=== PATIENT | female | born 1955 | race Caucasian/White ===

== ENCOUNTER → 2017-12-08 11:26 | Outpatient (CLI) | payer OTHER, SELFPAY ==
--- NOTE | 2017-12-08 11:32 | RAD_ITS ---
STUDY: X-RAY - PELVIS AND BILATERAL HIPS REASON FOR EXAM: Female, 62 years old. Bilateral hip pain. TECHNIQUE: Radiological exam, hip, bilateral, with pelvis when performed; minimum of 5 views COMPARISON: None. FINDINGS: There is a non-specific bowel gas pattern. There are multiple calcified phleboliths. Normal bilateral iliac wings, sacroiliac joints and visualized sacrum. Normal bilateral superior and inferior pubic rami. Normal pubic symphysis. Normal bilateral ischial tuberosities. Normal visualized right femoral head. Normal right acetabulum. Normal right hip joint. Normal visualized left femoral head. Normal left acetabulum. Normal left hip joint. RAD/Hips B/L min 2 views w/ Pelvis IMPRESSION: Normal x-ray examination of the pelvis and bilateral hips. Electronically Signed: Luke Hernandez MD at 13:35 EST Tel [phone], Service support ,
--- NOTE | 2017-12-08 11:32 | RAD_ITS ---
STUDY: X-RAY - LUMBAR SPINE REASON FOR EXAM: Female, 62 years old. Bilateral hip pain. TECHNIQUE: view(s) of the lumbar spine were obtained. COMPARISON: None FINDINGS: Normal lumbar lordosis. There is no substantial scoliosis. Minimal anterior listhesis of L4 on L5. No evidence of spondylolysis. Normal vertebral bodies and endplates. Moderate degree of disc space narrowing at the L4-L5 level. Facet joint osteoarthritis. The soft tissue structures are unremarkable. RAD/L/S Spine Min 4 Views IMPRESSION: Minimal anterior listhesis of L4 on L5 without spondylolysis most likely secondary to facet joint osteoarthritis. Electronically Signed: Luke Hernandez MD at 13:37 EST Tel [phone], Service support ,
[2017-12-08 14:18] LABS: Anion Gap 8 (5-15); BUN 10 mg/dL (7-18); BUN/Creat Ratio 16.8 RATIO (10-20); Calcium,Total 9.1 mg/dL (8.5-10.1); Chloride 102 mmol/L (98-107); EST Glomerular Filtration Rate 108 mL/min (>60); Est Glom Filt Rate - Afr Amer 130 mL/min (>60); Glucose 80 mg/dL (74-106); Potassium 3.2 mmol/L (3.5-5.1); Sodium Level 139 mmol/L (136-145)
== END ==
PROVIDERS: Family Provider Family Medicine; PCP Family Medicine; Visit Provider Family Medicine
DX: M25.551 Pain in right hip (principal); M25.552 Pain in left hip; E11.9 Type 2 diabetes mellitus without complications
CPT/HCPCS: 36415; 72110; 73521; 80048

== ENCOUNTER → 2017-12-16 09:43 | Outpatient (CLI) | payer OTHER, SELFPAY ==
[2017-12-16 12:39] LABS: BUN 13 mg/dL (7-18); Creatinine, Serum 0.59 mg/dL (0.55-1.02); Glucose 86 mg/dL (74-106)
[2017-12-16 12:40] LABS: Anion Gap 6 (5-15); Calcium,Total 8.9 mg/dL (8.5-10.1); Chloride 102 mmol/L (98-107); EST Glomerular Filtration Rate 109 mL/min (>60); Est Glom Filt Rate - Afr Amer 132 mL/min (>60); Potassium 3.5 mmol/L (3.5-5.1); Sodium Level 138 mmol/L (136-145)
== END ==
PROVIDERS: Family Provider Family Medicine; PCP Family Medicine; Visit Provider Family Medicine
DX: E87.6 Hypokalemia (principal)
CPT/HCPCS: 36415; 80048

== ENCOUNTER → 2019-03-01 | Outpatient (CLI) | payer MEDICARE, SELFPAY ==
[2019-03-01 18:09] LABS: Hematocrit 44.1 % (37-47); Hemoglobin 14.5 g/dl (12.0-15.0); Mean Corp Hgb Conc 32.9 g/gl (32-36); Mean Corpuscular Hgb 28.9 pg (27.0-32.0); Mean Platelet Vol. 9.6 fl (6.2-12.0); Platelet Count 330 K/mm3 (150-450); RBC Distribution Width CV 15.3 % (11.6-14.6); RBC Distribution Width SD 49.6 fl (35.1-43.9); Red Blood Count 5.01 M/mm3 (4.2-5.4); White Blood Count 9.9 K/mm3 (4.4-11.0)
[2019-03-01 18:11] LABS: Scan Indicated on CBC? Y/N NO
[2019-03-01 18:23] LABS: Erythrocyte Sedimentation Rate 18 mm/hr (0-30)
[2019-03-01 18:37] LABS: ALB/GLOB Ratio 1.2 RATIO (0.9-2.4); AST(SGOT) 17 U/L (15-37); Alanine Aminotransfer ALT/SGPT 34 U/L (13-56); Albumin, Serum 3.8 g/dL (3.2-5.0); Alkaline Phosphatase 129 U/L (45-117); Anion Gap 6 (5-15); BUN 13 mg/dL (7-18); BUN/Creat Ratio 20.2 RATIO (10-20); Calcium,Total 8.9 mg/dL (8.5-10.1); Chloride 104 mmol/L (98-107); Creatinine, Serum 0.64 mg/dL (0.55-1.02); EST Glomerular Filtration Rate 98 mL/min (>60); Est Glom Filt Rate - Afr Amer 119 mL/min (>60); Globulin 3.2 g/dL (2.2-4.2); Glucose 65 mg/dL (74-106); Iron 66 ug/dL (50-170); Potassium 3.5 mmol/L (3.5-5.1); Sodium Level 140 mmol/L (136-145); Thyroid Stim Hormone (TSH) 2.65 uIU/mL (0.358-3.74)
[2019-03-01 18:55] LABS: Vitamin B12 756 pg/mL (211-911); Vitamin D,25 Hydroxy 18.4 ng/mL (29.95-100.01)
== END | disposition home or self-care (01) ==
PROVIDERS: Family Provider Family Medicine; PCP Family Medicine; Referring Provider Family Medicine; Visit Provider Family Medicine
DX: R53.83 Other fatigue (principal)
CPT/HCPCS: 36415; 80053; 82306; 82607; 83540; 84443; 85027; 85652

== ENCOUNTER → 2019-03-13 | Outpatient (CLI) | payer MEDICARE, OTHER, SELFPAY ==
--- NOTE | 2019-03-13 08:40 | US_ITS ---
PROCEDURES: ULTRASOUND AORTA REASON FOR EXAM: Female, 63 years old. AAA SCREENING CURRENT SMOKER TECHNIQUE: Ultrasound evaluation of the aorta was performed with real-time and static merino-scale imaging. COMPARISON: None. FINDINGS: There is no elongation or tortuosity of the abdominal aorta. Aorta measures: Proximal 2.3 cm. Middle 1.7 cm. Distal 1.5 cm. Aorta measure transversely: Proximal 2.3 cm. Middle 2.0 cm. Distal 1.8 cm. Right iliac artery measures: 0.8 cm. Right iliac artery measure transversely: 1.1 cm. Left iliac artery measures: 1.0 cm. Left iliac artery measure transversely: 1.0 cm. There is no demonstrated aneurysm.. US/Aorta IMPRESSION: Normal abdominal aorta. Electronically Signed: Nelson Matias MD at 17:17 EDT , Service support ,
== END | disposition home or self-care (01) ==
LOC: US 08:38
PROVIDERS: Family Provider Family Medicine; PCP Family Medicine; Referring Provider Family Medicine; Visit Provider Family Medicine
DX: I10 Essential (primary) hypertension (principal); Z13.6 Encounter for screening for cardiovascular disorders
CPT/HCPCS: 76775

== ENCOUNTER → 2019-03-16 | Outpatient (CLI) | payer MEDICARE, OTHER, SELFPAY ==
--- NOTE | 2019-03-16 06:40 | CT_ITS ---
STUDY: LOW DOSE CT LUNG CANCER SCREENING REASON FOR EXAM: Female, 63 years old. Low dose lung screening. Tobacco abuse. 44 years, 1.5 pack per day RADIATION DOSAGE (If Supplied By Facility): CTDIvol = ( 4.02 ) mGy, DLP = ( 130.39 ) mGycm Individualized dose optimization techniques were used for this CT. TECHNIQUE: No contrast was administered. Low dose technique was utilized (average mAS-38 and kVp 120). Thin slice transaxial CT imaging of the chest. Coronal and sagittal 2-D MPR Nodule measured using lung windows on PACS and/or independent workstation with automated measurement of minimum and maximum diameter. Nodule measurement reported as average diameter rounded to the nearest whole number. Growth is defined as an increase ins size of greater than 1.5 mm. COMPARISON: X-ray chest 04/08/2014. FINDINGS: Total lung nodules (excluding granulomas): There are multiple small scattered pulmonary nodules. The largest pulmonary nodule lies within the right lung, axial series 2 image 73, 5 mm. More prominent in the apical lungs, there are several scattered foci of tiny minimally spiculated nodule suggesting sequela prior infectious process. Emphysema: Generalized hyperlucency, mild features of centrilobular emphysema at the apices. Endobronchial lesion: None. Aorta: Nondilated. Coronary arteries: There are no visible coronary calcifications. Heart: No cardiomegaly. Slender pericardial fluid is likely physiologic. Pulmonary artery: Nondilated. Mediastinal nodes: Normal esophagus. No apparent lymphadenopathy. A few small metastatic lymph nodes are present. Not pathologically enlarged. Other chest and abdominal findings: There is evidence of hepatic steatosis with hepatomegaly. Body wall soft tissues and osseous structures exhibit no acute process. CT/Low Dose CT Lung Screening IMPRESSION: There are scattered small solid pulmonary nodules the largest measuring 5 mm. There are multiple tiny spiculated nodular foci predominantly in the apical lungs suggesting sequela/scarring from prior infection. The largest of these also measures about 5 mm. Features of COPD with mild features of centrilobular emphysema the apices. There is evidence of hepatic steatosis with hepatomegaly. ACR lung RADS category 2, benign features. Recommendation, continue annual low-dose CT chest screening in 1 year. IMPORTANT NOTES FOR USE: ACR Lung-RADS Version 1.0 Assessment Categories Release Date: February 18, 2014 Category: Coded 0-4 bases on nodule(s) with highest degree of suspicion. Negative screen is defined as categories 1 and 2; a positive screen is defined as categories 3 and 4. Category 3 and 4A nodules that are unchanged on interval CT should be coded as category 2, and individuals returned to screening in 12 months. Category 4X: Category 3 or 4 nodules with additional imaging findings that increase the suspicion of lung cancer, such as spiculation, GGN that doubles in size in 1 year, enlarged lymph notes, etc. Category Modifiers: S (significant finding unrelated to lung cancer) and C (prior history of treated lung cancer) may be added to the 0-4 Lung-RADS Electronically Signed: Jigar Villalta MD at 17:01 EDT Tel , Service support ,
== END | disposition home or self-care (01) ==
LOC: CT 06:36
PROVIDERS: Family Provider Family Medicine; PCP Family Medicine; Referring Provider Family Medicine; Visit Provider Family Medicine
DX: Z87.891 Personal history of nicotine dependence (principal)
CPT/HCPCS: G0297

== ENCOUNTER → 2019-04-03 | Outpatient (CLI) | payer MEDICARE, OTHER, SELFPAY | END | disposition home or self-care (01) | LOC: LABSPEC 14:00 | PROVIDERS: Family Provider Family Medicine; PCP Family Medicine; Referring Provider Family Medicine; Visit Provider Family Medicine | DX: R19.7 Diarrhea, unspecified (principal) | CPT/HCPCS: 82274; 83630; 87177; 87209; 87493 ==

== ENCOUNTER → 2019-08-17 11:51 | Outpatient (CLI) | payer MEDICARE, OTHER, SELFPAY ==
--- NOTE | 2019-08-17 11:56 | RAD_ITS ---
STUDY: X-RAY - UNILATERAL RIBS ( LEFT ) WITH CHEST REASON FOR EXAM: Female, 63 years old. Left-sided rib pain after carrying groceries. TECHNIQUE - RIBS: 4 view(s) of the ribs. TECHNIQUE - CHEST: Single AP portable view of the chest. COMPARISON: None. FINDINGS - RIBS: Normal visualized ribs without a demonstrated fracture. FINDINGS - CHEST: The lungs are clear and slightly underexpanded. There is no demonstrated pleural abnormality. Normal size heart. Normal mediastinum and janes. Normal visualized pulmonary arteries. There is atherosclerotic calcification of the aortic arch with tortuosity. There are diffuse degenerative changes of the visualized thoracic spine. There is degenerative osteoarthritis of the bilateral shoulders. There is no demonstrated abnormality of the visualized soft tissue structures of the upper abdomen. RAD/Ribs Uni Min 3V w/PA Chest IMPRESSION: RIBS: Unremarkable x-ray examination of the ribs with no distinct fracture. CHEST: No acute cardiopulmonary disease. Electronically Signed: Samira Fletcher MD at 0:44 EDT , Service support ,
== END ==
PROVIDERS: Family Provider Family Medicine; PCP Family Medicine; Referring Provider Family Medicine; Visit Provider Family Medicine
DX: R07.81 Pleurodynia (principal)
CPT/HCPCS: 71101

== ENCOUNTER → 2019-09-04 09:34 | Outpatient (CLI) | payer MEDICARE, OTHER, SELFPAY ==
[2019-09-04 13:20] LABS: AST(SGOT) 17 U/L (15-37); Alanine Aminotransfer ALT/SGPT 35 U/L (13-56); Albumin, Serum 3.7 g/dL (3.2-5.0); Alkaline Phosphatase 116 U/L (45-117); Anion Gap 8 (5-15); BUN 18 mg/dL (7-18); BUN/Creat Ratio 20.9 RATIO (10-20); Calcium,Total 9.1 mg/dL (8.5-10.1); Chloride 104 mmol/L (98-107); Cholesterol 153 mg/dL (200); Creatinine, Serum 0.86 mg/dL (0.55-1.02); EST Glomerular Filtration Rate 70 mL/min (>60); Est Glom Filt Rate - Afr Amer 85 mL/min (>60); Globulin 3.7 g/dL (2.2-4.2); Glucose 113 mg/dL (74-106); High Density Lipoprotein 73 mg/dL; Potassium 4.4 mmol/L (3.5-5.1); Protein, Total 7.4 g/dL (6.4-8.2); Sodium Level 136 mmol/L (136-145); Thyroid Stim Hormone (TSH) 3.49 uIU/mL (0.358-3.74); Triglycerides 123 mg/dL; Very Low Density Lipoprotein 25 mg/dL (5-40)
== END ==
PROVIDERS: Family Provider Family Medicine; PCP Family Medicine; Referring Provider Family Medicine; Visit Provider Family Medicine
DX: E11.9 Type 2 diabetes mellitus without complications (principal)
CPT/HCPCS: 36415; 80053; 80061; 84443

== ENCOUNTER → 2020-03-20 10:21 | Outpatient (CLI) | payer MEDICARE, OTHER, SELFPAY ==
--- NOTE | 2020-03-20 10:24 | BI_ITS ---
MAMMOGRAPHY - BILATERAL SCREENING REASON FOR EXAM: Female, 64 years old. Routine annual screening examination. PERTINENT HISTORY: Non-contributory. TECHNIQUE: Digital bilateral breast kady (3D mammographic acquisition) in the CC and MLO projections. 2-D mediolateral oblique (MLO) and craniocaudad (CC) views of both breasts were obtained. CAD: Full Field Digital Mammography with Computer Added Detection was performed. COMPARISON: Comparison is made with prior examination dated December 01, 2016 and September 26, 2014. FINDINGS: Breast Composition: There are scattered areas of fibroglandular density. There are no dominant masses or suspicious calcifications. Stable benign-appearing bilateral axillary lymph nodes. No other significant abnormalities are identified. There has been no significant change since the prior study. BI/SCREEN MAMM (CAD) W/KADY BILAT IMPRESSION: Stable bilateral screening mammogram. Yearly follow-up mammogram recommended. (A) ASSESSMENT CATEGORY: BIRADS Category 2: Benign. A letter regarding these results will be sent to the patient by the facility within 30 days. Approximately 10% of breast cancers are not detected by mammography. A normal mammogram should not delay biopsy of a clinically suspicious abnormality. [id number] Electronically Signed: Luke Hernandez, at 12:50 EDT , Service support ,
== END ==
PROVIDERS: PCP Family Medicine; Referring Provider Family Medicine; Visit Provider Family Medicine
DX: Z00.00 Encounter for general adult medical examination without abnormal findings (principal); Z12.31 Encounter for screening mammogram for malignant neoplasm of breast
CPT/HCPCS: 77063; 77067

== ENCOUNTER → 2020-07-25 13:33 | Outpatient (CLI) | payer MEDICARE, OTHER, SELFPAY ==
--- NOTE | 2020-07-25 13:37 | CT_ITS ---
STUDY: LOW DOSE CT LUNG CANCER SCREENING REASON FOR EXAM: Female, 64 years old. LUNG SCREENING, SMOKER X 47 YRS-2 PPD, ASTHMA RADIATION DOSAGE (If Supplied By Facility): CTDIvol = ( 4.02 ) mGy, DLP = ( 119.33 ) mGycm TECHNIQUE: No contrast was administered. Low dose technique was utilized (average mAS-38 and kVp 120). 1.25 mm axial source images with a slice interval of 1.25-mm were reconstructed in lung windows. 2.5 mm axial source images with a slice interval of 2.5-mm were reconstructed in lung windows. 5.0 mm axial source images with a slice interval of 5.0-mm were reconstructed in soft tissue windows. Nodule measured using lung windows on PACS and/or independent workstation with automated measurement of minimum and maximum diameter. Nodule measurement reported as average diameter rounded to the nearest whole number. Growth is defined as an increase ins size of greater than 1.5 mm. COMPARISON: Comparison is made with prior examination dated 03/16/2019. NODULES: There are stable small multiple pulmonary nodules. The largest measures 5 mm. Emphysema: Diffuse emphysematous changes more prominent in the upper lobes. Endobronchial lesion: None Aorta: Unremarkable Coronary arteries: Coronary artery calcification. Heart: Unremarkable. Pulmonary artery: Nondilated Mediastinal nodes: Small mediastinal lymph nodes. Other chest and abdominal findings: CT/Low Dose CT Lung Screening IMPRESSION: Lung-RADS category 2 - Continue annual screening with LDCT in 12 months. IMPORTANT NOTES FOR USE: ACR Lung-RADS Version 1.0 Assessment Categories Release Date: February 18, 2014 Category: Coded 0-4 bases on nodule(s) with highest degree of suspicion. Negative screen is defined as categories 1 and 2; a positive screen is defined as categories 3 and 4. Category 3 and 4A nodules that are unchanged on interval CT should be coded as category 2, and individuals returned to screening in 12 months. Category 4X: Category 3 or 4 nodules with additional imaging findings that increase the suspicion of lung cancer, such as spiculation, GGN that doubles in size in 1 year, enlarged lymph notes, etc. Category Modifiers: S (significant finding unrelated to lung cancer) and C (prior history of treated lung cancer) may be added to the 0-4 Lung-RADS Electronically Signed: Luke Hernandez, at 14:13 EDT , Service support ,
== END ==
PROVIDERS: PCP Family Medicine; Referring Provider Internal Medicine Pulmonary Disease; Visit Provider Internal Medicine Pulmonary Disease
DX: Z87.891 Personal history of nicotine dependence (principal)
CPT/HCPCS: G0297

== ENCOUNTER → 2020-09-02 10:23 | Outpatient (CLI) | payer MEDICARE, OTHER, SELFPAY ==
[2020-09-02 12:46] LABS: Vitamin B12 1887 pg/mL (211-911); Vitamin D,25 Hydroxy 33.1 ng/mL
[2020-09-02 12:47] LABS: ALB/GLOB Ratio 0.9 RATIO (0.9-2.4); AST(SGOT) 18 U/L (15-37); Alanine Aminotransfer ALT/SGPT 36 U/L (13-56); Albumin, Serum 3.6 g/dL (3.2-5.0); Alkaline Phosphatase 135 U/L (45-117); Anion Gap 6 (5-15); BUN 9 mg/dL (7-18); BUN/Creat Ratio 13.8 RATIO (10-20); Calcium,Total 8.8 mg/dL (8.5-10.1); Chloride 104 mmol/L (98-107); Creatinine, Serum 0.65 mg/dL (0.55-1.02); EST Glomerular Filtration Rate 96 mL/min (>60); Est Glom Filt Rate - Afr Amer 117 mL/min (>60); Globulin 3.9 g/dL (2.2-4.2); Glucose 145 mg/dL (74-106); Potassium 3.6 mmol/L (3.5-5.1); Protein, Total 7.5 g/dL (6.4-8.2); Sodium Level 137 mmol/L (136-145); Thyroid Stim Hormone (TSH) 2.98 uIU/mL (0.358-3.74)
== END ==
PROVIDERS: PCP Family Medicine; Referring Provider Family Medicine; Visit Provider Family Medicine
DX: E11.9 Type 2 diabetes mellitus without complications (principal); E53.8 Deficiency of other specified B group vitamins; E55.9 Vitamin D deficiency, unspecified
CPT/HCPCS: 36415; 80053; 82306; 82607; 84443

== ENCOUNTER → 2021-03-31 14:37 | Outpatient (CLI) | payer MEDICARE, SELFPAY ==
--- NOTE | 2021-03-31 14:41 | RAD_ITS ---
STUDY: X-RAY - RIGHT FOOT CLINICAL: Female, 65 years old. PAIN TECHNIQUE: 3 view(s) of the foot. COMPARISON: None. FINDINGS: Normal talus, calcaneus, and tarsal bones. Normal visualized subtalar, talonavicular, calcaneocuboid, tarsal and tarsometatarsal articulations. Normal metatarsi. Normal metatarsophalangeal joint of the great toe. Normal tibial and fibular sesamoid bones. Normal interphalangeal joint of the great toe. Normal phalanges of the great toe. Normal second through fifth metatarsophalangeal joints. Normal interphalangeal joints and phalanges of the lesser toes. The soft tissue structures are unremarkable. RAD/Foot min 3 Views IMPRESSION: Normal x-ray examination of the foot. Electronically Signed: Zaid Kenyon MD at 15:03 EDT , Service support ,
== END ==
LOC: MTLAB 14:39 → MTRAD 14:43
PROVIDERS: PCP Family Medicine; Referring Provider Family Medicine; Visit Provider Family Medicine
DX: M79.671 Pain in right foot (principal)
CPT/HCPCS: 73630

== ENCOUNTER → 2021-04-01 09:20 | Outpatient (CLI) | payer MEDICARE, SELFPAY ==
[2021-04-01 12:41] LABS: Anion Gap 6 (5-15); BUN 9 mg/dL (7-18); BUN/Creat Ratio 14.1 RATIO (10-20); Calcium,Total 9.1 mg/dL (8.5-10.1); Chloride 107 mmol/L (98-107); Cholesterol 133 mg/dL (200); Creatinine, Serum 0.64 mg/dL (0.55-1.02); EST Glomerular Filtration Rate 98 mL/min (>60); Est Glom Filt Rate - Afr Amer 119 mL/min (>60); Glucose 101 mg/dL (74-106); High Density Lipoprotein 65 mg/dL; Potassium 3.8 mmol/L (3.5-5.1); Sodium Level 142 mmol/L (136-145); Triglycerides 83 mg/dL; Very Low Density Lipoprotein 17 mg/dL (5-40)
== END ==
PROVIDERS: PCP Family Medicine; Referring Provider Family Medicine; Visit Provider Family Medicine
DX: E11.9 Type 2 diabetes mellitus without complications (principal)
CPT/HCPCS: 36415; 80048; 80061

== ENCOUNTER → 2021-04-14 10:57 | Outpatient (CLI) | payer MEDICARE, SELFPAY ==
--- NOTE | 2021-04-14 11:00 | BI_ITS ---
MAMMOGRAPHY - BILATERAL SCREENING 3-D TOMOSYNTHESIS REASON FOR EXAM: Female, 65 years old. SCREENING PERTINENT HISTORY: No significant family history. TECHNIQUE: 2-D mammograms and 3-D Tomosynthesis of the breast (s) were performed. CAD was performed. COMPARISON: 03/20/2020 FINDINGS: The breast composition is of scattered fibroglandular tissue Scattered benign calcifications are seen. No dense spiculated masses or suspicious microcalcifications are identified. No architectural distortion is identified. There is no skin thickening or retraction. There has been no significant change since the prior study of 03/20/2020. BI/SCREENING MAMM (CAD), BILAT IMPRESSION: No mammographic signs of malignancy. Routine yearly mammograms recommended. ASSESSMENT CATEGORY: BIRADS Category 1: Negative. A letter regarding these results will be sent to the patient by the facility within 30 days. FOLLOW UP RECOMMENDATION: Yearly follow up mammogram recommended. (A) Approximately 10% of breast cancers are not detected by mammography. A normal mammogram should not delay biopsy of a clinically suspicious abnormality. Electronically Signed: Marylou Villeda, at 13:51 EDT Tel , Service support ,
== END ==
PROVIDERS: PCP Family Medicine; Referring Provider Nurse Practitioner Family; Visit Provider Nurse Practitioner Family
DX: Z12.31 Encounter for screening mammogram for malignant neoplasm of breast (principal)
CPT/HCPCS: 77067

== ENCOUNTER → 2022-03-30 | Outpatient (CLI) | payer MEDICARE, SELFPAY ==
--- NOTE | 2022-03-30 07:20 | CT_ITS ---
STUDY: LOW DOSE CT LUNG CANCER SCREENING REASON FOR EXAM: Female, 66 years old. TOBACCO USE. Patient smoked 3 packs per day for 49 years. RADIATION DOSAGE (If Supplied By Facility): CTDIvol = ( 4.02 ) mGy, DLP = ( 121.34 ) mGycm TECHNIQUE: No contrast was administered. Low dose technique was utilized (average mAS-38 and kVp 120). 1.25 mm axial source images with a slice interval of 1.25-mm were reconstructed in lung windows. 2.5 mm axial source images with a slice interval of 2.5-mm were reconstructed in lung windows. 5.0 mm axial source images with a slice interval of 5.0-mm were reconstructed in soft tissue windows. COMPARISON: Comparison is made with prior study dated 07/25/2020. NODULES: Stable small scattered bilateral pulmonary nodules. Emphysema: Hyperinflation. Emphysematous changes. Stable linear scarring at the lung bases. Endobronchial lesion: None Aorta: Unremarkable CORONARY ARTERIES: Coronary artery calcification is seen. Heart: Unremarkable. Pulmonary artery: Unremarkable Mediastinal nodes: Small mediastinal lymph nodes. Other chest and abdominal findings: CT/Low Dose CT Lung Screening IMPRESSION: Lung-RADS category 2 - Continue annual screening with LDCT in 12 months. IMPORTANT NOTES FOR USE: ACR Lung-RADS Version 1.1 Assessment Categories Release Date: 2018 Category: Coded 0-4 bases on nodule(s) with highest degree of suspicion. Negative screen is defined as categories 1 and 2; a positive screen is defined as categories 3 and 4. Category 3 and 4A nodules that are unchanged on interval CT should be coded as category 2, and individuals returned to screening in 12 months. Category 4X: Category 3 or 4 nodules with additional imaging findings that increase the suspicion of lung cancer, such as spiculation, GGN that doubles in size in 1 year, enlarged lymph notes, etc. Category Modifiers: S (significant finding unrelated to lung cancer) Electronically Signed: Luke Hernandez MD at 9:43 EDT ,
== END | disposition home or self-care (01) ==
PROVIDERS: PCP Family Medicine; Referring Provider Family Medicine; Visit Provider Family Medicine
DX: F17.210 Nicotine dependence, cigarettes, uncomplicated (principal)
CPT/HCPCS: 71271

== ENCOUNTER → 2022-04-20 | Outpatient (CLI) | payer MEDICARE, SELFPAY ==
--- NOTE | 2022-04-20 10:28 | BI_ITS ---
MAMMOGRAPHY - BILATERAL SCREENING REASON FOR EXAM: Female, 66 years old. Routine annual screening examination. PERTINENT HISTORY: Non-contributory. TECHNIQUE: Digital bilateral breast kady (3D mammographic acquisition) in the CC and MLO projections. 2-D mediolateral oblique (MLO) and craniocaudad (CC) views of both breasts were obtained. CAD: Full Field Digital Mammography with Computer Added Detection was performed. COMPARISON: Comparison is made with prior study dated 04/14/2021 and 03/20/2020. FINDINGS: Breast Composition: There are scattered areas of fibroglandular density. There are no dominant masses or suspicious calcifications. Stable benign-appearing bilateral axillary. No other significant abnormalities are identified. There has been no significant change since the prior study. BI/SCRN MAMM (CAD)W/KADY BILAT IMPRESSION: Stable bilateral screening mammogram. Yearly follow-up mammogram recommended. (A) ASSESSMENT CATEGORY: BIRADS Category 2: Benign. A letter regarding these results will be sent to the patient by the facility within 30 days. Approximately 10% of breast cancers are not detected by mammography. A normal mammogram should not delay biopsy of a clinically suspicious abnormality. [id number] Electronically Signed: Luke Hernandez MD at 11:51 EDT ,
--- NOTE | 2022-04-20 10:31 | BD_ITS ---
STUDY: DUAL ENERGY X-RAY ABSORPTIOMETRY / DXA REASON FOR EXAM: Female, 66 years old. [id number]. The patient is postmenopausal. TECHNIQUE: Bone Mineral Density (BMD) measurements of lumbar spine and bilateral hips were obtained. COMPARISON: Comparison is made with prior study dated 09/06/2013. FINDINGS: Lumbar Spine (L1-L4): g/cm2 (0.863) / T-score (-2.2) / Z-score (0.0) Findings are suggestive of osteopenia with a high fracture risk. Left Femur Total: g/cm2 (0.872) / T-score (-0.6) / Z-score (0.8) Left Femoral Neck: g/cm2 (0.595) / T-score (-2.3) / Z-score (-0.6) Right Femur Total: g/cm2 (0.841) / T-score (-0.8) / Z-score (0.6) Right Femoral Neck: g/cm2 (0.646) / T-score (-1.8) / Z-score (-0.1) The T-Scores on the most recent prior examination were: Lumbar Spine (L1-L4): There has been worsening of bone density since the previous examination. Left Femur Total: which represents an improvement of 0.4%. Right Femur Total: which represents a worsening of 6.7%. BD/Dexa Bone Density Study IMPRESSION: The patient is considered osteopenic as outlined below according to World [employer] Organization (WHO) criteria with a high fracture risk. There has been worsening of bone density since the previous examination. Reference Information: The T-score is the number of standard deviations above or below the standard which is normal for young adults at their peak bone mineral density. The World Health Organization (WHO) interprets the T-scores as follows: Above -1 Normal bone density Between -1 and -2.5 Osteopenia Equal to / or below -2.5 Osteoporosis As a practical clinical guideline, osteopenia may be graded as follows: Mild -1 through -1.5 Moderate -1.6 through -2.0 Severe -2.1 through -2.4 The Z-score is the number of standard deviations above or below age-matched controls. A Z-score of less than -1.5 would be considered abnormal. References: 1. NIH Osteoporosis and Related Bone Diseases www osteo.org 2. International Society for Clinical Densitometry www iscd.org 3. National Osteoporosis Foundation www nof.org Electronically Signed: Luke Hernandez MD at 10:03 EDT ,
== END | disposition home or self-care (01) ==
LOC: OPBD 10:26
PROVIDERS: PCP Family Medicine; Visit Provider Family Medicine
DX: Z00.00 Encounter for general adult medical examination without abnormal findings (principal); Z12.31 Encounter for screening mammogram for malignant neoplasm of breast; Z78.0 Asymptomatic menopausal state
CPT/HCPCS: 77063; 77067; 77080

== ENCOUNTER → 2022-05-14 | Outpatient (CLI) | payer MEDICARE, SELFPAY ==
[2022-05-14 10:14] LABS: Absolute Lymphocyte Count 2.58 X10^3/uL (0.83-4.51); Absolute Neutrophil Count 9.3 X10^3/uL (2.0-7.7); Basophil# 0.05 X10^3/uL; Basophil% 0.4 % (0-1); Eosinophil# 0.09 X10^3/uL; Eosinophils% 0.7 % (0-5); Hematocrit 44.9 % (37-47); Hemoglobin 14.7 g/dL (12.0-15.0); Lymphocyte # 2.58 X10^3/ul (0.83-4.51); Lymphocyte % 20.1 % (19-41); Mean Corp Hgb Conc 32.7 g/dL (32-36); Mean Corpuscular Hgb 29.9 pg (27.0-32.0); Mean Corpuscular Volume 91.4 fL (81-99); Mean Platelet Vol. 9.3 fl (6.2-12.0); Monocyte% 5.5 % (0-10); NRBC Flagged by Analyzer 0 % (0-5); Neutrophil # 9.32 X10^3/uL (2.7-7.7); Neutrophil % 72.8 % (47-70); Platelet Count 310 K/mm3 (150-450); RBC Distribution Width CV 13.8 % (11.6-14.6); RBC Distribution Width SD 46.4 fl (35.1-43.9); Red Blood Count 4.91 M/mm3 (4.2-5.4); White Blood Count 12.8 K/mm3 (4.4-11.0)
[2022-05-14 10:43] LABS: Erythrocyte Sedimentation Rate 12 mm/hr (0-30)
[2022-05-14 10:51] LABS: AST(SGOT) 16 U/L (15-37); Alanine Aminotransfer ALT/SGPT 35 U/L (13-56); Albumin, Serum 3.7 g/dL (3.2-5.0); Alkaline Phosphatase 108 U/L (45-117); Anion Gap 6 (5-15); BUN 14 mg/dL (7-18); BUN/Creat Ratio 18.4 RATIO (10-20); CRP 5.64 mg/L (0.0-3.0); Calcium,Total 9.5 mg/dL (8.5-10.1); Chloride 106 mmol/L (98-107); Creatinine, Serum 0.76 mg/dL (0.55-1.02); EST Glomerular Filtration Rate 80 mL/min (>60); Est Glom Filt Rate - Afr Amer 97 mL/min (>60); Globulin 3.7 g/dL (2.2-4.2); Glucose 153 mg/dL (74-106); LDH 149 U/L (84-246); Potassium 3.3 mmol/L (3.5-5.1); Protein, Total 7.4 g/dL (6.4-8.2); Sodium Level 137 mmol/L (136-145)
[2022-05-15 17:07] LABS: Anti-Centromere B Ab <0.2 AI (0.0-0.9); Anti-Chromatin <0.2 AI (0.0-0.9); Anti-Jo <0.2 AI (0.0-0.9); Anti-Scleroderma-70 AB <0.2 AI (0.0-0.9); RNP Ab <0.2 AI (0.0-0.9); SJOGREN'S Anti-SS-A test < 0.2 AI (0.0-0.9); SJOGREN'S Anti-SS-B test < 0.2 AI (0.0-0.9); Smith Ab <0.2 AI (0.0-0.9)
[2022-05-16 08:27] LABS: Anti-dsDNA Ab <1 IU/mL (0-9)
[2022-05-17 13:07] LABS: Endomysial Antibody IgA Negative (Negative)
[2022-05-17 16:08] LABS: Immunoglobulin A 177 mg/dL (87-352); t-Transglutaminase IgA <2 U/mL (0-3)
[2022-05-19 19:06] LABS: Albumin 3.6 g/dL (2.9-4.4); Alpha-1-Globulins 0.3 g/dL (0.0-0.4); Alpha-2-Globulins 0.8 g/dL (0.4-1.0); Cytoplasmic Ab (C-ANCA) <1:20 titer (Neg:<1:20); Immunoglobulin A 179 mg/dL (87-352); Immunoglobulin E 338 IU/mL (6-495); Immunoglobulin G 895 mg/dL (586-1602); Immunoglobulin M 50 mg/dL (26-217); PROEL- TOTAL PROTEIN 6.9 g/dL (6.0-8.5)
[2022-05-19 20:02] LABS: IMMUNOFIXATION RESULT,S Comment: (.); Perinuclear Ab (P-ANCA) <1:20 titer (Neg:<1:20)
== END | disposition home or self-care (01) ==
LOC: LAB 09:17
PROVIDERS: PCP Family Medicine; Referring Provider Nurse Practitioner Adult Health; Visit Provider Nurse Practitioner Adult Health
DX: K52.9 Noninfective gastroenteritis and colitis, unspecified (principal)
CPT/HCPCS: 36415; 80053; 82784; 82785; 83516; 83615; 84165; 85025; 85652; 86140; 86225; 86235; 86255; 86256; 86334

== ENCOUNTER → 2022-06-02 | Outpatient (CLI) | payer MEDICARE, SELFPAY ==
[2022-06-06 20:17] LABS: Calprotectin, Stool <16 ug/g (0-120)
== END | disposition home or self-care (01) ==
PROVIDERS: PCP Family Medicine; Visit Provider Nurse Practitioner Adult Health
DX: K58.9 Irritable bowel syndrome, unspecified (principal); R19.7 Diarrhea, unspecified
CPT/HCPCS: 82653; 83630; 83993; 87177; 87209; 87493; 87506

== ENCOUNTER → 2022-06-11 | Outpatient (CLI) | payer MEDICARE, SELFPAY ==
--- NOTE | 2022-06-11 06:06 | CT_ITS ---
STUDY: CT ABDOMEN AND PELVIS WITH CONTRAST REASON FOR EXAM: Female, 66 years old. Lower abd pain, chronic diarrhea -- oral and iv RADIATION DOSAGE (If Supplied By Facility): CTDIvol = ( 18.70 ) mGy, DLP = ( 1159.48 ) mGycm TECHNIQUE: Transaxial images were obtained from the dome of the diaphragm to the symphysis pubis with oral contrast. Oral and amp; IV Gastrografin and amp; 100mL Isovue-300 was administered. Sagittal and coronal images were reconstructed. Individualized dose optimization techniques were used for this CT. COMPARISON: None. FINDINGS: Mild degree of linear scarring at the lung bases. Coronary artery calcification. Minimal degree of anterior pericardial thickening. There is decreased attenuation of the liver consistent with steatosis. Mild hepatomegaly. The patient is status post cholecystectomy. Normal spleen. Normal pancreas. Normal bilateral adrenal glands. Normal right kidney. There is a 1.2 cm cyst in the upper pole of the left kidney. There is a small hiatal hernia. Normal small intestine. There are multiple colonic diverticula consistent with diverticulosis. The appendix is visualized and appears normal. There is scattered atherosclerotic calcification of the abdominal aorta, without a demonstrated aneurysm. Normal inferior vena cava. There is borderline retroperitoneal lymphadenopathy with enlarged nodes no greater than 10mm in the short axis diameter. Normal urinary bladder. There is a small umbilical hernia containing fat. The patient is status post anterior ventral hernia repair with a mesh. The inferior aspect of the mesh is folded upon itself. Within the mesh there is a 4.2 cm x 1.4 cm fluid collection. There are degenerative changes of the visualized lumbar spine. CT/Abdomen/Pelvis WITH Contrast IMPRESSION: Mild hepatomegaly and fatty infiltration of the liver. Small left renal cyst. Status post anterior ventral hernia repair with residual small umbilical hernia. The inferior aspect of the mesh is folded upon itself with fluid collection within. Sigmoid diverticulosis. Electronically Signed: Luke Hernandez MD at 9:45 EDT ,
== END | disposition home or self-care (01) ==
PROVIDERS: PCP Family Medicine; Referring Provider Nurse Practitioner Adult Health; Visit Provider Nurse Practitioner Adult Health
DX: R10.30 Lower abdominal pain, unspecified (principal)
CPT/HCPCS: 74177; Q9967

== ENCOUNTER → 2022-06-21 | Outpatient (CLI) | payer MEDICARE, SELFPAY ==
--- NOTE | 2022-06-21 09:13 | RAD_ITS ---
STUDY: X-RAY - ABDOMEN/PELVIS REASON FOR EXAM: Female, 66 years old. Bright red blood per rectum. TECHNIQUE: AP supine and upright views of the abdomen and pelvis on 6 images. COMPARISON: None. FINDINGS: Normal visualized lung bases. There is an unremarkable bowel gas pattern with air seen to the rectum. There is no demonstrated free abdominal air. The visualized liver, spleen and kidneys are grossly normal in size and morphology. Normal soft tissue structures. Normal visualized osseous structures. RAD/Abd Inc Decub and/or Erect IMPRESSION: No acute abnormality of the lower chest, abdomen or pelvis. Electronically Signed: Rene Burr, at 9:53 EDT ,
[2022-06-21 12:07] LABS: Absolute Neutrophil Count 6.8 X10^3/uL (2.0-7.7); Basophil# 0.03 X10^3/uL; Basophil% 0.3 % (0-1); Eosinophil# 0.16 X10^3/uL; Eosinophils% 1.5 % (0-5); Hematocrit 41.8 % (37-47); Hemoglobin 13.3 g/dL (12.0-15.0); Lymphocyte % 27.5 % (19-41); Mean Corp Hgb Conc 31.8 g/dL (32-36); Mean Corpuscular Hgb 30.1 pg (27.0-32.0); Mean Corpuscular Volume 94.6 fL (81-99); Mean Platelet Vol. 9.5 fl (6.2-12.0); Monocyte# 0.62 X10^3/uL; Monocyte% 5.9 % (0-10); NRBC Flagged by Analyzer 0 % (0-5); Neutrophil # 6.76 X10^3/uL (2.7-7.7); Neutrophil % 64.2 % (47-70); Platelet Count 270 K/mm3 (150-450); RBC Distribution Width CV 14.4 % (11.6-14.6); RBC Distribution Width SD 50.1 fl (35.1-43.9); Red Blood Count 4.42 M/mm3 (4.2-5.4); White Blood Count 10.5 K/mm3 (4.4-11.0)
[2022-06-21 12:22] LABS: ALB/GLOB Ratio 0.9 RATIO (0.9-2.4); AST(SGOT) 13 U/L (15-37); Alanine Aminotransfer ALT/SGPT 31 U/L (13-56); Albumin, Serum 3.3 g/dL (3.2-5.0); Alkaline Phosphatase 93 U/L (45-117); Anion Gap 7 (5-15); BUN 7 mg/dL (7-18); BUN/Creat Ratio 10.1 RATIO (10-20); Calcium,Total 8.6 mg/dL (8.5-10.1); Chloride 110 mmol/L (98-107); Creatinine, Serum 0.69 mg/dL (0.55-1.02); EST Glomerular Filtration Rate 89 mL/min (>60); Est Glom Filt Rate - Afr Amer 108 mL/min (>60); Globulin 3.5 g/dL (2.2-4.2); Glucose 123 mg/dL (74-106); Potassium 3.6 mmol/L (3.5-5.1); Protein, Total 6.8 g/dL (6.4-8.2); Sodium Level 143 mmol/L (136-145)
== END | disposition home or self-care (01) ==
PROVIDERS: PCP Family Medicine; Referring Provider Family Medicine; Visit Provider Family Medicine
DX: K62.5 Hemorrhage of anus and rectum (principal)
CPT/HCPCS: 36415; 74019; 80053; 85025

== ENCOUNTER → 2022-07-08 | Outpatient (CLI) | payer MEDICARE, SELFPAY ==
--- NOTE | 2022-07-08 08:25 | RAD_ITS ---
STUDY: X-RAY - ESOPHAGUS (BARIUM SWALLOW) WITH FLUOROSCOPY REASON FOR EXAM: Female, 66 years old. DYSPNEA TECHNIQUE: 16 view(s) of the esophagus were obtained following swallowing of barium. FLUOROSCOPY TIME (if supplied): (36 seconds) minutes/seconds COMPARISON: None. FINDINGS: There is no demonstrated esophageal foreign body. There is no demonstrated stricture or mucosal abnormality. Normal gastroesophageal junction, without a demonstrated hiatal hernia. Mild narrowing at the gastroesophageal junction. The ingested 12 mm tablet that barium is trapped at the gastroesophageal junction. There is atherosclerotic tortuosity of the aortic arch and descending thoracic aorta. Normal visualized pulmonary parenchyma. Normal visualized osseous structures of the thorax. RAD/Esophagus Single Contrast IMPRESSION: Mild narrowing at the gastroesophageal junction with trapping of the 12 mm tablet of barium. Correlation with endoscopy is recommended. Electronically Signed: Luke Hernandez MD at 13:14 EDT ,
== END | disposition home or self-care (01) ==
LOC: RAD 08:24
PROVIDERS: PCP Family Medicine; Referring Provider Family Medicine; Visit Provider Family Medicine
DX: R10.13 Epigastric pain (principal)
CPT/HCPCS: 74220

== ENCOUNTER 2022-07-29 09:57 | Day surgery (SDC) | payer MEDICARE, SELFPAY ==
--- NOTE | 2022-07-29 | GASB_PTH ---
PATIENT: WONG PERRY LOC: EN U#:[id number] AGE/SX: 66/F ROOM: RE07/29/[address]: Dr. Doug Alvarez DO : 1955 BED: DIS: 07/29/2022 SPEC #: [id number] RECD: 07/29/22 15:04 STATUS: VANDANA CARIN #: [id number] RAFA: 07/29/22 00:[address]: Doug Alvarez DEPT: SURGICAL PATHOLOGY RECD BY: Dominick Mccrary ENTERED: 07/30/22 10:39 SP TYPE: Gastric Bx JORDAN DR: Dr. David Carroll MD Tissues: A - Gastric mucous membrane B - Esophageal mucous membrane C - Ileum, NOS Procedures: Surgery Specimen Level IV HEADER OPERATION: Colonoscopy, EGD, biopsies, gold probe cautery (MAC) PRE-OP DIAGNOSIS: Chronic diarrhea TISSUE SUBMITTED: A ? Gastric body biopsy, B ? Esophagus biopsy, C ? Terminal ileum biopsy MICROSCOPIC DIAGNOSIS A. Gastric body, biopsy: Chronic gastritis. See comment. B. Esophagus, biopsy: No pathologic change. C. Terminal ileum, biopsy: No pathologic change. AM:yash 08/02/2022 COMMENT A. The results of immunohistochemistry for Helicobacter pylori will be reported separately ([id number]). MICROSCOPIC DESCRIPTION Slides are reviewed. GROSS DESCRIPTION A - Received in fixative is one container labeled with the patient's name and designated gastric body biopsy. The specimen consists of one irregular fragment of light glass soft tissue that measures 0.5 x 0.3 x 0.1 cm. The specimen is totally submitted in one cassette. B - Received in fixative is one container labeled with the patient's name and designated esophagus biopsy. The specimen consists of two irregular fragments of light glass soft tissue that in aggregate measure 0.6 x 0.3 x 0.1 cm. The specimen is totally submitted in one cassette. C - Received in fixative is one container labeled with the patient's name and designated terminal ileum. The specimen consists of multiple irregular fragments of light glass soft tissue that in aggregate measure 1 x 0.4 x 0.1 cm. The specimen is totally submitted in one cassette. / CARYL:yash 07/30/2022 TC:3 CPT: 72654 x3
[2022-07-29 10:27] VITALS: BP 113/71; PULSE 91; RESP 18; TEMP 36.5; O2SAT 96; BMI 43.0
[2022-07-29] MEDS: Lactated Ringers 1,000 ML 15 ML IV (10:32)
--- NOTE | 2022-07-29 10:42 | HP.PCM_ITS ---
History and Physical Date of Admission: 07/29/22 WONG PERRY, is a 66 F who presents to the office today for diarrhea x 23 yrs In 1998, she had abdominal hernia repair, mesh was apparently sewn to her intestines, she became septic and one month later she needed surgery which included removing 2 feet of small bowel and 6 inches of colon. Ever since then she has had diarrhea. Diarrhea has worsened over the years but significantly worse in past 6 months. She has been treated at another GI practice but that physician will be retiring so she needs to transfer care. She has been unable to leave the house for the past 3 years due to fecal incontinence. Stool can gush out as soon as she stands. She has to stay near the toilet all day. Up to 60 BMs per day. Has multiple accidents per day. Has to wear adult diapers, gets diaper rash. Lots of gas, taking Gas-X which makes it less explosive. Diarrhea is nocturnal also, she gets very little sleep. Diarrhea is all the time, doesn't matter if eating or not. Stool is liquid with some chunks of food. Sometimes there is mucus, can be long and stringy. She denies blood per rectum. The stool is very acidic, makes my skin raw. Can have lower abdominal pain, feels like sharp labor pains, occurred as recently as yesterday, prior to having BM, pain occurs maybe once a week, the pain has gotten more frequent in past few months. Cholestyramine BID only helped for a few weeks so she stopped it; she tried that this year. She took 4 Imodium TID but w/o relief; also tried that this year along with the cholestyramine. Xifaxan x 14 days, she got a sample, but not effective (too expensive to fill Rx). Lomotil wasn't effective. She has heartburn. Takes Prevacid which usually controls it, sometimes needs 2 per day. Some food eg tuna gets stuck in her esophagus, for several years. She frequently has nausea, not sure what causes it, doesn't usually wake up, treats it with peppermint tea or arabella tea. No vomiting or hematemesis. She has a tender spot on the epigastrium, first noted it when she was a teenager, she had ulcers then, it causes her to burp when it's poked. Last colonoscopy about 3 yrs ago, one large polyp per her recollection Last EGD about 8 yrs ago, no remarkable findings per her recollection Father had colon cancer 2019 was the last time she had stool tests She is a smoker Comorbidities depression, hyperlipidemia, diabetes, hypothyroidism, hypertension, COPD, obesity Past surgical history bilateral cataract extraction, hernia repair, bowel resection, cholecystectomy ROS Const Constitutional: Positive for fatigue and weakness ENT ENT: Positive for difficulty swallowing Gastro GI: Positive for abdominal pain, bloating, change in bowel habits, diarrhea, difficulty swallowing and excessive flatus; No belching, change in stool character, coffee ground emesis, constipation, cramping, heartburn, feeling full early, incontinent of stools, Vomiting blood/hematemesis, Blood in stool, loose stools, Black,tarry stools, nausea/dyspepsia, pain with swallowing, vomiting or other Musc Musculoskeletal: Positive for joint pain, back pain, joint swelling, muscle weakness, stiffness and Arthritis Skin Skin: Positive for dry skin; No yellowing of the eye or itchy eyes Neuro Neurology: Positive for weakness Psych Psychiatric: Positive for anxiety and No depression Endo Endocrine: Positive for fatigue Aller/Imm Allergy/Immunologic: No itchy eyes Joao/Lymp Hematologic/Lymphatic: No easy bleeding or easy bruising Exam Const General: cooperative Nutritional Appearance: obese GI Inspection: obesity Palpation: soft, no masses and tender in the epigastrum, in the RLQ, in the LUQ and in the RUQ Quality Reporting Tobacco Screening ([facility] 138) Smoking Status: Current every day smoker Assessment and Plan Assessment and Plan (1) Chronic diarrhea: ?Status:?Chronic ?Plan: 66-year-old female with long-term chronic diarrhea which has worsened significantly in recent months to the point where she is captive in her home.? No relief with Imodium, Lomotil, cholestyramine, Xifaxan.? Differential diag nosis includes but not limited to infection, IBD, short gut syndrome CT abdomen and pelvis with IV and oral contrast to evaluate her chronic diarrhea, abdominal pain, abdominal tenderness, history small bowel and colon resection Capsule endoscopy with patency capsule first if we are unable to schedule EGD and colonoscopy soon Stool tests to evaluate for infection and inflammation Blood tests to include blood count, metabolic panel, inflammatory markers, celiac, KARLY comprehensive EGD and colonoscopy Follow-up will be scheduled first available (2) Lower abdominal pain: ?Status:?Acute (3) GERD (gastroesophageal reflux disease): ?Status:?Acute ? ? ? Orders: Orders Giardia Lamblia EIA 05/14/22 K52.9 - Noninfective gastroente ritis and colitis, unspecified ? Comprehensive Metabolic Profil 05/14/22 K52.9 - Noninfective gastroente ritis and colitis, unspecified ? CRP 05/14/22 K52.9 - Noninfective gastroente ritis and colitis, unspecified ? LDH 05/14/22 K52.9 - Noninfective gastroente ritis and colitis, unspecified ? CBC W/Diff, Automated 05/14/22 K52.9 - Noninfective gastroente ritis and colitis, unspecified, R19.7 - Diarrhea, unspecified ? Erythrocyte Sed Rate 05/14/22 K52.9 - Noninfective gastroente ritis and colitis, unspecified ? KARLY Comprehensive Panel 05/14/22 K52.9 - Noninfective gastroente ritis and colitis, unspecified ? Calprotectin, Stool 05/14/22 K52.9 - Noninfective gastroente ritis and colitis, unspecified ? Ova and Parasites 8623 05/14/22 K52.9 - Noninfective gastroente ritis and colitis, unspecified, K58.9 - Irritable bowel syndrome without diarrhea ? CDIFF (PCR) 05/14/22 K52.9 - Noninfective gastroente ritis and colitis, unspecified ? ENTERIC PATHOGEN PANEL STOOL 05/14/22 K52.9 - Noninfective gastroente ritis and colitis, unspecified, K58.9 - Irritable bowel syndrome without diarrhea, R19.7 - Diarrhea, unspecified ? Stool Lactoferrin/WBC 05/14/22 K52.9 - Noninfective gastroente ritis and colitis, unspecified ? ANCA 05/14/22 K52.9 - Noninfective gastroente ritis and colitis, unspecified ? Celiac Disease Profile 05/14/22 K52.9 - Noninfective gastroente ritis and col itis, unspecified ? Immunoglobulins G/A/M/E 05/14/22 K52.9 - Noninfective gastroente ritis and colitis, unspecified ? YUVAL + Protein Elect, Serum 05/14/22 K52.9 - Noninfective gastroente ritis and colitis, unspecified ? Pancreatic Elastase, Fecal 05/14/22 K52.9 - Noninfective gastroente ritis and colitis, unspecified ? Abdomen/Pelvis WITH Contrast 05/14/22 R10.30 - Lower abdominal pain, unspecified ? Medications: Discontinued meclizine ?? Discontinued Reason:? Pt no longer taking 25 mg? PO TID PRN PRN 15 tabs Dizziness ? ? I have re-examined the patient. There are no clinical changes since date of exam.
--- NOTE | 2022-07-29 11:00 | IMM_PTH ---
PATIENT: WONG PERRY LOC: EN U#:[id number] AGE/SX: 66/F ROOM: RE07/29/[address]: Dr. Doug Alvarez DO : 1955 BED: DIS: 07/29/2022 SPEC #: [id number] RECD: 07/30/22 09:37 STATUS: VANDANA REQ #: [id number] RAFA: 07/29/22 11:[address]: Doug Alvarez DEPT: IMMUNOHISTOCHEMISTRY RECD BY: Tonya Gan ENTERED: 07/30/22 09:37 SP TYPE: IMMUNO OTHR DR: Dr. David Carroll MD Tissues: A - Stomach, NOS Procedures: H Pylori (initial) PHYSICIAN & INSTITUTION [place] [address] SPECIMEN INFORMATION: Tissue Source: A ? Gastric body biopsy Clinical Info: Chronic diarrhea Specimen Number: [id number] CPT code: 73975 METHODOLOGY: Deparaffinized sections of prefer/formalin-fixed tissue or PAP/DQ stained slides are incubated with monoclonal/polyclonal antibodies/oligonucleotide probes. Localization is made via biotin free immunoperoxidase method. Appropriate controls are performed and reacted as expected. Results on target cell population are indicated in the following table: RESULTS: ANTIBODY / CLONE RESULT Block A H Pylori (polyclonal) negative These tests were developed and their performance characteristics determined by [facility]. They may not have been cleared or approved by the U.S. Food and Drug Administration. The FDA has determined that such clearance or approval is not necessary. The above immunohistochemical/dualISH markers are ordered and reviewed by the Pathologist. INTERPRETATION: A. Gastric body, biopsy: Negative for Helicobacter pylori organisms. AM:yash 08/02/2022
[2022-07-29 11:25] LABS: Bedside Glucose 156 mg/dL (74-106)
[2022-07-29 11:55] VITALS: BP 100/70; BP 113/71; PULSE 80; RESP 16; TEMP 36.7; O2SAT 93
--- NOTE | 2022-07-29 11:58 | OP.EGD_ITS ---
Patient Name: Joana Duong Procedure Date: 07/29/2022 11:14 AM Date of : 1955 Age: 66 Procedure: Upper GI endoscopy Indications: Iron deficiency anemia, Functional Dyspepsia, Odynophagia Providers: Doug Alvarez DO Medicines: Monitored Anesthesia Care Patient Profile: This is a 66 year old female. Refer to note in patient chart for documentation of history and physical. Patient has symptoms of dysphagia with both liquids and solids and chronic dyspepsia. Complications: No immediate complications. Procedure: Pre-Anesthesia Assessment: - Prior to the procedure, a History and Physical was performed, and patient medications and allergies were reviewed. The risks and benefits of the procedure and the sedation options and risks were discussed with the patient. All questions were answered and informed consent was obtained. Patient identification and proposed procedure were verified by the physician in the pre-procedure area. Mental Status Examination: alert and oriented. Airway Examination: normal oropharyngeal airway and neck mobility. Respiratory Examination: clear to auscultation. CV Examination: normal. Prophylactic Antibiotics: The patient does not require prophylactic antibiotics. Prior Anticoagulants: The patient has taken no previous anticoagulant or antiplatelet agents. ASA Grade Assessment: II - A patient with mild systemic disease. After reviewing the risks and benefits, the patient was deemed in satisfactory condition to undergo the procedure. The anesthesia plan was to use monitored anesthesia care (MAC). Immediately prior to administration of medications, the patient was re-assessed for adequacy to receive sedatives. The heart rate, respiratory rate, oxygen saturations, blood pressure, adequacy of pulmonary ventilation, and response to care were monitored throughout the procedure. The physical status of the patient was re-assessed after the procedure. After obtaining informed consent, the endoscope was passed under direct vision. Throughout the procedure, the patient's blood pressure, pulse, and oxygen saturations were monitored continuously. The gastroscope was introduced through the mouth, and advanced to the second part of duodenum. The upper GI endoscopy was accomplished without difficulty. The patient tolerated the procedure well. Scope In: 11:18:04 AM Scope Out: 11:25:04 AM Total Procedure Duration Time 0 hours 7 minutes 0 seconds Findings: Diffuse, yellow plaques were found in the entire esophagus. Biopsies were taken with a cold forceps for histology. Verification of patient identification for the specimen was done. Estimated blood loss was minimal. Localized mild inflammation characterized by congestion (edema), erosions and erythema was found in the gastric body. Biopsies were taken with a cold forceps for histology. Verification of patient identification for the specimen was done. Estimated blood loss was minimal. Four 5 mm angiodysplastic lesions with bleeding were found in the duodenal bulb. Coagulation for hemostasis using heater probe was successful. Estimated blood loss was minimal. Impression: - Esophageal plaques were found, secondary to candidiasis. Biopsied. - Gastritis. Biopsied. 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 Treated with a heater probe. Recommendation: - Discharge patient to home. - Resume previous diet. - Diflucan (fluconazole) 100 mg PO daily for 2 weeks. - Continue present medications. Procedure Code(s): --- Professional --- 13097, 59, Esophagogastroduodenoscopy, flexible, transoral; with control of bleeding, any method 32576, 51, Esophagogastroduodenoscopy, flexible, transoral; with biopsy, single or multiple CPT copyright 2017 [employer]. All rights reserved. The codes documented in this report are preliminary and upon learning and development administrator review may be revised to meet current compliance requirements. Doug Alvarez DO 07/29/2022 11:57:55 AM This report has been signed electronically. Number of Addenda: 0 Note Initiated On: 07/29/2022 11:14 AM
--- NOTE | 2022-07-29 11:59 | OP.CCLET_ITS ---
07/29/2022 To Carroll [address] [place] [address] Re : Upper GI endoscopy procedure for Joana Duong Dear Dr. Carroll This procedure was performed on July. My impressions and recommendations are as follows: Impressions : - Esophageal plaques were found, secondary to candidiasis. Biopsied. - Gastritis. Biopsied. 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 Treated with a heater probe. Recommendations : - Discharge patient to home. - Resume previous diet. - Diflucan (fluconazole) 100 mg PO daily for 2 weeks. - Continue present medications. My findings are described in the full procedure note, which is enclosed. If I can be of further assistance, please feel free to contact me at . Sincerely, Doug Alvarez, 07/29/2022 11:57:55 AM This report has been signed electronically.
[2022-07-29 12:00] VITALS: BP 105/66; BP 113/71; PULSE 76; RESP 16; O2SAT 97
--- NOTE | 2022-07-29 12:04 | OP.COLON_ITS ---
Patient Name: Joana Duong Procedure Date: 07/29/2022 11:25 AM Date of : 1955 Age: 66 Procedure: Colonoscopy Indications: Chronic diarrhea Providers: Doug Alvarez DO Medicines: Monitored Anesthesia Care Patient Profile: This is a 66 year old female. Refer to note in patient chart for documentation of history and physical. Patient has symptoms of dysphagia with both liquids and solids and chronic dyspepsia. Last Colonoscopy: several years ago. Complications: No immediate complications. Procedure: Pre-Anesthesia Assessment: - Prior to the procedure, a History and Physical was performed, and patient medications and allergies were reviewed. The risks and benefits of the procedure and the sedation options and risks were discussed with the patient. All questions were answered and informed consent was obtained. Patient identification and proposed procedure were verified by the physician in the pre-procedure area. Mental Status Examination: alert and oriented. Airway Examination: normal oropharyngeal airway and neck mobility. Respiratory Examination: clear to auscultation. CV Examination: normal. Prophylactic Antibiotics: The patient does not require prophylactic antibiotics. Prior Anticoagulants: The patient has taken no previous anticoagulant or antiplatelet agents. ASA Grade Assessment: II - A patient with mild systemic disease. After reviewing the risks and benefits, the patient was deemed in satisfactory condition to undergo the procedure. The anesthesia plan was to use monitored anesthesia care (MAC). Immediately prior to administration of medications, the patient was re-assessed for adequacy to receive sedatives. The heart rate, respiratory rate, oxygen saturations, blood pressure, adequacy of pulmonary ventilation, and response to care were monitored throughout the procedure. The physical status of the patient was re-assessed after the procedure. After I obtained informed consent, the scope was passed under direct vision. Throughout the procedure, the patient's blood pressure, pulse, and oxygen saturations were monitored continuously. The adult colonoscope was introduced through the anus and advanced to the ileocolonic anastomosis. The colonoscopy was performed without difficulty. The patient tolerated the procedure well. The quality of the bowel preparation was good. Scope In: 11:28:50 AM Scope Withdrawal Time 0 hours 8 minutes 49 seconds Scope Out: 11:48:30 AM Total Procedure Duration Time 0 hours 19 minutes 40 seconds Findings: Multiple small and large-mouthed diverticula were found in the recto-sigmoid colon, sigmoid colon and descending colon. There was evidence of a prior end-to-side ileo-colonic anastomosis in the ascending colon. This was patent and was characterized by congestion. The anastomosis was traversed. Biopsies were taken with a cold forceps for histology. Verification of patient identification for the specimen was done. Estimated blood loss was minimal. Impression: - Diverticulosis in the recto-sigmoid colon, in the sigmoid colon and in the descending colon. - Patent end-to-side ileo-colonic anastomosis, characterized by congestion. Biopsied. Recommendation: - Discharge patient to home. - Resume previous diet. - Continue present medications. - Await pathology results. - Repeat colonoscopy is recommended for surveillance. The colonoscopy date will be determined after pathology results from today's exam become available for review. Procedure Code(s): --- Professional --- 26560, Colonoscopy, flexible; with biopsy, single or multiple CPT copyright 2017 [employer]. All rights reserved. The codes documented in this report are preliminary and upon certified procedural coder review may be revised to meet current compliance requirements. Doug Alvarez DO 07/29/2022 12:03:42 PM This report has been signed electronically. Number of Addenda: 0 Note Initiated On: 07/29/2022 11:25 AM
[2022-07-29 12:05] VITALS: BP 103/75; BP 113/71; PULSE 77; RESP 16; O2SAT 98
--- NOTE | 2022-07-29 12:06 | OP.CCLET_ITS ---
07/29/2022 To Carroll [address] [place] [address] Re : Colonoscopy procedure for Joana Duong Dear Dr. Carroll This procedure was performed on July. My impressions and recommendations are as follows: Impressions : - Diverticulosis in the recto-sigmoid colon, in the sigmoid colon and in the descending colon. - Patent end-to-side ileo-colonic anastomosis, characterized by congestion. Biopsied. Recommendations : - Discharge patient to home. - Resume previous diet. - Continue present medications. - Await pathology results. - Repeat colonoscopy is recommended for surveillance. The colonoscopy date will be determined after pathology results from today's exam become available for review. My findings are described in the full procedure note, which is enclosed. If I can be of further assistance, please feel free to contact me at . Sincerely, Doug Alvarez, 07/29/2022 12:03:42 PM This report has been signed electronically.
[2022-07-29 12:10] VITALS: BP 113/71; BP 114/66; PULSE 76; RESP 16; TEMP 36.9; O2SAT 95
[2022-07-29 12:27] VITALS: BP 113/71
== END 2022-07-29 12:39 | disposition home or self-care (01) ==
LOC: EN 10:00 → AC 10:00
PROVIDERS: PCP Family Medicine; Referring Provider Family Medicine; Visit Provider Internal Medicine Gastroenterology
PROC: 0DJD8ZZ Inspection of Lower Intestinal Tract, Via Natural or Artificial Opening Endoscopic (ICD-10-PCS; CPT 45378; principal; 2022-07-29 10:55)
DX: K52.9 Noninfective gastroenteritis and colitis, unspecified (principal); B37.81 Candidal esophagitis; E11.9 Type 2 diabetes mellitus without complications; D50.9 Iron deficiency anemia, unspecified; K57.30 Diverticulosis of large intestine without perforation or abscess without bleeding; K30 Functional dyspepsia; F17.200 Nicotine dependence, unspecified, uncomplicated; K29.70 Gastritis, unspecified, without bleeding; R13.10 Dysphagia, unspecified; K21.9 Gastro-esophageal reflux disease without esophagitis; R10.30 Lower abdominal pain, unspecified; K31.811 Angiodysplasia of stomach and duodenum with bleeding; K76.0 Fatty (change of) liver, not elsewhere classified; Z79.899 Other long term (current) drug therapy; Z79.84 Long term (current) use of oral hypoglycemic drugs; F32.A Depression, unspecified; F41.9 Anxiety disorder, unspecified; J45.909 Unspecified asthma, uncomplicated; E78.5 Hyperlipidemia, unspecified; I10 Essential (primary) hypertension; R06.02 Shortness of breath
CPT/HCPCS: 43255; 45380; 43239; 82962; 88305; 88342; J7120; J2405

== ENCOUNTER → 2022-11-23 | Outpatient (CLI) | payer MEDICARE, SELFPAY ==
--- NOTE | 2022-11-23 09:53 | RAD_ITS ---
EXAM: XR LUMBOSACRAL SPINE, 4 OR 5 VIEWS CLINICAL INDICATION: DDD TECHNIQUE: Frontal, lateral and bilateral oblique views of the lumbar spine. This report was created using [employer] report [employer] technology. COMPARISON: None. FINDINGS: VERTEBRAE: There is bony neural foraminal narrowing at L3. Preserved vertebral body height. No fracture. No spondylolisthesis. Preservation of the normal lumbar lordosis. No significant facet arthropathy. DISC SPACES: There is disc space narrowing at L3-4 and L4-5. GASTROINTESTINAL TRACT: Unremarkable as visualized. Included bowel gas pattern is non-obstructive. RAD/L/S Spine Min 4 Views IMPRESSION: 1. No acute osseous abnormalities. 2. Degenerative changes with disc space narrowing and bony neural foraminal narrowing greatest at L3-4. Electronically Signed: Jc Howard MD at 16:53 EST ,
[2022-11-23 12:36] LABS: Vitamin B12 527 pg/mL (211-911)
[2022-11-23 12:43] LABS: AST(SGOT) 15 U/L (15-37); Alanine Aminotransfer ALT/SGPT 38 U/L (13-56); Albumin, Serum 3.6 g/dL (3.2-5.0); Alkaline Phosphatase 104 U/L (45-117); Anion Gap 8 (5-15); BUN 8 mg/dL (7-18); BUN/Creat Ratio 10.7 RATIO (10-20); Calcium,Total 9.2 mg/dL (8.5-10.1); Chloride 103 mmol/L (98-107); Cholesterol 109 mg/dL (200); Creatinine, Serum 0.75 mg/dL (0.55-1.02); EST Glomerular Filtration Rate 82 mL/min (>60); Est Glom Filt Rate - Afr Amer 99 mL/min (>60); Globulin 3.5 g/dL (2.2-4.2); Glucose 188 mg/dL (74-106); High Density Lipoprotein 69 mg/dL; Potassium 3.4 mmol/L (3.5-5.1); Protein, Total 7.1 g/dL (6.4-8.2); Sodium Level 138 mmol/L (136-145); Thyroid Stim Hormone (TSH) 3.98 uIU/mL (0.358-3.74); Triglycerides 96 mg/dL; Very Low Density Lipoprotein 19 mg/dL (5-40)
[2022-11-24 09:16] LABS: T4 Free Direct 1.24 ng/dL (0.76-1.46)
== END | disposition home or self-care (01) ==
PROVIDERS: PCP Family Medicine; Referring Provider Family Medicine; Visit Provider Family Medicine
DX: M48.061 Spinal stenosis, lumbar region without neurogenic claudication (principal); E11.9 Type 2 diabetes mellitus without complications; M47.816 Spondylosis without myelopathy or radiculopathy, lumbar region; M51.36 Other intervertebral disc degeneration, lumbar region
CPT/HCPCS: 36415; 72110; 80053; 80061; 82607; 84439; 84443

== ENCOUNTER → 2023-04-06 | Outpatient (CLI) | payer MEDICARE, SELFPAY ==
[2023-04-06 12:27] LABS: Absolute Lymphocyte Count 3.43 X10^3/uL (0.83-4.51); Absolute Neutrophil Count 5.6 X10^3/uL (2.0-7.7); Basophil# 0.01 X10^3/uL; Basophil% 0.1 % (0-1); Hematocrit 44.7 % (37-47); Hemoglobin 14.3 g/dL (12.0-15.0); Lymphocyte # 3.43 X10^3/ul (0.83-4.51); Lymphocyte % 34.7 % (19-41); Mean Corpuscular Hgb 29.6 pg (27.0-32.0); Mean Corpuscular Volume 92.5 fL (81-99); Mean Platelet Vol. 9.6 fl (6.2-12.0); Monocyte# 0.64 X10^3/uL; Monocyte% 6.5 % (0-10); NRBC Flagged by Analyzer 0 % (0-5); Neutrophil # 5.55 X10^3/uL (2.7-7.7); Neutrophil % 56.2 % (47-70); Platelet Count 266 K/mm3 (150-450); RBC Distribution Width CV 13.8 % (11.6-14.6); RBC Distribution Width SD 46.5 fl (35.1-43.9); Red Blood Count 4.83 M/mm3 (4.2-5.4); White Blood Count 9.9 K/mm3 (4.4-11.0)
[2023-04-06 13:09] LABS: ALB/GLOB Ratio 1.1 RATIO (0.9-2.4); AST(SGOT) 25 U/L (15-37); Alanine Aminotransfer ALT/SGPT 61 U/L (13-56); Albumin, Serum 3.8 g/dL (3.2-5.0); Alkaline Phosphatase 106 U/L (45-117); Anion Gap 6 (5-15); BUN 7 mg/dL (7-18); BUN/Creat Ratio 9.9 RATIO (10-20); Chloride 106 mmol/L (98-107); Creatinine, Serum 0.71 mg/dL (0.55-1.02); EST Glomerular Filtration Rate 87 mL/min (>60); Est Glom Filt Rate - Afr Amer 105 mL/min (>60); Free T3 2.9 pg/mL (2.18-3.98); Globulin 3.5 g/dL (2.2-4.2); Glucose 108 mg/dL (74-106); Potassium 3.8 mmol/L (3.5-5.1); Protein, Total 7.3 g/dL (6.4-8.2); Sodium Level 140 mmol/L (136-145); T4 Free Direct 1.18 ng/dL (0.76-1.46); Thyroid Stim Hormone (TSH) 3.69 uIU/mL (0.358-3.74)
== END | disposition home or self-care (01) ==
LOC: MFPLAB 10:04
PROVIDERS: PCP Family Medicine; Visit Provider Family Medicine
DX: R19.7 Diarrhea, unspecified (principal); E11.65 Type 2 diabetes mellitus with hyperglycemia; E03.9 Hypothyroidism, unspecified
CPT/HCPCS: 36415; 80053; 84439; 84443; 84481; 85025

== ENCOUNTER → 2023-04-16 | Outpatient (CLI) | payer MEDICARE, SELFPAY ==
--- NOTE | 2023-04-16 08:43 | CT_ITS ---
EXAM: CT CHEST, LUNG CANCER SCREENING WITHOUT INTRAVENOUS CONTRAST CLINICAL INDICATION: screening for lung cancer TECHNIQUE: Helically acquired images were obtained of the chest without intravenous contrast using low dose (LDCT) lung cancer screening protocol. This CT exam was performed using one or more of the following dose reduction techniques: automated exposure control, adjustment of the mA and/or kV according to patient size, and/or use of iterative reconstruction technique. COMPARISON: 03/30/2022 FINDINGS: LUNGS AND PLEURAL SPACES: There are mild emphysematous changes in the lung apices. Pleural-based nodule in the left upper lobe and measures 4 mm and is stable from the reference exam. There is a noncalcified nodule left lower lobe that measures 7 mm seen on series 2 image 140. No pneumothorax. HEART: Unremarkable. Heart size is normal. No pericardial effusion. No significant coronary artery calcifications. MEDIASTINUM: Unremarkable. No mediastinal or hilar adenopathy. Esophagus is unremarkable. No hiatal hernia. THYROID: Unremarkable. No thyroid lesions. BONES/JOINTS: Unremarkable. No suspicious lytic or blastic abnormality. VASCULATURE: Unremarkable. Thoracic aorta is non-dilated. LYMPH NODES: Unremarkable. No enlarged lymph nodes. CT/Low Dose CT Lung Screening IMPRESSION: New noncalcified nodule in the left lower lobe. Lung-RADS score: 4A - Suspicious. Recommend low-dose CT (LDCT) in 3 months or PET/CT for solid components 8 mm or larger in size. Electronically Signed: Jc Howard MD at 23:55 EDT ,
== END | disposition home or self-care (01) ==
LOC: CT 08:42
PROVIDERS: PCP Family Medicine; Referring Provider Family Medicine; Visit Provider Family Medicine
DX: F17.210 Nicotine dependence, cigarettes, uncomplicated (principal)
CPT/HCPCS: 71271

== ENCOUNTER → 2024-01-03 | Outpatient (CLI) | payer MEDICARE, SELFPAY ==
--- NOTE | 2024-01-03 10:20 | RAD_ITS ---
STUDY: X-RAY CHEST REASON FOR EXAM: Female, 68 years old. Dyspnea. TECHNIQUE: Frontal and lateral views of the chest. COMPARISON: 04/08/2014 FINDINGS: Mild diffuse interstitial prominence slightly increased since the prior study. There is no demonstrated pleural abnormality. Stable borderline cardiomegaly. Normal mediastinum and janes. Normal visualized pulmonary arteries. Aortic tortuosity unchanged. Normal visualized thoracic spine. Normal visualized ribs, clavicles, and shoulders. No abnormality of the visualized soft tissue structures of the upper abdomen. RAD/Chest PA and Lateral IMPRESSION: Borderline cardiomegaly with slight increase in diffuse interstitial prominence. No acute or active cardiopulmonary disease. Electronically Signed: Rene Burr MD at 13:22 EDT ,
[2024-01-03 15:35] LABS: Hematocrit 44.4 % (37-47); Hemoglobin 14.6 g/dL (12.0-15.0); Mean Corp Hgb Conc 32.9 g/dL (32-36); Mean Corpuscular Hgb 29.4 pg (27.0-32.0); Mean Corpuscular Volume 89.5 fL (81-99); Mean Platelet Vol. 9.7 fl (6.2-12.0); Platelet Count 310 K/mm3 (150-450); RBC Distribution Width CV 15.1 % (11.6-14.6); RBC Distribution Width SD 49.6 fl (35.1-43.9); Red Blood Count 4.96 M/mm3 (4.2-5.4); White Blood Count 11.9 K/mm3 (4.4-11.0)
[2024-01-03 16:05] LABS: ALB/GLOB Ratio 1.1 RATIO (0.9-2.4); AST(SGOT) 19 U/L (15-37); Alanine Aminotransfer ALT/SGPT 27 U/L (13-56); Albumin, Serum 3.8 g/dL (3.2-5.0); Alkaline Phosphatase 108 U/L (45-117); Anion Gap 5 (5-15); BUN 13 mg/dL (7-18); BUN/Creat Ratio 18.1 RATIO (10-20); Calcium,Total 9.4 mg/dL (8.5-10.1); Chloride 99 mmol/L (98-107); Cholesterol 113 mg/dL (200); Creatinine, Serum 0.72 mg/dL (0.55-1.02); EST Glomerular Filtration Rate 86 mL/min (>60); Est Glom Filt Rate - Afr Amer 103 mL/min (>60); Globulin 3.6 g/dL (2.2-4.2); Glucose 153 mg/dL (74-106); High Density Lipoprotein 69 mg/dL; Potassium 3.9 mmol/L (3.5-5.1); Protein, Total 7.4 g/dL (6.4-8.2); Sodium Level 134 mmol/L (136-145); Thyroid Stim Hormone (TSH) 2.26 uIU/mL (0.358-3.74); Triglycerides 78 mg/dL; Troponin-I HS 6 pg/mL (3.0-54.0); Very Low Density Lipoprotein 16 mg/dL (5-40)
[2024-01-03 18:16] LABS: BNP,B-Type NATRIURETIC PEPTIDE 22.1 pg/mL (0-100)
[2024-01-03 18:33] LABS: Vitamin D,25 Hydroxy 47.1 ng/mL
== END | disposition home or self-care (01) ==
PROVIDERS: PCP Family Medicine; Referring Provider Family Medicine; Visit Provider Family Medicine
DX: R06.00 Dyspnea, unspecified (principal); E11.65 Type 2 diabetes mellitus with hyperglycemia; E55.9 Vitamin D deficiency, unspecified; R55 Syncope and collapse; E03.9 Hypothyroidism, unspecified; R19.7 Diarrhea, unspecified
CPT/HCPCS: 36415; 71046; 80053; 80061; 82306; 83735; 83880; 84443; 84484; 85027

== ENCOUNTER → 2024-08-28 | Outpatient (CLI) | payer MEDICARE, SELFPAY ==
--- NOTE | 2024-08-28 14:49 | BI_ITS ---
MAMMOGRAPHY - BILATERAL SCREENING REASON FOR EXAM: Female, 68 years old. Routine annual screening examination. PERTINENT HISTORY: Non-contributory. TECHNIQUE: Digital bilateral breast kady (3D mammographic acquisition) in the CC and MLO projections. 2-D mediolateral oblique (MLO) and craniocaudad (CC) views of both breasts were obtained. CAD: Full Field Digital Mammography with Computer Added Detection was performed. COMPARISON: Comparison is made with prior study dated April 20, 2022 and April 14, 2021. FINDINGS: Breast Composition: There are scattered areas of fibroglandular density. There are no dominant masses or suspicious calcifications. No other significant abnormalities are identified. There has been no significant change since the prior study. BI/SCRN MAMM (CAD)W/KADY BILAT IMPRESSION: Stable bilateral screening mammogram. Yearly follow-up mammogram recommended. (A) ASSESSMENT CATEGORY: BIRADS Category 1: Negative. A letter regarding these results will be sent to the patient by the facility within 30 days. Approximately 10% of breast cancers are not detected by mammography. A normal mammogram should not delay biopsy of a clinically suspicious abnormality. [id number] Electronically Signed: Luke Hernandez MD at 9:56 EST ,
--- NOTE | 2024-08-28 14:56 | BD_ITS ---
STUDY: DUAL ENERGY X-RAY ABSORPTIOMETRY / DXA REASON FOR EXAM: Female, 68 years old. Z780 TECHNIQUE: Bone Mineral Density (BMD) measurements of lumbar spine and bilateral hips were obtained. COMPARISON: Comparison is made with prior study of April 20, 2022. FINDINGS: Lumbar Spine (L1-L4): g/cm2 (0.855) / T-score (-2.0) / Z-score (0.2) Findings are suggestive of osteopenia with a moderate fracture risk. Left Femur Total: g/cm2 (0.848) / T-score (-0.8) / Z-score (0.8) Left Femoral Neck: g/cm2 (0.611) / T-score (-2.1) / Z-score (-0.3) Right Femur Total: g/cm2 (0.826) / T-score (-1.0) / Z-score (0.6) Right Femoral Neck: g/cm2 (0.631) / T-score (-2.0) / Z-score (-0.1) The T-Scores on the most recent prior examination were: Lumbar Spine (L1-L4): There has been worsening of bone density since the previous examination. Left Femur Total: which represents a worsening of 2.8%. Right Femur Total: which represents a worsening of 1.8%. BD/Dexa Bone Density Study IMPRESSION: The patient is considered osteopenic as outlined below according to World [employer] Organization (WHO) criteria with a moderate fracture risk. There has been worsening of bone density since the previous examination. Reference Information: The T-score is the number of standard deviations above or below the standard which is normal for young adults at their peak bone mineral density. The World Health Organization (WHO) interprets the T-scores as follows: Above -1 Normal bone density Between -1 and -2.5 Osteopenia Equal to / or below -2.5 Osteoporosis As a practical clinical guideline, osteopenia may be graded as follows: Mild -1 through -1.5 Moderate -1.6 through -2.0 Severe -2.1 through -2.4 The Z-score is the number of standard deviations above or below age-matched controls. A Z-score of less than -1.5 would be considered abnormal. References: 1. NIH Osteoporosis and Related Bone Diseases www osteo.org 2. International Society for Clinical Densitometry www iscd.org 3. National Osteoporosis Foundation www nof.org Electronically Signed: Luke Hernandez MD at 15:11 EST ,
== END | disposition home or self-care (01) ==
LOC: OPBD 14:48
PROVIDERS: PCP Family Medicine; Referring Provider Family Medicine; Visit Provider Family Medicine
DX: Z00.00 Encounter for general adult medical examination without abnormal findings (principal); Z12.31 Encounter for screening mammogram for malignant neoplasm of breast; Z78.0 Asymptomatic menopausal state
CPT/HCPCS: 77063; 77067; 77080

== ENCOUNTER → 2024-09-06 | Outpatient (CLI) | payer MEDICARE, SELFPAY ==
--- NOTE | 2024-09-06 16:50 | CT_ITS ---
STUDY: CT ABDOMEN AND PELVIS WITH CONTRAST REASON FOR EXAM: Female, 68 years old. Chronic diarrhea. Status post cholecystectomy. RADIATION DOSAGE (If Supplied By Facility): CTDIvol = ( 19.98 ) mGy, DLP = ( 1124.91 ) mGycm TECHNIQUE: Transaxial images were obtained from the dome of the diaphragm to the symphysis pubis with oral contrast. Oral and amp; IV Gastrografin and amp; 100mL Isovue-370 was administered. Sagittal and coronal images were reconstructed. Individualized dose optimization techniques were used for this CT. COMPARISON: Comparison is made with prior study dated June 11, 2022. FINDINGS: The visualized lung bases are unremarkable. Coronary calcification. There is decreased attenuation of the liver consistent with steatosis. Mild degree of hepatomegaly. The patient is status post cholecystectomy. Normal spleen. Normal pancreas. Normal bilateral adrenal glands. Normal right kidney. 1 cm cyst in the upper pole of the left kidney. There is a small hiatal hernia. Normal small intestine. There are multiple colonic diverticula consistent with diverticulosis. The appendix is visualized and appears normal. There is scattered atherosclerotic calcification of the abdominal aorta, without a demonstrated aneurysm. Normal inferior vena cava. Normal retroperitoneum. Normal urinary bladder. There is a 2.5 cm cyst in the left ovary. There is evidence of prior anterior ventral wall hernia repair. Postoperative scarring is seen. Persistent small umbilical hernia. There are degenerative changes of the visualized lumbar spine. CT/Abdomen/Pelvis WITH Contrast IMPRESSION: Mild hepatomegaly and fatty infiltration of liver. Stable small left renal cyst. Status post anterior ventral hernia repair with mesh. Persistent small umbilical hernia. Sigmoid diverticulosis. Electronically Signed: Luke Hernandez MD at 11:33 EST ,
[2024-09-06 17:17] LABS: CREATININE FINGERSTICK < 1.0 mg/dL (0.55-1.02); EGFR FINGERSTICK > 60.0000 mL/min (>60)
== END | disposition home or self-care (01) ==
LOC: CT 16:45
PROVIDERS: PCP Family Medicine; Referring Provider Internal Medicine Gastroenterology; Visit Provider Internal Medicine Gastroenterology
DX: K52.9 Noninfective gastroenteritis and colitis, unspecified (principal)
CPT/HCPCS: 74177; Q9967

== ENCOUNTER 2024-09-19 05:14 | Day surgery (SDC) | payer MEDICARE, SELFPAY ==
[2024-09-19] VITALS (8 sets, daily range): BP systolic 110–174; BP diastolic 63–81; PULSE 84–104; RESP 16–18; TEMP 36.2–36.8; O2SAT 90–97; BMI 43.5
--- NOTE | 2024-09-19 | ESO_PTH ---
PATIENT: WONG PERRY LOC: EN U#:[id number] AGE/SX: 68/F ROOM: RE09/19/[address]: Dr. Doug Alvarez DO : 1955 BED: DIS: 09/19/2024 SPEC #: [id number] RECD: 09/19/24 13:39 STATUS: VANDANA [place] #: [id number] RAFA: 09/19/24 00:[address]: Doug Alvarez DEPT: SURGICAL PATHOLOGY RECD BY: Dominick Mccrary ENTERED: 09/19/24 13:39 SP TYPE: LOLA ORTEGA DR: Dr. David Carroll MD Tissues: Esophagus, NOS Procedures: Special Stain Group I Surgery Specimen Level IV Alcian Blue/PAS (control) HEADER OPERATION: EGD and biopsy and dilation with bougie PRE-OP DIAGNOSIS: Difficulty swallowing TISSUE SUBMITTED: Distal esophagus biopsy MICROSCOPIC DIAGNOSIS Distal esophagus, biopsy: Gastroesophageal junctional mucosa with mild chronic inflammation. No evidence of goblet cell metaplasia. See comment. AM. 09/21/2024 COMMENT Alcian blue/PAS stain with matched control supports the above diagnosis. MICROSCOPIC DESCRIPTION Slides are reviewed. GROSS DESCRIPTION Received in fixative is one container labeled with the patient's name and designated Distal esophagus biopsy. The specimen consists of multiple irregular fragments of light glass soft tissue that in aggregate measure 2.0 x 0.7 x 0.1 cm. The specimen is totally submitted in one cassette. AM. 09/19/2024 TC:3 CPT:25337,09275
[2024-09-19 06:14] LABS: Bedside Glucose 166 mg/dL (74-106)
--- NOTE | 2024-09-19 06:30 | PRE.ANES_ITS ---
ASA Classification* ASA Classification ASA Classification: 3 Assessment & Plan Anesthesia* Anesthesia Assessment Anesthesia Assessment: Discussed sedation and/or anesthesia options, risks, benefits, and alternatives with patient/parents/legal guardian/POA. Questions invited. The patient/parents/legal guardian/POA seems to understand and agrees to proceed with anesthesia plan. Reviewed the physical assessment, medical history, allergy history and patient home medications list prior to surgery/procedure/anesthetic and documented any changes. Performed airway and anesthesia risk assessments. Anesthesia Type Anesthesia Type: MAC History Source History Obtained from:: Patient and Chart Anesthesia Focused Assessment* Temperature: 97.1 F Pulse Rate: 84 Blood Pressure: 174/81 Respiratory Rate: 16 Pulse Ox: 97 Airway Assessment Mouth opens: >3 cm Mallampati Score: II Focused Labs Anesthesia Preop lab: CBC WBC 11.9 K/mm3 (4.4-11.0) H 01/03/24 10:17 RBC 4.96 M/mm3 (4.2-5.4) 01/03/24 10:17 Hgb 14.6 g/dL (12.0-15.0) 01/03/24 10:17 Hct 44.4 % (37-47) 01/03/24 10:17 Plt Count 310 K/mm3 (150-450) 01/03/24 10:17 CHEMISTRY Potassium 3.9 mmol/L (3.5-5.1) 01/03/24 10:17 Sodium 134 mmol/L (136-145) L 01/03/24 10:17 Magnesium 2.0 mg/dL (1.6-2.6) 01/03/24 10:17 BUN 13 mg/dL (7-18) 01/03/24 10:17 Creatinine 0.72 mg/dL (0.55-1.02) 01/03/24 10:17 Glucose 153 mg/dL (74-106) H 01/03/24 10:17 POC Glucose 166 mg/dL (74-106) H 09/19/24 05:47 TSH 2.26 uIU/mL (0.358-3.74) 01/03/24 10:17 COAG Pre-Assessment Diagnosis/Proposed Procedure Planned Operative Procedure(s): EGD Anesthesia History Anesthesia History - community liaison officer: Anesthesia History - community liaison officer Hx Hospitalization No 09/18/24 08:42 Any Problems With Anesthesia No 09/18/24 08:42 Cholinesterase deficiency No 09/18/24 08:42 You/Your Family Experience No 09/18/24 08:42 fever (hyperthermia) with Relationship Recent Exposure to Contagious No 09/19/24 05:45 Disease Does patient have nerve No 09/18/24 08:42 stimulator Patient instructed to have device shut off --Does patient have Pacemaker No 09/19/24 05:45 or ICD? When Was Last Pacemaker Check QUESTION #4 FULL TEXT: You/Your Family Experience fever (hyperthermia) with Anesthesia Last Oral Intake Last Oral intake: Last Oral Intake NPO since 00:00 09/19/24 05:45 Meds taken in AM with sips of water? Meds patient instructed to take am of surgery PONV PONV - community liaison officer: PONV - community liaison officer Female Yes 09/18/24 08:42 HX of Motion Sickness No 09/18/24 08:42 HX of N/V After Surgery No 09/18/24 08:42 Non-Smoker Yes 09/18/24 08:42 Duration of Surgery greater No 09/18/24 08:42 than 60 minutes Number of Risk Factors 2 09/18/24 08:42 PONV Score Moderate Risk 09/18/24 08:42 Height & Weight Height & Weight: Anesthesia: Height & Weight Height 5 ft 09/19/24 05:45 Weight: 101.151 kg 09/19/24 05:45 Body Mass Index (BMI) 43.5 09/19/24 05:45 Respiratory Assessment Respiratory Assessment - community liaison officer: Respiratory Tract Infection Hx - community liaison officer Hx Respiratory Tract Infection No 09/18/24 08:42 STOP Sleep Apnea STOP Sleep Apnea - community liaison officer: STOP Sleep Apnea - community liaison officer Hx Hypertension Yes: CONTROLLED WITH MEDS 09/18/24 08:42 Hx Sleep Apnea Yes 09/18/24 08:42 CPAP Yes 09/18/24 08:42 BIPAP No 09/18/24 08:42 Do you snore loudly (louder than talking or can be heard Do you often feel tired/ fatigued/ sleepy during daytime? Has anyone observed you stop breathing during sleep? STOP Results Positive 09/18/24 08:42 QUESTION #5 FULL TEXT : Do you snore loudly (louder than talking or can be heard through closed doors)? 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 Specify any problems Hx of Preganancy in last 3 No 09/18/24 08:42 Months Nurse Filling Out Transfusion [id number] 09/18/24 08:42 & Questions: Date: 09/18/24 09/18/24 08:42 Time: 08:47 09/18/24 08:42 Patient unable to answer at this time (ie. confused, unrespo /Reproduction History /Reproductive History - community liaison officer: /Reproductive Hx- community liaison officer Hx Now Gestational Age (in weeks): EDC: Hx Hx Para Hx Section SAB No 07/28/22 08:30 PFSH Medical History Diarrhea High cholesterol Loss of hearing Wears glasses Wears dentures Anxiety Redness of skin Thyroid disease Diabetes Arthritis Anemia Fatty liver Restless legs Back pain Migraine headache Hx of vertigo Dietary restriction Difficulty swallowing History of ulceration Gastric reflux Smoker CPAP (continuous positive airway pressure) dependence Asthma Shortness of breath on exertion History of edema History of stress test Cardiology follow-up encounter Hypertension Hx of lipoma Depression Hyperlipidemia Type 2 diabetes mellitus Chronic diarrhea Home Medications ?Medication ?Instructions ?Recorded ?Last Taken ?Type albuterol sulfate 90 mcg/actuation 2 puff inhalation Q6H PRN SOB 03/29/22 Unknown History aerosol inhaler (ProAir HFA) atorvastatin 10 mg tablet 10 mg PO DAILY 03/29/22 Unknown History cholecalciferol (vitamin D3) 50 50 mcg PO BID 03/29/22 Unknown History mcg (2,000 unit) capsule diltiazem HCl 120 mg tablet 120 mg PO DAILY 03/29/22 09/18/24 History fluticasone propionate 50 1 spray intranasal DAILY 03/29/22 Unknown History mcg/actuation nasal spray,suspension furosemide 40 mg tablet 40 mg PO BID 03/29/22 Unknown History lisinopril 20 mg tablet 20 mg PO DAILY 03/29/22 09/17/24 History mecobalamin (vitamin B12) 1,000 1,000 mcg PO DAILY 03/29/22 Unknown History mcg chewable tablet potassium chloride 20 mEq 20 meq PO BID 03/29/22 Unknown History tablet,extended release sertraline 50 mg tablet 50 mg PO DAILY 03/29/22 Unknown History cetirizine 10 mg capsule (Zyrtec) 10 mg PO DAILY 07/28/22 Unknown History lansoprazole 30 mg capsule,delayed 30 mg PO DAILY #90 caps 12/29/22 Unknown Rx release Allergy/AdvReac Type Severity Reaction Status Date / Time levofloxacin (From Levaquin) Allergy Other Verified 09/19/24 05:42 oxycodone HCl (From Percocet) Allergy Other Verified 09/19/24 05:42 Penicillins (PCN) Allergy Hives Verified 09/19/24 05:42 ciprofloxacin AdvReac Shortness Verified 09/19/24 05:42 of breath Family History Father Colon cancer Asthma Heart disease Hypertension Mother Cancer Surgical History History of esophagogastroduodenoscopy (EGD) Hx of colonoscopy Hx of vaginal hysterectomy History of bladder suspension procedure Hx of tonsillectomy Hx of tubal ligation H/O bilateral cataract extraction H/O hernia repair Hx of cholecystectomy H/O resection of small bowel Social History Smoking Status: Former smoker Review of Systems (Anesthesia) ROS Narrative System reviewed and no additional complaints, except as documented.
--- NOTE | 2024-09-19 06:37 | HP.PCM_ITS ---
History and Physical Date of Admission: 09/19/24 WONG PERRY, is a 68 F who presents to the office today for follow up. OV 10.22.24 pt reports continued diarrhea, usually around 20x a day. Pt reports nocturnal diarrhea and fecal incontinence. Pt states she would like to discuss the possibility of a colostomy. Pt also reports continued difficulty swallowing foods such as tuna and rice. ROS Const Constitutional: Positive for fatigue, headache(s), weakness and weight change (weight gain); No fever(s) ENT ENT: Positive for headache(s) and difficulty swallowing Cardio Cardiology: Positive for leg pain with exertion Gastro GI: Positive for bloating, diarrhea, heartburn, difficulty swallowing, excessive flatus and nausea/dyspepsia; No abdominal pain, belching, change in bowel habits, change in stool character, coffee ground emesis, constipation, cramping, feeling full early, incontinent of stools, Vomiting blood/hematemesis, Blood in stool, loose stools, Black,tarry stools, pain with swallowing, vomiting or other Musc Musculoskeletal: Positive for joint pain, back pain, joint swelling, muscle cramps, muscle weakness, Arthritis, sciatica, restless legs, leg pain at night and leg pain with exertion Skin Skin: Positive for dry skin; No yellowing of the eye or itchy eyes Neuro Neurology: Positive for weakness, headache(s) and restless legs Psych Psychiatric: Positive for anxiety and Positive for depression Endo Endocrine: Positive for fatigue and weight change (weight gain) Aller/Imm Allergy/Immunologic: No itchy eyes Joao/Lymp Hematologic/Lymphatic: No easy bleeding or easy bruising Exam Const General: cooperative, comfortable and no acute distress Nutritional Appearance: obese Orientation: alert, awake and oriented x3 Assessment and Plan Assessment and Plan (1) Chronic diarrhea: Status: Chronic Plan: She status post ileocecectomy approximately 20-25 years ago with chronic bile ac id diarrhea who has become refractory to multiple agents. She would like a colostomy or end ileostomy. I will do biochemical workup along with stool studies to make sure that there is no infection at this time there is a reason why she for, refractory to medical therapy. We will also give her Lomotil and iron therapy. Will get a CT scan abdomen pelvis with IV and oral contrast. (2) Difficulty swallowing: Status: Acute Comment: NARROW ESPHOGUS/CHOKES AT TIMES Plan: She is also having esophageal dysphagia with solids. Her diagnosis does include eosinophilic esophagitis. However she has a very dry mouth so also the possibility of Sjogren's syndrome and less likely scleroderma. She will undergo an upper endoscopy to evaluate upper GI tract and possible esophageal dilation. She was explained alternatives, risk and benefits include not withstanding bleeding, infection, sepsis, perforation, need for urgent . She will have an ASA of 3. Orders: Orders Calprotectin, Stool Today K52.9 - Noninfective gastroenteritis and colitis, unspecified CRP Today K52.9 - Noninfective gastroenteritis and colitis, unspecified Erythrocyte Sed Rate Today K52.9 - Noninfective gastroenteritis and colitis, unspecified LDH Today K52.9 - Noninfective gastroenteritis and colitis, unspecified Stool Lactoferrin/WBC Today K52.9 - Noninfective gastroenteritis and colitis, unspecified, K58.9 - Irritable bowel syndrome, unspecified CBC W/Diff, Automated Today D64.9 - Anemia, unspecified, K52.9 - Noninfective gastroenteritis and colitis, unspecified YUVAL + Protein Elect, Serum Today K52.9 - Noninfective gastroenteritis and colitis, unspecified Ferritin Today D64.9 - Anemia, unspecified, K52.9 - Noninfective gastroenteritis and colitis, unspecified Iron Today D64.9 - Anemia, unspecified, K52.9 - Noninfective gastroenteritis and colitis, unspecified ANCA Today K52.9 - Noninfective gastroenteritis and colitis, unspecified Immunoglobulins G/A/M/E Today K52.9 - Noninfective gastroenteritis and colitis, unspecified Gastrin, Serum Today K52.9 - Noninfective gastroenteritis and colitis, unspecified Catecholamines, Plasma Today K52.9 - Noninfective gastroenteritis and colitis, unspecified Allergen, Food Profile 14 Today K52.9 - Noninfective gastroenteritis and colitis, unspecified KARLY Comprehensive Panel Today K52.9 - Noninfective gastroenteritis and colitis, unspecified Pancreatic Elastase, Fecal Today K52.9 - Noninfective gastroenteritis and colitis, unspecified OVA+PARA w/Giardia EIA [id number] Today K52.9 - Noninfective gastroenteritis and colitis, unspecified Fecal Fat, Qualitative Today K52.9 - Noninfective gastroenteritis and colitis, unspecified Stool Occult Blood iFOB Today K52.9 - Noninfective gastroenteritis and colitis, unspecified CDIFF (PCR) Today K52.9 - Noninfective gastroenteritis and colitis, unspecified ENTERIC PATHOGEN PANEL STOOL Today K52.9 - Noninfective gastroenteritis and colitis, unspecified, K58.9 - Irritable bowel syndrome, unspecified, R19.7 - Diarrhea, unspecified Thyroid Stim Hormone (TSH) Today E03.9 - Hypothyroidism, unspecified, K52.9 - Noninfective gastroenteritis and colitis, unspecified CORTISOL SERUM Today K52.9 - Noninfective gastroenteritis and colitis, unspecified Magnesium Today K52.9 - Noninfective gastroenteritis and colitis, unspecified Phosphorus I have examined the patient and the H&P has been reviewed. There are no clinical changes since date of exam.
--- NOTE | 2024-09-19 07:04 | OP.CCLET_ITS ---
09/19/2024 To [facility] [address] [place] [address] Re : Upper GI endoscopy procedure for Joana Duong Dear Dr. Carroll This procedure was performed on Thursday, September 19, 2024. My impressions and recommendations are as follows: Impressions : - Moderate Schatzki ring. Dilated. Treated with argon plasma coagulation (APC). - Mildly severe erosive esophagitis with no bleeding. Biopsied. - Medium-sized hiatal hernia. - No gross lesions in the entire stomach. - No gross lesions in the first portion of the duodenum. Recommendations : - Discharge patient to home. - Full liquid diet today. - Continue present medications. - Await pathology results. - Repeat upper endoscopy in 3 months to evaluate the response to therapy. My findings are described in the full procedure note, which is enclosed. If I can be of further assistance, please feel free to contact me at . Sincerely, Doug Alvarez, 09/19/2024 7:03:40 AM This report has been signed electronically.
--- NOTE | 2024-09-19 07:04 | OP.EGD_ITS ---
Patient Name: Joana Duong Procedure Date: 09/19/2024 6:15 AM Date of : 1955 Age: 68 Procedure: Upper GI endoscopy Indications: Dysphagia Providers: Doug Alvarez DO Referring MD: To Carroll Medicines: Monitored Anesthesia Care Patient Profile: This is a 68 year old female. Refer to note in patient chart for documentation of history and physical. Patient has symptoms of chronic dysphagia and dysphagia with solids. Complications: No immediate complications. Procedure: Pre-Anesthesia Assessment: - Prior to the procedure, a History and Physical was performed, and patient medications and allergies were reviewed. The patient is competent. The risks and benefits of the procedure and the sedation options and risks were discussed with the patient. All questions were answered and informed consent was obtained. Patient identification and proposed procedure were verified by the physician in the pre-procedure area. Mental Status Examination: alert and oriented. Airway Examination: normal oropharyngeal airway and neck mobility. Respiratory Examination: clear to auscultation. CV Examination: normal. Prophylactic Antibiotics: The patient does not require prophylactic antibiotics. Prior Anticoagulants: The patient has taken no anticoagulant or antiplatelet agents except for NSAID medication. ASA Grade Assessment: II - A patient with mild systemic disease. After reviewing the risks and benefits, the patient was deemed in satisfactory condition to undergo the procedure. The anesthesia plan was to use monitored anesthesia care (MAC). Immediately prior to administration of medications, the patient was re-assessed for adequacy to receive sedatives. The heart rate, respiratory rate, oxygen saturations, blood pressure, adequacy of pulmonary ventilation, and response to care were monitored throughout the procedure. The physical status of the patient was re-assessed after the procedure. After obtaining informed consent, the endoscope was passed under direct vision. Throughout the procedure, the patient's blood pressure, pulse, and oxygen saturations were monitored continuously. The Endoscope was introduced through the mouth, and advanced to the second part of duodenum. The upper GI endoscopy was accomplished without difficulty. The patient tolerated the procedure well. Scope In: 6:46:51 AM Scope Out: 6:57:14 AM Total Procedure Duration Time 0 hours 10 minutes 23 seconds Findings: A moderate Schatzki ring was found at the gastroesophageal junction. A guidewire was placed and the scope was withdrawn. Dilation was performed with a Savary dilator with no resistance at 60 Fr. The dilation site was examined following endoscope reinsertion and showed moderate improvement in luminal narrowing. Estimated blood loss was minimal. Coagulation for tissue destruction using argon plasma at 0.3 liters/minute and 20 leavitt was successful. Estimated blood loss was minimal. Mildly severe esophagitis with no bleeding was found 38 to 40 cm from the incisors. Biopsies were taken with a cold forceps for histology. Verification of patient identification for the specimen was done. Estimated blood loss was minimal. A medium-sized hiatal hernia was present. No gross lesions were noted in the entire examined stomach. No gross lesions were noted in the first portion of the duodenum. Impression: - Moderate Schatzki ring. Dilated. Treated with argon plasma coagulation (APC). - Mildly severe erosive esophagitis with no bleeding. Biopsied. - Medium-sized hiatal hernia. - No gross lesions in the entire stomach. - No gross lesions in the first portion of the duodenum. Recommendation: - Discharge patient to home. - Full liquid diet today. - Continue present medications. - Await pathology results. - Repeat upper endoscopy in 3 months to evaluate the response to therapy. Procedure Code(s): --- Professional --- 61296, Esophagogastroduodenoscopy, flexible, transoral; with ablation of tumor(s), polyp(s), or other lesion(s) (includes pre- and post-dilation and guide wire passage, when performed) 36307, 59,51, Esophagogastroduodenoscopy, flexible, transoral; with biopsy, single or multiple CPT copyright 2021 [employer]. All rights reserved. The codes documented in this report are preliminary and upon residential door installer review may be revised to meet current compliance requirements. Doug Alvarez DO 09/19/2024 7:03:40 AM This report has been signed electronically. Number of Addenda: 0 Note Initiated On: 09/19/2024 6:15 AM
--- NOTE | 2024-09-19 07:06 | PCM.POST.ANE ---
Anesthesia: Postop Eval I Current Vital Signs Temperature: 97.8 F Pulse Rate: 104 Blood Pressure: 129/63 Respiratory Rate: 18 Pulse Ox: 94 Oxygen Delivery Method: Room Air Assessment Airway patent: Yes Spontaneous unlabored respirations: Yes Mental status: Awake and Calm nausea: No Vomiting: No Anesthesia Complication: Yes Anesthesia Complication Comment:: O2 desat d/t profuse coughing Fluid Hydration Crystalloid volume administer (ml): 30 Total IV fluid infused: 30 Progress Note Anesthesia document: Postop Eval 1 completed: Yes
--- NOTE | 2024-09-19 09:54 | PCM.POSTANE2 ---
Anesthesia Postop Eval I Sum Postop Eval Completion status Anesthesia document: Postop Eval 1 completed: Yes Anesthesia Postop Eval I Summary Anesthesia Postop Eval I Summary: Anesthesia Postop Eval I: Assessment Summary Airway patent Yes 09/19/24 07:07 [email or web address] Spontaneous unlabored Yes 09/19/24 07:07 [email or web address] respirations Mental status Awake,Calm 09/19/24 07:07 [email or web address] nausea No 09/19/24 07:07 [email or web address] Vomiting No 09/19/24 07:07 [email or web address] Anesthesia Postop Eval I: Fluid Summary Crystalloid volume administer 30 09/19/24 07:07 [email or web address] (ml) Colloids volume administered ( ml) Blood Product volume administered (ml) Total IV fluid infused 30 09/19/24 07:07 [email or web address] Anesthesia Postop Eval I: Summary Notes Anesthesia Complication Yes 09/19/24 07:07 [email or web address] Anesthesia Complication O2 desat d/t 09/19/24 07:07 [email or web address] Comment: profuse coughing Post-operative progress note Anesthesia: Postop Eval II Evaluation Mental status: Awake Pain Level: 0 nausea: No Vomiting: No
== END 2024-09-19 07:51 | disposition home or self-care (01) ==
LOC: EN 05:15 → AC 05:16
PROVIDERS: PCP Family Medicine; Referring Provider Family Medicine; Visit Provider Internal Medicine Gastroenterology
PROC: 0DJ08ZZ Inspection of Upper Intestinal Tract, Via Natural or Artificial Opening Endoscopic (ICD-10-PCS; CPT 43235; principal; 2024-09-19 06:25)
DX: K22.2 Esophageal obstruction (principal); E11.9 Type 2 diabetes mellitus without complications; K52.9 Noninfective gastroenteritis and colitis, unspecified; K44.9 Diaphragmatic hernia without obstruction or gangrene; K21.00 Gastro-esophageal reflux disease with esophagitis, without bleeding; I10 Essential (primary) hypertension; D64.9 Anemia, unspecified; F32.A Depression, unspecified; F41.9 Anxiety disorder, unspecified; K76.0 Fatty (change of) liver, not elsewhere classified; E03.9 Hypothyroidism, unspecified; E78.00 Pure hypercholesterolemia, unspecified; M19.90 Unspecified osteoarthritis, unspecified site; G47.30 Sleep apnea, unspecified; J45.909 Unspecified asthma, uncomplicated; Z88.1 Allergy status to other antibiotic agents; Z88.0 Allergy status to penicillin; Z90.49 Acquired absence of other specified parts of digestive tract; Z79.899 Other long term (current) drug therapy; Z87.891 Personal history of nicotine dependence
CPT/HCPCS: 43270; 43239; 82962; 88305; 88312; A4216; C1769; J2405

== ENCOUNTER → 2024-10-25 | Outpatient (CLI) | payer MEDICARE, SELFPAY ==
--- NOTE | 2024-10-25 07:25 | US_ITS ---
STUDY: ABDOMINAL ULTRASOUND - RIGHT UPPER QUADRANT; ELASTOGRAPHY REASON FOR VISIT: Female, 69 years old. Fatty infiltration of the liver. TECHNIQUE: Ultrasound evaluation of the right upper quadrant was performed with real-time and static merino-scale imaging. Point quantification shear wave elastography was performed ([employer]). TECHNICAL QUALITY: Adequate. COMPARISON: Comparison is made with prior CT scan done on pelvis dated September 06, 2024. FINDINGS: Liver: The liver measures 16.5 cm. There is increased echogenicity consistent with fatty infiltration. The bile ducts are within normal limits. There is hepatic color flow. The direction of portal flow is hepatopetal. There is no demonstrated mass lesion. Median liver stiffness measured 9.1 kPa. Gallbladder: The patient is status post cholecystectomy. Common Bile Duct (C.B.D.): The common bile duct measures 6.2 mm. Pancreas: There is normal echogenicity of the visualized pancreas. There is no demonstrated pancreatic mass or cyst. Right Kidney: Normal size of the right kidney. The right kidney measures 12.3 cm x 4.5 cm x 4.1 cm. Normal renal cortex. The right cortex measures 1.2 cm. There is no demonstrated renal mass or cyst. There is no right hydronephrosis. US/ABD Limited w/ Elastography IMPRESSION: 1. Liver stiffness measures 9.1 kPa compatible with F2-F3 (Mild to moderate liver fibrosis) Metavir score. 2. Fatty infiltration of the liver. Electronically Signed: Luke Hernandez MD at 9:14 EST ,
== END | disposition home or self-care (01) ==
PROVIDERS: PCP Family Medicine; Referring Provider Internal Medicine Gastroenterology; Visit Provider Internal Medicine Gastroenterology
DX: K76.0 Fatty (change of) liver, not elsewhere classified (principal)
CPT/HCPCS: 76705; 76981

== ENCOUNTER 2024-11-27 10:30 | Outpatient (CLI) | payer MEDICARE, SELFPAY ==
[2024-11-27 12:23] LABS: Absolute Lymphocyte Count 3.17 X10^3/uL (0.83-4.51); Absolute Neutrophil Count 6.9 X10^3/uL (2.0-7.7); Basophil# 0.02 X10^3/uL; Basophil% 0.2 % (0-1); Eosinophil# 0.14 X10^3/uL; Eosinophils% 1.3 % (0-5); Hematocrit 41.9 % (37-47); Hemoglobin 12.8 g/dL (12.0-15.0); Lymphocyte # 3.17 X10^3/ul (0.83-4.51); Mean Corp Hgb Conc 30.5 g/dL (32-36); Mean Corpuscular Hgb 27.2 pg (27.0-32.0); Mean Corpuscular Volume 89.1 fL (81-99); Mean Platelet Vol. 9.7 fl (6.2-12.0); Monocyte# 0.64 X10^3/uL; Monocyte% 5.9 % (0-10); NRBC Flagged by Analyzer 0 % (0-5); Neutrophil # 6.93 X10^3/uL (2.7-7.7); Neutrophil % 63.2 % (47-70); Platelet Count 303 K/mm3 (150-450); White Blood Count 10.9 K/mm3 (4.4-11.0)
[2024-11-27 12:32] LABS: Erythrocyte Sedimentation Rate 11 mm/hr (0-30)
[2024-11-27 13:16] LABS: Vitamin B12 352 pg/mL (211-911)
[2024-11-27 13:43] LABS: AST(SGOT) 12 U/L (15-37); Alanine Aminotransfer ALT/SGPT 27 U/L (13-56); Albumin, Serum 3.6 g/dL (3.2-5.0); Alkaline Phosphatase 110 U/L (45-117); Anion Gap 6 (5-15); BUN 8 mg/dL (7-18); BUN/Creat Ratio 14.8 RATIO (10-20); CRP < 2.90 mg/L (0.0-3.0); Chloride 109 mmol/L (98-107); Creatinine, Serum 0.54 mg/dL (0.55-1.02); EST Glomerular Filtration Rate 118 mL/min (>60); Est Glom Filt Rate - Afr Amer 143 mL/min (>60); Ferritin 12 ng/mL (8-252); Globulin 3.6 g/dL (2.2-4.2); Glucose 133 mg/dL (74-106); Iron 42 ug/dL (50-170); LDH 154 U/L (84-246); Magnesium 1.7 mg/dL (1.6-2.6); Phosphorus 3.2 mg/dL (2.5-4.9); Potassium 3.2 mmol/L (3.5-5.1); Protein, Total 7.2 g/dL (6.4-8.2); Sodium Level 140 mmol/L (136-145)
[2024-12-02 12:06] LABS: Anti-Centromere B Ab <0.2 AI (0.0-0.9); Anti-Chromatin <0.2 AI (0.0-0.9); Anti-Jo <0.2 AI (0.0-0.9); Anti-Scleroderma-70 AB <0.2 AI (0.0-0.9); Anti-dsDNA Ab <1 IU/mL (0-9); Beef <0.10 kU/L (Class 0); Chocolate <0.10 kU/L (Class 0); Codfish <0.10 kU/L (Class 0); Corn 0.11 kU/L (Class 0/I); Egg, Whole 1.11 kU/L (Class II); Milk (Cow) 1.13 kU/L (Class II); Mussels <0.10 kU/L (Class 0); Peanut <0.10 kU/L (Class 0); Pork <0.10 kU/L (Class 0); RNP Ab <0.2 AI (0.0-0.9); SJOGREN'S Anti-SS-A test < 0.2 AI (0.0-0.9); SJOGREN'S Anti-SS-B test < 0.2 AI (0.0-0.9); Salmon <0.10 kU/L (Class 0); Shrimp <0.10 kU/L (Class 0); Smith Ab <0.2 AI (0.0-0.9); Soybean <0.10 kU/L (Class 0); Tuna <0.10 kU/L (Class 0); Wheat <0.10 kU/L (Class 0)
[2024-12-05 08:09] LABS: ACCA 7 units (0-90); ALCA 1 units (0-60); AMCA 15 units (0-100); Albumin 3.4 g/dL (2.9-4.4); Alpha-1-Globulins 0.2 g/dL (0.0-0.4); Alpha-2-Globulins 0.7 g/dL (0.4-1.0); Cytoplasmic Ab (C-ANCA) <1:20 titer (Neg:<1:20); Dopamine, Pl <30 pg/mL (0-48); Epinephrine, Pl <15 pg/mL (0-62); Gamma Globulin 1.1 g/dL (0.4-1.8); Gastrin, Serum 20 pg/mL (0-115); IMMUNOFIXATION RESULT,S Comment: (.); Immunoglobulin A 187 mg/dL (64-422); Immunoglobulin E 427 IU/mL (6-495); Immunoglobulin G 914 mg/dL (586-1602); Immunoglobulin M 67 mg/dL (26-217); Norepinephrine, Pl 611 pg/mL (0-874); PROEL- TOTAL PROTEIN 6.5 g/dL (6.0-8.5); Perinuclear Ab (P-ANCA) <1:20 titer (Neg:<1:20); gASCA 8 units (0-50)
== END 2024-11-27 23:59 | disposition home or self-care (01) ==
LOC: MTLAB 10:32
PROVIDERS: Internal Medicine Gastroenterology; PCP Family Medicine; Referring Provider Family Medicine; Visit Provider Family Medicine
DX: K52.9 Noninfective gastroenteritis and colitis, unspecified (principal); D64.9 Anemia, unspecified; E03.9 Hypothyroidism, unspecified
CPT/HCPCS: 36415; 80053; 82043; 82384; 82533; 82607; 82728; 82784; 82785; 82941; 83516; 83540; 83615; 83735; 84100; 84165; 84443; 85025; 85652; 86003; 86005; 86036; 86037; 86140; 86225; 86235; 86334; 86671

== ENCOUNTER → 2024-11-30 | Outpatient (CLI) | payer MEDICARE, SELFPAY ==
[2024-12-03 14:07] LABS: Pancreatic Elastase, Fecal > 800 (>200)
[2024-12-05 07:07] LABS: Calprotectin, Stool 54 ug/g (0-120); Fats, Neutral Normal (.); Fats, Total Increased (.)
== END | disposition home or self-care (01) ==
PROVIDERS: PCP Family Medicine; Visit Provider Internal Medicine Gastroenterology
DX: K52.9 Noninfective gastroenteritis and colitis, unspecified (principal)
CPT/HCPCS: 82274; 82653; 82705; 83630; 83993; 87177; 87209; 87329; 87493

== ENCOUNTER → 2025-08-01 | Outpatient (CLI) | payer MEDICARE, SELFPAY ==
[2025-08-01 19:50] LABS: Creatinine, Urine (random) 58.70 mg/dL (28.00-217.00); Microalbumin,Random Urine < 12.0 mg/L (<20 mg/L)
== END | disposition home or self-care (01) ==
LOC: MFPLAB 14:42 → LABSPEC 14:43
PROVIDERS: PCP Family Medicine; Visit Provider Family Medicine
DX: Z00.00 Encounter for general adult medical examination without abnormal findings (principal)
CPT/HCPCS: 82043; 82570

== ENCOUNTER → 2025-08-19 | Outpatient (CLI) | payer MEDICARE, SELFPAY ==
--- NOTE | 2025-08-19 18:14 | CT_ITS ---
PROCEDURE: LOW DOSE CT LUNG SCREENING 08/19/2025 REASON FOR EXAM: TOBACCO USE Current smoker. Patient has smoked for packs per day for 52+ years. TECHNIQUE: Procedure Code: [id number] Modality: CT Procedure: LOW DOSE CT LUNG SCREENING Coronal and Sagittal reconstruction series were provided. One or more dose reduction techniques were used (e.g., Automated exposure control, adjustment of the mA and/or kV according to patient size, use of iterative reconstruction technique). REFERENCE LINK: [facility] Lung-RADS RADIATION DOSE SUMMARY: CTDlvol: 4.02 mGy DLP: 121.34 mGycm COMPARISON: None FINDINGS: PULMONARY NODULES: (Only nodules >3mm are reported) Nodules described below are on series 1 unless otherwise specified. Pulmonary Nodules: No pulmonary nodule seen. Hardware:None Lymph Nodes:No suspicious lymph nodes are present. Heart and Vasculature:The heart is nonenlarged. Coronary Artery Calcifications: Present Lungs and Airways: Mild emphysematous changes are present. Mild scarring at the lung bases. Pleura:No pleural effusion Upper Abdomen:Unremarkable Bones:Degenerative changes of the thoracic spine. CT/Low Dose CT Lung Screening IMPRESSION: No suspicious pulmonary nodule seen. Coronary artery calcification (CAC) is is present Lung-RADS Category: 2 BENIGN (BASED ON IMAGING FEATURES OR INDOLENT BEHAVIOR). RECOMMEND 12-MONTH SCREENING LDCT. Other Significant Findings: Reading Location: [id number]
--- OUTSIDE RECORDS SUMMARY | 2025-08-19 18:16 | XMS RPT_ITS | CCD ---
Author Organization [facility] Care Team Providers Care Vibrator Operator Name Role Phone Dr. To Carroll Primary Care Provider [phone] Dr. To Carroll Referring Provider Lalita BIOLOGICAL SCIENCE TECHNICIAN, BIOLOGICAL SCIENCE TECHNICIAN-C Alesha Horta Attending Provider Dr. Janneth Díaz Attending Provider [phone] Dr. Doug Alvarez Attending Provider Dr. Doug Alvarez Other Provider Dr. To Carroll Primary Care Provider [phone] Dr. To Carroll Referring Provider Lalita BIOLOGICAL SCIENCE TECHNICIAN, BIOLOGICAL SCIENCE TECHNICIAN-C Alesha Horta Attending Provider [phone] Cristy Carroll MD Primary Care Provider Doug Alvarez DO Unavailable [phone] Carly Christkalina Primary Care Unavailable Friend, Doug Referring Unavailable Friend, Doug Attending Unavailable Ranney, Christopher Primary Care Unavailable Friend, Doug Attending Unavailable Ranney, Christopher Referring Unavailable Friend, Doug Referring Unavailable Ranney, Christopher Primary Care Unavailable Friend, Doug Attending Unavailable Ranney, Christopher Primary Care Unavailable Friend, Doug Consulting Unavailable Carly Christkalina Attending Unavailable Ranney, Christopher Referring Unavailable Ranney, Christopher Primary Care Unavailable Friend, Doug Attending Unavailable Ranney, Christopher Referring Unavailable Ranney, Christopher Primary Care Unavailable Friend, Doug Attending Unavailable Carly Christophjazmine Attending Unavailable Ranney, Christopher Referring Unavailable Ranney, Christopher Primary Care Unavailable Ranney, Cristy Attending Unavailable Ranney, Christopher Referring Unavailable Carly, Cristy Primary Care Unavailable Rankayla, Christopher Primary Care Unavailable Friend, Doug Consulting Unavailable Friend, Doug Attending Unavailable Carly, Cristy Referring Unavailable Carly, Cristy Attending Unavailable Ranney, Christopher Primary Care Unavailable Ranney, Christopher Primary Care Unavailable Rankayla, Cristy Attending Unavailable Carly, Kiter Referring Unavailable CARLY, KITER B Primary Care UnavailYAYO Levine Attending Unavailable GISELLE FONSECA Referring Unavailable RANKAYLA, KITER B Primary Care Unavailabl e NORA GARDNER Referring Unavailable NORA GARDNER Attending Unavailable CARLY, KITER B Primary Care Unavailabl e NORA GARDNER Attending Unavailable AMPARO FONSECABERLEY Referring Unavailable CARLY, KITER B Referring Unavailabl e CARLY, KITER B Primary Care Unavailabl e GISELLE FONSECA Attending Unavailable Allergies Allergy Classification Reported Allergen(s) Allergy Type Date of Onset Reaction(s) Facility (11 sources) Acetaminophen Drug Allergy 2 [facility] (16 sources) levoFLOXacin; Translations: [LEVOFLOXACIN] Drug Allergy 8 [facility] (12 sources) oxyCODONE; Translations: [oxycodone HCl] Drug Allergy 2 [facility] (17 sources) Penicillins; Translations: [Penicillins] Allergy to substance 8 [facility] (5 sources) Acetaminophen / oxyCODONE; Translations: [OXYCODONE-ACETAM INOPHEN] Drug Allergy 8 [facility] (5 sources) Azithromycin; Translations: [AZITHROMYCIN] Drug Allergy 5 Rash, Shortness of Breath [facility] (5 sources) Benzocaine-Pyrila mine-Zinc Ox; Translations: [BENZOCAINE-PYRIL AMINE-ZINC OX] Propensity to adverse reactions 8 [facility] Work Phone: (1 source) Acetaminophen Drug Allergy 2 [facility] (1 source) Ciprofloxacin Drug Allergy 4 [facility] (1 source) levoFLOXacin Drug Allergy 4 [facility] Medications Current Medications Medication Drug Class(es) Dates Sig (Normalized) Sig (Original) Albuterol Sulfate (11 sources) beta2-Adrenergic Agonist Start: 03-29-2022 take 1 puff(s) by inhalation every six hours Albuterol Sulfate (Proair Hfa) 90 mcg/actuation HFA aerosol inhaler Active 2 PUFF INHALATION EVERY 6 HOURS March 29, 2022 10:21am Start: 03-29-2022 take 1 puff(s) by in halation every six hours Albuterol Sulfate (Proair Hfa) 90 mcg/actuation HFA aerosol inhaler Active 2 PUFF INHALATION EVERY 6 HOURS March 29, 2022 12:00am atorvastatin 10 mg oral tablet (11 sources) HMG-CoA Reductase Inhibitor Start: 03-29-2022 take 10 mg by mouth once daily Atorvastatin Active 10 MG PO DAILY March 29, 2022 12:00am azelastine hydrochloride 0.137 mg/actuat metered dose nasal spray (3 sources) Histamine-1 Receptor Antagonist Start: 09-30-2008 take 2 spray(s) nasal route every twelve hours azelastine hcl(ASTELIN 137 MCG NASAL SPRAY AEROSOL) 2 sprays eacdh nostril every 12 hours 0 09/30/2008 Active celecoxib 200 mg oral capsule (11 sources) Nonsteroidal Anti-inflammatory Drug Start: 03-29-2022 take 200 mg by mouth once daily Celecoxib Active 200 MG PO DAILY March 29, 2022 12:00am cetirizine hydrochloride 10 mg oral capsule (8 sources) Histamine-1 Receptor Antagonist Start: 07-28-2022 take 1 capsule by mouth once daily Cetirizine (Zyrtec) 10 mg Capsule Active 10 MG PO DAILY July 28, 2022 12:00am Start: 09-30-2008 cetirizine hcl (ZYRTEC 10 MG TAB) Take one(1) tablet daily. 0 09/30/2008 Active cholecalciferol 0.05 mg oral capsule (11 sources) Vitamin D Start: 03-29-2022 take 50 ug by mouth twice daily Cholecalciferol (Vitamin D3) Active 50 MCG PO TWICE A DAY March 29, 2022 12:00am Cholestyramine-Aspartam e (Prevalite) 4 gram powder in packet (6 sources) Start: 09-02-2022 take 1 dose by mouth twice daily Cholestyramine-Asparta me (Prevalite) 4 gram powder in packet Active 4 GM PO TWICE A DAY June 24, 2022 11:00pm administer w/meal; avoid other meds within 1hr before or 4-6hr after dose Start: 06-25-2022 take 1 dose by mouth twice daily Cholestyramine-Aspartame (Prevalite) 4 g jacob powder in packet Active 4 GM PO TWICE A DAY June 25, 2022 12:00am administer w/meal; avoid other meds within 1hr before or 4-6hr after dose 24 hr dilTIAZem hydrochloride 120 mg extended release oral capsule (14 sources) Calcium Channel Annette Start: 04-21-2025 take 1 capsule by mouth once daily DILT-XR 120 mg 24 hr capsule Take 1 capsule by mouth once daily. 04/21/2025 Active Start: 03-29-2022 take 120 mg by mouth once jason y Diltiazem Hcl Active 120 MG PO DAILY March 29, 2022 12:00am fluconazole 200 mg oral tablet (5 sources) Azole Antifungal Start: 07-29-2022 take 200 mg by mouth once daily Fluconazole Active 200 MG PO DAILY July 29, 2022 12:00am fluticasone propionate 0.05 mg/actuat metered dose nasal spray (11 sources) Corticosteroid Start: 03-29-2022 take 1 spray(s) nasal route once daily Fluticasone Propionate Active 1 SPRAY INTRANASAL DAILY March 29, 2022 12:00am administer into each nostril furosemide 40 mg oral tablet (14 sources) Loop Diuretic Start: 03-29-2022 take 40 mg by mouth twice daily Furosemide Active 40 MG PO TWICE A DAY March 29, 2022 12:00am Start: 09-30-2008 furosemide(LAS IX 40 MG TAB) 2 tablets every other day 0 09/30/2008 Active glimepiride 2 mg oral tablet (14 sources) Sulfonylurea Start: 02-24-2025 take 1 tablet by mouth once daily glimepiride (AMARYL) 2 mg tablet Take 1 tablet by mouth once daily. 02/24/2025 Active Start: 03-29-2022 take 4 mg by mouth once daily Glimepiride Active 4 MG PO DAILY March 29, 2022 12:00am lansoprazole 30 mg delayed release oral capsule (15 sources) Proton Pump Inhibitor Start: 04-02-2025 take 1 capsule by mouth every twelve hours lansoprazole (PREVACID) 30 mg capsule Take 1 capsule by mouth every 12 hours. 04/02/2025 Active Start: 08-17-2022 End: 12-29-2022 take 30 mg by mouth once daily Lansoprazole Active 30 MG PO DAILY December 29, 2022 11:39am Start: 07-28-2022 End: 08-17-2022 take 1 capsule by mouth twice daily Lansoprazole (Prevacid) 15 mg Capsule,Delayed Release(Dr/Ec) Discontinued 15 MG PO TWICE A DAY July 28, 2022 12:00am August 17, 2022 1:28pm lisinopril 20 mg oral tablet (11 sources) Angiotensin Converting Enzyme Inhibitor Start: 03-29-2022 take 20 mg by mouth once daily Lisinopril Active 20 MG PO DAILY March 29, 2022 12:00am loperamide hydrochloride 2 mg oral capsule (6 sources) Opioid Agonist Start: 03-29-2022 take 1 capsule by mouth every six hours Loperamide (Imodium A-D) 2 mg capsule Active 2 MG PO EVERY 6 HOURS March 29, 2022 12:00am mecobalamin 1 mg chewable tablet (11 sources) Start: 03-29-2022 take 1000 ug by mouth once daily Mecobalamin (Vitamin B12) Active 1000 MCG PO DAILY March 29, 2022 12:00am naproxen sodium 220 mg oral tablet (3 sources) Nonsteroidal Anti-inflammatory Drug Start: 09-30-2008 naproxen sodium(ALEVE 220 MG TAB) 2 tablets at bedtime 0 09/30/2008 Active 400 actuat pirbuterol acetate 0.2 mg/actuat metered dose inhaler (3 sources) Start: 09-30-2008 take 2 puff(s) by inhalation every twelve hours as needed pirbuterol acetate(MAXAIR AUTOHALER 200 MCG/INHALATION BREATH ACTIVATED) 2 puffs every 12 hours as needed 0 09/30/2008 Active potassium chloride 20 meq extended release oral tablet (12 sources) Start: 03-29-2022 take 20 mEq by mouth twice daily Potassium Chloride Active 20 MEQ PO TWICE A DAY March 29, 2022 12:00am Start: 09-30-2008 End: 08-11-2025 potassium chloride(K-DUR 10 MEQ TAB) 2 caps four times daily 0 09/30/2008 06/03/2025 Discontinued Psyllium (Metamucil) Packet (5 sources) Start: 07-28-2022 take 8 [oz_av] by mouth twice daily Psyllium (Metamucil) Packet Active 1 PACKET PO TWICE A DAY July 27, 2022 11:00pm mix into at least 8 oz of water or juice before administering Start: 07-28-2022 take 8 [oz_av] by mo ut twice daily Psyllium (Metamucil) Packet Active 1 PACKET PO TWICE A DAY July 28, 2022 12:00am mix into at least 8 oz of water or juice before administering sertraline 50 mg oral tablet (11 sources) Serotonin Reuptake Inhibitor Start: 03-29-2022 take 50 mg by mouth once daily Sertraline Active 50 MG PO DAILY March 29, 2022 12:00am simethicone 180 mg oral capsule (3 sources) take 1 capsule by mouth once daily Simethicone 180 mg cap Take 180 mg by mouth once daily. Active sucralfate 1000 mg oral tablet (4 sources) Aluminum Complex Start: 08-17-2022 take 1 g by mouth before mealtime Sucralfate Active 1 GM PO before meals August 17, 2022 12:00am Completed/Discontinued Medications Medication Drug Class(es) Dates Sig (Normalized) Sig (Original) meclizine hydrochloride 25 mg oral tablet (11 sources) Antiemetic Start: 10-28-2014 End: 05-14-2022 take 25 mg by mouth three times daily as needed Meclizine Discontinued 25 MG PO 3 TIMES DAILY NEEDED October 28, 2014 1:00am May 14, 2022 8:27am multivitamins(DAILY VITAMIN TAB) (1 source) Start: 09-30-2008 End: 06-03-2025 multivitamins(JASON Y VITAMIN TAB) Take one(1) tablet daily. 0 09/30/2008 06/03/2025 Discontinued polyethylene glycol 3350 942521 mg / potassium chloride 2970 mg / sodium bicarbonate 6740 mg / sodium chloride 5860 mg / sodium sulfate 81203 mg powder for oral solution (3 sources) Osmotic Laxative Start: 06-03-2025 End: 07-03-2025 peg 3350-Electrolytes (GOLYTELY) 236-22.74-6.74 -5.86 gram suspension Refer to printed prep instructions from your provider. 4000 mL 06/03/2025 07/03/2025 Discontinued raNITIdine 150 mg oral capsule (1 source) Histamine-2 Receptor Antagonist Start: 09-30-2008 End: 06-03-2025 ranitidine hcl(ZANTAC 150 MG CAP) Take one(1) tablet twice daily. 0 09/30/2008 06/03/2025 Discontinued Verapamil (1 source) Calcium Channel Annette Start: 10-07-2008 End: 06-03-2025 verapamil hcl(COVERA-HS 180 MG 24 HR TAB) one daily 0 10/07/2008 06/03/2025 Discontinued vitamin b12 1 mg oral tablet (1 source) Vitamin B12 Start: 09-30-2008 End: 06-03-2025 cyanocobalamin(VIT IRBY B-12 1,000 MCG TAB) Take one(1) tablet daily. 0 09/30/2008 06/03/2025 Discontinued Problems Problem Classification Problem Date Documented Da te Episodic/Chronic Abdominal pain (20 sources) Lower abdominal pain; Translations: [Lower abdominal pain, unspecified] Episodic Chronic obstructive pulmonary disease and bronchiectasis (11 sources) Acute exacerbation of chronic obstructive airways disease; Translations: [Chronic obstructive pulmonary disease with (acute) exacerbation] 10-30-2013 Chronic Esophageal disorders (18 sources) Gastroesophageal reflux disease; Translations: [Gastro-esophageal reflux disease without esophagitis] Onset: 5 Chronic Essential hypertension (11 sources) Hypertensive disorder; Translations: [Essential (primary) hypertension] 10-30-2013 Chronic Noninfectious gastroenteritis (19 sources) Chronic diarrhea; Translations: [Noninfective gastroenteritis and colitis, unspecified] Onset: 5 Episodic Other gastrointestinal disorders (7 sources) Diarrhea, unspecified; Translations: [Diarrhea] Onset: 5 Episodic Other gastrointestinal disorders (6 sources) Diarrhea; Translations: [Diarrhea, unspecified] 06-03-2025 Episodic Other gastrointestinal disorders (5 sources) Dysphagia; Translations: [Dysphagia, unspecified] 06-03-2025 Episodic Other gastrointestinal disorders (3 sources) Dysphagia, unspecified; Translations: [Dysphagia, unspecified] Onset: 4 Episodic Other liver diseases (6 sources) Steatosis of liver; Translations: [Fatty (change of) liver, not elsewhere classified] 06-25-2022 Chronic Other liver diseases (3 sources) Fatty (change of) liver, not elsewhere classified; Translations: [Other chronic nonalcoholic liver disease] Onset: 5 Chronic Other screening for suspected conditions (not mental disorders or infectious disease) (1 source) Encounter for screening mammogram for malignant neoplasm of breast; Translations: [Encounter for screening mammogram for malignant neoplasm of breast] Onset: 5 Episodic Residual codes; unclassified (11 sources) Tobacco use and exposure - finding; Translations: [Tobacco use] 10-30-2013 Episodic Residual codes; unclassified (6 sources) History of hernia repair; Translations: [Other specified postprocedural states] 07-28-2022 Episodic Residual codes; unclassified (2 sources) Other specified postprocedural states; Translations: [Other postprocedural status] Episodic Residual codes; unclassified (1 source) Family history of cancer of colon; Translations: [Family history of malignant neoplasm of digestive organs] 06-03-2025 Episodic Screening and history of mental health and substance abuse codes (1 source) Personal history of nicotine dependence; Translations: [Personal history of nicotine dependence] Onset: 5 Episodic Thyroid disorders (11 sources) Hypothyroidism; Translations: [Hypothyroidism, unspecified] 10-30-2013 Chronic Unclassified (1 source) Consult Onset: 5 Results Test Name Value Interpretation Reference Range Facility [facility] 08-16-2025 CNOV Office Visit (GENSWS ) JOANA PERRY ([id number]) 1955 F Date Time Provider Department 08/16/25 8:00 AM NORA GARDNER During your visit today, we recorded the following information about you: Nora aGrdner MD 08/16/2025 10:18 AM Signed FOLLOW UP VISIT - ENDOSCOPY NAME: Joana Perry CLINIC NO.: [id number] DATE OF SERVICE: 08/14/2025 : 1955 REFERRING PHYSICIAN: Cristy Carroll MD Joana is a patient I am following for loose stools/diarrhea. The patient is a 69 year old female with a complaint of problematic diarrhea for the past 26 years to the point that the patient wishes to have a diverting colostomy. The patient has a complex past medical history. The patient has a history of diabetes diverticulosis and hypertension. The patient states prior to 25 years ago she generally had issues with constipation. In February 1999 the patient underwent a open hernia repair performed at [facility]. This was performed by Dr. Nora Hdz. I understand the surgery was performed in January 1999. 1 month later she was brought back for exploration and she was told that she had a loop of bowel that was stuck to the mesh and she understands that she had approximately 6 inches of colon and 2 feet of small bowel removed. She underwent what is listed as an ileocecectomy and small bowel resection. The patient recalled that she had 2 follow-up hernia repairs performed by Dr. Leiva apparently the most recently in 2000 but I do not see records of those operative procedures Since that time the patient notes she has had issues with diarrhea upwards of 20 or she says even up to 60 bowel movements per day. She is in the past followed up with Dr. Herb Finley who performed multiple endoscopies and had tried the patient says many different medications with no success. Most recently she was seen by Dr. Alvarez at [facility] and underwent upper and lower endoscopy. I understand she had ballooning of her esophagus I do not have records of this procedure. Joana Perry is a 69-year-old female presenting with chronic diarrhea and severe depression. Joana reports experiencing approximately 20 watery stools daily, often accompanied by significant flatus. She describes the diarrhea as explosive, with frequent splattering beyond the toilet bowl, requiring her to clean the bathroom castillo multiple times per day. She notes that using Gas-X has helped her reach the bathroom more quickly and reduced the severity of these episodes. The diarrhea began immediately after surgery while she was still hospitalized, and she had no prior issues before the procedure. She reports that fruits and vegetables worsen her diarrhea. She was diagnosed with a dairy allergy by Dr. Alvarez and has eliminated dairy and eggs from her diet, but has not noticed any improvement. She has also tried eliminating other food groups for several weeks at a time without benefit. She has food allergies that affect her breathing, which she avoids, but she does not believe her current symptoms are food-related. She has trialed multiple medications without relief, including up to 8 tablets of Imodium daily. She was previously prescribed cholestyramine by Dr. Finley, which initially provided relief for about 3 weeks at a dose of 6 servings per day, but then lost effectiveness. She is currently taking Prevacid 30 mg twice daily, prescribed by Dr. Alvarez in August of last year. She has also tried other medications as recommended by Dr. Bautista and Dr. Alvarez. She reports low potassium levels and is currently trying an [id number] liquid potassium supplement to address leg cramps. She notes that pills do not stay in her system well due to the frequency of her bowel movements. The chronic diarrhea has severely impacted her quality of life. She is unable to socialize, go to the grocery store, or engage in most activities outside her home. She reports seeing only healthcare providers and occasional visitors at her home. She describes severe depression related to her condition, but notes that she no longer has suicidal thoughts. Again the patient states has been on multiple past medications for her multiple loose stools. She states that her stools are usually liquid and brown and occasionally different colors. She denies stearrhea. She notes that she will have some bloating frequently and occasional discomfort with these bowel movements. She denies blood in her stool. We were able to obtain records of the following studies the include: From November 30, 2024 negative stool for lactoferrin C. difficile and occult blood CT scan of the abdomen pelvis from September 06, 2024 demonstrated mild fatty liver hepatomegaly but stable ventral hernia repair with mesh there is noted to be a small persistent umbilical hernia but th (more content not included)... Normal [facility] 08-14-2025 MAHSAN Tele[facility] JOANA PERRY ([id number]) 1955 F Date Time Provider Department 08/14/25 NORA GARDNER During your visit today, we recorded the following information about you: Rosita Blood RN 08/14/2025 9:14 AM Signed Left message for patient to return my call concerning her appointment today. Requested patient to call back and ask for Rosita in General Surgery.Rosita Blood RN Allergies As of Date: 08/14/2025 Noted Allergy Reaction DERMAGESIC (BENZOCAINE-PYRILAMINE*05/2008 LEVAQUIN (LEVOFLOXACIN) 09/30/2008 PENICILLINS 09/30/2008 PERCOCET (OXYCODONE-ACETAMINOPHEN) ZITHROMAX (AZITHROMYCIN) 06/03/2025 2 - Rash 12 - Shortness of Breath Date Reviewed: 08/05/2025 Reviewed by: Rosario Storey RN - Fully Assessed Reason for Visit: Appointment [[id number]] Prescriptions as of 08/14/2025 - glimepiride (AMARYL) 2 mg tablet Take 1 tablet by mouth once daily. - DILT-XR 120 mg 24 hr capsule Take 1 capsule by mouth once daily. - lansoprazole (PREVACID) 30 mg capsule Take 1 capsule by mouth every 12 hours. - Simethicone 180 mg cap Take 180 mg by mouth once daily. - cetirizine hcl(ZYRTEC 10 MG TAB) Take one(1) tablet daily. - furosemide(LASIX 40 MG TAB) 2 tablets every other day - azelastine hcl(ASTELIN 137 MCG NASAL SPRAY AEROSOL) 2 sprays eacdh nostril every 12 hours - pirbuterol acetate(MAXAIR AUTOHALER 200 MCG/INHALATION BREATH ACTIVATED) 2 puffs every 12 hours as needed - naproxen sodium(ALEVE 220 MG TAB) 2 tablets at bedtime Problem List As Of Date: 08/14/2025 (None) Encounter Status:Closed by ROSITA BLOOD on 08/14/25 Normal [facility] ANES POSTPROC EVALon 025 ANES POSTPROC EVAL HNO ID: [id number] Author: YAYO CUEVAS MD Service: Anesthesiology Author Type: Anesthesiologist Type: Anesthesia Postprocedure Evaluation Filed: 08/05/2025 13:38 Note Text: POST ANESTHESIA EVALUATION NOTE : 1955 Procedure Summary Date: 08/05/25 Room / Location: [facility] Endoscopy Anesthesia Start: 1241 Anesthesia Stop: 1326 Procedures: EGD DIAGNOSTIC COLONOSCOPY DIAGNOSTIC Diagnosis: Diarrhea, unspecified type Gastroesophageal reflux disease, unspecified whether esophagitis present Dysphagia, unspecified type (Abdominal distress) Scheduled Providers: Nora Gardner MD; Yayo Cuevas MD; Yayo Poon APRN.MECHANICAL ASSEMBLER Responsible Provider: Yayo Cuevas MD Anesthesia Type: MAC ASA Status: 3 Anesthesia Type: MAC Last Vitals Vitals Value Taken Time BP 153/78 08/05/25 13:37 Temp 36.5 08/05/25 13:37 Pulse 80 08/05/25 13:36 Resp 16 08/05/25 13:37 SpO2 93 % 08/05/25 13:36 Vitals shown include unfiled device data. Post Anesthesia Patient Status Patient Evaluation: bedside. Anticipated Disposition: phase 2 then home. Neurological Status: aware and responsive. Pulmonary Status: breathing comfortably on room air Airway Control: returned to baseline unsupported. Cardiovascular Status: stable. Pain Management: clinically adequate Postoperative Hydration: acceptable. Intraoperative Events: no significant anesthesia events Post Operative Nausea/Vomiting Status: no significant post operative nausea or vomiting Recommendation: continue current plan of care. Anesthesia Observations No Documentation SIGNATURE: Yayo Cuevas MD PATIENT NAME: Joana Perry DATE: August 05, 2025 TIME: 1:37 PM CSN: [id number] Normal [facility] ANES PRE-OPon 08-05-2025 ANES PRE-OP HNO ID: [id number] Author: YAYO CUEVAS MD Service: Anesthesiology Author Type: Anesthesiologist Type: Anesthesia Preprocedure Evaluation Filed: 08/05/2025 12:10 Note Text: ANESTHESIOLOGY DAY OF SURGERY NOTE : 1955 Procedure Information Date/Time: 08/05/25 1245 Scheduled providers: Nora Gardner MD; Yayo Cuevas MD; Yayo Poon APRN.MECHANICAL ASSEMBLER Procedures: EGD DIAGNOSTIC COLONOSCOPY DIAGNOSTIC Location: [facility] Endoscopy Estimated body mass index is 44.77 kg/m? as calculated from the following: Height as of 09/30/08: 154.3 cm (5' 0.75"). Weight as of 09/30/08: 106.6 kg (235 lb). Most recent hematocrit and potassium results: No results found for this basename: HCT,HEMATOCRIT,K,POTASSIUM Relevant Problems No relevant active problems I - PHYSICAL EVALUATION AIRWAY Patient intubated: No. Tracheostomy tube not present Mallampati: III. TM distance: >3 FB. Neck ROM: full ROM without neurological symptoms. Mouth openin FB. Short neck: yes. Thick neck: yes Microretrognathia/Micronagt hia/Recessed Chin: Yes DENTAL Dental findings: edentulous. Additional comments: Poor oral hygiene,. II - ANESTHESIA PLAN ASA Score: 3 Anesthetic Plan: MAC The patient is not a current smoker. NPO Status: adequate Monitoring Plan Monitoring plan: standard ASA. Post Procedure Analgesic Plan Postoperative analgesic plan: parenteral or oral opioids and multimodal analgesia. Informed Consent Anesthetic risks, benefits, alternatives, personnel and consent discussed: yes. Patient / Responsible Constitution Party agrees to proceed: yes Patient / Surrogate agrees to blood products: blood products not planned DNR status not reviewed with patient and/or family prior to surgery. Significant changes in the patient condition since the History and Physical, not otherwise documented in primary service progress note: no. Potential Anesthesia issues that may suggest increased risk of complications or contraindication to planned procedure: none. Discussed the possibility of lip / dental damage: yes Vitals Value Taken Time BP 182/89 08/05/25 11:31 Pulse 91 08/05/25 11:31 Resp 16 08/05/25 11:31 Temp 36.2 ?C (97.2 ?F) 08/05/25 11:31 SpO2 96 % 08/05/25 11:31 Outpatient Medications as of 08/05/2025 Medication Sig glimepiride (AMARYL) 2 mg tablet Take 1 tablet by mouth once daily. DILT-XR 120 mg 24 hr capsule Take 1 capsule by mouth once daily. lansoprazole (PREVACID) 30 mg capsule Take 1 capsule by mouth every 12 hours. Simethicone 180 mg cap Take 180 mg by mouth once daily. cetirizine hcl(ZYRTEC 10 MG TAB) Take one(1) tablet daily. furosemide(LASIX 40 MG TAB) 2 tablets every other day azelastine hcl(ASTELIN 137 MCG NASAL SPRAY AEROSOL) 2 sprays eacdh nostril every 12 hours pirbuterol acetate(MAXAIR AUTOHALER 200 MCG/INHALATION BREATH ACTIVATED) 2 puffs every 12 hours as needed naproxen sodium(ALEVE 220 MG TAB) 2 tablets at bedtime Facility-Administered Medications as of 08/05/2025 Medication Dose Route Frequency lactated ringers iv infusion 30 mL/hr INTRAVENOUS CONTINUOUS lactated ringers iv infusion 30 mL/hr INTRAVENOUS CONTINUOUS I have interviewed and examined the patient. I have reviewed the medical record and/or the pre-anesthesia evaluation, pertinent labs, and test results. This contains updated information obtained within 48 hours of Surgery/Procedure. SIGNATURE: Yayo Cuevas MD PATIENT NAME: Joana Perry DATE: August 05, 2025 TIME: 12:09 PM CSN: [id number] Normal [facility] Colonoscopyon 08-05-2025 Colonoscopy [facility] Gastrointestinal Endoscopy Patient Name: Joana Perry Procedure Date: 08/05/2025 12:58 PM Date of : 1955 Admit Type: Outpatient Age: 69 Room: [facility] Gender: Female Note Status: Finalized Attending MD: Nora Gardner MD, [id number] Procedure: Colonoscopy Indications: Clinically significant diarrhea of unexplained origin Providers: Nora Gardner MD Patient Profile: This is a 69 year old female. Refer to note in patient chart for documentation of history and physical. Last Colonoscopy: date unknown. Referring Physician: Giselle Fonseca (Referring MD) Medicines: Monitored Anesthesia Care Complications: No immediate complications. Requesting Provider: Procedure: Pre-Anesthesia Assessment: - Prior to the procedure, a History and Physical was performed, and patient medications and allergies were reviewed. The patient is competent. The risks and benefits of the procedure and the sedation options and risks were discussed with the patient. All questions were answered and informed consent was obtained. Patient identification and proposed procedure were verified by the physician, the nurse and the watershed engineer in the procedure room. Respiratory Examination: clear to auscultation. Prophylactic Antibiotics: The patient does not require prophylactic antibiotics. Prior Anticoagulants: The patient has taken no anticoagulant or antiplatelet agents. ASA Grade Assessment: III - A patient with severe systemic disease. After reviewing the risks and benefits, the patient was deemed in satisfactory condition to undergo the procedure. The anesthesia plan was to use monitored anesthesia care (MAC). Immediately prior to administration of medications, the patient was re-assessed for adequacy to receive sedatives. The heart rate, respiratory rate, oxygen saturations, blood pressure, adequacy of pulmonary ventilation, and response to care were monitored throughout the procedure. The physical status of the patient was re-assessed after the procedure. After I obtained informed consent, the scope was passed under direct vision. Throughout the procedure, the patient's blood pressure, pulse, and oxygen saturations were monitored continuously. The Colonoscope was introduced through the anus and advanced to the terminal ileum. The colonoscopy was performed without difficulty. The patient tolerated the procedure well. The quality of the bowel preparation was good. Anatomical landmarks were photographed. Scope Withdrawal Time: 0 hours 8 minutes 5 seconds Moderate Sedation: MAC anesthesia was administered by the anesthesia team. Total Procedure Duration: 0 hours 21 minutes 56 seconds Findings: The perianal and digital rectal examinations were normal. The terminal ileum appeared normal. Biopsies were taken with a cold forceps for histology. There was evidence of a prior end-to-end ileo-colonic anastomosis in the ascending colon. This was patent and was characterized by healthy appearing mucosa. The anastomosis was traversed. The transverse colon appeared normal. Biopsies were taken with a cold forceps for histology. The sigmoid colon appeared normal. Biopsies were taken with a cold forceps for histology. Biopsies were taken with a cold forceps for histology. The exam was otherwise without abnormality on direct and retroflexion views. Impression: - The examined portion of the ileum was normal. Biopsied. - Patent end-to-end ileo-colonic anastomosis, characterized by healthy appearing mucosa. - The transverse colon is normal. Biopsied. - The sigmoid colon is normal. Biopsied. - The examination was otherwise normal on direct and retroflexion views. Recommendation: - Discharge patient to home. - Resume previous diet. - Continue present medications. - Return to my office in 1 week. - Patient has a contact number available for emergencies. The signs and symptoms of potential delayed complications were discussed with the patient. Return to normal activities tomorrow. Written discharge instructions were provided to the patient. - Repeat colonoscopy is recommended. The colonoscopy date will be determined based on pathology results from today's exam and current guidelines. Procedure Code(s): --- Professional --- 60024, Colonoscopy, flexible; with biopsy, single or multiple CPT copyright 2020 [employer]. All rights reserved. The codes documented in this report are preliminary and upon trading analyst review may be revised to meet current compliance requirements. Attending Participation: I personally performed the entire procedure. Scope In: 1:01:53 PM Scope Out: 1:23:49 PM MD Nora Malave MD 08/05/2025 1:40:12 PM This report has been signed electronically by Nora Gardner MD Number of Addenda: 0 Note Initiated On: (more content not included)... Normal [facility] HISTORY PHYSICALon HISTORY PHYSICAL HNO ID: [id number] Author: NORA GARDNER MD Service: General Surgery Author Type: Physician Type: H&P Filed: 08/05/2025 12:00 Note Text: HISTORY AND PHYSICAL Joana Rhoda 1955 REFERRING PHYSICIAN: Giselle Fonseca APRN.* CHIEF COMPLAINT: Consult (Has had diarrhea for past 26 years) HPI: The patient is a 69 year old female with a complaint of problematic diarrhea for the past 26 years to the point that the patient wishes to have a diverting colostomy. The patient has a complex past medical history. The patient has a history of diabetes diverticulosis and hypertension. The patient states prior to 25 years ago she generally had issues with constipation. In February 1999 the patient underwent a open hernia repair performed at [facility]. She understands she had a small bowel and colon injury at that surgical procedure and this required repeat exploration where she then underwent what is listed as an ileocecectomy and small bowel resection. The patient had 2 follow-up hernia repairs performed by Dr. Leiva apparently the most recently in 2000. Since that time the patient notes she has had issues with diarrhea upwards of 20 or she says even up to 60 bowel movements per day. She is in the past followed up with Dr. Herb Finley who performed multiple endoscopies and had tried the patient says many different medications with no success. Most recently she was seen by Dr. Alvarez at [facility] and underwent upper and lower endoscopy. I understand she had ballooning of her esophagus I do not have records of this procedure. Again the patient states has been on multiple past medications for her multiple loose stools. She states that her stools are usually liquid and brown and occasionally different colors. She denies stearrhea. She notes that she will have some bloating frequently and occasional discomfort with these bowel movements. She denies blood in her stool. She states she had 3 children. She states she had a tear with childbirth and repair of her laceration but denied incontinence following those events. The patient is being seen by me today at the request of Dr. Cristy Carroll MD for my opinion and advice regarding need for diverting stoma. PAST MEDICAL HISTORY PAST MEDICAL HISTORY Diagnosis Date Anemia, unspecified Diabetes mellitus without mention of complication Diabetes mellitus Diverticulosis Esophageal reflux Gastroesophageal reflux Hiatal hernia Osteoarthrosis, unspecified whether generalized or localized, other specified sites PMH - PAST MEDICAL HISTORY OF rheumatic fever Umbilical hernia Unspecified essential hypertension Essential hypertension PAST SURGICAL HISTORY PAST SURGICAL HISTORY Procedure Laterality Date COLON SURGERY HX colon resection Dr [facility] EXC/DSTRJ LINGUAL TONSIL ANY METHOD SPX LIG/TRNSXJ FLP TUBE ABDL/VAG APPR UNI/BI PAST SURGICAL HISTORY OF ventral hernia repair PAST SURGICAL HISTORY OF lipoma removal - back SLING OPER STRES INCONTINENCE VAGINAL HYSTERECTOMY UTERUS 250 GM/< CURRENT MEDICATIONS Current Outpatient Medications Medication Sig glimepiride (AMARYL) 2 mg tablet Take 1 tablet by mouth once daily. DILT-XR 120 mg 24 hr capsule Take 1 capsule by mouth once daily. lansoprazole (PREVACID) 30 mg capsule Take 1 capsule by mouth every 12 hours. Simethicone 180 mg cap Take 180 mg by mouth once daily. cetirizine hcl(ZYRTEC 10 MG TAB) Take one(1) tablet daily. furosemide(LASIX 40 MG TAB) 2 tablets every other day azelastine hcl(ASTELIN 137 MCG NASAL SPRAY AEROSOL) 2 sprays eacdh nostril every 12 hours pirbuterol acetate(MAXAIR AUTOHALER 200 MCG/INHALATION BREATH ACTIVATED) 2 puffs every 12 hours as needed naproxen sodium(ALEVE 220 MG TAB) 2 tablets at bedtime peg 3350-Electrolytes (GOLYTELY) 236-22.74-6.74 -5.86 gram suspension Refer to printed prep instructions from your provider. No current facility-administered medications for this visit. ALLERGIES: Dermagesic [Ftebmbunwh-Qrhprrsrws-Wlky Ox], Levaquin [Levofloxacin], Penicillins, Percocet [Oxycodone-Acetaminophen], and Zithromax [Azithromycin] PERSONAL HISTORY: [SOCIAL HISTORY] [SOCIAL HISTORY] Social History Tobacco Use Smoking status: Every Day Current packs/day: 1.50 Average packs/day: 1.5 packs/day for 38.0 years (57.0 ttl pk-yrs) Types: Cigarettes Smokeless tobacco: Never Vaping Use Vaping status: current everyday user Substance Use Topics Alcohol use: Not Currently Comment: social Drug use: No FAMILY HISTORY: FAMILY HISTORY FAMILY HISTORY Problem Relation Age of Onset Allergies Mother Cancer Mother uterine Alcohol/Drug Father Allergies Father Cancer Father lung Diabetes Father Heart Father Hypertension Father Colon Cancer Father Psychiatry Sister REVIEW OF SYMPTOMS: negative except as noted above PHYSICAL EXAMINATION: General: The patient is 69 yea (more content not included)... Normal [facility] Pathology biopsy report Joey (Tiss)on 08-05-2025 AP DISCLAIMER [facility] Comment on above: Order Comment: Speci men Type: TISSUE SPECIMEN Ordering Facility: [facility] Address: [address] [place] [address] Result Comment: Javed das Developed Test (LDT) Disclaimer: Performance characteristics of immunohistochemical, immunofluorescent, and chromogenic in-situ hybridization tests have been determined by the performing laboratory within the [facility] Department of Pathology and Laboratory Medicine ([facility], [facility], [facility], [facility], [facility], [facility], or [facility]) in a manner consistent with CLIA requirements. One or more of these tests may not have been cleared or approved by the FDA. The [facility] Department of Pathology and Laboratory Medicine is regulated under CLIA as qualified to perform high-complexity testing. These tests are used for clinical purposes. These should not be regarded as investigational or for research. Positive and negative controls stain appropriately. Performed By: #### 6 6121-5 #### [facility] CLIA [id number] [address] [place] [address] OF [place]UEL CASE REPORT Normal [facility] Comment on above: Order Comment: Speci men Type: TISSUE SPECIMEN Ordering Facility: [facility] Address: [address] [place] [address] Result Comment: [facility] Pathology Report Case: [id number] Authorizing Provider: Nora Gardner MD Collected: 08/05/2025 12:54 PM Ordering Location: [facility] Endoscopy Received: 08/05/2025 02:08 PM Pathologist: Elizabeth Mann MD Specimens: A) - Small Bowel, Jejunum, Biopsy B) - Stomach, Antrum, Biopsy C) - Esophagus, Distal, Biopsy D) - Esophagus, Mid, Biopsy E) - Small Bowel, Biopsy F) - Esophagus, Proximal, Biopsy G) - Esophagus, Distal, Biopsy, x2 specimens Performed By: #### 6 6121-5 #### [facility] CLIA [id number] [address] [place] [address] STATES OF [facility]UEL CLINICAL HISTORY Normal [facility] Comment on above: Order Comment: Speci men Type: TISSUE SPECIMEN Ordering Facility: [facility] Address: [address] [place] [address] Result Comment: Ena batista Diagnoses: K21.9 - Gastroesophageal reflux disease, unspecified whether esophagitis present R19.7 - Diarrhea, unspecified type R13.10 - Dysphagia, unspecified type Performed By: #### 6 6121-5 #### [facility] CLIA [id number] [address] [place] [address] STATES OF VICTOR MANUEL DIAGNOSIS COMMENT Correlation with end oscopic findings is recommended for specimens F and G. [facility] Comment on above: Order Comment: Speci men Type: TISSUE SPECIMEN Ordering Facility: [facility] Address: [address] [place] [address] Performed By: #### 6 6121-5 #### [facility] CLIA [id number] [address] [place] [address] STATES OF VICTOR MANUEL FINAL DIAGNOSIS [facility] Comment on above: Order Comment: Speci men Type: TISSUE SPECIMEN Ordering Facility: [facility] Address: [address] [place] [address] Result Comment: A. S mall Bowel, Jejunum, Biopsy: - Small bowel mucosa with focal minimal intraepithelial lymphocytosis. - No significant evidence of villous blunting. B. Stomach, Antrum, Biopsy: - Gastric antral mucosa with mild reactive gastropathy. - No definitive morphologic evidence of Helicobacter pylori organisms. C. Esophagus, Distal, Biopsy: - Squamous mucosa with no significant pathologic abnormality. D. Esophagus, Mid, Biopsy: - Focally active esophagitis with mild reactive epithelial changes. - Stain for PAS/D is pending. E. Small Bowel, Biopsy: - Small bowel mucosa with no significant pathologic abnormality. F. "Esophagus, Proximal", Biopsy: - Colonic type mucosa with focal minimal surface epithelial injury. G. "Esophagus, Distal", Biopsy: - Colonic type mucosa with no significant pathologic abnormality. at 1427 EDT Performed By: #### 6 6121-5 #### [facility] CLIA [id number] [address] [place] [address] STATES OF [facility] Normal [facility] Comment on above: Order Comment: Speci men Type: TISSUE SPECIMEN Ordering Facility: [facility] Address: [address] [place] [address] Result Comment: Diag nostic interpretation performed at: [facility], [address] [place] [address] CLIA# [id number] Social Sciences Professor: Henrry Penaloza MD Performed By: #### 6 6121-5 #### [facility] CLIA [id number] [address] [place] [address] GROSS DESCRIPTION Normal [facility] Comment on above: Order Comment: Speci men Type: TISSUE SPECIMEN Ordering Facility: [facility] Address: [address] [place] [address] Result Comment: A. S mall Bowel, Jejunum, Biopsy Received in formalin is one piece of glass, soft tissue measuring 0.4 x 0.4 x 0.1 cm. Totally submitted in one cassette. B. Stomach, Antrum, Biopsy Received in formalin is one piece of glass, soft tissue measuring 0.3 x 0.2 x 0.2 cm. Totally submitted in one cassette. C. Esophagus, Distal, Biopsy Received in formalin is one piece of glass-white glass-red, soft tissue measuring 0.3 x 0.2 x 0.2 cm. Totally submitted in one cassette. D. Esophagus, Mid, Biopsy Received in formalin is one piece of glass-white, soft tissue measuring 0.4 x 0.3 x 0.1 cm. Totally submitted in one cassette. E. Small Bowel, Biopsy Received in formalin is one piece of glass, soft tissue measuring 0.3 x 0.2 x 0.2 cm. Totally submitted in one cassette. F. Esophagus, Proximal, Biopsy Received in formalin are two pieces of glass, soft tissue aggregating to 0.5 x 0.2 x 0.1 cm. Totally submitted in one cassette. G. Esophagus, Distal, Biopsy Received in formalin are multiple pieces of glass-pink, soft tissue aggregating to 1.4 x 0.2 x 0.1 cm. Totally submitted in one cassette. AJB August 05, 2025 5:21 PM Gross examination performed at [facility], [address] [place] [address] Performed By: #### 6 6121-5 #### [facility] CLIA [id number] [address] [place] [address] [place] Upper GI endoscopy 10-13-2 025 Upper GI endoscopy [facility] Gastrointestinal Endoscopy Patient Name: Joana Perry Procedure Date: 08/05/2025 12:36 PM Date of : 1955 Admit Type: Outpatient Age: 69 Room: [facility] Gender: Female Note Status: Finalized Attending MD: Nora Gardner MD, [id number] Procedure: Upper GI endoscopy Indications: Abdominal distress Providers: Nora Gardner MD Patient Profile: This is a 69 year old female. Refer to note in patient chart for documentation of history and physical. Referring Physician: Giselle Fonseca (Referring MD) Medicines: Monitored Anesthesia Care Complications: No immediate complications. Requesting Provider: Procedure: Pre-Anesthesia Assessment: - Prior to the procedure, a History and Physical was performed, and patient medications and allergies were reviewed. The patient is competent. The risks and benefits of the procedure and the sedation options and risks were discussed with the patient. All questions were answered and informed consent was obtained. Patient identification and proposed procedure were verified by the physician, the nurse and the watershed engineer in the procedure room. Mental Status Examination: alert and oriented. Respiratory Examination: clear to auscultation. CV Examination: normal. Prophylactic Antibiotics: The patient does not require prophylactic antibiotics. Prior Anticoagulants: The patient has taken no anticoagulant or antiplatelet agents. ASA Grade Assessment: III - A patient with severe systemic disease. After reviewing the risks and benefits, the patient was deemed in satisfactory condition to undergo the procedure. The anesthesia plan was to use monitored anesthesia care (MAC). Immediately prior to administration of medications, the patient was re-assessed for adequacy to receive sedatives. The heart rate, respiratory rate, oxygen saturations, blood pressure, adequacy of pulmonary ventilation, and response to care were monitored throughout the procedure. The physical status of the patient was re-assessed after the procedure. After obtaining informed consent, the endoscope was passed under direct vision. Throughout the procedure, the patient's blood pressure, pulse, and oxygen saturations were monitored continuously. The Endoscope was introduced through the mouth, and advanced to the jejunum. The upper GI endoscopy was accomplished without difficulty. The patient tolerated the procedure well. Moderate Sedation: MAC anesthesia was administered by the anesthesia team. Total Procedure Duration: 0 hours 5 minutes 52 seconds Findings: The examined jejunum was normal. Biopsies for histology were taken with a cold forceps for evaluation of celiac disease. The examined duodenum was normal. Localized mild inflammation characterized by erythema was found in the entire examined stomach. Biopsies were taken with a cold forceps for histology. Mild esophagitis with no bleeding was found in the lower third of the esophagus. Biopsies were taken with a cold forceps for histology. The middle third of the esophagus was normal. Biopsies were taken with a cold forceps for histology. Impression: - Normal examined jejunum. Biopsied. - Normal examined duodenum. - Gastritis, characterized by erythema. Biopsied. - Mild reflux esophagitis with no bleeding. Biopsied. - Normal middle third of esophagus. Biopsied. Recommendation: - Discharge patient to home. - Resume previous diet. - Continue present medications. - Return to my office in 1 week. Procedure Code(s): --- Professional --- 84406, Esophagogastroduodenoscopy, flexible, transoral; with biopsy, single or multiple CPT copyright 2020 [employer]. All rights reserved. The codes documented in this report are preliminary and upon trading analyst review may be revised to meet current compliance requirements. Attending Participation: I personally performed the entire procedure. Scope In: 12:52:17 PM Scope Out: 12:58:09 PM MD Nora Malave MD 08/05/2025 1:35:09 PM This report has been signed electronically by Nora Gardner MD Number of Addenda: 0 Note Initiated On: 08/05/2025 12:36 PM Estimated Blood Loss: Estimated blood loss: none. Normal [facility] Microalb:Creat Ratio,Random URon 08-01-2025 Creatinine [Mass/Vol] 58.70 mg/dL Normal 28.00- 217. 00 [facility] Comment on above: Performed By: #### L 502.0250 #### [facility] [address] [place], [place], [address] MALB:CREAT UNABLE TO CALCULATE Normal <30 mg/g CRE [facility] Comment on above: Performed By: #### L 502.0250 #### [facility] [address] [place], [place], [address] MICROALBUMIN,UR < 12.0 Normal <20 mg/L [facility] Comment on above: Performed By: #### L 502.0250 #### [facility] [address] [place], [address] CNOVon 06-27-2025 CNOV Office Visit (GENSWS ) JOANA PERRY ([id number]) 1955 F Date Time Provider Department 06/27/25 11:00 AM NORA GARDNER During your visit today, we recorded the following information about you: Pulse Respiration Blood pressure Weight 90/minute 14/minute 180/82 99 kg Ling Sol 07/03/2025 9:50 AM Signed Joana is a 69 year old female who presents to the office today with a CC of chronic diarrhea for the last 26 years wishing to discuss a colostomy. She has been seeing and who have tried many different medications, non of which have provided relief for the patient. Patient reports 15-60 episodes a day. Some times she notes that she will go during a meal and will pass whole food parts. Patient reports that she get the sensation to go and can often make it to the toilet in time but lately has had a few episodes of incontinence. Patient notes that bowel movements are stringy and have mucous. Patient reports upper abd bloating and occasional mild generalized abd pain. Patient reports that vegetables make the diarrhea worse and that a new protein drink, Evolve, makes it slightly better and seems to thicken her stool slightly. Patient denies bloody stool, severe abdominal pain and weight loss. She is a smoker an used to smoke 4 packs a day and is now down to half a pack. Patient denies any improvement of symptoms with her cut down on smoking. Patient has a surgical history of a cholecystectomy sometime before 1998, hernia repair in 1998 during which the mesh was inappropriately attached to her small bowel and colon. Patient had a second surgery to correct it and states that roughly 2 feet of small bowel and 6 inches of colon were resected. Patient reports that she has had persistent diarrhea since. Dr. Leiva later corrected the hernia sometime around 2000. Patient also has had multiple vaginal child births with tearing that was repaired but denies any complications or abnormal symptoms after that. Patient states that after her cholecystectomy she did have these symptoms. performed a colonoscopy last year to which we do not have access as well as stool testing has been done. Patient reports all that she was informed of regarding her stool testing was that she has a milk and egg allergy however, when she cut them out of her diet that did not change her symptoms. Patient reports that she believes that her colonoscopy showed a polyp which was biopsied and found to be benign. She reports that has previously talked about a colostomy bag but hasn't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 COMMENT Comment Normal . [facility] Comment on above: Result Comment: [place] seo of Specific IgE Class Description of Class ----- < 0.10 0 Negative 0.10 - 0.31 0/I Equivocal/Low 0.32 - 0.55 I Low 0.56 - 1.40 II Moderate 1.41 - 3.90 III High 3.91 - 19.00 IV Very High 19.01 - 100.00 V Very High >100.00 Very High Performed By: #### L 502.0250 #### [facility] [address] [place], [place], [id number] CORN 0.11 kU/L Abnormal Class 0/I [facility] Comment on above: Performed By: #### L 502.0250 #### [facility] [address] [place], [address] EGG, WHOLE 1.11 kU/L Abnormal Class II [facility] Comment on above: Result Comment: Perf ormed at: [facility] [address] [id number] Senior Support Engineer: Herb Hsu PhD, Phone: [phone] Performed at: [facility] [address] [id number] Senior Support Engineer: John Snyder MD, Phone: [phone] Performed By: #### L 502.0250 #### [facility] [address] [place], [address] MILK (COW) 1.13 kU/L Abnormal Class II [facility] Comment on above: Performed By: #### L 502.0250 #### [facility] [address] [place], [address] MUSSELS <0.10 Normal Class 0 [facility] Comment on above: Performed By: #### L 502.0250 #### [facility] [address] [place], [address] PEANUT <0.10 Normal Class 0 [facility] Comment on above: Performed By: #### L 502.0250 #### [facility] [address] [place], [address] PORK <0.10 Normal Class 0 [facility] Comment on above: Performed By: #### L 502.0250 #### [facility] [address] [place], [address] SALMON <0.10 Normal Class 0 [facility] Comment on above: Performed By: #### L 502.0250 #### [facility] [address] [place], [address] SHRIMP <0.10 Normal Class 0 [facility] Comment on above: Performed By: #### L 502.0250 #### [facility] [address] [place], [address] SOYBEAN <0.10 Normal Class 0 [facility] Comment on above: Performed By: #### L 502.0250 #### [facility] [address] [place], [address] TUNA <0.10 Normal Class 0 [facility] Comment on above: Performed By: #### L 502.0250 #### [facility] [address] [place], [address] WHEAT <0.10 Normal Class 0 [facility] Comment on above: Performed By: #### L 502.0250 #### [facility] [address] [place], [address] CDIFF (PCR)on 11-30-2024 CDIFF Pending 027 027 NAP1-B1 Presumptive Negative *for epidemiolologic???use C. Diff PCR Negative- No toxigenic C. Diff Detected Normal [facility] Comment on above: Performed By: #### L 100.0100, L500.4050 #### [facility] [address] [place], [address] Stool Lactoferrin/WBCon 02-0 WBCST Normal Reference Ran ge = Negative Fecal WBC Lactoferrin Negative: No Fecal WBC Lactoferrin present Normal [facility] Comment on above: Performed By: #### L 100.0100, L500.4050 #### [facility] [address] [place], [address] Stool Occult Blood iFOBon STOB Normal Reference Ran ge = Negative Immunochemical Fecal Occult Blood (iFOBT) method. Hemoccult Stl Ql IA Limitation: Menstrual bleeding, constipation bleeding, bleeding hemorrhoids, and urinary bleeding conditions may interfere with test. Occult Blood Negative Normal [facility] Comment on above: Performed By: #### L 100.0100, L500.4050 #### [facility] [address] [place], [place], [id number] CBC W/Diff, Automatedon 02-0 -2024 Absolute Lymph 3.17 X10 3/uL Normal 0.83-4.51 [facility] Comment on above: Performed By: #### L 3200.1100, L509.6000, L500.4050, L3100.3425, L501.9520, L3300.1200, L503.6150, L100.0100, L5500.0550, L503.6550, L502.0500, L501.5200, L3430.0100, L503.0105, L504.2610, L3100.5440, L101.9900, L501.6710, L3300.1800, L501.2300, L2100.0000 #### [facility] [address] [place], [place], [id number] Absolute Neut 6.9 X10 3/uL Normal 2.0-7.7 [facility] Comment on above: Performed By: #### L 3200.1100, L509.6000, L500.4050, L3100.3425, L501.9520, L3300.1200, L503.6150, L100.0100, L5500.0550, L503.6550, L502.0500, L501.5200, L3430.0100, L503.0105, L504.2610, L3100.5440, L101.9900, L501.6710, L3300.1800, L501.2300, L2100.0000 #### [facility] [address] [place], [place], [id number] Basophils/100 WBC (Bld) 0.2 % Normal 0-1 [facility] Comment on above: Performed By: #### L 3200.1100, L509.6000, L500.4050, L3100.3425, L501.9520, L3300.1200, L503.6150, L100.0100, L5500.0550, L503.6550, L502.0500, L501.5200, L3430.0100, L503.0105, L504.2610, L3100.5440, L101.9900, L501.6710, L3300.1800, L501.2300, L2100.0000 #### [facility] [address] [place], [place], [phone] (236) Eosinophils/100 WBC (Bld) 1.3 % Normal 0-5 [facility] Comment on above: Performed By: #### L 3200.1100, L509.6000, L500.4050, L3100.3425, L501.9520, L3300.1200, L503.6150, L100.0100, L5500.0550, L503.6550, L502.0500, L501.5200, L3430.0100, L503.0105, L504.2610, L3100.5440, L101.9900, L501.6710, L3300.1800, L501.2300, L2100.0000 #### [facility] [address] [facility] [place], [address] (624) Erythrocyte distribution width (RBC) [Ratio] 14.0 % Normal 11.6-14.6 [facility] Comment on above: Performed By: #### L 3200.1100, L509.6000, L500.4050, L3100.3425, L501.9520, L3300.1200, L503.6150, L100.0100, L5500.0550, L503.6550, L502.0500, L501.5200, L3430.0100, L503.0105, L504.2610, L3100.5440, L101.9900, L501.6710, L3300.1800, L501.2300, L2100.0000 #### [facility] [address] [place], [place], [id number] (068) Hematocrit (Bld) [Volume fraction] 41.9 % Normal 37-47 [facility] Comment on above: Performed By: #### L 3200.1100, L509.6000, L500.4050, L3100.3425, L501.9520, L3300.1200, L503.6150, L100.0100, L5500.0550, L503.6550, L502.0500, L501.5200, L3430.0100, L503.0105, L504.2610, L3100.5440, L101.9900, L501.6710, L3300.1800, L501.2300, L2100.0000 #### [facility] [address] [facility] [place], [place], [id number] Hemoglobin (Bld) [Mass/Vol] 12.8 g/dL Normal 12.0-15.0 [facility] Comment on above: Performed By: #### L 3200.1100, L509.6000, L500.4050, L3100.3425, L501.9520, L3300.1200, L503.6150, L100.0100, L5500.0550, L503.6550, L502.0500, L501.5200, L3430.0100, L503.0105, L504.2610, L3100.5440, L101.9900, L501.6710, L3300.1800, L501.2300, L2100.0000 #### [facility] [address] [facility] [place], [address] IG% 0.400 Normal 0.0-0.9 [facility] Comment on above: Result Comment: IG% - Immature Granulocytes (promyelocytes, myelocytes and metamyelocytes) > 1% indicates that a LEFT SHIFT is Present. Performed By: #### L 3200.1100, L509.6000, L500.4050, L3100.3425, L501.9520, L3300.1200, L503.6150, L100.0100, L5500.0550, L503.6550, L502.0500, L501.5200, L3430.0100, L503.0105, L504.2610, L3100.5440, L101.9900, L501.6710, L3300.1800, L501.2300, L2100.0000 #### [facility] [address] [facility] [place], [address] Lymphocytes/100 WBC (Bld) 29.0 % Normal 19-41 [facility] Comment on above: Performed By: #### L 3200.1100, L509.6000, L500.4050, L3100.3425, L501.9520, L3300.1200, L503.6150, L100.0100, L5500.0550, L503.6550, L502.0500, L501.5200, L3430.0100, L503.0105, L504.2610, L3100.5440, L101.9900, L501.6710, L3300.1800, L501.2300, L2100.0000 #### [facility] [address] [facility] [place], [address] MCH (RBC) [Entitic mass] 27.2 pg Normal 27.0-32.0 [facility] Comment on above: Performed By: #### L 3200.1100, L509.6000, L500.4050, L3100.3425, L501.9520, L3300.1200, L503.6150, L100.0100, L5500.0550, L503.6550, L502.0500, L501.5200, L3430.0100, L503.0105, L504.2610, L3100.5440, L101.9900, L501.6710, L3300.1800, L501.2300, L2100.0000 #### [facility] [address] [facility] [place], [address] MCHC (RBC) [Mass/Vol] 30.5 g/dL Low 32-36 [facility] Comment on above: Performed By: #### L 3200.1100, L509.6000, L500.4050, L3100.3425, L501.9520, L3300.1200, L503.6150, L100.0100, L5500.0550, L503.6550, L502.0500, L501.5200, L3430.0100, L503.0105, L504.2610, L3100.5440, L101.9900, L501.6710, L3300.1800, L501.2300, L2100.0000 #### [facility] [address] [place], [address] ( MCV (RBC) [Entitic vol] 89.1 fL Normal 81-99 [facility] Comment on above: Performed By: #### L 3200.1100, L509.6000, L500.4050, L3100.3425, L501.9520, L3300.1200, L503.6150, L100.0100, L5500.0550, L503.6550, L502.0500, L501.5200, L3430.0100, L503.0105, L504.2610, L3100.5440, L101.9900, L501.6710, L3300.1800, L501.2300, L2100.0000 #### [facility] [address] [place], [address] Monocytes/100 WBC (Bld) 5.9 % Normal 0-10 [facility] Comment on above: Performed By: #### L 3200.1100, L509.6000, L500.4050, L3100.3425, L501.9520, L3300.1200, L503.6150, L100.0100, L5500.0550, L503.6550, L502.0500, L501.5200, L3430.0100, L503.0105, L504.2610, L3100.5440, L101.9900, L501.6710, L3300.1800, L501.2300, L2100.0000 #### [facility] [address] [place], [address] Neutrophils/100 WBC (Bld) 63.2 % Normal 47-70 [facility] Comment on above: Performed By: #### L 3200.1100, L509.6000, L500.4050, L3100.3425, L501.9520, L3300.1200, L503.6150, L100.0100, L5500.0550, L503.6550, L502.0500, L501.5200, L3430.0100, L503.0105, L504.2610, L3100.5440, L101.9900, L501.6710, L3300.1800, L501.2300, L2100.0000 #### [facility] [address] [facility] [place], [address] Nucleated RBC (Bld) [#/Vol] 0 10*3/uL Normal 0-5 [facility] Comment on above: Performed By: #### L 3200.1100, L509.6000, L500.4050, L3100.3425, L501.9520, L3300.1200, L503.6150, L100.0100, L5500.0550, L503.6550, L502.0500, L501.5200, L3430.0100, L503.0105, L504.2610, L3100.5440, L101.9900, L501.6710, L3300.1800, L501.2300, L2100.0000 #### [facility] [address] [place], [address] Platelet mean volume (Bld) [Entitic vol] 9.7 fL Normal 6.2-12.0 [facility] Comment on above: Performed By: #### L 3200.1100, L509.6000, L500.4050, L3100.3425, L501.9520, L3300.1200, L503.6150, L100.0100, L5500.0550, L503.6550, L502.0500, L501.5200, L3430.0100, L503.0105, L504.2610, L3100.5440, L101.9900, L501.6710, L3300.1800, L501.2300, L2100.0000 #### [facility] [address] [facility] [place], [address] Platelets (Bld) [#/Vol] 303 10*3/uL Normal 150-450 [facility] Comment on above: Performed By: #### L 3200.1100, L509.6000, L500.4050, L3100.3425, L501.9520, L3300.1200, L503.6150, L100.0100, L5500.0550, L503.6550, L502.0500, L501.5200, L3430.0100, L503.0105, L504.2610, L3100.5440, L101.9900, L501.6710, L3300.1800, L501.2300, L2100.0000 #### [facility] [address] [facility] [place], [address] RBC (Bld) [#/Vol] 4.70 10*6/uL Normal 4.2-5.4 [facility] Comment on above: Performed By: #### L 3200.1100, L509.6000, L500.4050, L3100.3425, L501.9520, L3300.1200, L503.6150, L100.0100, L5500.0550, L503.6550, L502.0500, L501.5200, L3430.0100, L503.0105, L504.2610, L3100.5440, L101.9900, L501.6710, L3300.1800, L501.2300, L2100.0000 #### [facility] [address] [facility] [place], [address] RDW SD 46.0 fl High 35.1-43.9 [facility] Comment on above: Performed By: #### L 3200.1100, L509.6000, L500.4050, L3100.3425, L501.9520, L3300.1200, L503.6150, L100.0100, L5500.0550, L503.6550, L502.0500, L501.5200, L3430.0100, L503.0105, L504.2610, L3100.5440, L101.9900, L501.6710, L3300.1800, L501.2300, L2100.0000 #### [facility] [address] [place], [address] WBC (Bld) [#/Vol] 10.9 10*3/uL Normal 4.4-11.0 [facility] Comment on above: Performed By: #### L 3200.1100, L509.6000, L500.4050, L3100.3425, L501.9520, L3300.1200, L503.6150, L100.0100, L5500.0550, L503.6550, L502.0500, L501.5200, L3430.0100, L503.0105, L504.2610, L3100.5440, L101.9900, L501.6710, L3300.1800, L501.2300, L2100.0000 #### [facility] [address] [place], [address] Absolute Neut Normal 2.0-7.7 [facility] Comment on above: Order Comment: Order Date: 07/30/24 Order Info: 0184-1 - CBCD Result Comment: DUPL ICATE Performed By: #### L 100.0100, L500.4050 #### [facility] [address] [place], [address] HCT Normal 37-47 [facility] Comment on above: Order Comment: Order Date: 07/30/24 Order Info: [id number] - CBCD Result Comment: DUPL ICATE Performed By: #### L 100.0100, L500.4050 #### [facility] [address] [place], [address] HGB Normal 12.0-15.0 [facility] Comment on above: Order Comment: Order Date: 07/30/24 Order Info: [id number] - CBCD Result Comment: DUPL ICATE Performed By: #### L 100.0100, L500.4050 #### [facility] [address] [place], [address] MCH Normal 27.0-32.0 [facility] Comment on above: Order Comment: Order Date: 07/30/24 Order Info: [id number] - CBCD Result Comment: DUPL ICATE Performed By: #### L 100.0100, L500.4050 #### [facility] [address] [place], [address] MCHC Normal 32-36 [facility] Comment on above: Order Comment: Order Date: 07/30/24 Order Info: [id number] - CBCD Result Comment: DUPL ICATE Performed By: #### L 100.0100, L500.4050 #### [facility] [address] [place], [address] MCV Normal 81-99 [facility] Comment on above: Order Comment: Order Date: 07/30/24 Order Info: [id number] - CBCD Result Comment: DUPL ICATE Performed By: #### L 100.0100, L500.4050 #### [facility] [address] [place], [address] NEUT% Normal 47-70 [facility] Comment on above: Order Comment: Order Date: 07/30/24 Order Info: [id number] - CBCD Result Comment: DUPL ICATE Performed By: #### L 100.0100, L500.4050 #### [facility] [address] [place], [address] PLT Normal 150-450 [facility] Comment on above: Order Comment: Order Date: 07/30/24 Order Info: [id number] - CBCD Result Comment: DUPL ICATE Performed By: #### L 100.0100, L500.4050 #### [facility] [address] [place], [address] RBC Normal 4.2-5.4 [facility] Comment on above: Order Comment: Order Date: 07/30/24 Order Info: [id number] - CBCD Result Comment: DUPL ICATE Performed By: #### L 100.0100, [id number] #### [facility] [address] [place], [address] RDW CV Normal 11.6-14.6 [facility] Comment on above: Order Comment: Order Date: 07/30/24 Order Info: [id number]- - CBCD Result Comment: DUPL ICATE Performed By: #### L 100.0100, [id number] #### [facility] [address] [place], [address] RDW SD Normal 35.1-43.9 [facility] Comment on above: Order Comment: Order Date: 07/30/24 Order Info: [id number]- - CBCD Result Comment: DUPL ICATE Performed By: #### L 100.0100, L500.4050 #### [facility] [address] [place], [address] WBC Normal 4.4-11.0 [facility] Comment on above: Order Comment: Order Date: 07/30/24 Order Info: 0184-1 - CBCD Result Comment: DUPL ICATE Performed By: #### L 100.0100, L500.4050 #### [facility] [address] [place], [address] CORTISOL SERUMon 11-27-2024 CORTISOL 8.70 ug/dL Normal 3.44-22.45 [facility] Comment on above: Result Comment: Adul t (AM) 5.27 - 22.45 ug/dL Adult (PM) 3.44 - 16.76 ug/dL Performed By: #### L 3200.1100, L509.6000, L500.4050, L3100.3425, L501.9520, L3300.1200, L503.6150, L100.0100, L5500.0550, L503.6550, L502.0500, L501.5200, L3430.0100, L503.0105, L504.2610, L3100.5440, L101.9900, L501.6710, L3300.1800, L501.2300, L2100.0000 ####[facility] [address] [facility] [place], [address] CRPon 11-27-2024 C-REACTIVE PROT < 2.90 Normal 0.0-3.0 [facility] Comment on above: Result Comment: C-Re active Protein (CRP) provides useful information for the diagnosis, therapy and monitoring of inflammatory processes and associated diseases. For the evaluation of Relative Risk for Cardiovascular Disease, a High Sensitivity CRP (HSCRP) should be ordered. Performed By: #### L 3200.1100, L509.6000, L500.4050, L3100.3425, L501.9520, L3300.1200, L503.6150, L100.0100, L5500.0550, L503.6550, L502.0500, L501.5200, L3430.0100, L503.0105, L504.2610, L3100.5440, L101.9900, L501.6710, L3300.1800, L501.2300, L2100.0000 ####[facility] [address] [facility] [place], [address] Comprehensive Metabolic Prof ilon 11-27-2024 Albumin [Mass/Vol] 3.6 g/dL Normal 3.2-5.0 [facility] Comment on above: Performed By: #### L 3200.1100, L509.6000, L500.4050, L3100.3425, L501.9520, L3300.1200, L503.6150, L100.0100, L5500.0550, L503.6550, L502.0500, L501.5200, L3430.0100, L503.0105, L504.2610, L3100.5440, L101.9900, L501.6710, L3300.1800, L501.2300, L2100.0000 ####[facility] [address] [place], [place], [phone] Albumin/Globulin [Mass ratio] 1.0 {ratio} Normal 0.9-2.4 [facility] Comment on above: Performed By: #### L 3200.1100, L509.6000, L500.4050, L3100.3425, L501.9520, L3300.1200, L503.6150, L100.0100, L5500.0550, L503.6550, L502.0500, L501.5200, L3430.0100, L503.0105, L504.2610, L3100.5440, L101.9900, L501.6710, L3300.1800, L501.2300, L2100.0000 ####[facility] [address] [place], [address] ALK P 110 U/L Normal 45-117 [facility] Comment on above: Performed By: #### L 3200.1100, L509.6000, L500.4050, L3100.3425, L501.9520, L3300.1200, L503.6150, L100.0100, L5500.0550, L503.6550, L502.0500, L501.5200, L3430.0100, L503.0105, L504.2610, L3100.5440, L101.9900, L501.6710, L3300.1800, L501.2300, L2100.0000 ####[facility] [address] [place], [place], [phone] ALT [Catalytic activity/Vol] 27 U/L Normal 13-56 [facility] Comment on above: Performed By: #### L 3200.1100, L509.6000, L500.4050, L3100.3425, L501.9520, L3300.1200, L503.6150, L100.0100, L5500.0550, L503.6550, L502.0500, L501.5200, L3430.0100, L503.0105, L504.2610, L3100.5440, L101.9900, L501.6710, L3300.1800, L501.2300, L2100.0000 ####[facility] [address] [place], [place], [phone] AST [Catalytic activity/Vol] 12 U/L Low 15-37 [facility] Comment on above: Performed By: #### L 3200.1100, L509.6000, L500.4050, L3100.3425, L501.9520, L3300.1200, L503.6150, L100.0100, L5500.0550, L503.6550, L502.0500, L501.5200, L3430.0100, L503.0105, L504.2610, L3100.5440, L101.9900, L501.6710, L3300.1800, L501.2300, L2100.0000 ####[facility] [address] [facility]. [place], [place], [phone] Bilirubin [Mass/Vol] 0.40 mg/dL Normal 0.20-1.00 [facility] Comment on above: Result Comment: For patients on eltrombopag therapy, use of Dimension [place] TBIL is not recommended. Performed By: #### L 3200.1100, L509.6000, L500.4050, L3100.3425, L501.9520, L3300.1200, L503.6150, L100.0100, L5500.0550, L503.6550, L502.0500, L501.5200, L3430.0100, L503.0105, L504.2610, L3100.5440, L101.9900, L501.6710, L3300.1800, L501.2300, L2100.0000 ####[facility] [address] [place], [place], [phone] BUN/CRE 14.8 RATIO Normal 10-20 [facility] Comment on above: Performed By: #### L 3200.1100, L509.6000, L500.4050, L3100.3425, L501.9520, L3300.1200, L503.6150, L100.0100, L5500.0550, L503.6550, L502.0500, L501.5200, L3430.0100, L503.0105, L504.2610, L3100.5440, L101.9900, L501.6710, L3300.1800, L501.2300, L2100.0000 ####[facility] [address] [place], [place], [phone] CA,Total 9.0 mg/dL Normal 8.5-10.1 [facility] Comment on above: Performed By: #### L 3200.1100, L509.6000, L500.4050, L3100.3425, L501.9520, L3300.1200, L503.6150, L100.0100, L5500.0550, L503.6550, L502.0500, L501.5200, L3430.0100, L503.0105, L504.2610, L3100.5440, L101.9900, L501.6710, L3300.1800, L501.2300, L2100.0000 ####[facility] [address] [place], [address] Chloride [Moles/Vol] 109 mmol/L High 98-107 [facility] Comment on above: Performed By: #### L 3200.1100, L509.6000, L500.4050, L3100.3425, L501.9520, L3300.1200, L503.6150, L100.0100, L5500.0550, L503.6550, L502.0500, L501.5200, L3430.0100, L503.0105, L504.2610, L3100.5440, L101.9900, L501.6710, L3300.1800, L501.2300, L2100.0000 ####[facility] [address] [place], [place], [phone] CO2 [Moles/Vol] 25.0 mmol/L Normal 21.0-32.0 [facility] Comment on above: Performed By: #### L 3200.1100, L509.6000, L500.4050, L3100.3425, L501.9520, L3300.1200, L503.6150, L100.0100, L5500.0550, L503.6550, L502.0500, L501.5200, L3430.0100, L503.0105, L504.2610, L3100.5440, L101.9900, L501.6710, L3300.1800, L501.2300, L2100.0000 ####[facility] [address] [place], [address] Creatinine [Mass/Vol] 0.54 mg/dL Low 0.55-1.02 [facility] Comment on above: Result Comment: The validity of the calculated GFR GFRAA in patients over 70 years has not been determined. Clinical correlation is essential. Performed By: #### L 3200.1100, L509.6000, L500.4050, L3100.3425, L501.9520, L3300.1200, L503.6150, L100.0100, L5500.0550, L503.6550, L502.0500, L501.5200, L3430.0100, L503.0105, L504.2610, L3100.5440, L101.9900, L501.6710, L3300.1800, L501.2300, L2100.0000 ####[facility] [address] [place], [address] EST GFR - AA 143 mL/min Normal >60 [facility] Comment on above: Result Comment: Afri can [place]onian GFR Calc Performed By: #### L 3200.1100, L509.6000, L500.4050, L3100.3425, L501.9520, L3300.1200, L503.6150, L100.0100, L5500.0550, L503.6550, L502.0500, L501.5200, L3430.0100, L503.0105, L504.2610, L3100.5440, L101.9900, L501.6710, L3300.1800, L501.2300, L2100.0000 ####[facility] [address] [place], [address] GAP 6 Normal 5-15 [facility] Comment on above: Performed By: #### L 3200.1100, L509.6000, L500.4050, L3100.3425, L501.9520, L3300.1200, L503.6150, L100.0100, L5500.0550, L503.6550, L502.0500, L501.5200, L3430.0100, L503.0105, L504.2610, L3100.5440, L101.9900, L501.6710, L3300.1800, L501.2300, L2100.0000 ####[facility] [address] [place], [address] GFR/1.73 sq M.predicted among non-blacks MDRD (S/P/Bld) [Vol rate/Area] 118 mL/min/{1.73_m2} Normal >60 [facility] Comment on above: Result Comment: Non- GFR Calc Performed By: #### L 3200.1100, L509.6000, L500.4050, L3100.3425, L501.9520, L3300.1200, L503.6150, L100.0100, L5500.0550, L503.6550, L502.0500, L501.5200, L3430.0100, L503.0105, L504.2610, L3100.5440, L101.9900, L501.6710, L3300.1800, L501.2300, L2100.0000 ####[facility] [address] [place], [address] Globulin (S) [Mass/Vol] 3.6 g/dL Normal 2.2-4.2 [facility] Comment on above: Performed By: #### L 3200.1100, L509.6000, L500.4050, L3100.3425, L501.9520, L3300.1200, L503.6150, L100.0100, L5500.0550, L503.6550, L502.0500, L501.5200, L3430.0100, L503.0105, L504.2610, L3100.5440, L101.9900, L501.6710, L3300.1800, L501.2300, L2100.0000 ####[facility] [address] [place], [place], [phone]) Glucose [Mass/Vol] 133 mg/dL High 74-106 [facility] Comment on above: Result Comment: Fast ing Glucose result greater than or equal to 126 mg/dL suggests DIABETES MELLITUS per A.D.A. criteria. Performed By: #### L 3200.1100, L509.6000, L500.4050, L3100.3425, L501.9520, L3300.1200, L503.6150, L100.0100, L5500.0550, L503.6550, L502.0500, L501.5200, L3430.0100, L503.0105, L504.2610, L3100.5440, L101.9900, L501.6710, L3300.1800, L501.2300, L2100.0000 ####[facility] [address] [place], [place], [phone]) Potassium [Moles/Vol] 3.2 mmol/L Low 3.5-5.1 [facility] Comment on above: Performed By: #### L 3200.1100, L509.6000, L500.4050, L3100.3425, L501.9520, L3300.1200, L503.6150, L100.0100, L5500.0550, L503.6550, L502.0500, L501.5200, L3430.0100, L503.0105, L504.2610, L3100.5440, L101.9900, L501.6710, L3300.1800, L501.2300, L2100.0000 ####[facility] [address] [facility] [address] [place], [place], [phone] Sodium [Moles/Vol] 140 mmol/L Normal 136-145 [facility] Comment on above: Performed By: #### L 3200.1100, L509.6000, L500.4050, L3100.3425, L501.9520, L3300.1200, L503.6150, L100.0100, L5500.0550, L503.6550, L502.0500, L501.5200, L3430.0100, L503.0105, L504.2610, L3100.5440, L101.9900, L501.6710, L3300.1800, L501.2300, L2100.0000 ####[facility] [address] [place], [place], [phone] T PROT 7.2 g/dL Normal 6.4-8.2 [facility] Comment on above: Performed By: #### L 3200.1100, L509.6000, L500.4050, L3100.3425, L501.9520, L3300.1200, L503.6150, L100.0100, L5500.0550, L503.6550, L502.0500, L501.5200, L3430.0100, L503.0105, L504.2610, L3100.5440, L101.9900, L501.6710, L3300.1800, L501.2300, L2100.0000 ####[facility] [address] [place], [address] Urea nitrogen [Mass/Vol] 8 mg/dL Normal 7-18 [facility] Comment on above: Performed By: #### L 3200.1100, L509.6000, L500.4050, L3100.3425, L501.9520, L3300.1200, L503.6150, L100.0100, L5500.0550, L503.6550, L502.0500, L501.5200, L3430.0100, L503.0105, L504.2610, L3100.5440, L101.9900, L501.6710, L3300.1800, L501.2300, L2100.0000 ####[facility] [address] [place], [address] ALB Normal 3.2-5.0 [facility] Comment on above: Order Comment: Order Date: 07/30/24 Order Info: 0786-1 - CMP Order Info: 3016-3 - TSH Result Comment: DUPL ICATE Performed By: #### L 100.0100, L500.4050 #### [facility] [address] [place], [address] ALK P Normal 45-117 [facility] Comment on above: Order Comment: Order Date: 07/30/24 Order Info: 0786-1 - CMP Order Info: 3016-3 - TSH Result Comment: DUPL ICATE Performed By: #### L 100.0100, L500.4050 #### [facility] [address] [place], [address] ALT Normal 13-56 [facility] Comment on above: Order Comment: Order Date: 07/30/24 Order Info: 0786-1 - CMP Order Info: 3016-3 - TSH Result Comment: DUPL ICATE Performed By: #### L 100.0100, L500.4050 #### [facility] [address] [place], [address] AST Normal 15-37 [facility] Comment on above: Order Comment: Order Date: 07/30/24 Order Info: 86-1 - CMP Order Info: 3016-3 - TSH Result Comment: DUPL ICATE Performed By: #### L 100.0100, L500.4050 #### [facility] [address] [place], [address] BUN Normal 7-18 [facility] Comment on above: Order Comment: Order Date: 07/30/24 Order Info: 785-1 - CMP Order Info: 3015-3 - TSH Result Comment: DUPL ICATE Performed By: #### L 100.0100, L500.4050 #### [facility] [address] [place], [address] BUN/CRE Normal 10-20 [facility] Comment on above: Order Comment: Order Date: 07/30/24 Order Info: 785-1 - CMP Order Info: 301-3 - TSH Result Comment: DUPL ICATE Performed By: #### L 100.0100, L500.4050 #### [facility] [address] [place], [address] CA,Total Normal 8.5-10.1 [facility] Comment on above: Order Comment: Order Date: 07/30/24 Order Info: 86-1 - CMP Order Info: 301-3 - TSH Result Comment: DUPL ICATE Performed By: #### L 100.0100, L500.4050 #### [facility] [address] [place], [address] CL Normal 98-107 [facility] Comment on above: Order Comment: Order Date: 07/30/24 Order Info: 0786-1 - CMP Order Info: 3016-3 - TSH Result Comment: DUPL ICATE Performed By: #### L 100.0100, L500.4050 #### [facility] [address] [place], [address] CO2 Normal 21.0-32.0 [facility] Comment on above: Order Comment: Order Date: 07/30/24 Order Info: 86-1 - CMP Order Info: 3015-3 - TSH Result Comment: DUPL ICATE Performed By: #### L 100.0100, L500.4050 #### [facility] [address] [place], [address] CREAT,SERUM Normal 0.55-1.02 [facility] Comment on above: Order Comment: Order Date: 07/30/24 Order Info: 785-1 - CMP Order Info: 3015-12 - TSH Result Comment: DUPL ICATE Performed By: #### L 100.0100, L500.4050 #### [facility] [address] [place], [address] EST GFR Normal >60 [facility] Comment on above: Order Comment: Order Date: 07/30/24 Order Info: 785-1 - CMP Order Info: 3015-12 - TSH Result Comment: DUPL ICATE Performed By: #### L 100.0100, L500.4050 #### [facility] [address] [place], [address] EST GFR - AA Normal >60 [facility] Comment on above: Order Comment: Order Date: 07/30/24 Order Info: 86-1 - CMP Order Info: 3015-3 - TSH Result Comment: DUPL ICATE Performed By: #### L 100.0100, L500.4050 #### [facility] [address] [place], [address] GAP Normal 5-15 [facility] Comment on above: Order Comment: Order Date: 07/30/24 Order Info: 86-1 - CMP Order Info: 3016-3 - TSH Result Comment: DUPL ICATE Performed By: #### L 100.0100, L500.4050 #### [facility] [address] [place], [address] GLU Normal 74-106 [facility] Comment on above: Order Comment: Order Date: 07/30/24 Order Info: 0786-1 - CMP Order Info: 3016-3 - TSH Result Comment: DUPL ICATE Performed By: #### L 100.0100, L500.4050 #### [facility] [address] [place], [address] Potassium Normal 3.5-5.1 [facility] Comment on above: Order Comment: Order Date: 07/30/24 Order Info: 86-1 - CMP Order Info: 3016-3 - TSH Result Comment: DUPL ICATE Performed By: #### L 100.0100, L500.4050 #### [facility] [address] [place], [address] T BILI Normal 0.20-1.00 [facility] Comment on above: Order Comment: Order Date: 07/30/24 Order Info: 86-1 - CMP Order Info: 3016-3 - TSH Result Comment: DUPL ICATE Performed By: #### L 100.0100, L500.4050 #### [facility] [address] [place], [address] T PROT Normal 6.4-8.2 [facility] Comment on above: Order Comment: Order Date: 07/30/24 Order Info: 0786-1 - CMP Order Info: 3016-3 - TSH Result Comment: DUPL ICATE Performed By: #### L 100.0100, L500.4050 #### [facility] [address] [place], [address] Comprehensive Metabolic Profil Normal 136-145 [facility] Comment on above: Order Comment: Order Date: 07/30/24 Order Info: 0786-1 - CMP Order Info: 3016-3 - TSH Result Comment: DUPL ICATE Performed By: #### L 100.0100, L500.4050 #### [facility] [address] [place], [place], [id number] Erythrocyte Sed Rateon 11-27 SED RATE 11 mm/hr Normal 0-30 [facility] Comment on above: Performed By: #### L 3200.1100, L509.6000, L500.4050, L3100.3425, L501.9520, L3300.1200, L503.6150, L100.0100, L5500.0550, L503.6550, L502.0500, L501.5200, L3430.0100, L503.0105, L504.2610, L3100.5440, L101.9900, L501.6710, L3300.1800, L501.2300, L2100.0000 #### [facility] [address] [place], [place], [phone] Ferritinon 11-27-2024 Ferritin [Mass/Vol] 12 ng/mL Normal 8-252 [facility] Comment on above: Performed By: #### L 3200.1100, L509.6000, L500.4050, L3100.3425, L501.9520, L3300.1200, L503.6150, L100.0100, L5500.0550, L503.6550, L502.0500, L501.5200, L3430.0100, L503.0105, L504.2610, L3100.5440, L101.9900, L501.6710, L3300.1800, L501.2300, L2100.0000 ####[facility] [address] [facility] [place], [address] Ironon 11-27-2024 Iron [Mass/Vol] 42 ug/dL Low 50-170 [facility] Comment on above: Performed By: #### L 3200.1100, L509.6000, L500.4050, L3100.3425, L501.9520, L3300.1200, L503.6150, L100.0100, L5500.0550, L503.6550, L502.0500, L501.5200, L3430.0100, L503.0105, L504.2610, L3100.5440, L101.9900, L501.6710, L3300.1800, L501.2300, L2100.0000 ####[facility] [address] [place], [address] LDHon 11-27-2024 LDH 154 U/L Normal 84-246 [facility] Comment on above: Order Comment: 1 Performed By: #### L 502.0250 #### [facility] [address] [place], [address] Magnesiumon 11-27-2024 Magnesium [Mass/Vol] 1.7 mg/dL Normal 1.6-2.6 [facility] Comment on above: Performed By: #### L 3200.1100, L509.6000, L500.4050, L3100.3425, L501.9520, L3300.1200, L503.6150, L100.0100, L5500.0550, L503.6550, L502.0500, L501.5200, L3430.0100, L503.0105, L504.2610, L3100.5440, L101.9900, L501.6710, L3300.1800, L501.2300, L2100.0000 ####[facility] [address] [place], [place], [phone] Microalbumin,Random Urineon 11-27-2024 MICROALBUMIN,UR 19.0 mg/L Normal NO RANGE EST. [facility] Comment on above: Performed By: #### L 3200.1100, L509.6000, L500.4050, L3100.3425, L501.9520, L3300.1200, L503.6150, L100.0100, L5500.0550, L503.6550, L502.0500, L501.5200, L3430.0100, L503.0105, L504.2610, L3100.5440, L101.9900, L501.6710, L3300.1800, L501.2300, L2100.0000 ####[facility] [address] [place], [place], [phone] Phosphoruson 11-27-2024 Phosphate [Mass/Vol] 3.2 mg/dL Normal 2.5-4.9 [facility] Comment on above: Performed By: #### L 3200.1100, L509.6000, L500.4050, L3100.3425, L501.9520, L3300.1200, L503.6150, L100.0100, L5500.0550, L503.6550, L502.0500, L501.5200, L3430.0100, L503.0105, L504.2610, L3100.5440, L101.9900, L501.6710, L3300.1800, L501.2300, L2100.0000 ####[facility] [address] [facility] [place], [place], [phone] Thyroid Stim Hormone (TSH)on 11-27-2024 TSH 2.330 uIU/mL Normal 0.358-3.74 0 [facility] Comment on above: Performed By: #### L 3200.1100, L509.6000, L500.4050, L3100.3425, L501.9520, L3300.1200, L503.6150, L100.0100, L5500.0550, L503.6550, L502.0500, L501.5200, L3430.0100, L503.0105, L504.2610, L3100.5440, L101.9900, L501.6710, L3300.1800, L501.2300, L2100.0000 ####[facility] [address] [facility] [place], [place], [phone] Vitamin B12on 11-27-2024 Cobalamin (Vitamin B12) [Mass/Vol] 352 pg/mL Normal 211-911 [facility] [facility] Comment on above: Performed By: #### L 3200.1100, L509.6000, L500.4050, L3100.3425, L501.9520, L3300.1200, L503.6150, L100.0100, L5500.0550, L503.6550, L502.0500, L501.5200, L3430.0100, L503.0105, L504.2610, L3100.5440, L101.9900, L501.6710, L3300.1800, L501.2300, L2100.0000 ####[facility] [address] [facility] [place], [address] ABD Limited w/ Elastographyo n 10-25-2024 ABD Limited w/ Elastography [facility] [address] [place] [address] ABD Limited w/ Elastography MR#: [id number] Acct: [id number] Name: JOANA PERRY Rep #: [id number] : 1955 F 69 From: Luke chao MD PCP: Dr. Cristy Carroll MD Status: REG CLI Study: ABD Limited w/ Elastography Date of Exam: 12/18 Exam# [id number] Ordering Dr: Doug Alvarez DO [id number] STUDY: ABDOMINAL ULTRASOUND - RIGHT UPPER QUADRANT; ELASTOGRAPHY REASON FOR VISIT: Female, 69 years old. Fatty infiltration of the liver. TECHNIQUE: Ultrasound evaluation of the right upper quadrant was performed with real-time and static merino-scale imaging. Point quantification shear wave elastography was performed ([employer]). TECHNICAL QUALITY: Adequate. COMPARISON: Comparison is made with prior CT scan done on pelvis dated September 06, 2024. FINDINGS: Liver: The liver measures 16.5 cm. There is increased echogenicity consistent with fatty infiltration. The bile ducts are within normal limits. There is hepatic color flow. The direction of portal flow is hepatopetal. There is no demonstrated mass lesion. Median liver stiffness measured 9.1 kPa. Gallbladder: The patient is status post cholecystectomy. Common Bile Duct (C.B.D.): The common bile duct measures 6.2 mm. Pancreas: There is normal echogenicity of the visualized pancreas. There is no demonstrated pancreatic mass or cyst. Right Kidney: Normal size of the right kidney. The right kidney measures 12.3 cm x 4.5 cm x 4.1 cm. Normal renal cortex. The right cortex measures 1.2 cm. There is no demonstrated renal mass or cyst. There is no right hydronephrosis. US/ABD Limited w/ Elastography IMPRESSION: 1. Liver stiffness measures 9.1 kPa compatible with F2-F3 (Mild to moderate liver fibrosis) Metavir score. 2. Fatty infiltration of the liver. Electronically Signed: Luke Hernandez MD at 9:14 EST Reading Location ID and State: [facility] / [place] , Service support , CC: Dr. Cristy Carroll MD; Doug Alvarez DO [place]: Signed Normal [facility] Bedside Gl[employer] 09-19-2024 FINGERSTICK GLU 166 mg/dL High 74-106 [facility] Comment on above: Result Comment: ERCI HERNANDEZ OF PATIENT CARE PER NURSING PROTOCOL Performed By: #### L 501.080 #### [facility] Laboratory [address] [facility] [place], [address] EGD Reporton 09-19-2024 EGD Report [facility] Medical Records Department [address] [place] [address] EGD Report MR#: [id number] Acct: [id number] Name: JOANA PERRY Rep #: [id number] : 1955 68 From: Doug Alvarez DO PCP: Dr. Cristy Carroll MD Status:[facility] Patient Name: Joana Perry Procedure Date: 09/19/2024 6:15 AM Date of : 1955 Age: 68 Procedure: Upper GI endoscopy Indications: Dysphagia Providers: Doug Alvarez DO Referring MD: To Carroll Medicines: Monitored Anesthesia Care Patient Profile: This is a 68 year old female. Refer to note in patient chart for documentation of history and physical. Patient has symptoms of chronic dysphagia and dysphagia with solids. Complications: No immediate complications. Procedure: Pre-Anesthesia Assessment: - Prior to the procedure, a History and Physical was performed, and patient medications and allergies were reviewed. The patient is competent. The risks and benefits of the procedure and the sedation options and risks were discussed with the patient. All questions were answered and informed consent was obtained. Patient identification and proposed procedure were verified by the physician in the pre-procedure area. Mental Status Examination: alert and oriented. Airway Examination: normal oropharyngeal airway and neck mobility. Respiratory Examination: clear to auscultation. CV Examination: normal. Prophylactic Antibiotics: The patient does not require prophylactic antibiotics. Prior Anticoagulants: The patient has taken no anticoagulant or antiplatelet agents except for NSAID medication. ASA Grade Assessment: II - A patient with mild systemic disease. After reviewing the risks and benefits, the patient was deemed in satisfactory condition to undergo the procedure. The anesthesia plan was to use monitored anesthesia care (MAC). Immediately prior to administration of medications, the patient was re-assessed for adequacy to receive sedatives. The heart rate, respiratory rate, oxygen saturations, blood pressure, adequacy of pulmonary ventilation, and response to care were monitored throughout the procedure. The physical status of the patient was re-assessed after the procedure. After obtaining informed consent, the endoscope was passed under direct vision. Throughout the procedure, the patient's blood pressure, pulse, and oxygen saturations were monitored continuously. The Endoscope was introduced through the mouth, and advanced to the second part of duodenum. The upper GI endoscopy was accomplished without difficulty. The patient tolerated the procedure well. Scope In: 6:46:51 AM Scope Out: 6:57:14 AM Total Procedure Duration Time 0 hours 10 minutes 23 seconds Findings: A moderate Schatzki ring was found at the gastroesophageal junction. A guidewire was placed and the scope was withdrawn. Dilation was performed with a Savary dilator with no resistance at 60 Fr. The dilation site was examined following endoscope reinsertion and showed moderate improvement in luminal narrowing. Estimated blood loss was minimal. Coagulation for tissue destruction using argon plasma at 0.3 liters/minute and 20 leavitt was successful. Estimated blood loss was minimal. Mildly severe esophagitis with no bleeding was found 38 to 40 cm from the incisors. Biopsies were taken with a cold forceps for histology. Verification of patient identification for the specimen was done. Estimated blood loss was minimal. A medium-sized hiatal hernia was present. No gross lesions were noted in the entire examined stomach. No gross lesions were noted in the first portion of the duodenum. Impression: - Moderate Schatzki ring. Dilated. Treated with argon plasma coagulation (APC). - Mildly severe erosive esophagitis with no bleeding. Biopsied. - Medium-sized hiatal hernia. - No gross lesions in the entire stomach. - No gross lesions in the first portion of the duodenum. Recommendation: - Discharge patient to home. - Full liquid diet today. - Continue present medications. - Await pathology results. - Repeat upper endoscopy in 3 months to evaluate the response to therapy. Procedure Code(s): --- Professional --- 68443, Esophagogastroduodenoscopy, flexible, transoral; with ablation of tumor(s), polyp(s), or other lesion(s) (includes pre- and post-dilation and guide wire passage, when performed) 28113, 59,51, Esophagogastroduodenoscopy, flexible, transoral; with biopsy, single or multiple CPT copyright 2021 [employer]. All rights reserved. The codes documented in this report are preliminary and upon trading analyst review may be revised to meet current compliance requirements. Doug Alvarez DO 09/19/2024 7:03:40 AM This report has been signed electronically. Number of Addenda: 0 Note Initiated On: 09/19/2024 (more content not included)... Normal [facility] MR/POSTOP.Feliciano 09-19-2024 MR/POSTOP.[facility] Medical Records Department [address] [place] [address] Anesthesia Postop Eval I 09/19/24 0706 MR#: [id number] Acct: [id number] Name: JOANA PERRY Rep #: [id number] : 1955 68 From: Rene Mantilla PCP: Dr. Cristy Carroll MD Status:[facility] Y Race: C Location: [place] [address] Anesthesia: Postop Eval I Current Vital Signs Temperature: 97.8 F Pulse Rate: 104 Blood Pressure: 129/63 Respiratory Rate: 18 Pulse Ox: 94 Oxygen Delivery Method: Room Air Assessment Airway patent: Yes Spontaneous unlabored respirations: Yes Mental status: Awake and Calm nausea: No Vomiting: No Anesthesia Complication: Yes Anesthesia Complication Comment:: O2 desat d/t profuse coughing Fluid Hydration Crystalloid volume administer (ml): 30 Total IV fluid infused: 30 Progress Note Anesthesia document: Postop Eval 1 completed: Yes 09/19/24707 Date Rene Moss Signature: Date CC: Signed Normal [facility] MR/[id number] 09-19-2024 [facility] Medical Records Department [address] [place] [address] Anesthesia Postop Eval II 09/19/24 0954 MR#: [id number] Acct: [id number] Name: JOANA PERRY Rep #: [id number] : 1955 68 From: Yaya Guerin MD PCP: Dr. Cristy Carroll MD Status:[facility] Y Race: C Location: [place] Anesthesia Postop Eval I Sum Postop Eval Completion status Anesthesia document: Postop Eval 1 completed: Yes Anesthesia Postop Eval I Summary Anesthesia Postop Eval I Summary: Anesthesia Postop Eval I: Assessment Summary Airway patent Yes 09/19/24 07:07 [email or web address] Spontaneous unlabored Yes 09/19/24 07:07 [email or web address] respirations Mental status Awake,Calm 09/19/24 07:07 [email or web address] nausea No 09/19/24 07:07 [email or web address] Vomiting No 09/19/24 07:07 [email or web address] Anesthesia Postop Eval I: Fluid Summary Crystalloid volume administer 30 09/19/24 07:07 [email or web address] (ml) Colloids volume administered ( ml) Blood Product volume administered (ml) Total IV fluid infused 30 09/19/24 07:07 [email or web address] Anesthesia Postop Eval I: Summary Notes Anesthesia Complication Yes 09/19/24 07:07 [email or web address] Anesthesia Complication O2 desat d/t 09/19/24 07:07 [email or web address] Comment: profuse coughing Post-operative progress note Anesthesia: Postop Eval II Evaluation Mental status: Awake Pain Level: 0 nausea: No Vomiting: No 09/19/24953 Date Yaya Moss Signature: Date CC: Signed Normal [facility] Special Stain Group Ion 11- Special Stain Group I --------- Patient Age/Sex Location Account Attending Physician JOANA PERRY 68/F EN [id number] Doug Alvarez DO Specimen: [id number] Received: 09/19/24 Status: VANDANA Solitario Num: [id number] Spec Type: LOLA NATHALY Mcdonald Dr: DO LAZ Meng OPERATION: EGD and biopsy and dilation with bougie PRE-OP DIAGNOSIS: Difficulty swallowing TISSUE SUBMITTED: Distal esophagus biopsy MICROSCOPIC DIAGNOSIS Distal esophagus, biopsy: Gastroesophageal junctional mucosa with mild chronic inflammation. No evidence of goblet cell metaplasia. See comment. AM. 09/21/2024 COMMENT Alcian blue/PAS stain with matched control supports the above diagnosis. MICROSCOPIC DESCRIPTION Slides are reviewed. GROSS DESCRIPTION Received in fixative is one container labeled with the patient's name and designated "Distal esophagus biopsy." The specimen consists of multiple irregular fragments of light glass soft tissue that in aggregate measure 2.0 x 0.7 x 0.1 cm. The specimen is totally submitted in one cassette. AM. 09/19/2024 TC:3 CPT:04842,87704 Patient Age/Sex Location Account Attending Physician JOANA PERRY 68/F EN [id number] Doug Alvarez DO Signed (signature on file) Dr. Earl Maciel DO 09/21/24 1218 Normal [facility] Comment on above: Performed By: #### L 502.0250 #### [facility] Laboratory [address] [place], [address] Abdomen/Pelvis WITH Contrast on 09-06-2024 Abdomen/Pelvis WITH Contrast [facility] Imaging Services [address] [place], [place] [id number] Abdomen/Pelvis WITH Contrast MR#: [id number] Acct: [id number] Name: JOANA PERRY Rep #: [id number] : 1955 F 68 From: Luke chao MD PCP: Dr. Cristy Carroll MD Status: REG [facility] Study: Abdomen/Pelvis WITH Contrast Date of Exam: Exam# [id number] Ordering Dr: Doug Alvarez DO [id number] STUDY: CT ABDOMEN AND PELVIS WITH CONTRAST REASON FOR EXAM: Female, 68 years old. Chronic diarrhea. Status post cholecystectomy. RADIATION DOSAGE (If Supplied By Facility): CTDIvol = ( 19.98 ) mGy, DLP = ( 1124.91 ) mGycm TECHNIQUE: Transaxial images were obtained from the dome of the diaphragm to the symphysis pubis with oral contrast. Oral and amp; IV Gastrografin and amp; 100mL Isovue-370 was administered. Sagittal and coronal images were reconstructed. Individualized dose optimization techniques were used for this CT. COMPARISON: Comparison is made with prior study dated June 11, 2022. FINDINGS: The visualized lung bases are unremarkable. Coronary calcification. There is decreased attenuation of the liver consistent with steatosis. Mild degree of hepatomegaly. The patient is status post cholecystectomy. Normal spleen. Normal pancreas. Normal bilateral adrenal glands. Normal right kidney. 1 cm cyst in the upper pole of the left kidney. There is a small hiatal hernia. Normal small intestine. There are multiple colonic diverticula consistent with diverticulosis. The appendix is visualized and appears normal. There is scattered atherosclerotic calcification of the abdominal aorta, without a demonstrated aneurysm. Normal inferior vena cava. Normal retroperitoneum. Normal urinary bladder. There is a 2.5 cm cyst in the left ovary. There is evidence of prior anterior ventral wall hernia repair. Postoperative scarring is seen. Persistent small umbilical hernia. There are degenerative changes of the visualized lumbar spine. CT/Abdomen/Pelvis WITH Contrast IMPRESSION: Mild hepatomegaly and fatty infiltration of liver. Stable small left renal cyst. Status post anterior ventral hernia repair with mesh. Persistent small umbilical hernia. Sigmoid diverticulosis. Electronically Signed: Luke Hernandez MD at 11:33 EST , CC: Dr. Cristy Carroll MD; Doug Alvarez DO Mold Cooler: Signed Normal [facility] CREATININE FINGERSTICKon CREATININE WB < 1.0 Normal 0.55-1.02 [facility] Comment on above: Performed By: #### L 9100.0200 #### [facility] Laboratory [address] [facility]. [place], [place], [address] EGFR WB > 60.0000 Normal >60 [facility] Comment on above: Performed By: #### L 9100.0200 #### [facility] Laboratory [address] [facility]. [place], [place], [address] Dexa Bone Density Studyon Dexa Bone Density Study [facility] Imaging Services [address] [place], [place] [address] Dexa Bone Density Study MR#: [id number] Acct: [id number] Name: JOANA PERRY Rep #: [id number] : 1955 F 68 From: Luke chao MD PCP: Dr. Cristy Carroll MD Status: [facility] Study: Dexa Bone Density Study Date of Exam: 08/28/24 Exam# [id number] Ordering Dr: Cristy Carroll [id number] STUDY: DUAL ENERGY X-RAY ABSORPTIOMETRY / DXA REASON FOR EXAM: Female, 68 years old. Z780 TECHNIQUE: Bone Mineral Density (BMD) measurements of lumbar spine and bilateral hips were obtained. COMPARISON: Comparison is made with prior study of April 20, 2022. FINDINGS: Lumbar Spine (L1-L4): g/cm2 (0.855) / T-score (-2.0) / Z-score (0.2) Findings are suggestive of osteopenia with a moderate fracture risk. Left Femur Total: g/cm2 (0.848) / T-score (-0.8) / Z-score (0.8) Left Femoral Neck: g/cm2 (0.611) / T-score (-2.1) / Z-score (-0.3) Right Femur Total: g/cm2 (0.826) / T-score (-1.0) / Z-score (0.6) Right Femoral Neck: g/cm2 (0.631) / T-score (-2.0) / Z-score (-0.1) The T-Scores on the most recent prior examination were: Lumbar Spine (L1-L4): There has been worsening of bone density since the previous examination. Left Femur Total: which represents a worsening of 2.8%. Right Femur Total: which represents a worsening of 1.8%. BD/Dexa Bone Density Study IMPRESSION: The patient is considered osteopenic as outlined below according to World [employer] Organization (WHO) criteria with a moderate fracture risk. There has been worsening of bone density since the previous examination. Reference Information: The T-score is the number of standard deviations above or below the standard which is normal for young adults at their peak bone mineral density. The World Health Organization (WHO) interprets the T-scores as follows: Above -1 Normal bone density Between -1 and -2.5 Osteopenia Equal to / or below -2.5 Osteoporosis As a practical clinical guideline, osteopenia may be graded as follows: Mild -1 through -1.5 Moderate -1.6 through -2.0 Severe -2.1 through -2.4 The Z-score is the number of standard deviations above or below age-matched controls. A Z-score of less than -1.5 would be considered abnormal. References: 1. NIH Osteoporosis and Related Bone Diseases www osteo.org 2. International Society for Clinical Densitometry www iscd.org 3. National Osteoporosis Foundation www nof.org Electronically Signed: Luke Hernandez MD at 15:11 EST , CC: Dr. Cristy Carroll MD Mold Cooler: Signed Normal [facility] SCRN MAMM (CAD)W/KADY BILATo n 08-28-2024 SCRN MAMM (CAD)W/KADY BILAT [facility] Imaging Services [address] [place], [place] [address] SCRN MAMM (CAD)W/KADY BILAT MR#: [id number] Acct: [id number] Name: JOANA PERRY Rep #: [id number] : 1955 F 68 From: Luke chao MD PCP: Dr. Cristy Carroll MD Status: [facility] Study: SCRN MAMM (CAD)W/KADY BILAT Date of Exam: 03/16 Exam# [id number] Ordering Dr: Cristy Carroll [id number] MAMMOGRAPHY - BILATERAL SCREENING REASON FOR EXAM: Female, 68 years old. Routine annual screening examination. PERTINENT HISTORY: Non-contributory. TECHNIQUE: Digital bilateral breast kady (3D mammographic acquisition) in the CC and MLO projections. 2-D mediolateral oblique (MLO) and craniocaudad (CC) views of both breasts were obtained. CAD: Full Field Digital Mammography with Computer Added Detection was performed. COMPARISON: Comparison is made with prior study dated April 20, 2022 and April 14, 2021. FINDINGS: Breast Composition: There are scattered areas of fibroglandular density. There are no dominant masses or suspicious calcifications. No other significant abnormalities are identified. There has been no significant change since the prior study. BI/SCRN MAMM (CAD)W/KADY BILAT IMPRESSION: Stable bilateral screening mammogram. Yearly follow-up mammogram recommended. (A) ASSESSMENT CATEGORY: BIRADS Category 1: Negative. A letter regarding these results will be sent to the patient by the facility within 30 days. Approximately 10% of breast cancers are not detected by mammography. A normal mammogram should not delay biopsy of a clinically suspicious abnormality. [id number] Electronically Signed: Luke Hernandez MD at 9:56 EST Reading Location ID and State: [facility] / [place] , Service support , CC: Dr. Cristy Carroll MD Mold Cooler: Signed Normal [facility] Gastroenterology Visit Repor ton 08-14-2024 Gastroenterology Visit Report [facility] Gastroenterology [address] [place] [address] OFFICE VISIT Date of Service: 08/14/24 MR#: [id number] Acct: [id number] Name: JOANA PERRY Rep #: [id number] : 1955 Provider: Doug Alvarez DO Age/Sex: 68/F Location[place] [facility] Status: Signed Intake Vital Signs 08/17/22 08:02 Height 5 ft Intake Visit Reasons: Colostomy questions Allergies acetaminophen (From Percocet) Allergy (Verified 08/17/22 08:01) Other levofloxacin (From Levaquin) Allergy (Verified 08/17/22 08:01) Other oxycodone HCl (From Percocet) Allergy (Verified 08/17/22 08:01) Other Penicillins (PCN) Allergy (Verified 08/17/22 08:01) Hives Medications ???Medication ???Instructions ???Recorded ???Confirmed ???Type albuterol sulfate 90 mcg/actuation 2 puff inhalation Q6H PRN SOB 03/29/22 08/14/24 History aerosol inhaler (ProAir HFA) atorvastatin 10 mg tablet 10 mg PO DAILY 03/29/22 08/14/24 History cholecalciferol (vitamin D3) 50 50 mcg PO BID 03/29/22 08/14/24 History mcg (2,000 unit) capsule diltiazem HCl 120 mg tablet 120 mg PO DAILY 03/29/22 08/14/24 History fluticasone propionate 50 1 spray intranasal DAILY 03/29/22 08/14/24 History mcg/actuation nasal spray,suspension furosemide 40 mg tablet 40 mg PO BID 03/29/22 08/14/24 History lisinopril 20 mg tablet 20 mg PO DAILY 03/29/22 08/14/24 History mecobalamin (vitamin B12) 1,000 1,000 mcg PO DAILY 03/29/22 08/14/24 History mcg chewable tablet potassium chloride 20 mEq 20 meq PO BID 03/29/22 08/14/24 History tablet,extended release sertraline 50 mg tablet 50 mg PO DAILY 03/29/22 08/14/24 History cetirizine 10 mg capsule (Zyrtec) 10 mg PO DAILY 07/28/22 08/14/24 History fluconazole 200 mg tablet 200 mg PO DAILY #14 tabs 07/29/22 08/14/24 Rx lansoprazole 30 mg capsule,delayed 30 mg PO DAILY #90 caps 12/29/22 08/14/24 Rx release Have you fallen in the past year?: No PFSH Medical History (Updated 08/14/24 @ 08:[address] Camacho Friend, DO) Loss of hearing Wears glasses Wears dentures Anxiety Redness of skin Thyroid disease Diabetes Arthritis Anemia Fatty liver Restless legs Back pain Migraine headache Hx of vertigo Dietary restriction Difficulty swallowing History of ulceration Gastric reflux Smoker CPAP (continuous positive airway pressure) dependence Asthma Shortness of breath on exertion History of edema History of stress test Cardiology follow-up encounter Hypertension Hx of lipoma Depression Hyperlipidemia Type 2 diabetes mellitus Chronic diarrhea Surgical History History of esophagogastroduodenoscopy (EGD) Hx of colonoscopy Hx of vaginal hysterectomy History of bladder suspension procedure Hx of tonsillectomy Hx of tubal ligation H/O bilateral cataract extraction H/O hernia repair Hx of cholecystectomy H/O resection of small bowel Family History Father Colon cancer Asthma Heart disease Hypertension Mother Cancer Social History Smoking Status: Current every day smoker tobacco type: cigarettes HPI HPI Details: JOANA PERRY, is a 68 F who presents to the office today for follow up. OV 08.14.24 pt reports continued diarrhea, usually around 20x a day. Pt reports nocturnal diarrhea and fecal incontinence. Pt states she would like to discuss the possibility of a colostomy. Pt also reports continued difficulty swallowing foods such as tuna and rice. ROS Const Constitutional: Positive for fatigue, headache(s), weakness and weight change (weight gain); No fever(s) ENT ENT: Positive for headache(s) and difficulty swallowing Cardio Cardiology: Positive for leg pain with exertion Gastro GI: Positive for bloating, diarrhea, heartburn, difficulty swallowing, excessive flatus and nausea/dyspepsia; No abdominal pain, belching, change in bowel habits, change in stool character, coffee ground emesis, constipation, cramping, feeling full early, incontinent of stools, Vomiting blood/hematemesis, Blood in stool, loose stools, Black,tarry stools, pain with swallowing, vomiting or other Musc Musculoskeletal: Positive for joint pain, back pain, joint swelling, muscle cramps, muscle weakness, Arthritis, sciatica, restless legs, leg pain at night and leg pain with exertion Skin Skin: Positive for dry skin; No yellowing of the eye or itchy eyes Neuro Neurology: Positive for weakness, headache(s) and restless legs Psych Psychiatric: Positive for anxiety and Positive for depression Endo Endocrine: Positive for fatigue and weight change (weight gain) Aller/Imm Allergy/Immunologic: No itchy eyes Joao/Lymp Hematologic/Lympha (more content not included)... Normal [facility] Basophil percentageOrdered B y: To Carroll on 01-03-2024 Bilirubin [Mass/Vol] 0.40 mg/dL 0.20-1.00 [facility] Comment on above: For patients on eltr ombopag therapy, use of Dimension [place] TBIL is not recommended. Chloride [Moles/Vol] 99 mmol/L 98-107 [facility] Cholesterol [Mass/Vol] 113 mg/dL <200 [facility] Comment on above: <200 mg/dL Desirable 200-240 mg/dL Borderline >240 mg/dL High Risk Glucose [Mass/Vol] 153 mg/dL 74-106 [facility] Comment on above: Fasting Glucose resu lt greater than or equal to 126 mg/dL suggests DIABETES MELLITUS per A.D.A. criteria. Hemoglobin (Bld) [Mass/Vol] 14.6 g/dL 12.0-15.0 [facility] Potassium [Moles/Vol] 3.9 mmol/L 3.5-5.1 [facility] Protein [Mass/Vol] 7.4 g/dL 6.4-8.2 [facility] Sodium [Moles/Vol] 134 mmol/L 136-145 [facility] Triglyceride [Mass/Vol] 78 mg/dL <199 [facility] Comment on above: The drugs N-Acetylcy steine and Metamizole may falsely depress this assay.Serum Triglycerides Reference Interval Normal <150 mg/dL Borderline high 150 - 199 mg/dL High 200 - 499 mg/dL Very High > or = 500 mg/dL WBC (Bld) [#/Vol] 11.9 10*3/uL 4.4-11.0 [facility] Determination of erythrocyte mean corpuscular volume (MCV)Ordered By: To Carroll on 01-03-2024 MCV (RBC) [Entitic vol] 89.5 fL 81-99 [facility] Erythrocyte distribution wid th ratioOrdered By: To Carroll on 01-03-2024 Erythrocyte distribution width (RBC) [Ratio] 15.1 % 11.6-14.6 [facility] Erythrocyte distribution wid th standard deviationOrdered By: To Carroll on 01-03-2024 Erythrocyte distribution width (RBC) [Entitic vol] 49.6 fL 35.1-43.9 [facility] Hematocrit Auto (Bld) [Volum e fraction]Ordered By: To Carroll on 01-03-2024 Hematocrit (Bld) [Volume fraction] 44.4 % 37-47 [facility] Laboratory - Chemistry and C hemistry - challengeOrdered By: To Carroll on 01-03-2024 Albumin/Globulin [Mass ratio] 1.1 {ratio} 0.9-2.4 [facility] ALP [Catalytic activity/Vol] 108 U/L 45-117 [facility] ALT [Catalytic activity/Vol] 27 U/L 13-56 [facility] Cholesterol in HDL [Mass/Vol] 69 mg/dL >40 [facility] Comment on above: The drugs N-Acetylcy steine and Metamizole may falsely depress this assay. Reference Range HDL <40 mg/dL Low HDL Cholesterol HDL >or= 60 mg/dL High HDL Cholesterol Cholesterol in LDL [Mass/Vol] 28 mg/dL 0-130 [facility] CO2 [Moles/Vol] 30.0 mmol/L 21.0-32.0 [facility] Globulin (S) [Mass/Vol] 3.6 g/dL 2.2-4.2 [facility] Magnesium [Mass/Vol] 2.0 mg/dL 1.6-2.6 [facility] Natriuretic peptide B (Bld) [Mass/Vol] 22.1 pg/mL 0-100 [facility] Urea nitrogen/Creatinine [Mass ratio] 18.1 mg/mg 10-20 [facility] Laboratory - Hematology and Cell countsOrdered By: To Carroll on 01-03-2024 MCH (RBC) [Entitic mass] 29.4 pg 27.0-32.0 [facility] MCHC (RBC) [Mass/Vol] 32.9 g/dL 32-36 [facility] Platelet mean volume (Bld) [Entitic vol] 9.7 fL 6.2-12.0 [facility] Platelets (Bld) [#/Vol] 310 10*3/uL 150-450 [facility] No Panel InformationOrdered By: To Carroll on 01-03-2024 Vitamin D 25-Hydroxy 47.1 ng/mL [facility] Comment on above: Vitamin D 25(OH) Sta tus Range Deficiency <20 ng/mL (50nmol/L) Insufficiency 20 - 30 ng/mL (50 - 75 nmol/L) Sufficiency 30 - 100 ng/mL (75 - 250 nmol/L) Toxicity >100 ng/mL (>250 nmol/L) Estimated GFR (MDRD) Amer 103 mL/min >60 [facility] Comment on above: GFR Calc Estimated GFR (MDRD) Non-Af Amer 86 mL/min >60 [facility] Comment on above: Non- GFR Calc Troponin I High Sensitivity 6 pg/mL 3.0-54.0 [facility] Comment on above: Please Note: New Ailyn t Units and Gender Specific Reference Ranges. For more information see Policy Stat Procedure [place] High Sensitivity Troponin (TNIH) and attachments. VLDL Cholesterol 16 mg/dL 5-40 [facility] RBC Auto (Bld) [#/Vol]Ordere d By: To Carroll on 01-03-2024 RBC (Bld) [#/Vol] 4.96 10*6/uL 4.2-5.4 [facility] Serum or plasma calcium maureen urement (mass/volume)Ordered By: To Carroll on 01-03-2024 Calcium [Mass/Vol] 9.4 mg/dL 8.5-10.1 [facility] Serum or plasma creatinine m easurement (mass/volume)Ordered By: To Carroll on 01-03-2024 Creatinine [Mass/Vol] 0.72 mg/dL 0.55-1.02 [facility] Comment on above: The validity of the calculated GFR & GFRAA in patients over 70 years has not been determined. Clinical correlation is essential. Serum or plasma thyroid stim ulating hormone (TSH) measurement (units/volume)Ordered By: To Carroll on 01-03-2024 TSH Qn 2.26 uIU/mL 0.358-3.74 [facility] Serum or plasma urea nitroge n measurement (mass/volume)Ordered By: To Carroll on 01-03-2024 Urea nitrogen [Mass/Vol] 13 mg/dL 7-18 [facility] Thin prep Papanicolaou smear with manual screeningOrdered By: To Carroll on 01-03-2024 Thin prep Papanicolaou smear with manual screening 3.8 g/dL 3.2-5.0 [facility] Thin prep Papanicolaou smear with manual screening 19 U/L 15-37 [facility] Thin prep Papanicolaou smear with manual screening 5 5-15 [facility] Absolute lymphocyte countOrd ered By: Dr. Carroll on 04-06-2023 Lymphocytes Auto (Unsp spec) [#/Vol] 3.43 10*3/uL 0.83-4.51 [facility] Basophil percentageOrdered B y: Dr. Carroll on 04-06-2023 Basophils/100 WBC (Bld) 0.1 % 0-1 [facility] Bilirubin [Mass/Vol] 0.40 mg/dL 0.20-1.00 [facility] Comment on above: For patients on eltr ombopag therapy, use of Dimension [place] TBIL is not recommended. Chloride [Moles/Vol] 106 mmol/L 98-107 [facility] Eosinophils/100 WBC (Bld) 2.0 % 0-5 [facility] Glucose [Mass/Vol] 108 mg/dL 74-106 [facility] Comment on above: Fasting Glucose resu lt from 100 to 125 mg/dL suggests IMPAIRED HOMEOSTASIS per A.D.A. criteria. Neutrophils (Bld) [#/Vol] 5.6 10*3/uL 2.0-7.7 [facility] Neutrophils/100 WBC (Bld) 56.2 % 47-70 [facility] Potassium [Moles/Vol] 3.8 mmol/L 3.5-5.1 [facility] Protein [Mass/Vol] 7.3 g/dL 6.4-8.2 [facility] Sodium [Moles/Vol] 140 mmol/L 136-145 [facility] WBC (Bld) [#/Vol] 9.9 10*3/uL 4.4-11.0 [facility] Blood erythrocytes count (nu mber/volume)Ordered By: Dr. Carroll on 04-06-2023 RBC (Bld) [#/Vol] 4.83 10*6/uL 4.2-5.4 [facility] Blood hemoglobin measurement (mass/volume)Ordered By: Dr. Carroll on 04-06-2023 Hemoglobin (Bld) [Mass/Vol] 14.3 g/dL 12.0-15.0 [facility] Blood lymphocytes/100 leukoc ytesOrdered By: Dr. Carroll on 04-06-2023 Lymphocytes/100 WBC (Bld) 34.7 % 19-41 [facility] Blood monocytes/100 leukocyt esOrdered By: Dr. Carroll on 04-06-2023 Monocytes/100 WBC (Bld) 6.5 % 0-10 [facility] Blood platelet mean volumeOr dered By: Dr. Carroll on 04-06-2023 Platelet mean volume (Bld) [Entitic vol] 9.6 fL 6.2-12.0 [facility] Determination of erythrocyte mean corpuscular volume (MCV)Ordered By: Dr. Carroll on 04-06-2023 MCV (RBC) [Entitic vol] 92.5 fL 81-99 [facility] Hematocrit Auto (Bld) [Volum e fraction]Ordered By: Dr. Carroll on 04-06-2023 Hematocrit (Bld) [Volume fraction] 44.7 % 37-47 [facility] Laboratory - Chemistry and C hemistry - challengeOrdered By: Dr. Carroll on 04-06-2023 ALP [Catalytic activity/Vol] 106 U/L 45-117 [facility] ALT [Catalytic activity/Vol] 61 U/L 13-56 [facility] CO2 [Moles/Vol] 28.0 mmol/L 21.0-32.0 [facility] Free T4 [Mass/Vol] 1.18 ng/dL 0.76-1.46 [facility] Globulin (S) [Mass/Vol] 3.5 g/dL 2.2-4.2 [facility] Urea nitrogen/Creatinine [Mass ratio] 9.9 mg/mg 10-20 [facility] Laboratory - Hematology and Cell countsOrdered By: Dr. Carroll on 04-06-2023 Erythrocyte distribution width (RBC) [Entitic vol] 46.5 fL 35.1-43.9 [facility] Erythrocyte distribution width (RBC) [Ratio] 13.8 % 11.6-14.6 [facility] Immature granulocytes/100 WBC (Bld) 0.500 % 0.0-0.9 [facility] Comment on above: IG% - Immature Granu locytes (promyelocytes, myelocytes and metamyelocytes) > 1% indicates that a LEFT SHIFT is Present. MCH (RBC) [Entitic mass] 29.6 pg 27.0-32.0 [facility] Nucleated RBC/100 WBC (Bld) [Ratio] 0 % 0-5 [facility] MCHC Auto (RBC) [Mass/Vol]Or dered By: Dr. Carroll on 04-06-2023 MCHC (RBC) [Mass/Vol] 32.0 g/dL 32-36 [facility] No Panel InformationOrdered By: Dr. Carroll on 04-06-2023 Estimated GFR (MDRD) Amer 105 mL/min >60 [facility] Comment on above: GFR Calc Estimated GFR (MDRD) Non-Af Amer 87 mL/min >60 [facility] Comment on above: Non- GFR Calc Free Triiodothyronine (T3) pg/dL 2.9 pg/mL 2.18-3.98 [facility] Thyroid Stimulating Hormone (TSH) 3.69 uIU/mL 0.358-3.74 [facility] Platelets bldOrdered By: Dr. Carroll on 04-06-2023 Platelets (Bld) [#/Vol] 266 10*3/uL 150-450 [facility] Serum or plasma albumin maureen urement (mass/volume)Ordered By: Dr. Carroll on 04-06-2023 Albumin [Mass/Vol] 3.8 g/dL 3.2-5.0 [facility] Serum or plasma albumin/glob ulin mass ratioOrdered By: Dr. Carroll on 04-06-2023 Albumin/Globulin [Mass ratio] 1.1 {ratio} 0.9-2.4 [facility] Serum or plasma calcium maureen urement (mass/volume)Ordered By: Dr. Carroll on 04-06-2023 Calcium [Mass/Vol] 9.0 mg/dL 8.5-10.1 [facility] Serum or plasma creatinine m easurement (mass/volume)Ordered By: Dr. Carroll on 04-06-2023 Creatinine [Mass/Vol] 0.71 mg/dL 0.55-1.02 [facility] Comment on above: The validity of the calculated GFR & GFRAA in patients over 70 years has not been determined. Clinical correlation is essential. Serum or plasma urea nitroge n measurement (mass/volume)Ordered By: Dr. Carroll on 04-06-2023 Urea nitrogen [Mass/Vol] 7 mg/dL 7-18 [facility] Thin prep Papanicolaou smear with manual screeningOrdered By: Dr. Carroll on 04-06-2023 Thin prep Papanicolaou smear with manual screening 25 U/L 15-37 [facility] Thin prep Papanicolaou smear with manual screening 6 5-15 [facility] Basophil percentageOrdered B y: Dr. Carroll on 11-23-2022 Bilirubin [Mass/Vol] 0.40 mg/dL 0.20-1.00 [facility] Comment on above: For patients on eltr ombopag therapy, use of Dimension [place] TBIL is not recommended. Chloride [Moles/Vol] 103 mmol/L 98-107 [facility] Cholesterol [Mass/Vol] 109 mg/dL <200 [facility] Comment on above: <200 mg/dL Desirable 200-240 mg/dL Borderline >240 mg/dL High Risk Glucose [Mass/Vol] 188 mg/dL 74-106 [facility] Comment on above: Fasting Glucose resu lt greater than or equal to 126 mg/dL suggests DIABETES MELLITUS per A.D.A. criteria. Potassium [Moles/Vol] 3.4 mmol/L 3.5-5.1 [facility] Protein [Mass/Vol] 7.1 g/dL 6.4-8.2 [facility] Sodium [Moles/Vol] 138 mmol/L 136-145 [facility] Triglyceride [Mass/Vol] 96 mg/dL <199 [facility] Comment on above: The drugs N-Acetylcy steine and Metamizole may falsely depress this assay.Serum Triglycerides Reference Interval Normal <150 mg/dL Borderline high 150 - 199 mg/dL High 200 - 499 mg/dL Very High > or = 500 mg/dL Laboratory - Chemistry and C hemistry - challengeOrdered By: Dr. Carroll on 11-23-2022 ALP [Catalytic activity/Vol] 104 U/L 45-117 [facility] ALT [Catalytic activity/Vol] 38 U/L 13-56 [facility] CO2 [Moles/Vol] 27.0 mmol/L 21.0-32.0 [facility] Cobalamin (Vitamin B12) [Mass/Vol] 527 pg/mL 211-911 [facility] Free T4 [Mass/Vol] 1.24 ng/dL 0.76-1.46 [facility] Globulin (S) [Mass/Vol] 3.5 g/dL 2.2-4.2 [facility] Urea nitrogen/Creatinine [Mass ratio] 10.7 mg/mg 10-20 [facility] No Panel InformationOrdered By: Dr. Carroll on 11-23-2022 Estimated GFR (MDRD) Amer 99 mL/min >60 [facility] Comment on above: GFR Calc Estimated GFR (MDRD) Non-Af Amer 82 mL/min >60 [facility] Comment on above: Non- GFR Calc Thyroid Stimulating Hormone (TSH) 3.98 uIU/mL 0.358-3.74 [facility] Serum or plasma albumin maureen urement (mass/volume)Ordered By: Dr. Carroll on 11-23-2022 Albumin [Mass/Vol] 3.6 g/dL 3.2-5.0 [facility] Serum or plasma albumin/glob ulin mass ratioOrdered By: Dr. Carroll on 11-23-2022 Albumin/Globulin [Mass ratio] 1.0 {ratio} 0.9-2.4 [facility] Serum or plasma calcium maureen urement (mass/volume)Ordered By: Dr. Carroll on 11-23-2022 Calcium [Mass/Vol] 9.2 mg/dL 8.5-10.1 [facility] Serum or plasma cholesterol in HDL measurement (mass/volume)Ordered By: Dr. Carroll on 11-23-2022 Cholesterol in HDL [Mass/Vol] 69 mg/dL >40 [facility] Comment on above: The drugs N-Acetylcy steine and Metamizole may falsely depress this assay. Reference Range HDL <40 mg/dL Low HDL Cholesterol HDL >or= 60 mg/dL High HDL Cholesterol Serum or plasma cholesterol in VLDL measurement (mass/volume)Ordered By: Dr. Carroll on 11-23-2022 Cholesterol in VLDL [Mass/Vol] 19 mg/dL 5-40 [facility] Serum or plasma creatinine m easurement (mass/volume)Ordered By: Dr. Carroll on 11-23-2022 Creatinine [Mass/Vol] 0.75 mg/dL 0.55-1.02 [facility] Comment on above: The validity of the calculated GFR & GFRAA in patients over 70 years has not been determined. Clinical correlation is essential. Serum or plasma low density lipoprotein (LDL) cholesterol measurement (mass/volume)Ordered By: Dr. Carroll on 11-23-2022 Cholesterol in LDL [Mass/Vol] 21 mg/dL 0-130 [facility] Serum or plasma urea nitroge n measurement (mass/volume)Ordered By: Dr. Carroll on 11-23-2022 Urea nitrogen [Mass/Vol] 8 mg/dL 7-18 [facility] Thin prep Papanicolaou smear with manual screeningOrdered By: Dr. Carroll on 11-23-2022 Thin prep Papanicolaou smear with manual screening 15 U/L 15-37 [facility] Thin prep Papanicolaou smear with manual screening 8 5-15 [facility] Glucose Glucometer (BldC) [M ass/Vol]on 07-29-2022 Glucose [Mass/Vol] 156 mg/dL 74-106 [facility] Work Phone: Comment on above: MANAGEMENT OF PATIEN T CARE PER NURSING PROTOCOL Absolute lymphocyte counton 06-21-2022 Lymphocytes Auto (Unsp spec) [#/Vol] 2.90 10*3/uL 0.83-4.51 [facility] Work Phone: Basophil percentageon 2021 Basophils/100 WBC (Bld) 0.3 % 0-1 [facility] Work Phone: Bilirubin [Mass/Vol] 0.20 mg/dL 0.20-1.00 [facility] Work Phone: Comment on above: For patients on eltr ombopag therapy, use of Dimension [place] TBIL is not recommended. Chloride [Moles/Vol] 110 mmol/L 98-107 [facility] Work Phone: Eosinophils/100 WBC (Bld) 1.5 % 0-5 [facility] Work Phone: Glucose [Mass/Vol] 123 mg/dL 74-106 [facility] Work Phone: [phone] Comment on above: Fasting Glucose resu lt from 100 to 125 mg/dL suggests IMPAIRED HOMEOSTASIS per A.D.A. criteria. Neutrophils (Bld) [#/Vol] 6.8 10*3/uL 2.0-7.7 [facility] Work Phone: Neutrophils/100 WBC (Bld) 64.2 % 47-70 [facility] Work Phone: Potassium [Moles/Vol] 3.6 mmol/L 3.5-5.1 [facility] Work Phone: Protein [Mass/Vol] 6.8 g/dL 6.4-8.2 [facility] Work Phone: Sodium [Moles/Vol] 143 mmol/L 136-145 [facility] Work Phone: WBC (Bld) [#/Vol] 10.5 10*3/uL 4.4-11.0 [facility] Work Phone: Blood erythrocytes count (nu mber/volume)on 06-21-2022 RBC (Bld) [#/Vol] 4.42 10*6/uL 4.2-5.4 [facility] Work Phone: Blood hemoglobin measurement (mass/volume)on 06-21-2022 Hemoglobin (Bld) [Mass/Vol] 13.3 g/dL 12.0-15.0 [facility] Work Phone: Blood lymphocytes/100 leukoc yteson 06-21-2022 Lymphocytes/100 WBC (Bld) 27.5 % 19-41 [facility] Work Phone: Blood monocytes/100 leukocyt eson 06-21-2022 Monocytes/100 WBC (Bld) 5.9 % 0-10 [facility] Work Phone: Blood platelet mean volumeon 06-21-2022 Platelet mean volume (Bld) [Entitic vol] 9.5 fL 6.2-12.0 [facility] Work Phone: Determination of erythrocyte mean corpuscular volume (MCV)on 06-21-2022 MCV (RBC) [Entitic vol] 94.6 fL 81-99 [facility] Work Phone: [phone] Hematocrit Auto (Bld) [Volum e fraction]on 06-21-2022 Hematocrit (Bld) [Volume fraction] 41.8 % 37-47 [facility] Work Phone: [phone] Laboratory - Chemistry and C hemistry - challengeon 06-21-2022 ALP [Catalytic activity/Vol] 93 U/L 45-117 [facility] Work Phone: ALT [Catalytic activity/Vol] 31 U/L 13-56 [facility] Work Phone: [phone] CO2 [Moles/Vol] 26.0 mmol/L 21.0-32.0 [facility] Work Phone: [phone] Globulin (S) [Mass/Vol] 3.5 g/dL 2.2-4.2 [facility] Work Phone: [phone] Urea nitrogen/Creatinine [Mass ratio] 10.1 mg/mg 10-20 [facility] Work Phone: Laboratory - Hematology and Cell countson 06-21-2022 Erythrocyte distribution width (RBC) [Entitic vol] 50.1 fL 35.1-43.9 [facility] Work Phone: [phone] Erythrocyte distribution width (RBC) [Ratio] 14.4 % 11.6-14.6 [facility] Work Phone: [phone] Immature granulocytes/100 WBC (Bld) 0.600 % 0.0-0.9 [facility] Work Phone: [phone] Comment on above: IG% - Immature Granu locytes (promyelocytes, myelocytes and metamyelocytes) > 1% indicates that a LEFT SHIFT is Present. MCH (RBC) [Entitic mass] 30.1 pg 27.0-32.0 [facility] Work Phone: Nucleated RBC/100 WBC (Bld) [Ratio] 0 % 0-5 [facility] Work Phone: MCHC Auto (RBC) [Mass/Vol]on 06-21-2022 MCHC (RBC) [Mass/Vol] 31.8 g/dL 32-36 [facility] Work Phone: No Panel Informationon 06-21 Estimated GFR (MDRD) Amer 108 mL/min >60 [facility] Work Phone: Comment on above: GFR Calc Estimated GFR (MDRD) Non-Af Amer 89 mL/min >60 [facility] Work Phone: Comment on above: Non- GFR Calc Platelets bldon 06-21-2022 Platelets (Bld) [#/Vol] 270 10*3/uL 150-450 [facility] Work Phone: Serum or plasma albumin maureen urement (mass/volume)on 06-21-2022 Albumin [Mass/Vol] 3.3 g/dL 3.2-5.0 [facility] Work Phone: Serum or plasma albumin/glob ulin mass ratioon 06-21-2022 Albumin/Globulin [Mass ratio] 0.9 {ratio} 0.9-2.4 [facility] Work Phone: Serum or plasma calcium maureen urement (mass/volume)on 06-21-2022 Calcium [Mass/Vol] 8.6 mg/dL 8.5-10.1 [facility] Work Phone: Serum or plasma creatinine m easurement (mass/volume)on 06-21-2022 Creatinine [Mass/Vol] 0.69 mg/dL 0.55-1.02 [facility] Work Phone: Comment on above: The validity of the calculated GFR & GFRAA in patients over 70 years has not been determined. Clinical correlation is essential. Serum or plasma urea nitroge n measurement (mass/volume)on 06-21-2022 Urea nitrogen [Mass/Vol] 7 mg/dL 7-18 [facility] Work Phone: Thin prep Papanicolaou smear with manual screeningon 06-21-2022 Thin prep Papanicolaou smear with manual screening 13 U/L 15-37 [facility] Work Phone: Thin prep Papanicolaou smear with manual screening 7 5-15 [facility] Work Phone: No Panel Informationon 06-01 Stool Calprotectin <16 ug/g 0-120 [facility] Work Phone: Comment on above: Concentration Interp retation Follow-Up<16 - 50 ug/g Normal None>50 -120 ug/g Borderline Re-evaluate in 4-6 weeks >120 ug/g Abnormal Repeat as clinically indicatedPerformed at: [facility] [id number] Director: John Snyder MD, Phone: [phone] Absolute lymphocyte counton 05-14-2022 Lymphocytes Auto (Unsp spec) [#/Vol] 2.58 10*3/uL 0.83-4.51 [facility] Work Phone: Albumin Elph [Mass/Vol]on Albumin [Mass/Vol] 3.6 g/dL 2.9-4.4 [facility] Work Phone: Atypical perinuclear antineu trophil cytoplasmic antibodies measurementon 05-14-2022 Neutrophil cytoplasmic Ab.perinuclear.atypical IF (S) [Titer] <1:20 titer Neg:<1:20 [facility] Work Phone: Comment on above: The atypical pANCA p attern has been observed in asignificant percentage of patients with ulcerative colitis,primary sclerosing cholangitis and autoimmune hepatitis.Performed at: [facility] [id number] Director: Herb Hsu PhD, Phone: [phone] at: [facility] [id number] Director: John Snyder MD, Phone: [phone] Basophil percentageon 2021 Basophil percentage < 0.2 AI 0.0-0.9 [facility] Work Phone: Basophils/100 WBC (Bld) 0.4 % 0-1 [facility] Work Phone: [phone] Bilirubin [Mass/Vol] 0.40 mg/dL 0.20-1.00 [facility] Work Phone: [phone] Comment on above: For patients on eltr ombopag therapy, use of Dimension [place] TBIL is not recommended. Chloride [Moles/Vol] 106 mmol/L 98-107 [facility] Work Phone: Eosinophils/100 WBC (Bld) 0.7 % 0-5 [facility] Work Phone: [phone] Glucose [Mass/Vol] 153 mg/dL 74-106 [facility] Work Phone: [phone] Comment on above: Fasting Glucose resu lt greater than or equal to 126 mg/dL suggests DIABETES MELLITUS per A.D.A. criteria. Neutrophils (Bld) [#/Vol] 9.3 10*3/uL 2.0-7.7 [facility] Work Phone: Neutrophils/100 WBC (Bld) 72.8 % 47-70 [facility] Work Phone: Potassium [Moles/Vol] 3.3 mmol/L 3.5-5.1 [facility] Work Phone: Protein [Mass/Vol] 7.4 g/dL 6.4-8.2 [facility] Work Phone: Sodium [Moles/Vol] 137 mmol/L 136-145 [facility] Work Phone: WBC (Bld) [#/Vol] 12.8 10*3/uL 4.4-11.0 [facility] Work Phone: Blood erythrocytes count (nu mber/volume)on 05-14-2022 RBC (Bld) [#/Vol] 4.91 10*6/uL 4.2-5.4 [facility] Work Phone: [phone] Blood hemoglobin measurement (mass/volume)on 05-14-2022 Hemoglobin (Bld) [Mass/Vol] 14.7 g/dL 12.0-15.0 [facility] Work Phone: Blood lymphocytes/100 leukoc yteson 05-14-2022 Lymphocytes/100 WBC (Bld) 20.1 % 19-41 [facility] Work Phone: Blood monocytes/100 leukocyt eson 05-14-2022 Monocytes/100 WBC (Bld) 5.5 % 0-10 [facility] Work Phone: [phone] Blood platelet mean volumeon 05-14-2022 Platelet mean volume (Bld) [Entitic vol] 9.3 fL 6.2-12.0 [facility] Work Phone: [phone] Determination of erythrocyte mean corpuscular volume (MCV)on 05-14-2022 MCV (RBC) [Entitic vol] 91.4 fL 81-99 [facility] Work Phone: [phone] Erythrocyte sedimentation ra denise 05-14-2022 ESR (Bld) [Velocity] 12 mm/h 0-30 [facility] Work Phone: [phone] Hematocrit Auto (Bld) [Volum e fraction]on 05-14-2022 Hematocrit (Bld) [Volume fraction] 44.9 % 37-47 [facility] Work Phone: [phone] Interpretation of serum or p lasma protein pattern by immunofixation (narrative resulton 05-14-2022 Protein Fractions Immunofixation Joey [Interp] See comment [facility] Work Phone: [phone] Comment on above: NOT OBSERVED Laboratory - Chemistry and C hemistry - challengeon 05-14-2022 ALP [Catalytic activity/Vol] 108 U/L 45-117 [facility] Work Phone: [phone] ALT [Catalytic activity/Vol] 35 U/L 13-56 [facility] Work Phone: [phone] CO2 [Moles/Vol] 25.0 mmol/L 21.0-32.0 [facility] Work Phone: Urea nitrogen/Creatinine [Mass ratio] 18.4 mg/mg 10-20 [facility] Work Phone: Laboratory - Hematology and Cell countson 05-14-2022 Erythrocyte distribution width (RBC) [Entitic vol] 46.4 fL 35.1-43.9 [facility] Work Phone: Erythrocyte distribution width (RBC) [Ratio] 13.8 % 11.6-14.6 [facility] Work Phone: Immature granulocytes/100 WBC (Bld) 0.500 % 0.0-0.9 [facility] Work Phone: Comment on above: IG% - Immature Granu locytes (promyelocytes, myelocytes and metamyelocytes) > 1% indicates that a LEFT SHIFT is Present. MCH (RBC) [Entitic mass] 29.9 pg 27.0-32.0 [facility] [facility] Work Phone: Nucleated RBC/100 WBC (Bld) [Ratio] 0 % 0-5 [facility] Work Phone: MCHC Auto (RBC) [Mass/Vol]on 05-14-2022 MCHC (RBC) [Mass/Vol] 32.7 g/dL 32-36 [facility] Work Phone: No Panel Informationon 05-14 Addendum Document Comment . [facility] Work Phone: Comment on above: Protein electrophore sis scan will follow via computer,mail, or plant operations coordinator delivery. Centromere B Antibody <0.2 AI 0.0-0.9 [facility] Work Phone: Endomysial IgA Antibody Negative Negative [facility] Work Phone: Estimated GFR (MDRD) Amer 97 mL/min >60 [facility] Work Phone: Comment on above: GFR Calc Estimated GFR (MDRD) Non-Af Amer 80 mL/min >60 [facility] Work Phone: Comment on above: Non- GFR Calc Immunoglobulin E 338 IU/mL 6-495 [facility] Work Phone: ANIMAL LABORATORY TECHNICIAN Antibody <0.2 AI 0.0-0.9 [facility] Work Phone: Platelets bldon 05-14-2022 Platelets (Bld) [#/Vol] 310 10*3/uL 150-450 [facility] Work Phone: Serum DNA double strand anti body assay (units/volume)on 05-14-2022 DNA double strand Ab Qn (S) [IU]/mL 0-9 [facility] Work Phone: Comment on above: Negative <5 Equivoca l 5 - 9 Positive >9 Serum Whitney-1 antibody assay (u nits/volume)on 05-14-2022 Whitney-1 extractable nuclear Ab Qn (S) <0.2 AI 0.0-0.9 [facility] Work Phone: Serum Scl-70 extractable nuc lear antibody assay (units/volume)on 05-14-2022 SCL-70 extractable nuclear Ab Qn (S) <0.2 AI 0.0-0.9 [facility] Work Phone: Serum Campos extractable nucl ear antibody detectionon 05-14-2022 Campos extractable nuclear Ab Ql (S) <0.2 AI 0.0-0.9 [facility] Work Phone: Serum cppoy-3-layjljyl measu rement by electrophoresison 05-14-2022 Alpha 1 globulin Elph [Mass/Vol] 0.3 g/dL 0.0-0.4 [facility] Work Phone: Alpha 1 globulin Elph [Mass/Vol] 0.8 g/dL 0.4-1.0 [facility] Work Phone: Serum classic neutrophil cyt oplasmic antibody assay (units/volume)on 05-14-2022 Neutrophil cytoplasmic Ab.classic Qn (S) <1:20 titer Neg:<1:20 [facility] Work Phone: Serum globulin measurement ( mass/volume)on 05-14-2022 Globulin (S) [Mass/Vol] 3.3 g/dL 2.2-3.9 [facility] Work Phone: [phone] Serum or plasma C reactive p rotein measurement (mass/volume)on 05-14-2022 CRP [Mass/Vol] 5.64 mg/L 0.0-3.0 [facility] Work Phone: Comment on above: C-Reactive Protein ( CRP) provides useful information for thediagnosis, therapy and monitoring of inflammatory processesand associated diseases. For the evaluation of Relative Riskfor Cardiovascular Disease, a High Sensitivity CRP (HSCRP)should be ordered. Serum or plasma IgA measurem ent (mass/volume)on 05-14-2022 IgA [Mass/Vol] 179 mg/dL 87-352 [facility] Work Phone: [phone] Serum or plasma IgG measurem ent (mass/volume)on 05-14-2022 IgG [Mass/Vol] 895 mg/dL [phone] [facility] Work Phone: [phone] Serum or plasma IgM measurem ent (mass/volume)on 05-14-2022 IgM [Mass/Vol] 50 mg/dL 26-217 [facility] Work Phone: [phone] Serum or plasma albumin maureen urement (mass/volume)on 05-14-2022 Albumin [Mass/Vol] 3.7 g/dL 3.2-5.0 [facility] Work Phone: [phone] Serum or plasma albumin/glob ulin mass ratioon 05-14-2022 Albumin/Globulin [Mass ratio] 1.0 {ratio} 0.9-2.4 [facility] Work Phone: [phone] Serum or plasma beta globuli n measurement by electrophoresis (mass/volume)on 05-14-2022 Beta globulin Elph [Mass/Vol] 1.2 g/dL 0.7-1.3 [facility] Work Phone: [phone] Serum or plasma calcium maureen urement (mass/volume)on 05-14-2022 Calcium [Mass/Vol] 9.5 mg/dL 8.5-10.1 [facility] Work Phone: Serum or plasma creatinine m easurement (mass/volume)on 05-14-2022 Creatinine [Mass/Vol] 0.76 mg/dL 0.55-1.02 [facility] Work Phone: Comment on above: The validity of the calculated GFR & GFRAA in patients over 70 years has not been determined. Clinical correlation is essential. Serum or plasma gamma globul in measurement by electrophoresis (mass/volume)on 05-14-2022 Gamma globulin Elph [Mass/Vol] 1.0 g/dL 0.4-1.8 [facility] Work Phone: Serum or plasma immunoelectr ophoresis interpretation (nominal result)on 05-14-2022 Interpretation IEP [Interp] Comment: . [facility] Work Phone: Comment on above: Presence of monoclon al protein is unclear at this time. Suggestrepeat in 3 to 6 months if clinically indicated. Serum or plasma urea nitroge n measurement (mass/volume)on 05-14-2022 Urea nitrogen [Mass/Vol] 14 mg/dL 7-18 [facility] Work Phone: Serum perinuclear neutrophil cytoplasmic antibody titer by immunofluorescenceon 05-14-2022 Neutrophil cytoplasmic Ab.perinuclear IF (S) [Titer] <1:20 titer Neg:<1:20 [facility] Work Phone: Comment on above: The presence of posi tive fluorescence exhibiting P-ANCA orC-ANCA patterns alone is not specific for the diagnosis ofWegener's Granulomatosis (WG) or microscopic polyangiitis.Decisions about treatment should not be based solely onANCA IFA results. The [employer] Consensusrecommends follow up testing of positive sera with both MA-3 and MPO-ANCA enzyme immunoassays. As many as 5% serumsamples are positive only by EIA. Ref. AM J Clin Nifwbu7927;111:507-513. Serum tissue transglutaminas e IgA antibody assay (units/volume)on 05-14-2022 tTG IgA Qn (S) <2 U/mL 0-3 [facility] Work Phone: Comment on above: Negative 0 - 3 Weak Positive 4 - 10 Positive >10 Tissue Transglutaminase (tTG) has been identified as the endomysial antigen. Studies have demonstr- ated that endomysial IgA antibodies have over 99% specificity for gluten sensitive enteropathy. Thin prep Papanicolaou smear with manual screeningon 05-14-2022 Thin prep Papanicolaou smear with manual screening 16 U/L 15-37 [facility] Work Phone: Thin prep Papanicolaou smear with manual screening 6 5-15 [facility] Work Phone: Thin prep Papanicolaou smear with manual screening 149 U/L 84-246 [facility] Work Phone: Thin prep Papanicolaou smear with manual screening 1.1 0.7-1.7 [facility] Work Phone: Total protein bloodon 2021 Protein [Mass/Vol] 6.9 g/dL 6.0-8.5 [facility] Work Phone: No Panel Information Enteric Bacteriology [facility] Work Phone: Vital Signs Date Time Vital Sign Value Performing Clinician Facility 06-27-2025 10:56-0400 Body weight 98.97 kg Nora Gardner MD Work Phone: [facility] 06-27-2025 10:56-0400 Diastolic blood pressure 82 mm[Hg] Nora Gardner MD Work Phone: [facility] 06-27-2025 10:56-0400 Heart rate 90 /min Nora Gardner MD Work Phone: [facility] 06-27-2025 10:56-0400 Respiratory rate 14 /min Nora Gardner MD Work Phone: [facility] 06-27-2025 10:56-0400 SaO2% (BldA) [Mass fraction] 95 % Nora Gardner MD Work Phone: [facility] 06-27-2025 10:56-0400 Systolic blood pressure 180 mm[Hg] Nora Gardner MD Work Phone: [facility] 06-03-2025 13:17-0400 Body temperature 97.81 [degF] Giselle Murilloir FAMILY ENGAGEMENT SPECIALIST.BIOMETRICS ANALYST Work Phone: [facility] 06-03-2025 13:17-0400 Body weight 94.62 kg Giselle Fonseca FAMILY ENGAGEMENT SPECIALIST.BIOMETRICS ANALYST Work Phone: [facility] 06-03-2025 13:17-0400 Heart rate 111 /min Giselle Murilloir FAMILY ENGAGEMENT SPECIALIST.BIOMETRICS ANALYST Work Phone: [facility] 06-03-2025 13:17-0400 SaO2% (BldA) [Mass fraction] 92 % Giselle Murilloir FAMILY ENGAGEMENT SPECIALIST.BIOMETRICS ANALYST Work Phone: [facility] 08-17-2022 08:02-0400 Body height 152.[address] To Carroll Work Phone: [facility] 08-17-2022 08:02-0400 Body mass index (BMI) [Ratio] 43.9 kg/m2 Dr. To Carroll Work Phone: [facility] 08-17-2022 08:02-0400 Body weight 102.[address] To Carroll Work Phone: [facility] 08-17-2022 08:02-0400 Diastolic blood pressure 93 mm[Hg] Dr. To Carroll Work Phone: [facility] 08-17-2022 08:02-0400 Heart rate 100 /min Dr. To Carroll Work Phone: [facility] 08-17-2022 08:02-0400 SaO2% (BldA) [Mass fraction] 96 % Dr. To Carroll Work Phone: [facility] 08-17-2022 08:02-0400 Systolic blood pressure 168 mm[Hg] Dr. To Carroll Work Phone: [facility] 07-29-2022 12:10-0400 Body temperature 98.4 [degF] Dr. To Carroll Work Phone: [facility] Work Phone: 07-29-2022 12:10-0400 Diastolic blood pressure 66 mm[Hg] Dr. To Carroll Work Phone: [facility] Work Phone: 07-29-2022 12:10-0400 Heart rate 76 /min Dr. To Carroll Work Phone: [facility] Work Phone: 07-29-2022 12:10-0400 Respiratory rate 16 /min Dr. To Carroll Work Phone: [facility] Work Phone: 07-29-2022 12:10-0400 SaO2% (BldA) [Mass fraction] 95 % Dr. To Carroll Work Phone: [facility] Work Phone: 07-29-2022 12:10-0400 Systolic blood pressure 114 mm[Hg] Dr. To Carroll Work Phone: [facility] Work Phone: 07-29-2022 10:27-0400 Body height 152.[address] To Carroll Work Phone: [facility] Work Phone: 07-29-2022 10:27-0400 Body mass index (BMI) [Ratio] 43 kg/m2 Dr. To Carroll Work Phone: [facility] Work Phone: 07-29-2022 10:27-0400 Body weight [address] To Carroll Work Phone: [facility] Work Phone: 07-02-2022 14:29-0400 Body height 152.[address] To Carroll Work Phone: [facility] Work Phone: 07-02-2022 14:29-0400 Body mass index (BMI) [Ratio] 43.9 kg/m2 Dr. To Carroll Work Phone: [facility] Work Phone: 07-02-2022 14:29-0400 Body temperature 97.9 [degF] Dr. To Carroll Work Phone: [facility] Work Phone: 07-02-2022 14:29-0400 Body weight 102.[address] To Carroll Work Phone: [facility] Work Phone: 07-02-2022 14:29-0400 Diastolic blood pressure 84 mm[Hg] Dr. To Carroll Work Phone: [facility] Work Phone: 07-02-2022 14:29-0400 Heart rate 56 /min Dr. To Carroll Work Phone: [facility] Work Phone: 07-02-2022 14:29-0400 Respiratory rate 16 /min Dr. To Carroll Work Phone: [facility] Work Phone: 07-02-2022 14:29-0400 SaO2% (BldA) [Mass fraction] 94 % Dr. To Carroll Work Phone: [facility] Work Phone: 07-02-2022 14:29-0400 Systolic blood pressure 137 mm[Hg] Dr. To Carroll Work Phone: [facility] Work Phone: 06-25-2022 08:47-0400 Body mass index (BMI) [Ratio] 44.9 kg/m2 Dr. To Carroll Work Phone: [facility] Work Phone: 06-25-2022 08:47-0400 Body weight 104.[address] To Carroll Work Phone: [facility] Work Phone: 06-25-2022 08:47-0400 Diastolic blood pressure 82 mm[Hg] Dr. To Carroll Work Phone: [facility] Work Phone: 06-25-2022 08:47-0400 Heart rate 88 /min Dr. To Carroll Work Phone: [facility] Work Phone: 06-25-2022 08:47-0400 SaO2% (BldA) [Mass fraction] 94 % Dr. To Carroll Work Phone: [facility] Work Phone: 06-25-2022 08:47-0400 Systolic blood pressure 145 mm[Hg] Dr. To Carroll Work Phone: [facility] Work Phone: 05-14-2022 07:51-0400 Body height 152.[address] To Carroll Work Phone: [facility] Work Phone: 05-14-2022 07:51-0400 Body mass index (BMI) [Ratio] 42.3 kg/m2 Dr. To Carroll Work Phone: [facility] Work Phone: 05-14-2022 07:51-0400 Body weight 98.[address] To Carroll Work Phone: [facility] Work Phone: 05-14-2022 07:51-0400 Diastolic blood pressure 84 mm[Hg] Dr. To Carroll Work Phone: [facility] Work Phone: 05-14-2022 07:51-0400 Heart rate 96 /min Dr. To Carroll Work Phone: [facility] Work Phone: 05-14-2022 07:51-0400 SaO2% (BldA) [Mass fraction] 95 % Dr. To Carroll Work Phone: [facility] Work Phone: 05-14-2022 07:51-0400 Systolic blood pressure 158 mm[Hg] Dr. To Carroll Work Phone: [facility] Work Phone: 04-20-2022 10:28-0400 Body height 152.4 cm [facility] Work Phone: Encounters Encounter Date Encounter Type Care Provider Facility Start: 08-29-2025 ambulatory Cristy Carroll [facility] lity:[facility] Start: 08-19-2025 ambulatory Cristy Carroll [facility] lity:[facility] Start: 08-16-2025 End: 08-16-2025 ambulatory CRISTY CARROLL Facility:[facility] Start: 08-05-2025 ambulatory CRISTY CARROLL [facility] Start: 08-01-2025 [facility] Start: 06-27-2025 End: 06-27-2025 Patient encounter procedure Nora Gardner MD Work Phone: General Surgery Comment on above: Dysphagia, unspecifi ed type (Primary Dx); Diarrhea, unspecified type Start: 06-27-2025 End: 06-27-2025 ambulatory CRISTY CARROLL Facility:[facility] Start: 06-03-2025 End: 06-03-2025 Telephone encounter Giselle Fonseca APRN.CNP Work Phone: General Surgery Comment on above: Request Outside [facility] Start: 06-03-2025 End: 06-03-2025 Patient encounter procedure Giselle Fonseca APRN.CNP Work Phone: General Surgery Comment on above: Diarrhea, unspecifie d type (Primary Dx); Gastroesophageal reflux disease, unspecified whether esophagitis present; Dysphagia, unspecified type; Family history of colon cancer Start: 06-03-2025 End: 06-03-2025 ambulatory CRISTY CARROLL Facility:[facility] Start: 11-30-2024 End: 11-30-2024 ambulatory Cristy Carroll Facility:[facility] Start: 11-27-2024 End: 11-27-2024 ambulatory Cristy Carroll Facility:[facility] Start: 10-25-2024 End: 10-25-2024 ambulatory Cristy Carroll Facility:[facility] Start: 09-19-2024 Encounter for genera l adult medical examination without abnormal findings Cristy Carroll [facility] Start: 09-19-2024 ambulatory Cristy Carroll Faci lity:[facility] Start: 09-19-2024 End: 09-19-2024 ambulatory Cristy Carroll Facility:[facility] Start: 09-06-2024 End: 09-06-2024 ambulatory Doug Alvarez Facility:[facility] Start: 08-28-2024 End: 08-28-2024 ambulatory Cristy Carroll Facility:[facility] Start: 08-14-2024 End: 08-14-2024 ambulatory Cristy Carroll Facility:[facility] Start: 01-03-2024 End: 01-03-2024 ambulatory [facility] Work Phone: Start: 01-03-2024 End: 01-03-2024 Patient encounter procedure [facility] Work Phone: Start: 04-16-2023 End: 04-16-2023 ambulatory [facility] Work Phone: Start: 04-16-2023 End: 04-16-2023 Patient encounter procedure [facility] Start: 04-06-2023 End: 04-06-2023 ambulatory [facility] Work Phone: Start: 04-06-2023 End: 04-06-2023 Patient encounter procedure [facility] Start: 11-23-2022 End: 11-23-[address] To Carroll Work Phone: [facility] Work Phone: Start: 11-23-2022 End: 11-23-[address] To Carroll Work Phone: [facility] Start: 08-17-2022 End: 08-17-[address] To Carroll Work Phone: [facility] Start: 07-29-2022 Non-patient / Non-visit Dr. To Carroll Work Phone: [facility] Start: 07-29-2022 End: 07-29-2022 Admission to same day surgery center Dr. To Carroll Work Phone: [facility]-Endoscopy Start: 07-29-2022 End: 07-29-[address] To Carroll Work Phone: [facility] Work Phone: Start: 07-08-2022 End: 07-08-[address] To Carroll Work Phone: [facility] Work Phone: Start: 07-08-2022 End: 07-08-[address] To Carroll Work Phone: [facility] Start: 07-02-2022 End: 07-02-[address] To Carroll Work Phone: [facility] Start: 06-25-2022 End: 06-25-[address] To Carroll Work Phone: [facility] Start: 06-21-2022 End: 06-21-[address] To Carroll Work Phone: [facility] Work Phone: Start: 06-21-2022 End: 06-21-[address] [facility] [place] Start: 06-11-2022 End: 06-11-[address] To Carroll Work Phone: [facility] Work Phone: Start: 06-11-2022 End: 06-11-[address] [facility] Carroll [facility] Start: 06-02-2022 End: 06-02-[address] [facility] Start: 05-14-2022 End: 05-14-[address] [facility] Start: 05-14-2022 End: 05-14-[address] To Carroll Work Phone: [facility] Start: 04-20-2022 End: 04-20-2022 Patient encounter procedure [facility]-Outpatient Bone Densitometry Start: 03-30-2022 End: 03-30-2022 Patient encounter procedure [facility] Procedures Date Procedure Procedure Detail Performing Clinician Start: 01-03-2024 Plain chest X-ray Start: 04-16-2023 CT of chest Start: 11-23-2022 X-ray of lumbosacral spine Dr. To Carroll Work Phone: Start: 07-29-[address] Jonathan Carroll Work Phone: Start: 07-08-[address] To Carroll Work Phone: Start: 06-21-2022 Diagnostic radiograp hy of abdomen, decubitus and erect Dr. To Carroll Work Phone: Start: 06-11-2022 Computed tomography of abdomen and pelvis with contrast Dr. To Carroll Work Phone: Start: 04-20-2022 Dual energy X-ray absorptiometry Start: 04-20-2022 Screening mammography Start: 03-30-2022 CT of chest Clostridium difficil e detection Dr. To Carroll Work Phone: Enteric Bacteriology Dr. Miguel Carroll Work Phone: Lactoferrin measurement Dr. To Carroll Work Phone: Ova OR parasites identification Dr. To Carroll Work Phone: Plan of Treatment Date Care Activity Detail Author Start: 03-19-2031 Urine microalbumin profile DTaP,Tdap,Td Vaccine (2 - Td or Tdap) [facility] Start: 2028 RSV Vaccine (1 - 1-d ose 75+ series) RSV Vaccine (1 - 1-dose 75+ series) [facility] Start: 08-12-2025 End: 08-12-2025 Patient encounter procedure 08/12/2025 9:30 AM EDT Office Visit General Surgery [address] [place], [place] [id number] Giselle Fonseca APRN.BIOMETRICS ANALYST [address] [place], [place] [id number] 1 WK F/U 08/05 COLONOSCOPY / UPPER RESULTS General Surgery Comment on above: 1 WK F/U 08/05 COLON OSCOPY / UPPER RESULTS Start: 08-05-2025 End: 08-05-2025 Patient encounter procedure 08/05/2025 8:15 AM EDT Appointment [facility] Endoscopy [address] [place] [id number] Nora Gardner MD [address] [place], [place] [id number] Colon EGD [facility] Endoscopy Comment on above: Colon EGD Start: 06-24-2025 Influenza vaccination Influenza Vacc ine (#1) [facility] Start: 10-24-2024 Advance Directive Discussion Advance Directive Discussion [facility] Start: 10-24-2024 Medicare Advantage Annual Wellness Visit Medicare Advantage Annual Wellness Visit [facility] Start: 07-29-2022 Patient discharge [facility] Work Phone: Start: 06-25-2022 Patient referral [facility] Work Phone: Start: 06-02-2022 Elastase, pancreatic (el-1), fecal; quantitative [facility] Work Phone: Start: 06-02-2022 Ova and parasites identified in Unspecified specimen by Light microscopy [facility] Work Phone: Start: 06-02-2022 Protein measurement [facility] Work Phone: Start: 2018 Screening for osteoporosis Bone Density Screening [facility] Start: 10-18-2014 Shingrix Vaccine (2 of 3) Shingrix Vaccine (2 of 3) [facility] Start: 2003 Screening for malign ant neoplasm of lung Lung Cancer Screening [facility] Start: 1998 Diabetes Screening Diabetes Screenin g [facility] Start: 1998 Lipid panel Lipid Screening [facility] Start: 1998 Screening for malign ant neoplasm of colon [facility] Start: 1993 Screening for malign ant neoplasm of breast Mammogram Screening [facility] Start: 1971 Anxiety Screening Anxiety Screening [facility] Start: 1971 Depression Screening Depression Scre ening [facility] Start: 1971 Hepatitis C screening Hepatitis C Sc [facility] Abdomen [facility] Work Phone: CT Abdomen and Pelvi s W contrast IV [facility] Work Phone: End: 06-03-2026 EGD DIAGNOSTIC EGD DIAGNOSTIC Endoscopy Routine Diarrhea, unspecified type Gastroesophageal reflux disease, unspecified whether esophagitis present Dysphagia, unspecified type 1 Occurrences starting 06/03/2025 until 06/03/2026 [place] Work Phone: Comment on above: 1 Occurrences starti ng 06/03/2025 until 06/03/2026 End: 07-03-2026 EGD DIAGNOSTIC EGD DIAGNOSTIC Endoscopy Routine Dysphagia, unspecified type Diarrhea, unspecified type 1 Occurrences starting 07/03/2025 until 07/03/2026 [place] Work Phone: Comment on above: 1 Occurrences starti ng 07/03/2025 until 07/03/2026 End: 06-03-2026 Flexible sigmoidoscopy study COLONOSCOPY DIAGNOSTIC Endoscopy Routine Diarrhea, unspecified type 1 Occurrences starting 06/03/2025 until 06/03/2026 [facility] Comment on above: 1 Occurrences starti ng 06/03/2025 until 06/03/2026 End: 07-03-2026 Flexible sigmoidoscopy study COLONOSCOPY DIAGNOSTIC Endoscopy Routine Dysphagia, unspecified type Diarrhea, unspecified type 1 Occurrences starting 07/03/2025 until 07/03/2026 [facility] Comment on above: 1 Occurrences starti ng 07/03/2025 until 07/03/2026 Ova and parasites identified in Unspecified specimen by Light microscopy [facility] Work Phone: Patient referral [facility] Work Phone: Protein measurement [facility] Work Phone: Ultrasound elastography [facility] Work Phone: Immunizations Immunization Date Immunization Notes Care Provider Adrienne carrillo 07-30-2024 influenza virus vacc ine, unspecified formulation Giselle Fonseca APRN.CNP Work Phone: [facility] Payers Date Payer Category Payer Medicare (Managed Care) [facility] [employer] [id number] 2024 Self-pay [id number] 2024 Unknown [id number] 2016 Unknown [id number] Medicare [id number] Private Health Insurance [id number] Private Health Insurance [facility] [id number] Private Health Insurance [id number] Unknown [id number] Unknown [id number] Unknown [id number] .[id number] Unknown [id number] .[id number] Unknown [id number] .462 Unknown [id number] .[id number] Unknown [id number] .[id number] Unknown [id number] .462 Unknown [id number] .[id number] Unknown [id number] .462 Unknown [id number] .462 Unknown [id number] .462 Social History Date Type Detail Facility Start: 03-29-2022 End: 08-17-2022 Tobacco smoking status NHIS Unknown if ever smoked [facility] Start: 03-20-2021 Homeless [facility] Start: 03-20-2021 Cigarettes [facility] Start: 1955 Sex Assigned At Female [facility] Start: 06-03-2025 Tobacco smoking stat us NHIS Smokes tobacco daily [facility] History of tobacco use Cigarette Smoker [facility] Start: 06-03-2025 Cigarettes smoked current (pack per day) - Reported 1.5 [facility] Start: 06-03-2025 Tobacco use and exposure Smokeless tobacco non-user [facility] Start: 06-03-2025 End: 06-04-2025 Alcoholic beverage intake Ex-drinker (finding) [facility] Start: 06-03-2025 Tobacco use panel [facility] How often to you hav e a drink containing alcohol? Never [facility] Start: 09-24-2012 How many standard drinks containing alcohol do you have on a typical day? Patient does not drink [facility] Start: 1955 Sex assigned at Not on file C [facility] Goals Date Patient Goal Desired Activity /State Functional Status Date Assessment Result Facility 06-03-2025 Total score [AUDIT-C] 0 06/03/20 1:16 PM EDT Rosita Blood RN [facility] Mental Status Date Assessment Result Facility 07-29-2022 Cognitive function Voice/Name [facility] Work Phone: Clinical Notes 09-19-2024 to 08-16-2025 Nora Gardner MD - 06/27/2025 2:43 PM Ling Phillips - 06/27/2025 1:39 PM EDTTelephone Encounter - Rosita Blood RN - 06/03/2025 4:39 PM EDT Note Date & Type Note Facility 08-16-2025 Note HNO ID: [id number] Author: NORA GARDNER MD Service: ? Author Type: Physician Type: Progress Notes Filed: 08/16/2025 10:18 Note Text: FOLLOW UP VISIT - ENDOSCOPY NAME: Joana Perry CLINIC NO.: [id number] DATE OF SERVICE: 08/14/2025 : 1955 REFERRING PHYSICIAN: Cristy Carroll MD Joana is a patient I am following for loose stools/diarrhea. The patient is a 69 year old female with a complaint of problematic diarrhea for the past 26 years to the point that the patient wishes to have a diverting colostomy. The patient has a complex past medical history. The patient has a history of diabetes diverticulosis and hypertension. The patient states prior to 25 years ago she generally had issues with constipation. In February 1999 the patient underwent a open hernia repair performed at [facility]. This was performed by Dr. Nora Hdz. I understand the surgery was performed in January 1999. 1 month later she was brought back for exploration and she was told that she had a loop of bowel that was stuck to the mesh and she understands that she had approximately 6 inches of colon and 2 feet of small bowel removed. She underwent what is listed as an ileocecectomy and small bowel resection. The patient recalled that she had 2 follow-up hernia repairs performed by Dr. Leiva apparently the most recently in 2000 but I do not see records of those operative procedures Since that time the patient notes she has had issues with diarrhea upwards of 20 or she says even up to 60 bowel movements per day. She is in the past followed up with Dr. Herb Finley who performed multiple endoscopies and had tried the patient says many different medications with no success. Most recently she was seen by Dr. Alvarez at [facility] and underwent upper and lower endoscopy. I understand she had ballooning of her esophagus I do not have records of this procedure. Joana Perry is a 69-year-old female presenting with chronic diarrhea and severe depression. Joana reports experiencing approximately 20 watery stools daily, often accompanied by significant flatus. She describes the diarrhea as explosive, with frequent splattering beyond the toilet bowl, requiring her to clean the bathroom castillo multiple times per day. She notes that using Gas-X has helped her reach the bathroom more quickly and reduced the severity of these episodes. The diarrhea began immediately after surgery while she was still hospitalized, and she had no prior issues before the procedure. She reports that fruits and vegetables worsen her diarrhea. She was diagnosed with a dairy allergy by Dr. Alvarez and has eliminated dairy and eggs from her diet, but has not noticed any improvement. She has also tried eliminating other food groups for several weeks at a time without benefit. She has food allergies that affect her breathing, which she avoids, but she does not believe her current symptoms are food-related. She has trialed multiple medications without relief, including up to 8 tablets of Imodium daily. She was previously prescribed cholestyramine by Dr. Finley, which initially provided relief for about 3 weeks at a dose of 6 servings per day, but then lost effectiveness. She is currently taking Prevacid 30 mg twice daily, prescribed by Dr. Alvarez in August of last year. She has also tried other medications as recommended by Dr. Bautista and Dr. Alvarez. She reports low potassium levels and is currently trying an xkft-hao-mjcswkn liquid potassium supplement to address leg cramps. She notes that pills do not stay in her system well due to the frequency of her bowel movements. The chronic diarrhea has severely impacted her quality of life. She is unable to socialize, go to the grocery store, or engage in most activities outside her home. She reports seeing only healthcare providers and occasional visitors at her home. She describes severe depression related to her condition, but notes that she no longer has suicidal thoughts. Again the patient states has been on multiple past medications for her multiple loose stools. She states that her stools are usually liquid and brown and occasionally different colors. She denies stearrhea. She notes that she will have some bloating frequently and occasional discomfort with these bowel movements. She denies blood in her stool. We were able to obtain records of the following studies the include: From November 30, 2024 negative stool for lactoferrin C. difficile and occult blood CT scan of the abdomen pelvis from September 06, 2024 demonstrated mild fatty liver hepatomegaly but stable ventral hernia repair with mesh there is noted to be a small persistent umbilical hernia but this is noted not to have any communication or displacement of the mesh and is covered fully by the mesh that is placed in sigmoid diverticulosis. On October 25, 2024 the patient had right upper (more content not included)... [facility] 06-27-2025 Note HNO ID: [id number] Author: NORA GARDNER MD Service: ? Author Type: Physician Type: Progress Notes Filed: 07/03/2025 09:47 Note Text: HISTORY AND PHYSICAL Joana Perry 1955 REFERRING PHYSICIAN: Giselle Fonseca APRN.* CHIEF COMPLAINT: Consult (Has had diarrhea for past 26 years) HPI: The patient is a 69 year old female with a complaint of problematic diarrhea for the past 26 years to the point that the patient wishes to have a diverting colostomy. The patient has a complex past medical history. The patient has a history of diabetes diverticulosis and hypertension. The patient states prior to 25 years ago she generally had issues with constipation. In February 1999 the patient underwent a open hernia repair performed at [facility]. She understands she had a small bowel and colon injury at that surgical procedure and this required repeat exploration where she then underwent what is listed as an ileocecectomy and small bowel resection. The patient had 2 follow-up hernia repairs performed by Dr. Leiva apparently the most recently in 2000. Since that time the patient notes she has had issues with diarrhea upwards of 20 or she says even up to 60 bowel movements per day. She is in the past followed up with Dr. Herb Finley who performed multiple endoscopies and had tried the patient says many different medications with no success. Most recently she was seen by Dr. Alvarez at [facility] and underwent upper and lower endoscopy. I understand she had ballooning of her esophagus I do not have records of this procedure. Again the patient states has been on multiple past medications for her multiple loose stools. She states that her stools are usually liquid and brown and occasionally different colors. She denies stearrhea. She notes that she will have some bloating frequently and occasional discomfort with these bowel movements. She denies blood in her stool. She states she had 3 children. She states she had a tear with childbirth and repair of her laceration but denied incontinence following those events. The patient is being seen by me today at the request of Dr. Cristy Carroll MD for my opinion and advice regarding need for diverting stoma. PAST MEDICAL HISTORY Diagnosis Date Anemia, unspecified Diabetes mellitus without mention of complication Diabetes mellitus Diverticulosis Esophageal reflux Gastroesophageal reflux Hiatal hernia Osteoarthrosis, unspecified whether generalized or localized, other specified sites PMH - PAST MEDICAL HISTORY OF rheumatic fever Umbilical hernia Unspecified essential hypertension Essential hypertension PAST SURGICAL HISTORY Procedure Laterality Date COLON SURGERY HX colon resection Dr Hdz [facility] EXC/DSTRJ LINGUAL TONSIL ANY METHOD SPX LIG/TRNSXJ FLP TUBE ABDL/VAG APPR UNI/BI PAST SURGICAL HISTORY OF ventral hernia repair PAST SURGICAL HISTORY OF lipoma removal - back SLING OPER STRES INCONTINENCE VAGINAL HYSTERECTOMY UTERUS 250 GM/< Current Outpatient Medications Medication Sig glimepiride (AMARYL) 2 mg tablet Take 1 tablet by mouth once daily. DILT-XR 120 mg 24 hr capsule Take 1 capsule by mouth once daily. lansoprazole (PREVACID) 30 mg capsule Take 1 capsule by mouth every 12 hours. Simethicone 180 mg cap Take 180 mg by mouth once daily. cetirizine hcl(ZYRTEC 10 MG TAB) Take one(1) tablet daily. furosemide(LASIX 40 MG TAB) 2 tablets every other day azelastine hcl(ASTELIN 137 MCG NASAL SPRAY AEROSOL) 2 sprays eacdh nostril every 12 hours pirbuterol acetate(MAXAIR AUTOHALER 200 MCG/INHALATION BREATH ACTIVATED) 2 puffs every 12 hours as needed naproxen sodium(ALEVE 220 MG TAB) 2 tablets at bedtime peg 3350-Electrolytes (GOLYTELY) 236-22.74-6.74 -5.86 gram suspension Refer to printed prep instructions from your provider. No current facility-administered medications for this visit. ALLERGIES: Dermagesic [Fmbwvizibx-Qtfztjlysw-Gklu Ox], Levaquin [Levofloxacin], Penicillins, Percocet [Oxycodone-Acetaminophen], and Zithromax [Azithromycin] PERSONAL HISTORY: SOCIAL HISTORY[1] FAMILY HISTORY: FAMILY HISTORY Problem Relation Age of Onset Allergies Mother Cancer Mother uterine Alcohol/Drug Father Allergies Father Cancer Father lung Diabetes Father Heart Father Hypertension Father Colon Cancer Father Psychiatry Sister REVIEW OF SYMPTOMS: negative except as noted above PHYSICAL EXAMINATION: General: The patient is 69 year old female, well nourished, well hydrated in no acute distress. The patient is oriented to time, place, and person. VITALS: Blood pressure 180/82, pulse 90, resp. rate 14, weight 99 kg (218 lb 3.2 oz), SpO2 95%. HEENT: Normal cephalic, ataumatic, pupils are equally round, sclera are anicteric, mucous membranes are moist, oropharynx is clear. Neck has no masses, asymmetry or lymphadenopathy. Thyroid is unremarkable. Respirato (more content not included)... [facility] 06-27-2025 History of Presen t illness Narrative HISTORY AND PHYSICAL Joana Perry 1955 REFERRING PHYSICIAN: Giselle Fonseca APRN.* CHIEF COMPLAINT: Consult (Has had diarrhea for past 26 years) HPI: The patient is a 69 year old female with a complaint of problematic diarrhea for the past 26 years to the point that the patient wishes to have a diverting colostomy. The patient has a complex past medical history. The patient has a history of diabetes diverticulosis and hypertension. The patient states prior to 25 years ago she generally had issues with constipation. In February 1999 the patient underwent a open hernia repair performed at [facility]. She understands she had a small bowel and colon injury at that surgical procedure and this required repeat exploration where she then underwent what is listed as an ileocecectomy and small bowel resection. The patient had 2 follow-up hernia repairs performed by Dr. Leiva apparently the most recently in 2000. Since that time the patient notes she has had issues with diarrhea upwards of 20 or she says even up to 60 bowel movements per day. She is in the past followed up with Dr. Herb Finley who performed multiple endoscopies and had tried the patient says many different medications with no success. Most recently she was seen by Dr. Alvarez at [facility] and underwent upper and lower endoscopy. I understand she had ballooning of her esophagus I do not have records of this procedure. Again the patient states has been on multiple past medications for her multiple loose stools. She states that her stools are usually liquid and brown and occasionally different colors. She denies stearrhea. She notes that she will have some bloating frequently and occasional discomfort with these bowel movements. She denies blood in her stool. She states she had 3 children. She states she had a tear with childbirth and repair of her laceration but denied incontinence following those events. The patient is being seen by me today at the request of Dr. Cristy Carroll MD for my opinion and advice regarding need for diverting stoma. PAST MEDICAL HISTORY Diagnosis Date Anemia, unspecified Diabetes mellitus without mention of complication Diabetes mellitus Diverticulosis Esophageal reflux Gastroesophageal reflux Hiatal hernia Osteoarthrosis, unspecified whether generalized or localized, other specified sites PMH - PAST MEDICAL HISTORY OF rheumatic fever Umbilical hernia Unspecified essential hypertension Essential hypertension PAST SURGICAL HISTORY Procedure Laterality Date COLON SURGERY HX colon resection Dr Hdz [facility] EXC/DSTRJ LINGUAL TONSIL ANY METHOD SPX LIG/TRNSXJ FLP TUBE ABDL/VAG APPR UNI/BI PAST SURGICAL HISTORY OF ventral hernia repair PAST SURGICAL HISTORY OF lipoma removal - back SLING OPER STRES INCONTINENCE VAGINAL HYSTERECTOMY UTERUS 250 GM/< Current Outpatient Medications Medication Sig glimepiride (AMARYL) 2 mg tablet Take 1 tablet by mouth once daily. DILT-XR 120 mg 24 hr capsule Take 1 capsule by mouth once daily. lansoprazole (PREVACID) 30 mg capsule Take 1 capsule by mouth every 12 hours. Simethicone 180 mg cap Take 180 mg by mouth once daily. cetirizine hcl(ZYRTEC 10 MG TAB) Take one(1) tablet daily. furosemide(LASIX 40 MG TAB) 2 tablets every other day azelastine hcl(ASTELIN 137 MCG NASAL SPRAY AEROSOL) 2 sprays eacdh nostril every 12 hours pirbuterol acetate(MAXAIR AUTOHALER 200 MCG/INHALATION BREATH ACTIVATED) 2 puffs every 12 hours as needed naproxen sodium(ALEVE 220 MG TAB) 2 tablets at bedtime peg 3350-Electrolytes (GOLYTELY) 236-22.74-6.74 -5.86 gram suspension Refer to printed prep instructions from your provider. No current facility-administered medications for this visit. ALLERGIES: Dermagesic [Vkpxalbmsk-Jfuwlhjeta-Uvrm Ox], Levaquin [Levofloxacin], Penicillins, Percocet [Oxycodone-Acetaminophen], and Zithromax [Azithromycin] PERSONAL HISTORY: SOCIAL HISTORY[1] FAMILY HISTORY: FAMILY HISTORY Problem Relation Age of Onset Allergies Mother Cancer Mother uterine Alcohol/Drug Father Allergies Father Cancer Father lung Diabetes Father Heart Father Hypertension Father Colon Cancer Father Psychiatry Sister REVIEW OF SYMPTOMS: negative except as noted above PHYSICAL EXAMINATION: General: The patient is 69 year old female, well nourished, well hydrated in no acute distress. The patient is oriented to time, place, and person. VITALS: Blood pressure 180/82, pulse 90, resp. rate 14, weight 99 kg (218 lb 3.2 oz), SpO2 95%. HEENT: Normal cephalic, ataumatic, pupils are equally round, sclera are anicteric, mucous membranes are moist, oropharynx is clear. Neck has no masses, asymmetry or lymphadenopathy. Thyroid is unremarkable. Respiratory: Clear to auscultation and percussion. Normal respiratory excursion and pattern. Cardiac: Examination is regular rate and rhythm. Abdominal exam: Soft, nontender, with no palpable masses. No hepatosplenomegaly. No palpable hernias. Rectal exam: exam deferred Extremities: no clubbing, cyanosis or edema. No adenopathy. Other: LABORATORY VALUES/RADIOLOGIC STUDIES: We have records of the following studies the include: From November 30, 2024 negative stool for lactoferrin C. difficile and occult blood CT scan of the abdomen pelvis from September 06, 2024 demonstrated mild fatty liver hepatomegaly but stable ventral hernia repair with mesh there is noted to be a small persistent umbilical hernia but this is noted not to have any communication or displacement of the mesh and is covered fully by the mesh that is placed in sigmoid diverticulosis. On October 25, 2024 the patient had right upper quadrant ultrasound with elastography which was felt to demonstrate mild to moderate liver fibrosis and fatty infiltration of the liver. Upper endoscopy report from Dr. Alvarez dated September 19, 2024 noted a moderate Schatzki's ring which was dilated and treated with argon plasma coagulation. Mildly severe erosive esophagitis without bleeding medium sized hiatal hernia no gross lesions in the stomach or duodenum. Recommended 3-month follow-up at that time. Pathology returned as gastroesophageal junction mucosa with mild chronic inflammation no evidence of goblet cell metaplasia. Colonoscopy report from July 29, [address] Alvarez demonstrated sigmoid diverticulosis which was felt to be a in the sigmoid and descending colon region and a patent end-to-side ileocolonic anastomosis which demonstrates some congestion this was biopsied. Upper endoscopy was also performed at that visit I do not have that report but pathology from July 29, 2022 demonstrated chronic gastritis esophageal biopsy was unremarkable and terminal ileal anastomosis biopsies unremarkable. Assessment IMPRESSION: Chronic diarrhea, extensive workup in the past PLAN: We have some of the above information. I was hoping to be able to get actual images from her endoscopy. That may not be possible. My plan will be likely to repeat her upper and lower endoscopy and possibly get a few additional stool studies once I have a little more information from what is already been done. We discussed the risks and benefits of the planned endoscopy. I have informed the patient that complications can occur including failure to complete the endoscopy and perforation. The patient had the opportunity to ask questions concerning the planned endoscopy. My staff has also explained the procedure to the patient in understandable terms and has given the patient printed material concerning the procedure. The patient freely consents to surgery. We talked for quite some time about her past history and her frustrations. Might also consider a GI transit study. Discussed with the patient if she is having this number of bowel movements per day in some ways colostomy to be challenging to manage with blowouts and leakage. Diagnoses: (R13.10) Dysphagia, unspecified type (primary encounter diagnosis) (R19.7) Diarrhea, unspecified type A letter was sent to Dr. Cristy Carroll MD indicating the above finding for this patient. Return to Clinic: The patient is instructed to follow-up with me after the testing has been completed. Nora Gardner MD [1] Social History Tobacco Use Smoking status: Every Day Current packs/day: 1.50 Average packs/day: 1.5 packs/day for 38.0 years (57.0 ttl pk-yrs) Types: Cigarettes Smokeless tobacco: Never Vaping Use Vaping status: current everyday user Substance Use Topics Alcohol use: Not Currently Comment: social Drug use: No Joana is a 69 year old female who presents to the office today with a CC of chronic diarrhea for the last 26 years wishing to discuss a colostomy. She has been seeing and who have tried many different medications, non of which have provided relief for the patient. Patient reports 15-60 episodes a day. Some times she notes that she will go during a meal and will pass whole food parts. Patient reports that she get the sensation to go and can often make it to the toilet in time but lately has had a few episodes of incontinence. Patient notes that bowel movements are stringy and have mucous. Patient reports upper abd bloating and occasional mild generalized abd pain. Patient reports that vegetables make the diarrhea worse and that a new protein drink, Evolve, makes it slightly better and seems to thicken her stool slightly. Patient denies bloody stool, severe abdominal pain and weight loss. She is a smoker an used to smoke 4 packs a day and is now down to half a pack. Patient denies any improvement of symptoms with her cut down on smoking. Patient has a surgical history of a cholecystectomy sometime before 1998, hernia repair in 1998 during which the mesh was inappropriately attached to her small bowel and colon. Patient had a second surgery to correct it and states that roughly 2 feet of small bowel and 6 inches of colon were resected. Patient reports that she has had persistent diarrhea since. Dr. Leiva later corrected the hernia sometime around 2000. Patient also has had multiple vaginal child births with tearing that was repaired but denies any complications or abnormal symptoms after that. Patient states that after her cholecystectomy she did have these symptoms. performed a colonoscopy last year to which we do not have access as well as stool testing has been done. Patient reports all that she was informed of regarding her stool testing was that she has a milk and egg allergy however, when she cut them out of her diet that did not change her symptoms. Patient reports that she believes that her colonoscopy showed a polyp which was biopsied and found to be benign. She reports that has previously talked about a colostomy bag but hasn't completely dicussed it with her. She expressed feeling like she is being blown off and unable to talk to him enough about her symptoms and questions. HISTORY AND PHYSICAL Joana Perry 1955 REFERRING PHYSICIAN: Cristy Carroll MD.* CHIEF COMPLAINT: Consult (Has had diarrhea for past 26 years) HPI: The patient is a 69 year old female with a complaint of chronic diarrhea. Patient's past medical history is significant for Diabetes, HTN, and reflux. PAST MEDICAL HISTORY Diagnosis Date Anemia, unspecified Diabetes mellitus without mention of complication Diabetes mellitus Diverticulosis Esophageal reflux Gastroesophageal reflux Hiatal hernia Osteoarthrosis, unspecified whether generalized or localized, other specified sites PMH - PAST MEDICAL HISTORY OF rheumatic fever Umbilical hernia Unspecified essential hypertension Essential hypertension PAST SURGICAL HISTORY Procedure Laterality Date COLON SURGERY HX colon resection Dr Hdz [facility] EXC/DSTRJ LINGUAL TONSIL ANY METHOD SPX LIG/TRNSXJ FLP TUBE ABDL/VAG APPR UNI/BI PAST SURGICAL HISTORY OF ventral hernia repair PAST SURGICAL HISTORY OF lipoma removal - back SLING OPER STRES INCONTINENCE VAGINAL HYSTERECTOMY UTERUS 250 GM/< Current Outpatient Medications Medication Sig glimepiride (AMARYL) 2 mg tablet Take 1 tablet by mouth once daily. DILT-XR 120 mg 24 hr capsule Take 1 capsule by mouth once daily. lansoprazole (PREVACID) 30 mg capsule Take 1 capsule by mouth every 12 hours. Simethicone 180 mg cap Take 180 mg by mouth once daily. cetirizine hcl(ZYRTEC 10 MG TAB) Take one(1) tablet daily. furosemide(LASIX 40 MG TAB) 2 tablets every other day azelastine hcl(ASTELIN 137 MCG NASAL SPRAY AEROSOL) 2 sprays eacdh nostril every 12 hours pirbuterol acetate(MAXAIR AUTOHALER 200 MCG/INHALATION BREATH ACTIVATED) 2 puffs every 12 hours as needed naproxen sodium(ALEVE 220 MG TAB) 2 tablets at bedtime peg 3350-Electrolytes (GOLYTELY) 236-22.74-6.74 -5.86 gram suspension Refer to printed prep instructions from your provider. No current facility-administered medications for this visit. ALLERGIES: Dermagesic [Brqdlyfvmy-Mjarhqfnpd-Nrtz Ox], Levaquin [Levofloxacin], Penicillins, Percocet [Oxycodone-Acetaminophen], and Zithromax [Azithromycin] PERSONAL HISTORY: SOCIAL HISTORY[1] FAMILY HISTORY: FAMILY HISTORY Problem Relation Age of Onset Allergies Mother Cancer Mother uterine Alcohol/Drug Father Allergies Father Cancer Father lung Diabetes Father Heart Father Hypertension Father Colon Cancer Father Psychiatry Sister REVIEW OF SYMPTOMS: negative except as noted above PHYSICAL EXAMINATION: General: The patient is 69 year old female, well nourished, well hydrated in no acute distress. The patient is oriented to time, place, and person. VITALS: Blood pressure 180/82, pulse 90, resp. rate 14, weight 99 kg (218 lb 3.2 oz), SpO2 95%. There is no height or weight on file to calculate BMI. HEENT: Normal cephalic, ataumatic, pupils are equally round, sclera are anicteric, mucous membranes are moist, oropharynx is clear. Neck has no masses, asymmetry or lymphadenopathy. Respiratory: Clear to auscultation and percussion. Normal respiratory excursion and pattern. Cardiac: Examination is regular rate and rhythm. Normal S1/S2 Abdominal exam: Soft, nontender, with no palpable masses. No palpable hernias. Extremities: no clubbing, cyanosis or edema. No adenopathy. LABORATORY VALUES: As Noted RADIOLOGIC STUDIES: As Noted IMPRESSION: Chronic diarrhea, family history of colon cancer, GERD, and history of dysphagia PLAN: Patient is currently scheduled for an upper and lower endoscopy in July and signed her consent form in the office today. Patient was informed that if she is partially through her prep formulation for the endoscopy and her BMs are clear fluid then she can stop the prep at that time and not complete the whole bottle. Patient was informed that we will take biopsies throughout the endoscopy as needed for testing and evaluation. We plan to also obtain all of the full reports for previous testing from for the endoscopy and stool testing as well as any other testing she has completed. We will then complete additional testing as needed but will almost certainly obtain another round of stool testing for this patient. Patient was informed that if all testing and efforts fail to resolve her symptoms we will then consider a colostomy. She was also told that due to the size of her mesh for her hernia repair a colostomy bag would not be an ideal treatment choice for her and that is part of why we will attempted all other treatment options first. Diagnoses: (R19.7) Diarrhea, unspecified type (subsequent encounter diagnosis) (K21.9) Gastroesophageal reflux disease, unspecified whether esophagitis present (R13.10) Dysphagia, unspecified type (Z80.0) Family history of colon cancer Follow up: Patient was content and agreeable with the plan moving forward and will report to [place] in July for her scheduled endoscopy. Ling Sol PA-S2 [1] Social History Tobacco Use Smoking status: Every Day Current packs/day: 1.50 Average packs/day: 1.5 packs/day for 38.0 years (57.0 ttl pk-yrs) Types: Cigarettes Smokeless tobacco: Never Vaping Use Vaping status: current everyday user Substance Use Topics Alcohol use: Not Currently Comment: social Drug use: No documented in this encounter [facility] 06-27-2025 Note HNO ID: [id number] Author: ?, ?, ? Service: ? Author Type: ? Type: Progress Notes Filed: 07/03/2025 09:50 Note Text: Joana is a 69 year old female who presents to the office today with a CC of chronic diarrhea for the last 26 years wishing to discuss a colostomy. She has been seeing and who have tried many different medications, non of which have provided relief for the patient. Patient reports 15-60 episodes a day. Some times she notes that she will go during a meal and will pass whole food parts. Patient reports that she get the sensation to go and can often make it to the toilet in time but lately has had a few episodes of incontinence. Patient notes that bowel movements are stringy and have mucous. Patient reports upper abd bloating and occasional mild generalized abd pain. Patient reports that vegetables make the diarrhea worse and that a new protein drink, Evolve, makes it slightly better and seems to thicken her stool slightly. Patient denies bloody stool, severe abdominal pain and weight loss. She is a smoker an used to smoke 4 packs a day and is now down to half a pack. Patient denies any improvement of symptoms with her cut down on smoking. Patient has a surgical history of a cholecystectomy sometime before 1998, hernia repair in 1998 during which the mesh was inappropriately attached to her small bowel and colon. Patient had a second surgery to correct it and states that roughly 2 feet of small bowel and 6 inches of colon were resected. Patient reports that she has had persistent diarrhea since. Dr. Leiva later corrected the hernia sometime around 2000. Patient also has had multiple vaginal child births with tearing that was repaired but denies any complications or abnormal symptoms after that. Patient states that after her cholecystectomy she did have these symptoms. performed a colonoscopy last year to which we do not have access as well as stool testing has been done. Patient reports all that she was informed of regarding her stool testing was that she has a milk and egg allergy however, when she cut them out of her diet that did not change her symptoms. Patient reports that she believes that her colonoscopy showed a polyp which was biopsied and found to be benign. She reports that has previously talked about a colostomy bag but hasn't completely dicussed it with her. She expressed feeling like she is being blown off and unable to talk to him enough about her symptoms and questions. HISTORY AND PHYSICAL Joana Perry 1955 REFERRING PHYSICIAN: Cristy Carroll MD.* CHIEF COMPLAINT: Consult (Has had diarrhea for past 26 years) HPI: The patient is a 69 year old female with a complaint of chronic diarrhea. Patient's past medical history is significant for Diabetes, HTN, and reflux. PAST MEDICAL HISTORY Diagnosis Date Anemia, unspecified Diabetes mellitus without mention of complication Diabetes mellitus Diverticulosis Esophageal reflux Gastroesophageal reflux Hiatal hernia Osteoarthrosis, unspecified whether generalized or localized, other specified sites PMH - PAST MEDICAL HISTORY OF rheumatic fever Umbilical hernia Unspecified essential hypertension Essential hypertension PAST SURGICAL HISTORY Procedure Laterality Date COLON SURGERY HX colon resection Dr Hdz [facility] EXC/DSTRJ LINGUAL TONSIL ANY METHOD SPX LIG/TRNSXJ FLP TUBE ABDL/VAG APPR UNI/BI PAST SURGICAL HISTORY OF ventral hernia repair PAST SURGICAL HISTORY OF lipoma removal - back SLING OPER STRES INCONTINENCE VAGINAL HYSTERECTOMY UTERUS 250 GM/< Current Outpatient Medications Medication Sig glimepiride (AMARYL) 2 mg tablet Take 1 tablet by mouth once daily. DILT-XR 120 mg 24 hr capsule Take 1 capsule by mouth once daily. lansoprazole (PREVACID) 30 mg capsule Take 1 capsule by mouth every 12 hours. Simethicone 180 mg cap Take 180 mg by mouth once daily. cetirizine hcl(ZYRTEC 10 MG TAB) Take one(1) tablet daily. furosemide(LASIX 40 MG TAB) 2 tablets every other day azelastine hcl(ASTELIN 137 MCG NASAL SPRAY AEROSOL) 2 sprays eacdh nostril every 12 hours pirbuterol acetate(MAXAIR AUTOHALER 200 MCG/INHALATION BREATH ACTIVATED) 2 puffs every 12 hours as needed naproxen sodium(ALEVE 220 MG TAB) 2 tablets at bedtime peg 3350-Electrolytes (GOLYTELY) 236-22.74-6.74 -5.86 gram suspension Refer to printed prep instructions from your provider. No current facility-administered medications for this visit. ALLERGIES: Dermagesic [Cobzbrnlwz-Fhgedasfod-Mvjo Ox], Levaquin [Levofloxacin], Penicillins, Percocet [Oxycodone-Acetaminophen], and Zithromax [Azithromycin] PERSONAL HISTORY: SOCIAL HISTORY[1] FAMILY HISTORY: FAMILY HISTORY Problem Relation Age of Onset Allergies Mother Cancer Mother uterine Alcohol/Drug Father Allergies Father Cancer Father lung Diabetes Father Heart Father Hypertension Father (more content not included)... [facility] 06-03-2025 Telephone encounter Note [facility] 06-03-2025 Miscellaneous Notes Medical records requested from Dr. Alvarez [facility] documented in this encounter [facility] 06-03-2025 History of Presen t illness Narrative HISTORY AND PHYSICAL Joana Perry : 1955 REFERRING PHYSICIAN: No referring provider defined for this encounter. CHIEF COMPLAINT: Patient presents with: Consult: colonoscopy HPI: Joana is a 69 year old female referred for endoscopy. Joana notes chronic diarrhea since 1998. Was seeing Dr. Alvarez & Dr. Finley who prescribed multiple medications, one which was $2000 and none of the provided any relief. Has been talking about colostomy and he "keeps blowing me off". Joana notes occasional abdominal cramping. Joana notes diarrhea. -mucous after initial bm -liquid with chunks of food -20+ bowel movements a day Joana denies constipation. Joana denies a change in bowel habits. Joana denies melena. Joana denies bright red blood per rectum. Joana notes hemorrhoids. Joana notes family history of colon issues. 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 Alvarez told her she had a hole where her stomach meets her esophagus and she believes this is why she gets full chunks of food in her bowel movements. Hx of heart burn -takes prevacid BID with no symptoms Hx of HTN. She denies CP, SOB, dizziness, palpitations, syncope, edema, recent hospitalizations Joana has undergone prior endoscopy. Last EGD was [id number] with Dr. Alvarez at [facility]. Sedation: MAC Impression: - Moderate Schatzki ring. Dilated. Treated with argon plasma coagulation (APC). - Mildly severe erosive esophagitis with no bleeding. Biopsied. - Medium-sized hiatal hernia. - No gross lesions in the entire stomach. - No gross lesions in the first portion of the duodenum. Last colonoscopy was 07/[address] Alvarez at [facility]. Sedation :MAC Impression: - Diverticulosis in the recto-sigmoid colon, in the sigmoid colon and in the descending colon. - Patent end-to-side ileo-colonic anastomosis, characterized by congestion. Biopsied. Current Outpatient Medications Medication Sig glimepiride (AMARYL) 2 mg tablet Take 1 tablet by mouth once daily. DILT-XR 120 mg 24 hr capsule Take 1 capsule by mouth once daily. lansoprazole (PREVACID) 30 mg capsule Take 1 capsule by mouth every 12 hours. Simethicone 180 mg cap Take 180 mg by mouth once daily. cetirizine hcl(ZYRTEC 10 MG TAB) Take one(1) tablet daily. furosemide(LASIX 40 MG TAB) 2 tablets every other day azelastine hcl(ASTELIN 137 MCG NASAL SPRAY AEROSOL) 2 sprays eacdh nostril every 12 hours pirbuterol acetate(MAXAIR AUTOHALER 200 MCG/INHALATION BREATH ACTIVATED) 2 puffs every 12 hours as needed naproxen sodium(ALEVE 220 MG TAB) 2 tablets at bedtime peg 3350-Electrolytes (GOLYTELY) 236-22.74-6.74 -5.86 gram suspension Refer to printed prep instructions from your provider. No current facility-administered medications for this visit. ALLERGIES: Dermagesic [Flysworohd-Zqdikjzunm-Mrtj Ox], Levaquin [Levofloxacin], Penicillins, Percocet [Oxycodone-Acetaminophen], and Zithromax [Azithromycin] Past Medical History: No date: Anemia, unspecified No date: Diabetes mellitus without mention of complication Comment: Diabetes mellitus No date: Esophageal reflux Comment: Gastroesophageal reflux No date: Osteoarthrosis, unspecified whether generalized or localized, other specified sites No date: PMH - PAST MEDICAL HISTORY OF Comment: rheumatic fever No date: Unspecified essential hypertension Comment: Essential hypertension PAST SURGICAL HISTORY Procedure Laterality Date COLON SURGERY HX colon resection Dr Hdz [facility] EXC/DSTRJ LINGUAL TONSIL ANY METHOD SPX LIG/TRNSXJ FLP TUBE ABDL/VAG APPR UNI/BI PAST SURGICAL HISTORY OF hernia repair PAST SURGICAL HISTORY OF lipoma removal - back SLING OPER STRES INCONTINENCE VAGINAL HYSTERECTOMY UTERUS 250 GM/< Review of patient's family history indicates: Problem: Allergies Relation: Mother Age of Onset: (Not Specified) Problem: Cancer Relation: Mother Age of Onset: (Not Specified) Comment: uterine Problem: Alcohol/Drug Relation: Father Age of Onset: (Not Specified) Problem: Allergies Relation: Father Age of Onset: (Not Specified) Problem: Cancer Relation: Father Age of Onset: (Not Specified) Comment: lung Problem: Diabetes Relation: Father Age of Onset: (Not Specified) Problem: Heart Relation: Father Age of Onset: (Not Specified) Problem: Hypertension Relation: Father Age of Onset: (Not Specified) Problem: Colon Cancer Relation: Father Age of Onset: (Not Specified) Problem: Psychiatry Relation: Sister Age of Onset: (Not Specified) Social History Tobacco Use Smoking status: Every Day Current packs/day: 1.50 Average packs/day: 1.5 packs/day for 38.0 years (57.0 ttl pk-yrs) Types: Cigarettes Smokeless tobacco: Never Vaping Use Vaping status: current everyday user Substance Use Topics Alcohol use: Not Currently Comment: social Drug use: No REVIEW OF SYMPTOMS: The review of systems data was entered by the nurse and reviewed by me PHYSICAL EXAMINATION: General: The patient is 69 year old, female well nourished, well hydrated in no acute distress. The patient is oriented to time, place, and person. VITALS: Pulse 111, temperature 36.6 C (97.8 F), weight 94.6 kg (208 lb 9.6 oz), SpO2 92%. There is no height or weight on file to calculate BMI. HEENT: Normal cephalic, ataumatic, pupils are equally round, sclera are anicteric, mucous membranes are moist, oropharynx is clear. Neck has no masses or asymmetry . Respiratory: Clear to auscultation. Cardiac: Regular rate and rhythm. Abdominal exam: Soft, mild epigastric tenderness, with no palpable masses. No hepatosplenomegaly. No palpable hernias. Extremities: no clubbing or cyanosis LABORATORY VALUES: As Noted RADIOLOGIC STUDIES: As Noted Assessment IMPRESSION: chronic diarrhea, family history of colon cancer, GERD, dypshagia PLAN: I have reviewed my findings with the surgeon. Will plan for upper and lower endoscopy. We discussed the risks and benefits of the planned endoscopy in terms understandable to the patient. I have informed the patient that complications can occur including failure to complete the endoscopy and perforation. Joana had the opportunity to ask questions concerning the planned endoscopy. Joana freely consents to surgery. I plan to use Golytely bowel preparation I have explained to the patient the difference between IV conscious sedation and MAC anesthesia - and I have offered either, according to the patient's wishes. I have explained that with IV conscious sedation there is no anesthesia provider available and therefore there is a limitation of the amount of IV medications that can be given and that the patient may wake up in the middle of the procedure and/or experience pain/discomfort during the procedure. Further discussion was done and the patient was given the opportunity to ask questions and all questions were answered. MAC anesthesia. Joana was counseled that if there are changes in his/her medical condition, to let the office know if surgery should proceed. If there are changes in patient's medical condition from time of this encounter to the day of the procedure that preclude anesthesia, patient may have procedure cancelled for patient's safety. Diagnoses: (R19.7) Diarrhea, unspecified type (primary encounter diagnosis) (K21.9) Gastroesophageal reflux disease, unspecified whether esophagitis present (R13.10) Dysphagia, unspecified type (Z80.0) Family history of colon cancer Portions of this documentation were copied and pasted from previous office visit notes in order to provide a cohesive continuity of the history. The note has been reviewed and edited and updated as necessary. Giselle Fonseca APRN.BIOMETRICS ANALYST documented in this encounter [facility] 06-03-2025 Note HNO ID: [id number] Author: GISELLE FONSECA APRN.MAHSA Service: ? Author Type: Nurse Practitioner Type: Progress Notes Filed: 06/03/2025 14:04 Note Text: HISTORY AND PHYSICAL Joana Perry : 1955 REFERRING PHYSICIAN: No referring provider defined for this encounter. CHIEF COMPLAINT: Patient presents with: Consult: colonoscopy HPI: Joana is a 69 year old female referred for endoscopy. Joana notes chronic diarrhea since 1998. Was seeing Dr. Alvarez AND Dr. Finley who prescribed multiple medications, one which was $2000 and none of the provided any relief. Has been talking about colostomy and he "keeps blowing me off". Joana notes occasional abdominal cramping. Joana notes diarrhea. -mucous after initial bm -liquid with chunks of food -20+ bowel movements a day Joana denies constipation. Joana denies a change in bowel habits. Joana denies melena. Joana denies bright red blood per rectum. Joana notes hemorrhoids. Joana notes family history of colon issues. 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 Alvarez told her she had a hole where her stomach meets her esophagus and she believes this is why she gets full chunks of food in her bowel movements. Hx of heart burn -takes prevacid BID with no symptoms Hx of HTN. She denies CP, SOB, dizziness, palpitations, syncope, edema, recent hospitalizations Joana has undergone prior endoscopy. Last EGD was [id number] with Dr. Alvarez at [facility]. Sedation: MAC Impression: - Moderate Schatzki ring. Dilated. Treated with argon plasma coagulation (APC). - Mildly severe erosive esophagitis with no bleeding. Biopsied. - Medium-sized hiatal hernia. - No gross lesions in the entire stomach. - No gross lesions in the first portion of the duodenum. Last colonoscopy was 07/[address] Alvarez at [facility]. Sedation :MAC Impression: - Diverticulosis in the recto-sigmoid colon, in the sigmoid colon and in the descending colon. - Patent end-to-side ileo-colonic anastomosis, characterized by congestion. Biopsied. Current Outpatient Medications Medication Sig glimepiride (AMARYL) 2 mg tablet Take 1 tablet by mouth once daily. DILT-XR 120 mg 24 hr capsule Take 1 capsule by mouth once daily. lansoprazole (PREVACID) 30 mg capsule Take 1 capsule by mouth every 12 hours. Simethicone 180 mg cap Take 180 mg by mouth once daily. cetirizine hcl(ZYRTEC 10 MG TAB) Take one(1) tablet daily. furosemide(LASIX 40 MG TAB) 2 tablets every other day azelastine hcl(ASTELIN 137 MCG NASAL SPRAY AEROSOL) 2 sprays eacdh nostril every 12 hours pirbuterol acetate(MAXAIR AUTOHALER 200 MCG/INHALATION BREATH ACTIVATED) 2 puffs every 12 hours as needed naproxen sodium(ALEVE 220 MG TAB) 2 tablets at bedtime peg 3350-Electrolytes (GOLYTELY) 236-22.74-6.74 -5.86 gram suspension Refer to printed prep instructions from your provider. No current facility-administered medications for this visit. ALLERGIES: Dermagesic [Nfdxhquzbm-Sqfdcyrijz-Lfsk Ox], Levaquin [Levofloxacin], Penicillins, Percocet [Oxycodone-Acetaminophen], and Zithromax [Azithromycin] Past Medical History: No date: Anemia, unspecified No date: Diabetes mellitus without mention of complication Comment: Diabetes mellitus No date: Esophageal reflux Comment: Gastroesophageal reflux No date: Osteoarthrosis, unspecified whether generalized or localized, other specified sites No date: [facility] - PAST MEDICAL HISTORY OF Comment: rheumatic fever No date: Unspecified essential hypertension Comment: Essential hypertension PAST SURGICAL HISTORY Procedure Laterality Date COLON SURGERY HX colon resection Dr Hzd [facility] EXC/DSTRJ LINGUAL TONSIL ANY METHOD SPX LIG/TRNSXJ FLP TUBE ABDL/VAG APPR UNI/BI PAST SURGICAL HISTORY OF hernia repair PAST SURGICAL HISTORY OF lipoma removal - back SLING OPER STRES INCONTINENCE VAGINAL HYSTERECTOMY UTERUS 250 GM/< Review of patient's family history indicates: Problem: Allergies Relation: Mother Age of Onset: (Not Specified) Problem: Cancer Relation: Mother Age of Onset: (Not Specified) Comment: uterine Problem: Alcohol/Drug Relation: Father Age of Onset: (Not Specified) Problem: Allergies Relation: Father Age of Onset: (Not Specified) Problem: Cancer Relation: Father Age of Onset: (Not Specified) Comment: lung Problem: Diabetes Relation: Father Age of Onset: (Not Specified) Problem: Heart Relation: Father Age of Onset: (Not Specified) Problem: Hypertension Relation: Father Age of Onset: (Not Specified) Problem: Colon Cancer Relation: Father Age of Onset: (Not Specified) Problem: Psychiatry Relation: Sister Age of Onset: (Not Specified) Social History Tobacco Use Smoking status: Every Day Current packs/day: 1.50 Average packs/day: 1.5 packs/day for 38.0 years (57.0 ttl pk-yrs) Ty (more content not included)... [facility] 09-19-2024 Note [facility] Medical Records Department [address] [place] [address] History Physical Exam 09/19/24 0637 MR#: [id number] Acct: [id number] Name: JOANA PERRY Rep #: [id number] : 1955 68 From: Doug Friend DO PCP: Dr. Cristy Carroll MD Status:[facility] Location: [place] [address] History and Physical Date of Admission: 09/19/24 JOANA PERRY, is a 68 F who presents to the office today for follow up. OV 10..24 pt reports continued diarrhea, usually around 20x a day. Pt reports nocturnal diarrhea and fecal incontinence. Pt states she would like to discuss the possibility of a colostomy. Pt also reports continued difficulty swallowing foods such as tuna and rice. ROS Const Constitutional: Positive for fatigue, headache(s), weakness and weight change (weight gain); No fever(s) ENT ENT: Positive for headache(s) and difficulty swallowing Cardio Cardiology: Positive for leg pain with exertion Gastro GI: Positive for bloating, diarrhea, heartburn, difficulty swallowing, excessive flatus and nausea/dyspepsia; No abdominal pain, belching, change in bowel habits, change in stool character, coffee ground emesis, constipation, cramping, feeling full early, incontinent of stools, Vomiting blood/ hematemesis, Blood in stool, loose stools, Black,tarry stools, pain with swallowing, vomiting or other Musc Musculoskeletal: Positive for joint pain, back pain, joint swelling, muscle cramps, muscle weakness, Arthritis, sciatica, restless legs, leg pain at night and leg pain with exertion Skin Skin: Positive for dry skin; No yellowing of the eye or itchy eyes Neuro Neurology: Positive for weakness, headache(s) and restless legs Psych Psychiatric: Positive for anxiety and Positive for depression Endo Endocrine: Positive for fatigue and weight change (weight gain) Aller/Imm Allergy/Immunologic: No itchy eyes Joao/Lymp Hematologic/Lymphatic: No easy bleeding or easy bruising Exam Const General: cooperative, comfortable and no acute distress Nutritional Appearance: obese Orientation: alert, awake and oriented x3 Assessment and Plan Assessment and Plan (1) Chronic diarrhea: Status: Chronic Plan: She status post ileocecectomy approximately 20-25 years ago with chronic bile acid diarrhea who has become refractory to multiple agents. She would like a colostomy or end ileostomy. I will do biochemical workup along with stool studies to make sure that there is no infection at this time there is a reason why she for, refractory to medical therapy. We will also give her Lomotil and iron therapy. Will get a CT scan abdomen pelvis with IV and oral contrast. (2) Difficulty swallowing: Status: Acute Comment: NARROW ESPHOGUS/CHOKES AT TIMES Plan: She is also having esophageal dysphagia with solids. Her diagnosis does include eosinophilic esophagitis. However she has a very dry mouth so also the possibility of Sjogren's syndrome and less likely scleroderma. She will undergo an upper endoscopy to evaluate upper GI tract and possible esophageal dilation. She was explained alternatives, risk and benefits include not withstanding bleeding, infection, sepsis, perforation, need for urgent . She will have an ASA of 3. Orders: Orders Calprotectin, Stool Today K52.9 - Noninfective gastroenteritis and colitis, unspecified CRP Today K52.9 - Noninfective gastroenteritis and colitis, unspecified Erythrocyte Sed Rate Today K52.9 - Noninfective gastroenteritis and colitis, unspecified LDH Today K52.9 - Noninfective gastroenteritis and colitis, unspecified Stool Lactoferrin/WBC Today K52.9 - Noninfective gastroenteritis and colitis, unspecified, K58.9 - Irritable bowel syndrome, unspecified CBC W/Diff, Automated Today D64.9 - Anemia, unspecified, K52.9 - Noninfective gastroenteritis and colitis, unspecified YUVAL + Protein Elect, Serum Today K52.9 - Noninfective gastroenteritis and colitis, unspecified Ferritin Today D64.9 - Anemia, unspecified, K52.9 - Noninfective gastroenteritis and colitis, unspecified Iron Today D64.9 - Anemia, unspecified, K52.9 - Noninfective gastroenteritis and colitis, unspecified ANCA Today K52.9 - Noninfective gastroenteritis and colitis, unspecified Immunoglobulins G/A/M/E Today K52.9 - Noninfective gastroenteritis and colitis, unspecified Gastrin, Serum Today K52.9 - Noninfective gastroenteritis and colitis, unspecified Catecholamines, Plasma Today K52.9 - Noninfective gastroenteritis and colitis, unspecified Allergen, Food Profile 14 Today K52.9 - Noninfective gastroenteritis and colitis, unspecified KARLY Comprehensive Panel Today K52.9 - Noninfective gastroenteritis and colitis, unspecified Pancreatic Elastase, Fecal Today K52.9 - Noninfective gastroenteritis and colitis, unspecified OVA+PARA w/Giardia EIA [id number] Today K52.9 - Noninfective gastroe (more content not included)... [facility] Evaluation note No assessment inform ation available [facility] Work Phone: Evaluation note Diagnosis Onset Date GERD (gastroesophageal reflux disease) acute Lower abdominal pain acute Chronic diarrhea chronic Diarrhea noneactive [facility] Work Phone: Evaluation note* Diagnosis Onset Date Resolution Status GERD (gastroesophageal reflux disease) acute Lower abdominal pain acute Chronic diarrhea chronic Diarrhea noneactive Epigastric pain acute Fatty liver acute Chronic diarrhea chronic Epigastric pain acute H/O hernia repair acute [facility] Work Phone: Evaluation note* Diagnosis Onset Date Resolution Status Chronic diarrhea chronic [facility] Work Phone: Evaluation note* Diagnosis Diarrhea, unspecified type- Primary Gastroesophageal reflux disease, unspecified whether esophagitis present Dysphagia, unspecified type Family history of colon cancer Family history of malignant neoplasm of gastrointestinal tract [facility] Dysphagia, unspecified type- Primary Diarrhea, unspecified type documented in this encounter [facility] Chief Complaint and Reason for Visit Chief Complaint TOBACCO USE Chief Complaint TOBACCO USE SCREENING/OSTEO Chief Complaint TOBACCO USE SCREENING/OSTEO Diarrhea E ORDERS Reason for Visit GERD (gastroesophage al reflux disease) Lower abdominal pain Chronic diarrhea Diarrhea Chief Complaint TOBACCO USE SCREENING/OSTEO Diarrhea E ORDERS LOWER ABD PAIN, CHR DIARRHEA *ORAL & IV* Reason for Visit GERD (gastroesophage al reflux disease) Lower abdominal pain Chronic diarrhea Diarrhea Chief Complaint TOBACCO USE SCREENING/OSTEO Diarrhea E ORDERS LOWER ABD PAIN, CHR DIARRHEA *ORAL & IV* 6 WK FU EPIGASTRIC PAIN DYSPEPSIA Reason for Visit GERD (gastroesophage al reflux disease) Lower abdominal pain Chronic diarrhea Diarrhea Epigastric pain Fatty liver Chronic diarrhea Epigastric pain H/O hernia repair Chief Complaint SCREENING/OSTEO Diarrhea E ORDERS LOWER ABD PAIN, CHR DIARRHEA *ORAL & IV* 6 WK FU EPIGASTRIC PAIN DYSPEPSIA Reason for Visit GERD (gastroesophage al reflux disease) Lower abdominal pain Chronic diarrhea Diarrhea Epigastric pain Fatty liver Chronic diarrhea Epigastric pain H/O hernia repair Chief Complaint 2 WK FU LABS AND XRAY Reason for Visit Chronic diarrhea Chief Complaint DO ALL LABS DEC. AND NOW/ CHEST XRAY Advance Directives No Advanced Directives Records Found Advance Directive Response Recorded Date/ Time Living Will No October 28 4:58pm Power of [employer] Department Supervisor No October 28 4:58pm Advance Directive Response Recorded Date/ Time Name of Medical Power of [employer] Department Supervisor DAUGHTER July 28, 2022 8:30am Living Will Yes July 28 2 8:30am Power of [employer] Department Supervisor Yes July 28 8:30am Advance Directive Response Recorded Date/ Time Living Will Yes July 28 2 7:30am Power of [employer] Department Supervisor Yes July 28 7:30am Advance Directive Response Recorded Date/ Time Living Will Yes July 28 2 8:30am Power of [employer] Department Supervisor Yes July 28 8:30am Family History No Family History Records Found Relationship Condition Age at Onset Recorded Date/T steffany father Malignant neoplasm of colon Unknown Asthma Unknown Cardiac disease Unknown Hypertension Unknown mother Malignant neoplasm Unknown Summary Purpose Additional Source Comments Goals (unrecognized section and content) Goals may be documented in a n alternate sectionGoals may be documented in an alternate sectionGoals may be documented in an alternate sectionGoals may be documented in an alternate sectionGoals may be documented in an alternate sectionGoals may be documented in an alternate sectionGoals may be documented in an alternate sectionGoals may be documented in an alternate sectionGoals may be documented in an alternate sectionGoals may be documented in an alternate section Care Teams (unrecognized sec tion and content) Team Status: Active Member Role Status Dates Dr. To Carroll MD Family Provider Active Dr. To Carroll MD Primary Care Provider Activ e Team Status: Inactive Member Role Status Dates Dr. To Carroll MD Primary Care Provider, Refe rring Provider Active Alseha Celis BIOLOGICAL SCIENCE TECHNICIAN, BIOLOGICAL SCIENCE TECHNICIAN-C Attending Provider Active Team Status: Inactive Member Role Status Dates Dr. To Carroll MD Primary Care Provider, Attending Provider, Referring Provider Active Team Status: Inactive Member Role Status Dates Dr. 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 Relationship Specialty Start Date End Date Cristy Carroll MD [address] [place] [address] PCP - General Family Medicine 06/03/25 Doug Alvarez DO [address] [facility] [address] [place] [address] Gastroenterology 06/03/25 Vibrator Operator Relationship Specialty Start Date End Date Cristy Carroll MD [address] [place], [place] [id number] PCP - General Family Medicine 06/03/25 Doug Alvarez DO [address] [facility] [address] [place] [address] Gastroenterology 06/03/25 Vibrator Operator Relationship Specialty Start Date End Date Cristy Carroll MD [address] [place] [address] PCP - General Family Medicine 06/03/25 Doug Alvarez DO [address] [facility] [address] [place] [address] Gastroenterology 06/03/25 Source Comments (unrecognize d section and content) In the event this informatio n is protected by the Federal Confidentiality of Alcohol and Drug Abuse Patient Records regulations: The Federal rules restrict any use of the information to criminally investigate or prosecute any alcohol or drug abuse patient.[facility] the event this information is protected by the Federal Confidentiality of Alcohol and Drug Abuse Patient Records regulations: The Federal rules restrict any use of the information to criminally investigate or prosecute any alcohol or drug abuse patient.[facility] the event this information is protected by the Federal Confidentiality of Alcohol and Drug Abuse Patient Records regulations: The Federal rules restrict any use of the information to criminally investigate or prosecute any alcohol or drug abuse patient.[facility] Reason for Visit (unrecogniz ed section and content) Reason Comments Consult colonoscopy Reason Comments Request Outside Medical Records Reason Comments Consult Has had diarrhea for past 26 years INFORMATION SOURCE (unrecogn ized section and content) DATE CREATED AUTHOR 08/08/2025 [facility] DATE CREATED AUTHOR AUTHOR'S YOANA ATION 08/16/2025 [facility] DATE CREATED AUTHOR AUTHOR'S YOANA LOVE 08/18/2025 [facility] FOR RECORDS PERTAINING TO PATIENTS WHO ARE OR HAVE BEEN ENROLLED IN A CHEMICAL DEPENDENCY/SUBSTANCEABUSE PROGRAM, SOME INFORMATION MAY BE OMITTED. This clinical summary was aggregated from multiple sources. Caution should be exercised in using it in the provision of clinical care. This summary normalizes information from multiple sources, and as a consequence, information in this document may materially change the coding, format and clinical context of patient data. In addition, data may be omitted in some cases. CLINICAL DECISIONS SHOULD BE BASED ON THE PRIMARY CLINICAL RECORDS. [facility] [employer] [facility]. provides no warranty or guarantee of the accuracy or completeness of information in this document.
== END | disposition home or self-care (01) ==
PROVIDERS: PCP Family Medicine; Referring Provider Family Medicine; Visit Provider Family Medicine
DX: F17.210 Nicotine dependence, cigarettes, uncomplicated (principal)
CPT/HCPCS: 71271

== ENCOUNTER → 2025-08-29 | Outpatient (CLI) | payer MEDICARE, SELFPAY ==
--- NOTE | 2025-08-29 07:02 | BI_ITS ---
EXAM: SCRN MAMM (CAD)W/KAYD BILAT DATE: 08/29/2025 CLINICAL HISTORY: F, Age 69 y/o , SCREENING No family history. TECHNIQUE: Procedure Code: [id number] Modality: MG Procedure: SCRN MAMM (CAD)W/KADY BILAT COMPARISON: Prior exam(s) dated August 29, 2024.. FINDINGS: TISSUE DENSITY: There are scattered areas of fibroglandular density. Bilateral Breast Mammographic Findings: No significant masses, calcifications or other abnormalities are identified. Stable bilateral fat containing axillary lymph nodes. No suspicious masses, areas of developing architectural distortion, or suspicious calcifications. There has been no significant interval change. BI/SCRN MAMM (CAD)W/KADY BILAT IMPRESSION: Stable bilateral screening mammogram. OVERALL FINAL ASSESSMENT BI-RADS 2: BENIGN RECOMMENDATION: Routine annual follow-up in 1 Year Additional Recommendation none A letter with findings and recommendations will be mailed to the patient. Reading Location: [facility]
--- OUTSIDE RECORDS SUMMARY | 2025-08-29 07:19 | XMS RPT_ITS | CCD ---
Author Organization [facility] Care Team Providers Care Soaking Pit Operator Name Role Phone Dr. To Carroll Primary Care Provider Dr. To Carroll Referring Provider Lalita ONLINE MERCHANT, ONLINE MERCHANT-C Alesha Horta Attending Provider Dr. Janneth Díaz Attending Provider [phone] Dr. Doug Alvarez Attending Provider Dr. Doug Alvarez Other Provider [phone] To Carroll Primary Care Provider [phone] Dr. To Carroll Referring Provider Lalita ONLINE MERCHANT, ONLINE MERCHANT-C Alesha Horta Attending Provider Cristy Carroll MD Primary Care Provider Doug Alvarez DO Unavailable [phone] YAYO MCADAMS Attending UnavailGISELLE Grant Referring Unavailable CRISTY CARROLL Primary Care UnavailGISELLE Grant Attending Unavailable CRISTY CARROLL Referring Unavailabl CRISTY Smith Primary Care UnavailNORA Adames Attending Unavailable GISELLE FONSECA Referring Unavailable CRISTY CARROLL Primary Care UnavailNORA Adames Attending Unavailable NORA GARDNER Referring Unavailable CRISTY CARROLL Primary Care Unavailabl e Doug Alvarez Consulting Unavailable Cristy Carroll Primary Care Unavailable Cristy Carroll Attending Unavailable Cristy Carroll Referring Unavailable Cristy Carroll Primary Care Unavailable Doug Alvarez Attending Unavailable Cristy Carroll Referring Unavailable Ranney, Christopher Primary Care Unavailable Ranney, Christopher Attending Unavailable Ranney, Christopher Referring Unavailable Ranney, Christopher Primary Care Unavailable Ranney, Christopher Attending Unavailable Ranney, Christopher Primary Care Unavailable Friend, Doug Referring Unavailable Friend, Doug Attending Unavailable Friend, Doug Attending Unavailable Ranney, Christopher Primary Care Unavailable Ranney, Christopher Primary Care Unavailable Ranney, Christopher Attending Unavailable Ranney, Christopher Referring Unavailable Ranney, Christopher Primary Care Unavailable Ranney, Christopher Attending Unavailable Ranney, Christopher Referring Unavailable Ranney, Christopher Primary Care Unavailable Friend, Doug Consulting Unavailable Friend, Doug Attending Unavailable Ranney, Christopher Referring Unavailable Friend, Doug Referring Unavailable Ranney, Christopher Primary Care Unavailable Friend, Doug Attending Unavailable Allergies Allergy Classification Reported Allergen(s) Allergy Type Date of Onset Reaction(s) Facility (11 sources) Acetaminophen Drug Allergy 2 [facility] (16 sources) levoFLOXacin; Translations: [LEVOFLOXACIN] Drug Allergy 8 [facility] (12 sources) oxyCODONE; Translations: [oxycodone HCl] Drug Allergy 2 [facility] (17 sources) Penicillins; Translations: [PENICILLINS] Allergy to substance 8 [facility] (5 sources) Acetaminophen / oxyCODONE; Translations: [OXYCODONE-ACETAM INOPHEN] Drug Allergy 8 [facility] (5 sources) Azithromycin; Translations: [AZITHROMYCIN] Drug Allergy 5 Rash, Shortness of Breath [facility] (5 sources) Benzocaine-Pyrila mine-Zinc Ox; Translations: [BENZOCAINE-PYRIL AMINE-ZINC OX] Propensity to adverse reactions 8 [facility] Work Phone: (1 source) Acetaminophen Drug Allergy 2 [facility] (1 source) Ciprofloxacin Drug Allergy 4 [facility] (1 source) levoFLOXacin Drug Allergy 4 [facility] Medications Current Medications Medication Drug Class(es) [...] gram powder in packet (6 sources) Start: 06-25-2022 take 1 dose by mouth twice daily Cholestyramine-Asparta me (Prevalite) 4 gram powder in packet Active 4 GM PO TWICE A DAY 180 June 24, 2022 11:00pm administer w/meal; avoid [...] March 29, 2022 12:00am Start: 09-30-2008 End: 06-03-2025 potassium chloride(K-DUR 10 MEQ TAB) 2 caps four times daily 0 09/30/2008 06/03/2025 Discontinued Psyllium (Metamucil) Packet (5 sources) Start: 07-28-2022 take 8 [oz_av] by mouth twice daily Psyllium (Metamucil) Packet Active 1 PACKET PO TWICE A DAY July 27, 2022 11:00pm mix into at least 8 oz of water or juice before administering Start: 07-28-2022 take 8 [oz_av] by mo uth twice daily Psyllium (Metamucil) Packet Active 1 [...] 0 09/30/2008 06/03/2025 Discontinued polyethylene glycol 3350 005385 mg / potassium chloride 2970 mg / sodium bicarbonate 6740 mg / sodium chloride 5860 mg / sodium sulfate 46124 mg powder for oral solution (3 sources) [...] tablet daily. 0 09/30/2008 06/03/2025 Discontinued Problems Active Problems Problem Classification Problem Date Documented Da [...] disorder; Translations: [Essential (primary) hypertension] 10-30-2013 Chronic Other gastrointestinal disorders (7 sources) Diarrhea, unspecified; Translations: [Diarrhea] Onset: 5 Episodic Other gastrointestinal disorders (6 sources) Diarrhea; Translations: [Diarrhea, unspecified] 06-03-2025 Episodic Other gastrointestinal disorders (5 sources) Dysphagia; Translations: [Dysphagia, unspecified] 06-03-2025 Episodic Other liver diseases (6 sources) Steatosis [...] malignant neoplasm of digestive organs] 06-03-2025 Episodic Residual codes; unclassified (1 source) Tobacco use; Translations: [Tobacco use] Onset: 5 Episodic Screening and history of mental health and substance abuse codes (1 source) Personal history of nicotine dependence; Translations: [Personal history of nicotine dependence] Onset: 5 Episodic Thyroid disorders (11 sources) Hypothyroidism; Translations: [Hypothyroidism, unspecified] 10-30-2013 Chronic Unclassified (1 source) Consult Onset: 5 Past or Other Problems Problem Classification Problem Date Documented Da te Episodic/Chronic Noninfectious gastroenteritis (19 sources) Chronic diarrhea; Translations: [Noninfective gastroenteritis and colitis, unspecified] Onset: 12-25-2024 Episodic Other gastrointestinal disorders (3 sources) Dysphagia, unspecified; Translations: [Dysphagia, unspecified type] Onset: 10-19-2024 Episodic Results Test Name Value Interpretation Reference Range Facility [facility] 08-23-2025 [facility] Telephone (GENTUYETE) ORLANDOOJANA ([id number]) 1955 F Date Time Provider Department 08/23/25 NORA GARDNER During your visit today, we recorded the following information about you: Nora Gardner MD 08/23/2025 1:06 PM Signed Fungal elements were noted the patient wished to use Diflucan. Thought it was a short course but up-to-date recommends for 2 weeks. Allergies As of Date: 08/23/2025 Noted Allergy Reaction DERMAGESIC (BENZOCAINE-PYRILAMINE*05/2008 LEVAQUIN (LEVOFLOXACIN) 09/30/2008 PENICILLINS 09/30/2008 PERCOCET (OXYCODONE-ACETAMINOPHEN) ZITHROMAX (AZITHROMYCIN) 06/03/2025 2 - Rash 12 - Shortness of Breath Date Reviewed: 08/16/2025 Reviewed by: Rosario Villafana MA - Fully Assessed Order(s):fluconazole (DIFLUCAN) 100 mg tabletTake 1 tablet by mouth once daily for 14 days.Disp: 14 tabletRfl: 0 Prescriptions as of 08/23/2025 - fluconazole (DIFLUCAN) 100 mg tablet Take 1 tablet by mouth once daily for 14 days. - glimepiride (AMARYL) 2 mg tablet Take [...] at bedtime Problem List As Of Date: 08/23/2025 (None) Prescriptions ordered this encounter Disp Refills Start End FLUCONAZOLE 100 MG TABLET 14 t* 0 08/23/2025 09/06/2025 Route: PO Sig: Take 1 tablet by mouth once daily for 14 days. Encounter Status:Closed by NORA GARDNER on 08/23/25 [facility] Low Dose CT Lung Screeningon 08-19-[address] Lung Screening [facility] [address] [place], [place] [address] Low Dose CT Lung Screening MR#: [id number] Acct: [id number] Name: JOANA PERRY Rep #: [id number] : 1955 F 69 From: Luke chao MD PCP: Dr. Cristy Carroll MD Status: REG CLI Study: Low Dose CT Lung Screening Date of Exam: 08/19 Exam# [id number] Ordering Dr: Cristy Carroll PROCEDURE: LOW DOSE CT LUNG SCREENING 08/19/2025 REASON FOR EXAM: TOBACCO USE Current smoker. Patient has smoked for packs per day for 52+ years. TECHNIQUE: Procedure Code: CTLUNGSCREEN Modality: CT Procedure: LOW DOSE CT LUNG SCREENING Coronal and Sagittal reconstruction series were provided. One or more dose reduction techniques were used (e.g., Automated exposure control, adjustment of the mA and/or kV according to patient size, use of iterative reconstruction technique). REFERENCE LINK: [employer] Lung-RADS RADIATION DOSE SUMMARY: CTDlvol: 4.02 mGy DLP: 121.34 mGycm COMPARISON: None FINDINGS: PULMONARY NODULES: (Only nodules >3mm are reported) Nodules described below are on series 1 unless otherwise specified. Pulmonary Nodules: No pulmonary nodule seen. Hardware:None Lymph Nodes:No suspicious lymph nodes are present. Heart and Vasculature:The heart is nonenlarged. Coronary Artery Calcifications: Present Lungs and Airways: Mild emphysematous changes are present. Mild scarring at the lung bases. Pleura:No pleural effusion Upper Abdomen:Unremarkable Bones:Degenerative changes of the thoracic spine. CT/Low Dose CT Lung Screening IMPRESSION: No suspicious pulmonary nodule seen. Coronary artery calcification (CAC) is is present Lung-RADS Category: 2 BENIGN (BASED ON IMAGING FEATURES OR INDOLENT BEHAVIOR). RECOMMEND 12-MONTH SCREENING LDCT. Other Significant Findings: Reading Location: [facility] CC: Dr. Cristy Carroll MD Device Processing Engineer: Signed Normal [facility] CNOVon 08-16-2025 CNOV Office Visit (GENSWS ) JOANA PERRY ([id number]) 1955 F Date Time Provider Department 08/16/25 8:00 AM NORA GARDNER During your visit today, we recorded the following information about you: Nora Gardner MD 08/16/2025 10:18 AM Signed FOLLOW UP VISIT - ENDOSCOPY NAME: Joana Perry CLINIC NO.: [id number] DATE OF SERVICE: 08/14/2025 : 1955 REFERRING [...] underwent a open hernia repair performed at [facility]. This was performed by Dr. Nora Hdz. [...] she was seen by Dr. Alvarez at [facility] and underwent upper and lower endoscopy. I [...] potassium levels and is currently trying an mixl-msd-xwqfndy liquid potassium supplement to address leg cramps. [...] but th (more content not included)... Normal [facility] CNPNon 08-14-2025 CNPN Telephone ([facility]) ORLANDOJOANA ([id number]) 1955 F Date Time Provider Department 08/14/25 NORA GARDNER [facility] During your visit today, we recorded the following information about you: Rosiat Blood RN 08/14/2025 9:14 AM Signed Left [...] Breath Date Reviewed: 08/05/2025 Reviewed by: Rosario Storey, LONG - Fully Assessed Reason for Visit: Appointment [...] Status:Closed by ROSITA BLOOD on 08/14/25 Normal [facility] ANES POSTPROC EVALon 025 ANES POSTPROC EVAL HNO ID: [id number] Author: YAYO CUEVAS MD Service: Anesthesiology Author Type: Anesthesiologist Type: Anesthesia Postprocedure Evaluation Filed: 08/05/2025 13:38 Note Text: POST ANESTHESIA EVALUATION NOTE : 1955 Procedure Summary Date: 08/05/25 Room / Location: [facility] Endoscopy Anesthesia Start: 1241 Anesthesia Stop: 1326 Procedures: EGD DIAGNOSTIC COLONOSCOPY DIAGNOSTIC Diagnosis: Diarrhea, unspecified type Gastroesophageal reflux disease, unspecified whether esophagitis present Dysphagia, unspecified type (Abdominal distress) Scheduled Providers: Nora Gardner MD; Yayo Cuevas MD; Yayo Mcadams APRN.MOVEMAN Responsible Provider: Yayo Cuevas MD Anesthesia Type: [...] August 05, 2025 TIME: 1:37 PM CSN: [id number] Normal [facility] ANES PRE-OPon 08-05-2025 ANES PRE-OP HNO ID: [id number] Author: YAYO CUEVAS MD Service: Anesthesiology Author Type: Anesthesiologist Type: Anesthesia Preprocedure Evaluation Filed: 08/05/2025 12:10 Note Text: ANESTHESIOLOGY DAY OF SURGERY NOTE : 1955 Procedure Information Date/Time: 08/05/25 1245 Scheduled providers: Nora Gardner MD; Yayo Cuevas MD; Yayo Mcadams APRN.MOVEMAN Procedures: EGD DIAGNOSTIC COLONOSCOPY DIAGNOSTIC Location: [facility] Endoscopy Estimated body mass index is 44.77 [...] and consent discussed: yes. Patient / Responsible Republican agrees to proceed: yes Patient / Surrogate [...] August 05, 2025 TIME: 12:09 PM CSN: [id number] Normal [facility] Colonoscopyon 08-05-2025 Colonoscopy [facility] Gastrointestinal Endoscopy Patient Name: Joana Perry Procedure Date: 08/05/2025 12:58 PM Date of : 1955 Admit Type: Outpatient Age: 69 Room: [facility] Gender: Female Note Status: Finalized Attending MD: Nora Gardner MD, [id number] Procedure: Colonoscopy Indications: Clinically significant diarrhea of [...] by the physician, the nurse and the combat systems operator in the procedure room. Respiratory Examination: clear [...] current guidelines. Procedure Code(s): --- Professional --- 26633, Colonoscopy, flexible; with biopsy, single or multiple CPT copyright 2020 [employer] [place] [employer]. All rights reserved. The codes documented in this report are preliminary and upon systems mgr review may be revised to meet current compliance requirements. Attending Participation: I personally performed the entire procedure. Scope In: 1:01:53 PM Scope Out: 1:23:49 PM MD Nora Malave MD 08/05/2025 1:40:12 PM This report has been signed electronically by Nora Gardner MD Number of Addenda: 0 Note Initiated On: (more content not included)... Normal [facility] HISTORY PHYSICALon HISTORY PHYSICAL HNO ID: [id number] Author: NORA GARDNER MD Service: General Surgery Author Type: Physician Type: H&P Filed: 08/05/2025 12:00 Note Text: HISTORY AND PHYSICAL Joana Perry [...] underwent a open hernia repair performed at [facility]. She understands she had a small bowel [...] she was seen by Dr. Alvarez at [facility] and underwent upper and lower endoscopy. I [...] COLON SURGERY HX colon resection Dr Hdz [facility] EXC/DSTRJ LINGUAL TONSIL ANY METHOD SPX LIG/TRNSXJ [...] facility-administered medications for this visit. ALLERGIES: Dermagesic [Czjvwnboeu-Kmffylpllw-Mkpt Ox], Levaquin [Levofloxacin], Penicillins, Percocet [Oxycodone-Acetaminophen], and [...] 69 yea (more content not included)... Normal [facility] Pathology biopsy report Joey (Tiss)on 08-05-2025 ADDENDUM 1: [facility] Comment on above: Order Comment: Speci men Type: TISSUE SPECIMEN Ordering Facility: [facility] Address: [address] [place] [address] Result Comment: D. Alexa clemonsn for PAS/D shows very minute fungal forms, which are suggestive of Ramila species. Clinical correlation is recommended. Addendum electronically signed by Elizabeth Mann MD on 08/20/2025 at 1106 EDT Performed By: #### 6 6121-5 #### [facility] CLIA [id number] [address] [place] [address] [place] AP DISCLAIMER Normal [facility] Comment on above: Order Comment: Speci men Type: TISSUE SPECIMEN Ordering Facility: [facility] Address: [address] [place] [address] Result Comment: Javed das Developed Test (LDT) Disclaimer: Performance characteristics of immunohistochemical, immunofluorescent, and chromogenic in-situ hybridization tests have been determined by the performing laboratory within the [facility] Department of Pathology and Laboratory Medicine ([facility], [facility], [facility], [facility], [facility], [facility], or [facility]) in a manner consistent with CLIA requirements. One or more of these tests may not have been cleared or approved by the FDA. The [facility] Department of Pathology and Laboratory Medicine is regulated under CLIA as qualified to perform high-complexity testing. These tests are used for clinical purposes. These should not be regarded as investigational or for research. Positive and negative controls stain appropriately. Performed By: #### 6 6121-5 #### [facility] CLIA [id number] [address] [place] [address] [place] CASE REPORT Normal [facility] Comment on above: Order Comment: Speci men Type: TISSUE SPECIMEN Ordering Facility: [facility] Address: [address] [place] [address] Result Comment: Surg [facility] Pathology Report Case: [id number] Authorizing Provider: Nora Gardner MD Collected: 08/05/2025 12:54 PM Ordering Location: [facility] Endoscopy Received: 08/05/2025 02:08 PM Pathologist: Elizabeth Mann MD Specimens: A) - Small Bowel, Jejunum, Biopsy B) - Stomach, Antrum, Biopsy C) - Esophagus, Distal, Biopsy D) - Esophagus, Mid, Biopsy E) - Small Bowel, Biopsy F) - Esophagus, Proximal, Biopsy G) - Esophagus, Distal, Biopsy, x2 specimens Performed By: #### 6 6121-5 #### [facility] CLIA [id number] [address] [place] [address] [place] CLINICAL HISTORY Normal [facility] Comment on above: Order Comment: Kari oakes Type: TISSUE SPECIMEN Ordering Facility: [facility] Address: [address] [place] [address] Result Comment: Asso ciated Diagnoses: K21.9 - Gastroesophageal reflux disease, unspecified whether esophagitis present R19.7 - Diarrhea, unspecified type R13.10 - Dysphagia, unspecified type Performed By: #### 6 6121-5 #### [facility] CLIA [id number] [address] [place] [address] [place] DIAGNOSIS COMMENT Correlation with end oscopic findings is recommended for specimens F and G. [facility] Comment on above: Order Comment: Speci champ Type: TISSUE SPECIMEN Ordering Facility: [facility] Address: [address] [place] [address] Performed By: #### 6 6121-5 #### [facility] CLIA [id number] [address] [place] [address] FINAL DIAGNOSIS [facility] Comment on above: Order Comment: Kari oakes Type: TISSUE SPECIMEN Ordering Facility: [facility] Address: [address] [place] [address] Result Comment: A. S mall Bowel, Jejunum, [...] EDT Performed By: #### 6 6121-5 #### [facility] CLIA [id number] [address] [place] [address] FINAL PERFORMING LAB Normal [facility] Comment on above: Order Comment: Speci men Type: TISSUE SPECIMEN Ordering Facility: [facility] Address: [address] [place] [address] Result Comment: Diag nostic interpretation performed at: [facility], [address] [place] [address] CLIA# [id number] Bulk Cooler Installer: Henrry Penaloza MD Performed By: #### 6 6121-5 #### [facility] CLIA [id number] [address] [place] [address] GROSS DESCRIPTION [facility] Comment on above: Order Comment: Speci men Type: TISSUE SPECIMEN Ordering Facility: [facility] Address: [address] [place] [address] Result Comment: A. S mall Bowel, Jejunum, [...] 2025 5:21 PM Gross examination performed at [facility], [address] [place] [address] Performed By: #### 6 6121-5 #### [facility] CLIA [id number] [address] [place] [address] OF [facility] Upper GI endoscopyon 08-05-2 025 Upper GI endoscopy [facility] Gastrointestinal Endoscopy Patient Name: Joana Perry Procedure Date: 08/05/2025 12:36 PM Date of : 1955 Admit Type: Outpatient Age: 69 Room: [facility] Gender: Female Note Status: Finalized Attending MD: Nora Gardner MD, [id number] Procedure: Upper GI endoscopy Indications: Abdominal distress [...] by the physician, the nurse and the combat systems operator in the procedure room. Mental Status Examination: [...] 1 week. Procedure Code(s): --- Professional --- 14756, Esophagogastroduodenoscopy, flexible, transoral; with biopsy, single or multiple CPT copyright 2020 [employer] [place] [employer]. All rights reserved. The codes documented in this report are preliminary and upon systems mgr review may be revised to meet current compliance requirements. Attending Participation: I personally performed the entire procedure. Scope In: 12:52:17 PM Scope Out: 12:58:09 PM MD Nora Malave MD 08/05/2025 1:35:09 PM This report has been signed electronically by Nora Gardner MD Number of Addenda: 0 Note Initiated On: 08/05/2025 12:36 PM Estimated Blood Loss: Estimated blood loss: none. Normal [facility] Microalb:Creat Ratio,Random URon 08-01-2025 Creatinine [Mass/Vol] 58.70 mg/dL Normal 28.00- 217. 00 [facility] Comment on above: Performed By: #### L 502.0250 #### [facility] [address] [place], [place], [address] MALB:CREAT UNABLE TO CALCULATE Normal <30 mg/g CRE [facility] Comment on above: Performed By: #### L 502.0250 #### [facility] [address] [place], [place], [address] MICROALBUMIN,UR < 12.0 Normal <20 mg/L [facility] Comment on above: Performed By: #### L 502.0250 #### [facility] [address] [place], [place], [address] CNOVon 06-27-2025 CNOV Office Visit (GENSWS ) JOANA PERRY ([id number]) 1955 F Date Time Provider Department 06/27/25 11:00 AM NORA GARDNER GENSWS During your visit today, we recorded [...] symptoms and questions. HISTORY AND PHYSICAL Joana Dickersonh 1955 REFERRING PHYSICIAN: Cristy Carroll MD.* CHIEF [...] COLON SURGERY HX colon resection Dr Hdz [facility] EXC/DSTRJ LINGUAL TONSIL ANY METHOD SPX LIG/TRNSXJ [...] facility-administered medications for this visit. ALLERGIES: Dermagesic [Yqmldpuvfr-Afvbtamiei-Oewt Ox], Levaquin [Levofloxacin], Penicillins, Percocet [Oxycodone-Acetaminophen], and Zithromax [A (more content not included)... Normal [facility] CNOVon 06-03-2025 CNOV Office Visit (GENSWS ) JOANA PERRY ([id number]) 1955 F Date Time Provider Department 06/03/25 1:00 PM GISELLE FONSECA During your visit today, we recorded the following information about you: Temperature Pulse Weight 97.8 degrees 111/minute 94.6 kg Giselle Fonseca APRN.PAPER FINAL INSPECTOR 06/03/2025 2:04 PM Addendum HISTORY AND PHYSICAL [...] EGD was [id number] with Dr. Alvarez at [facility]. Sedation: MAC Impression: - Moderate Schatzki ring. Dilated. Treated with argon plasma coagulation (APC). - Mildly severe erosive esophagitis with no bleeding. Biopsied. - Medium-sized hiatal hernia. - No gross lesions in the entire stomach. - No gross lesions in the first portion of the duodenum. Last colonoscopy was 07/[address] Alvarez at [facility]. Sedation :MAC Impression: - Diverticulosis in the [...] facility-administered medications for this visit. ALLERGIES: Dermagesic [Ivtactibyf-Dksydjedek-Mxzh Ox], Levaquin [Levofloxacin], Penicillins, Percocet [Oxycodone-Acetaminophen], and [...] COLON SURGERY HX colon resection Dr Hdz [facility] EXC/DSTRJ LINGUAL TONSIL ANY METHOD SPX LIG/TRNSXJ [...] Onset: (N (more content not included)... [facility] (GENSWS[facility] JOANA PERRY ([id number]) 1955 F Date Time Provider Department 06/03/25 GISELLE FONSECA GENSHAYNE During your visit today, we recorded the following information about you: Rosita Blood RN 06/03/2025 4:40 PM Signed Medical records requested from Dr. Alvarez [facility] physicians Allergies As of Date: 06/03/2025 Noted Allergy Reaction DERMAGESIC (BENZOCAINE-PYRILAMINE*05/2008 LEVAQUIN (LEVOFLOXACIN) 09/30/2008 PENICILLINS 09/30/2008 PERCOCET (OXYCODONE-ACETAMINOPHEN) ZITHROMAX (AZITHROMYCIN) 06/03/2025 2 - Rash 12 - Shortness of Breath Date Reviewed: 06/03/2025 Reviewed by: Giselle Fonseca APRN.PAPER FINAL INSPECTOR - Fully Assessed Reason for Visit: Request Outside Medical Records [[id number]] Prescriptions as of 06/03/2025 - glimepiride (AMARYL) [...] Status:Closed by ROSITA BLOOD on 06/03/25 Normal [facility] ANCAon 12-05-2024 Atypical pANCA <1:20 Normal Neg:<1:20 [facility] Comment on above: Result Comment: The atypical pANCA pattern has been observed in a significant percentage of patients with ulcerative colitis, primary sclerosing cholangitis and autoimmune hepatitis. Performed By: #### L 3200.1100, L509.6000, L500.4050, L3100.3425, L501.9520, L3300.1200, L503.6150, L100.0100, L5500.0550, L503.6550, L502.0500, L501.5200, L3430.0100, L503.0105, L504.2610, L3100.5440, L101.9900, L3300.1800, L501.6710, L501.2300, L2100.0000 ####[facility] [address] [place], [place], [id number] Cytoplasmic Ab <1:20 Normal Neg:<1:20 [facility] Comment on above: Performed By: #### L 3200.1100, L509.6000, L500.4050, L3100.3425, L501.9520, L3300.1200, L503.6150, L100.0100, L5500.0550, L503.6550, L502.0500, L501.5200, L3430.0100, L503.0105, L504.2610, L3100.5440, L101.9900, L3300.1800, L501.6710, L501.2300, L2100.0000 ####[facility] [address] [place], [place], [id number] Perinuclear Ab. <1:20 Normal Neg:<1:20 [facility] Comment on above: Result Comment: The presence of positive fluorescence exhibiting P-ANCA or C-ANCA patterns alone is not specific for the diagnosis of Johnathan's Granulomatosis (WG) or microscopic polyangiitis. Decisions about treatment should not be based solely on ANCA IFA results. The International ANCA Group Consensus recommends follow up testing of positive sera with both DC- 3 and MPO-ANCA enzyme immunoassays. As many as 5% serum samples are positive only by EIA. Ref. AM J Clin Pathol 1999;111:507-513. Performed By: #### L 3200.1100, L509.6000, L500.4050, L3100.3425, L501.9520, L3300.1200, L503.6150, L100.0100, L5500.0550, L503.6550, L502.0500, L501.5200, L3430.0100, L503.0105, L504.2610, L3100.5440, L101.9900, L3300.1800, L501.6710, L501.2300, L2100.0000 ####[facility] [address] [place], [place], [phone] Calprotectin, Stoolon [address] 54 ug/g Normal 0-120 [facility] Comment on above: Order Comment: Order Date: 07/30/24 Order Info: 0786-1 - CMP Order Info: 3016-3 - TSH Result Comment: Conc entration Interpretation Follow-Up < 5 - 50 ug/g Normal None >50 -120 ug/g Borderline Re-evaluate in 4-6 weeks >120 ug/g Abnormal Repeat as clinically indicated Performed at: [facility] [address] [id number] Airport Operations Officer: Herb Hsu PhD, Phone: [phone] Performed at: [facility] [address] [id number] Airport Operations Officer: John Snyder MD, Phone: [phone] Performed By: #### L 100.0100, L500.4050 #### [facility] [address] [place], [address] Catecholamines, Plasmaon DOPAMINE <30 Normal 0-48 [facility] Comment on above: Performed By: #### L 3200.1100, L509.6000, L500.4050, L3100.3425, L501.9520, L3300.1200, L503.6150, L100.0100, L5500.0550, L503.6550, L502.0500, L501.5200, L3430.0100, L503.0105, L504.2610, L3100.5440, L101.9900, L3300.1800, L501.6710, L501.2300, L2100.0000 ####[facility] [address] [place], [address] EPINEPHRINE <15 Normal 0-62 [facility] Comment on above: Performed By: #### L 3200.1100, L509.6000, L500.4050, L3100.3425, L501.9520, L3300.1200, L503.6150, L100.0100, L5500.0550, L503.6550, L502.0500, L501.5200, L3430.0100, L503.0105, L504.2610, L3100.5440, L101.9900, L3300.1800, L501.6710, L501.2300, L2100.0000 ####[facility] [address] [place], [place], [phone] NOREPINEPHRINE 611 pg/mL Normal 0-874 [facility] Comment on above: Performed By: #### L 3200.1100, L509.6000, L500.4050, L3100.3425, L501.9520, L3300.1200, L503.6150, L100.0100, L5500.0550, L503.6550, L502.0500, L501.5200, L3430.0100, L503.0105, L504.2610, L3100.5440, L101.9900, L3300.1800, L501.6710, L501.2300, L2100.0000 ####[facility] [address] [place], [address] Fecal Fat, Qualitativeon FATS, NEUTRAL Normal Normal . [facility] Comment on above: Order Comment: Test( s) 577162-Hvhk, Neutral; 564629-Tqpn, Totalwas developed and its performance characteristicsdetermined by [employer]. It has not been cleared or approvedby the Food and Drug Administration. Result Comment: Norm al (<60 Droplets/HPF) Performed By: #### L 502.0250 #### [facility] [address] [place], [address] FATS, TOTAL Increased Normal . [facility] Comment on above: Order Comment: Test( s) 715165-Sunv, Neutral; 399567-Ggiy, Totalwas developed and its performance characteristicsdetermined by [employer]. It has not been cleared or approvedby the Food and Drug Administration. Result Comment: Norm al (<100 Droplets/HPF) Performed By: #### L 502.0250 #### [facility] [address] [place], [address] Gastrin, Serumon 12-05-2024 GASTRIN 20 pg/mL Normal 0-115 [facility] Comment on above: Result Comment: [facility] Immulite 2000 Immunochemiluminometric assay (ICMA) Values obtained with different assay methods or kits cannot be used interchangeably. Results cannot be interpreted as absolute evidence of the presence or absence of malignant disease. Performed at: [address] [id number] Airport Operations Officer: Herb Hsu PhD, Phone: [phone] Performed at: [address] [id number] Airport Operations Officer: John Snyder MD, Phone: [phone] Performed By: #### L 3200.1100, L509.6000, L500.4050, L3100.3425, L501.9520, L3300.1200, L503.6150, L100.0100, L5500.0550, L503.6550, L502.0500, L501.5200, L3430.0100, L503.0105, L504.2610, L3100.5440, L101.9900, L3300.1800, L501.6710, L501.2300, L2100.0000 ####[facility] [address] [facility]. [place], [place], [phone] YUVAL + Protein Elect, Serumon 12-05-2024 Albumin [Mass/Vol] 3.4 g/dL Normal 2.9-4.4 [facility] Comment on above: Order Comment: Y Performed By: #### L 3200.1100, L509.6000, L500.4050, L3100.3425, L501.9520, L3300.1200, L503.6150, L100.0100, L5500.0550, L503.6550, L502.0500, L501.5200, L3430.0100, L503.0105, L504.2610, L3100.5440, L101.9900, L3300.1800, L501.6710, L501.2300, L2100.0000 ####[facility] [address] [facility]. [place], [place], [phone] Albumin/Globulin [Mass ratio] 1.1 {ratio} Normal 0.7-1.7 [facility] Comment on above: Order Comment: Y Performed By: #### L 3200.1100, L509.6000, L500.4050, L3100.3425, L501.9520, L3300.1200, L503.6150, L100.0100, L5500.0550, L503.6550, L502.0500, L501.5200, L3430.0100, L503.0105, L504.2610, L3100.5440, L101.9900, L3300.1800, L501.6710, L501.2300, L2100.0000 ####[facility] [address] [facility]. [place], [place], [id number] HYIHM-8-NRSM 0.2 g/dL Normal 0.0-0.4 [facility] Comment on above: Order Comment: Y Performed By: #### L 3200.1100, L509.6000, L500.4050, L3100.3425, L501.9520, L3300.1200, L503.6150, L100.0100, L5500.0550, L503.6550, L502.0500, L501.5200, L3430.0100, L503.0105, L504.2610, L3100.5440, L101.9900, L3300.1800, L501.6710, L501.2300, L2100.0000 ####[facility] [address] [facility] [place], [address] PCDHY-8-XDES 0.7 g/dL Normal 0.4-1.0 [facility] Comment on above: Order Comment: Y Performed By: #### L 3200.1100, L509.6000, L500.4050, L3100.3425, L501.9520, L3300.1200, L503.6150, L100.0100, L5500.0550, L503.6550, L502.0500, L501.5200, L3430.0100, L503.0105, L504.2610, L3100.5440, L101.9900, L3300.1800, L501.6710, L501.2300, L2100.0000 ####[facility] [address] [facility] [place], [address] BETA GLOBULIN 1.1 g/dL Normal 0.7-1.3 [facility] Comment on above: Order Comment: Y Performed By: #### L 3200.1100, L509.6000, L500.4050, L3100.3425, L501.9520, L3300.1200, L503.6150, L100.0100, L5500.0550, L503.6550, L502.0500, L501.5200, L3430.0100, L503.0105, L504.2610, L3100.5440, L101.9900, L3300.1800, L501.6710, L501.2300, L2100.0000 ####[facility] [address] [place], [place], [address] GAMMA GLOBULIN 1.1 g/dL Normal 0.4-1.8 [facility] Comment on above: Order Comment: Y Performed By: #### L 3200.1100, L509.6000, L500.4050, L3100.3425, L501.9520, L3300.1200, L503.6150, L100.0100, L5500.0550, L503.6550, L502.0500, L501.5200, L3430.0100, L503.0105, L504.2610, L3100.5440, L101.9900, L3300.1800, L501.6710, L501.2300, L2100.0000 ####[facility] [address] [place], [address] Globulin (S) [Mass/Vol] 3.1 g/dL Normal 2.2-3.9 [facility] Comment on above: Order Comment: Y Performed By: #### L 3200.1100, L509.6000, L500.4050, L3100.3425, L501.9520, L3300.1200, L503.6150, L100.0100, L5500.0550, L503.6550, L502.0500, L501.5200, L3430.0100, L503.0105, L504.2610, L3100.5440, L101.9900, L3300.1800, L501.6710, L501.2300, L2100.0000 ####[facility] [address] [place], [place], [phone] YUVAL RESULT,S Comment: Normal . [facility] Comment on above: Order Comment: Y Result Comment: Pres ence of monoclonal protein is unclear at this time. Suggest repeat in 3 to 6 months if clinically indicated. Performed By: #### L 3200.1100, L509.6000, L500.4050, L3100.3425, L501.9520, L3300.1200, L503.6150, L100.0100, L5500.0550, L503.6550, L502.0500, L501.5200, L3430.0100, L503.0105, L504.2610, L3100.5440, L101.9900, L3300.1800, L501.6710, L501.2300, L2100.0000 ####[facility] [address] [place], [place], [id number] IMMUNOGLOB A QN 187 mg/dL Normal 64-422 [facility] Comment on above: Order Comment: Y Performed By: #### L 3200.1100, L509.6000, L500.4050, L3100.3425, L501.9520, L3300.1200, L503.6150, L100.0100, L5500.0550, L503.6550, L502.0500, L501.5200, L3430.0100, L503.0105, L504.2610, L3100.5440, L101.9900, L3300.1800, L501.6710, L501.2300, L2100.0000 ####[facility] [address] [place], [place], [address] IMMUNOGLOB G QN 914 mg/dL Normal 586-1602 [facility] Comment on above: Order Comment: Y Performed By: #### L 3200.1100, L509.6000, L500.4050, L3100.3425, L501.9520, L3300.1200, L503.6150, L100.0100, L5500.0550, L503.6550, L502.0500, L501.5200, L3430.0100, L503.0105, L504.2610, L3100.5440, L101.9900, L3300.1800, L501.6710, L501.2300, L2100.0000 ####[facility] [address] [place], [address] IMMUNOGLOB M QN 67 mg/dL Normal 26-217 [facility] Comment on above: Order Comment: Y Performed By: #### L 3200.1100, L509.6000, L500.4050, L3100.3425, L501.9520, L3300.1200, L503.6150, L100.0100, L5500.0550, L503.6550, L502.0500, L501.5200, L3430.0100, L503.0105, L504.2610, L3100.5440, L101.9900, L3300.1800, L501.6710, L501.2300, L2100.0000 ####[facility] [address] [place], [address] M-Bg Not Observed Normal Not Observed [facility] Comment on above: Order Comment: Y Performed By: #### L 3200.1100, L509.6000, L500.4050, L3100.3425, L501.9520, L3300.1200, L503.6150, L100.0100, L5500.0550, L503.6550, L502.0500, L501.5200, L3430.0100, L503.0105, L504.2610, L3100.5440, L101.9900, L3300.1800, L501.6710, L501.2300, L2100.0000 ####[facility] [address] [place], [address] NOTE: Comment Normal . [facility] Comment on above: Order Comment: Y Result Comment: Prot ein electrophoresis scan will follow via computer, mail, or lamp developer delivery. Performed By: #### L 3200.1100, L509.6000, L500.4050, L3100.3425, L501.9520, L3300.1200, L503.6150, L100.0100, L5500.0550, L503.6550, L502.0500, L501.5200, L3430.0100, L503.0105, L504.2610, L3100.5440, L101.9900, L3300.1800, L501.6710, L501.2300, L2100.0000 ####[facility] [address] [facility]. [place], [place], [phone] Protein [Mass/Vol] 6.5 g/dL Normal 6.0-8.5 [facility] Comment on above: Order Comment: Y Performed By: #### L 3200.1100, L509.6000, L500.4050, L3100.3425, L501.9520, L3300.1200, L503.6150, L100.0100, L5500.0550, L503.6550, L502.0500, L501.5200, L3430.0100, L503.0105, L504.2610, L3100.5440, L101.9900, L3300.1800, L501.6710, L501.2300, L2100.0000 ####[facility] [address] [facility]. [place], [place], [phone] Immunoglobulins G/A/M/Akira IMMUNOGLOB E QN 427 IU/mL Normal 6-495 [facility] Comment on above: Order Comment: Y Performed By: #### L 3200.1100, L509.6000, L500.4050, L3100.3425, L501.9520, L3300.1200, L503.6150, L100.0100, L5500.0550, L503.6550, L502.0500, L501.5200, L3430.0100, L503.0105, L504.2610, L3100.5440, L101.9900, L3300.1800, L501.6710, L501.2300, L2100.0000 ####[facility] [address] [place], [place], [address] L2100.0000on 12-05-2024 ACCA 7 units Normal 0-90 [facility] Comment on above: Result Comment: Nega tive: <80 Equivocal: 80-90 Positive: >90 Performed By: #### L 3200.1100, L509.6000, L500.4050, L3100.3425, L501.9520, L3300.1200, L503.6150, L100.0100, L5500.0550, L503.6550, L502.0500, L501.5200, L3430.0100, L503.0105, L504.2610, L3100.5440, L101.9900, L3300.1800, L501.6710, L501.2300, L2100.0000 ####[facility] [address] [place], [place], [address] ALCA 1 units Normal 0-60 [facility] Comment on above: Result Comment: Nega tive:<55 Equivocal: 55-60 Positive: >60 Performed By: #### L 3200.1100, L509.6000, L500.4050, L3100.3425, L501.9520, L3300.1200, L503.6150, L100.0100, L5500.0550, L503.6550, L502.0500, L501.5200, L3430.0100, L503.0105, L504.2610, L3100.5440, L101.9900, L3300.1800, L501.6710, L501.2300, L2100.0000 ####[facility] [address] [place], [place], [id number] AMCA 15 units Normal 0-100 [facility] Comment on above: Result Comment: Nega tive: <90 Equivocal: 90-100 Positive: >100 This test was developed and its performance characteristics determined by [employer]. It has not been cleared or approved by the Food and Drug Administration. The FDA has determined that such clearance or approval is not necessary. Performed By: #### L 3200.1100, L509.6000, L500.4050, L3100.3425, L501.9520, L3300.1200, L503.6150, L100.0100, L5500.0550, L503.6550, L502.0500, L501.5200, L3430.0100, L503.0105, L504.2610, L3100.5440, L101.9900, L3300.1800, L501.6710, L501.2300, L2100.0000 ####[facility] [address] [place], [place], [phone] Atypical pANCA Negative Normal Negative [facility] Comment on above: Performed By: #### L 3200.1100, L509.6000, L500.4050, L3100.3425, L501.9520, L3300.1200, L503.6150, L100.0100, L5500.0550, L503.6550, L502.0500, L501.5200, L3430.0100, L503.0105, L504.2610, L3100.5440, L101.9900, L3300.1800, L501.6710, L501.2300, L2100.0000 ####[facility] [address] [place], [place], [phone] COMMENT Comment Normal . [facility] Comment on above: Result Comment: Antonette effie is not suggestive of Inflammatory Bowel Disease Performed By: #### L 3200.1100, L509.6000, L500.4050, L3100.3425, L501.9520, L3300.1200, L503.6150, L100.0100, L5500.0550, L503.6550, L502.0500, L501.5200, L3430.0100, L503.0105, L504.2610, L3100.5440, L101.9900, L3300.1800, L501.6710, L501.2300, L2100.0000 ####[facility] [address] [place], [place], [address] Flora 8 units Normal 0-50 [facility] Comment on above: Result Comment: Nega tive: <45 Equivocal: 45-50 Positive: >50 Performed By: #### L 3200.1100, L509.6000, L500.4050, L3100.3425, L501.9520, L3300.1200, L503.6150, L100.0100, L5500.0550, L503.6550, L502.0500, L501.5200, L3430.0100, L503.0105, L504.2610, L3100.5440, L101.9900, L3300.1800, L501.6710, L501.2300, L2100.0000 ####[facility] [address] [facility]. [place], [place], [address] L3410.9998on 12-05-2024 [facility] COMMENT Normal . [facility] Comment on above: Order Comment: Order Date: 07/30/24 Order Info: 0786-1 - CMP Order Info: 3016-3 - TSH Result Comment: Test Ordered: [id number] Stool Culture Salmonella/Shigella Screen Note: Final report Reference Range: . Result 1 Comment Reference Range: . No Salmonella or Shigella recovered. Campylobacter Culture Note: Final report Reference Range: . Result 1 Comment Reference Range: . No Campylobacter species isolated. E coli Shiga Toxin EIA Negative Reference Range: Negative Performed at: - [address] [id number] Airport Operations Officer: Herb Hsu PhD, Phone: [phone] Performed By: #### L 100.0100, L500.4050 #### [facility] [address] [facility]. [place], [place], [address] L3410.9998on 12-04-2024 [facility]. COMMENT Normal . [facility] Comment on above: Order Comment: 51114 0O P W/GIARDIA Result Comment: Test Ordered: [id number] Giardia, EIA, Ova/Parasite Ova + Parasite Exam [...] Negative CB Reference Range: Negative Performed at: [address] [id number] Airport Operations Officer: Herb Hsu PhD, Phone: [phone] Performed By: #### L 3410.9998 ####[facility] [address] [facility] [place], [address] L7000.0750on 12-03-2024 P ELASTASE,FECA > 800 Normal >200 [facility] Comment on above: Result Comment: Resu lt Units: ug Elast./g Severe Pancreatic Insufficiency: <100 Moderate Pancreatic Insufficiency: 100 - 200 Normal: >200 Performed at: [address] [id number] Airport Operations Officer: John Snyder MD, Phone: [phone] Performed By: #### L 502.0250 #### [facility] [address] [facility] [place], [address] KARLY Comprehensive Panelon KARLY TABLE Comment Normal . [facility] Comment on above: Result Comment: Auto antibody [...] Sm (anti-Campos) SLE 15 - 30% --------- MANUFACTURER'S SERVICE REPRESENTATIVE Mixed Connective Tissue Disease 95% (U1 nRNP, SLE 30 - 50% anti-ribonucleoprotein) Polymyositis and/or Dermatomyositis 20% --------- Scl-70 (antiDNA Scleroderma (diffuse) 20 - 35% topoisomerase) Crest 13% --------- Whitney-1 Polymyositis and/or Dermatomyositis 20 - 40% --------- Centromere B Scleroderma - Crest variant 80% AMENDED REPORT 12/02/241205 COMMENT previously reported as: Test not performed Performed By: #### L 3200.1100, L509.6000, L500.4050, L3100.3425, L501.9520, L3300.1200, L503.6150, L100.0100, L5500.0550, L503.6550, L502.0500, L501.5200, L3430.0100, L503.0105, L504.2610, L3100.5440, L101.9900, L3300.1800, L501.6710, L501.2300, L2100.0000 #### [facility] [address] [place] [address]. [place], [address] ANTI-CENT B AB <0.2 Normal 0.0-0.9 [facility] Comment on above: Result Comment: AMENDED REPORT 12/02/241205 ANTI-CENT B previously reported as: Test not performed Performed By: #### L 3200.1100, L509.6000, L500.4050, L3100.3425, L501.9520, L3300.1200, L503.6150, L100.0100, L5500.0550, L503.6550, L502.0500, L501.5200, L3430.0100, L503.0105, L504.2610, L3100.5440, L101.9900, L3300.1800, L501.6710, L501.2300, L2100.0000 #### [facility] [address] [facility] [place], [address] ANTI-DNA (DS)AB <1 Normal 0-9 [facility] Comment on above: Result Comment: Nega tive <5 Equivocal 5 - 9 Positive >9 AMENDED REPORT 12/02/241205 dsDNA AB previously reported as: Test not performed Performed By: #### L 3200.1100, L509.6000, L500.4050, L3100.3425, L501.9520, L3300.1200, L503.6150, L100.0100, L5500.0550, L503.6550, L502.0500, L501.5200, L3430.0100, L503.0105, L504.2610, L3100.5440, L101.9900, L3300.1800, L501.6710, L501.2300, L2100.0000 #### [facility] [address] [facility] [place], [address] ANTI-WHITNEY-1 <0.2 Normal 0.0-0.9 [facility] Comment on above: Result Comment: AMENDED REPORT 12/02/241205 ANTI-WHITNEY previously reported as: Test not performed Performed By: #### L 3200.1100, L509.6000, L500.4050, L3100.3425, L501.9520, L3300.1200, L503.6150, L100.0100, L5500.0550, L503.6550, L502.0500, L501.5200, L3430.0100, L503.0105, L504.2610, L3100.5440, L101.9900, L3300.1800, L501.6710, L501.2300, L2100.0000 #### [facility] [address] [place], [address] ANTI-SS-A < 0.2 Normal 0.0-0.9 [facility] Comment on above: Result Comment: AMENDED REPORT 12/02/241205 Anti-SS-A previously reported as: Test not performed Performed By: #### L 3200.1100, L509.6000, L500.4050, L3100.3425, L501.9520, L3300.1200, L503.6150, L100.0100, L5500.0550, L503.6550, L502.0500, L501.5200, L3430.0100, L503.0105, L504.2610, L3100.5440, L101.9900, L3300.1800, L501.6710, L501.2300, L2100.0000 #### [facility] [address] [place], [place], [address] ANTI-SS-B < 0.2 Normal 0.0-0.9 [facility] Comment on above: Result Comment: AMENDED REPORT 12/02/241205 Anti-SS-B previously reported as: Test not performed Performed By: #### L 3200.1100, L509.6000, L500.4050, L3100.3425, L501.9520, L3300.1200, L503.6150, L100.0100, L5500.0550, L503.6550, L502.0500, L501.5200, L3430.0100, L503.0105, L504.2610, L3100.5440, L101.9900, L3300.1800, L501.6710, L501.2300, L2100.0000 #### [facility] [address] [facility]. [place], [place], [id number] ANTICHROMATIN <0.2 Normal 0.0-0.9 [facility] Comment on above: Result Comment: AMENDED REPORT 12/02/241205 ANTICHROMATIN previously reported as: Test not performed Performed By: #### L 3200.1100, L509.6000, L500.4050, L3100.3425, L501.9520, L3300.1200, L503.6150, L100.0100, L5500.0550, L503.6550, L502.0500, L501.5200, L3430.0100, L503.0105, L504.2610, L3100.5440, L101.9900, L3300.1800, L501.6710, L501.2300, L2100.0000 #### [facility] [address] [facility]. [place], [place], [id number] ANTISCLERODERM <0.2 Normal 0.0-0.9 [facility] Comment on above: Result Comment: AMENDED REPORT 12/02/241205 ANTISCLER previously reported as: Test not performed Performed By: #### L 3200.1100, L509.6000, L500.4050, L3100.3425, L501.9520, L3300.1200, L503.6150, L100.0100, L5500.0550, L503.6550, L502.0500, L501.5200, L3430.0100, L503.0105, L504.2610, L3100.5440, L101.9900, L3300.1800, L501.6710, L501.2300, L2100.0000 #### [facility] [address] [facility] [place], [address] MANUFACT[employer]ER[employer]S SERVICE REPRESENTATIVE Ab <0.2 Normal 0.0-0.9 [facility] Comment on above: Result Comment: AMENDED REPORT 12/02/241205 MANUFACTURER[employer]S SERVICE REPRESENTATIVE Ab previously reported as: Test not performed Performed By: #### L 3200.1100, L509.6000, L500.4050, L3100.3425, L501.9520, L3300.1200, L503.6150, L100.0100, L5500.0550, L503.6550, L502.0500, L501.5200, L3430.0100, L503.0105, L504.2610, L3100.5440, L101.9900, L3300.1800, L501.6710, L501.2300, L2100.0000 #### [facility] [address] [facility] [place], [address] CAMPOS Ab <0.2 Normal 0.0-0.9 [facility] Comment on above: Result Comment: AMENDED REPORT 12/02/24 1206 WAQAR Ab previously reported as: Test not performed Performed By: #### L 3200.1100, L509.6000, L500.4050, L3100.3425, L501.9520, L3300.1200, L503.6150, L100.0100, L5500.0550, L503.6550, L502.0500, L501.5200, L3430.0100, L503.0105, L504.2610, L3100.5440, L101.9900, L3300.1800, L501.6710, L501.2300, L2100.0000 #### [facility] [address] [facility]. [place], [place], [id number] L5500.0550on 12-02-2024 BEEF <0.10 Normal Class 0 [facility] Comment on above: Performed By: #### L 3200.1100, L509.6000, L500.4050, L3100.3425, L501.9520, L3300.1200, L503.6150, L100.0100, L5500.0550, L503.6550, L502.0500, L501.5200, L3430.0100, L503.0105, L504.2610, L3100.5440, L101.9900, L3300.1800, L501.6710, L501.2300, L2100.0000 ####[facility] [address] [place], [address] CHOCOLATE <0.10 Normal Class 0 [facility] Comment on above: Performed By: #### L 3200.1100, L509.6000, L500.4050, L3100.3425, L501.9520, L3300.1200, L503.6150, L100.0100, L5500.0550, L503.6550, L502.0500, L501.5200, L3430.0100, L503.0105, L504.2610, L3100.5440, L101.9900, L3300.1800, L501.6710, L501.2300, L2100.0000 ####[facility] [address] [place], [place], [phone] CODFISH <0.10 Normal Class 0 [facility] Comment on above: Performed By: #### L 3200.1100, L509.6000, L500.4050, L3100.3425, L501.9520, L3300.1200, L503.6150, L100.0100, L5500.0550, L503.6550, L502.0500, L501.5200, L3430.0100, L503.0105, L504.2610, L3100.5440, L101.9900, L3300.1800, L501.6710, L501.2300, L2100.0000 ####[facility] [address] [place], [place], [id number] COMMENT Comment Normal . [facility] Comment on above: Result Comment: [place] seo of Specific IgE Class Description of Class ----- < 0.10 0 Negative 0.10 - 0.31 0/I Equivocal/Low 0.32 - 0.55 I Low 0.56 - 1.40 II Moderate 1.41 - 3.90 III High 3.91 - 19.00 IV Very High 19.01 - 100.00 V Very High >100.00 Very High Performed By: #### L 3200.1100, L509.6000, L500.4050, L3100.3425, L501.9520, L3300.1200, L503.6150, L100.0100, L5500.0550, L503.6550, L502.0500, L501.5200, L3430.0100, L503.0105, L504.2610, L3100.5440, L101.9900, L3300.1800, L501.6710, L501.2300, L2100.0000 ####[facility] [address] [place], [place], [id number] CORN 0.11 kU/L Abnormal Class 0/I [facility] Comment on above: Performed By: #### L 3200.1100, L509.6000, L500.4050, L3100.3425, L501.9520, L3300.1200, L503.6150, L100.0100, L5500.0550, L503.6550, L502.0500, L501.5200, L3430.0100, L503.0105, L504.2610, L3100.5440, L101.9900, L3300.1800, L501.6710, L501.2300, L2100.0000 ####[facility] [address] [facility] [place], [address] EGG, WHOLE 1.11 kU/L Abnormal Class II [facility] Comment on above: Result Comment: Perf ormed at: [facility] [address] [id number] Airport Operations Officer: Herb Hsu PhD, Phone: [phone] Performed at: [facility] [address] [id number] Airport Operations Officer: John Snyder MD, Phone: [phone] Performed By: #### L 3200.1100, L509.6000, L500.4050, L3100.3425, L501.9520, L3300.1200, L503.6150, L100.0100, L5500.0550, L503.6550, L502.0500, L501.5200, L3430.0100, L503.0105, L504.2610, L3100.5440, L101.9900, L3300.1800, L501.6710, L501.2300, L2100.0000 ####[facility] [address] [facility] [place], [address] MILK (COW) 1.13 kU/L Abnormal Class II [facility] Comment on above: Performed By: #### L 3200.1100, L509.6000, L500.4050, L3100.3425, L501.9520, L3300.1200, L503.6150, L100.0100, L5500.0550, L503.6550, L502.0500, L501.5200, L3430.0100, L503.0105, L504.2610, L3100.5440, L101.9900, L3300.1800, L501.6710, L501.2300, L2100.0000 ####[facility] [address] [facility] [place], [address] MUSSELS <0.10 Normal Class 0 [facility] Comment on above: Performed By: #### L 3200.1100, L509.6000, L500.4050, L3100.3425, L501.9520, L3300.1200, L503.6150, L100.0100, L5500.0550, L503.6550, L502.0500, L501.5200, L3430.0100, L503.0105, L504.2610, L3100.5440, L101.9900, L3300.1800, L501.6710, L501.2300, L2100.0000 ####[facility] [address] [place], [address] PEANUT <0.10 Normal Class 0 [facility] Comment on above: Performed By: #### L 3200.1100, L509.6000, L500.4050, L3100.3425, L501.9520, L3300.1200, L503.6150, L100.0100, L5500.0550, L503.6550, L502.0500, L501.5200, L3430.0100, L503.0105, L504.2610, L3100.5440, L101.9900, L3300.1800, L501.6710, L501.2300, L2100.0000 ####[facility] [address] [place], [place], [id number] PORK <0.10 Normal Class 0 [facility] Comment on above: Performed By: #### L 3200.1100, L509.6000, L500.4050, L3100.3425, L501.9520, L3300.1200, L503.6150, L100.0100, L5500.0550, L503.6550, L502.0500, L501.5200, L3430.0100, L503.0105, L504.2610, L3100.5440, L101.9900, L3300.1800, L501.6710, L501.2300, L2100.0000 ####[facility] [address] [place], [place], [phone] SALMON <0.10 Normal Class 0 [facility] Comment on above: Performed By: #### L 3200.1100, L509.6000, L500.4050, L3100.3425, L501.9520, L3300.1200, L503.6150, L100.0100, L5500.0550, L503.6550, L502.0500, L501.5200, L3430.0100, L503.0105, L504.2610, L3100.5440, L101.9900, L3300.1800, L501.6710, L501.2300, L2100.0000 ####[facility] [address] [place], [place], [id number] SHRIMP <0.10 Normal Class 0 [facility] Comment on above: Performed By: #### L 3200.1100, L509.6000, L500.4050, L3100.3425, L501.9520, L3300.1200, L503.6150, L100.0100, L5500.0550, L503.6550, L502.0500, L501.5200, L3430.0100, L503.0105, L504.2610, L3100.5440, L101.9900, L3300.1800, L501.6710, L501.2300, L2100.0000 ####[facility] [address] [place], [place], [id number] SOYBEAN <0.10 Normal Class 0 [facility] Comment on above: Performed By: #### L 3200.1100, L509.6000, L500.4050, L3100.3425, L501.9520, L3300.1200, L503.6150, L100.0100, L5500.0550, L503.6550, L502.0500, L501.5200, L3430.0100, L503.0105, L504.2610, L3100.5440, L101.9900, L3300.1800, L501.6710, L501.2300, L2100.0000 ####[facility] [address] [facility] [place], [address] TUNA <0.10 Normal Class 0 [facility] Comment on above: Performed By: #### L 3200.1100, L509.6000, L500.4050, L3100.3425, L501.9520, L3300.1200, L503.6150, L100.0100, L5500.0550, L503.6550, L502.0500, L501.5200, L3430.0100, L503.0105, L504.2610, L3100.5440, L101.9900, L3300.1800, L501.6710, L501.2300, L2100.0000 ####[facility] [address] [place], [address] WHEAT <0.10 Normal Class 0 [facility] Comment on above: Performed By: #### L 3200.1100, L509.6000, L500.4050, L3100.3425, L501.9520, L3300.1200, L503.6150, L100.0100, L5500.0550, L503.6550, L502.0500, L501.5200, L3430.0100, L503.0105, L504.2610, L3100.5440, L101.9900, L3300.1800, L501.6710, L501.2300, L2100.0000 ####[facility] [address] [place], [address] CDIFF (PCR)on 11-30-2024 CDIFF Pending 027 027 NAP1-B1 Presumptive Negative *for epidemiolologic???use C. Diff PCR Negative- No toxigenic C. Diff Detected Normal [facility] Comment on above: Performed By: #### L 502.0250 #### [facility] [address] [facility] [place], [address] Stool Lactoferrin/WBCon 02-0 WBCST Normal Reference Ran ge = Negative Fecal WBC Lactoferrin Negative: No Fecal WBC Lactoferrin present Normal [facility] Comment on above: Performed By: #### L 502.0250 #### [facility] [address] [facility] [place], [address] Stool Occult Blood iFOBon STOB Normal Reference Ran ge = Negative Immunochemical Fecal Occult Blood (iFOBT) method. Hemoccult Stl Ql IA Limitation: Menstrual bleeding, constipation bleeding, bleeding hemorrhoids, and urinary bleeding conditions may interfere with test. Occult Blood Negative Normal [facility] Comment on above: Performed By: #### L 502.0250 #### [facility] [address] [facility] [place], [address] CBC W/Diff, Automatedon 02-0 Absolute Lymph 3.17 X10 3/uL Normal 0.83-4.51 [facility] Comment on above: Performed By: #### L 3200.1100, L509.6000, L500.4050, L3100.3425, L501.9520, L3300.1200, L503.6150, L100.0100, L5500.0550, L503.6550, L502.0500, L501.5200, L3430.0100, L503.0105, L504.2610, L3100.5440, L101.9900, L3300.1800, L501.6710, L501.2300, L2100.0000 #### [facility] [address] [place], [address] Absolute Neut 6.9 X10 3/uL Normal 2.0-7.7 [facility] Comment on above: Performed By: #### L 3200.1100, L509.6000, L500.4050, L3100.3425, L501.9520, L3300.1200, L503.6150, L100.0100, L5500.0550, L503.6550, L502.0500, L501.5200, L3430.0100, L503.0105, L504.2610, L3100.5440, L101.9900, L3300.1800, L501.6710, L501.2300, L2100.0000 #### [facility] [address] [facility] [place], [address] Basophils/100 WBC (Bld) 0.2 % Normal 0-1 [facility] Comment on above: Performed By: #### L 3200.1100, L509.6000, L500.4050, L3100.3425, L501.9520, L3300.1200, L503.6150, L100.0100, L5500.0550, L503.6550, L502.0500, L501.5200, L3430.0100, L503.0105, L504.2610, L3100.5440, L101.9900, L3300.1800, L501.6710, L501.2300, L2100.0000 #### [facility] [address] [place], [address] Eosinophils/100 WBC (Bld) 1.3 % Normal 0-5 [facility] Comment on above: Performed By: #### L 3200.1100, L509.6000, L500.4050, L3100.3425, L501.9520, L3300.1200, L503.6150, L100.0100, L5500.0550, L503.6550, L502.0500, L501.5200, L3430.0100, L503.0105, L504.2610, L3100.5440, L101.9900, L3300.1800, L501.6710, L501.2300, L2100.0000 #### [facility] [address] [place], [place], [id number] Erythrocyte distribution width (RBC) [Ratio] 14.0 % Normal 11.6-14.6 [facility] Comment on above: Performed By: #### L 3200.1100, L509.6000, L500.4050, L3100.3425, L501.9520, L3300.1200, L503.6150, L100.0100, L5500.0550, L503.6550, L502.0500, L501.5200, L3430.0100, L503.0105, L504.2610, L3100.5440, L101.9900, L3300.1800, L501.6710, L501.2300, L2100.0000 #### [facility] [address] [place], [place], [address] Hematocrit (Bld) [Volume fraction] 41.9 % Normal 37-47 [facility] Comment on above: Performed By: #### L 3200.1100, L509.6000, L500.4050, L3100.3425, L501.9520, L3300.1200, L503.6150, L100.0100, L5500.0550, L503.6550, L502.0500, L501.5200, L3430.0100, L503.0105, L504.2610, L3100.5440, L101.9900, L3300.1800, L501.6710, L501.2300, L2100.0000 #### [facility] [address] [facility] [facility] [place], [address] Hemoglobin (Bld) [Mass/Vol] 12.8 g/dL Normal 12.0-15.0 [facility] Comment on above: Performed By: #### L 3200.1100, L509.6000, L500.4050, L3100.3425, L501.9520, L3300.1200, L503.6150, L100.0100, L5500.0550, L503.6550, L502.0500, L501.5200, L3430.0100, L503.0105, L504.2610, L3100.5440, L101.9900, L3300.1800, L501.6710, L501.2300, L2100.0000 #### [facility] [address] [facility] [place], [address] IG% 0.400 Normal 0.0-0.9 [facility] Comment on above: Result Comment: IG% - Immature Granulocytes (promyelocytes, myelocytes and metamyelocytes) > 1% indicates that a LEFT SHIFT is Present. Performed By: #### L 3200.1100, L509.6000, L500.4050, L3100.3425, L501.9520, L3300.1200, L503.6150, L100.0100, L5500.0550, L503.6550, L502.0500, L501.5200, L3430.0100, L503.0105, L504.2610, L3100.5440, L101.9900, L3300.1800, L501.6710, L501.2300, L2100.0000 #### [facility] [address] [facility] [place], [address] Lymphocytes/100 WBC (Bld) 29.0 % Normal 19-41 [facility] Comment on above: Performed By: #### L 3200.1100, L509.6000, L500.4050, L3100.3425, L501.9520, L3300.1200, L503.6150, L100.0100, L5500.0550, L503.6550, L502.0500, L501.5200, L3430.0100, L503.0105, L504.2610, L3100.5440, L101.9900, L3300.1800, L501.6710, L501.2300, L2100.0000 #### [facility] [address] [place], [place], [phone] (744) MCH (RBC) [Entitic mass] 27.2 pg Normal 27.0-32.0 [facility] Comment on above: Performed By: #### L 3200.1100, L509.6000, L500.4050, L3100.3425, L501.9520, L3300.1200, L503.6150, L100.0100, L5500.0550, L503.6550, L502.0500, L501.5200, L3430.0100, L503.0105, L504.2610, L3100.5440, L101.9900, L3300.1800, L501.6710, L501.2300, L2100.0000 #### [facility] [address] [place], [address] MCHC (RBC) [Mass/Vol] 30.5 g/dL Low 32-36 [facility] Comment on above: Performed By: #### L 3200.1100, L509.6000, L500.4050, L3100.3425, L501.9520, L3300.1200, L503.6150, L100.0100, L5500.0550, L503.6550, L502.0500, L501.5200, L3430.0100, L503.0105, L504.2610, L3100.5440, L101.9900, L3300.1800, L501.6710, L501.2300, L2100.0000 #### [facility] [address] [place], [address] MCV (RBC) [Entitic vol] 89.1 fL Normal 81-99 [facility] Comment on above: Performed By: #### L 3200.1100, L509.6000, L500.4050, L3100.3425, L501.9520, L3300.1200, L503.6150, L100.0100, L5500.0550, L503.6550, L502.0500, L501.5200, L3430.0100, L503.0105, L504.2610, L3100.5440, L101.9900, L3300.1800, L501.6710, L501.2300, L2100.0000 #### [facility] [address] [facility] [place], [address] Monocytes/100 WBC (Bld) 5.9 % Normal 0-10 [facility] Comment on above: Performed By: #### L 3200.1100, L509.6000, L500.4050, L3100.3425, L501.9520, L3300.1200, L503.6150, L100.0100, L5500.0550, L503.6550, L502.0500, L501.5200, L3430.0100, L503.0105, L504.2610, L3100.5440, L101.9900, L3300.1800, L501.6710, L501.2300, L2100.0000 #### [facility] [address] [facility] [place], [address] Neutrophils/100 WBC (Bld) 63.2 % Normal 47-70 [facility] Comment on above: Performed By: #### L 3200.1100, L509.6000, L500.4050, L3100.3425, L501.9520, L3300.1200, L503.6150, L100.0100, L5500.0550, L503.6550, L502.0500, L501.5200, L3430.0100, L503.0105, L504.2610, L3100.5440, L101.9900, L3300.1800, L501.6710, L501.2300, L2100.0000 #### [facility] [address] [place], [address] Nucleated RBC (Bld) [#/Vol] 0 10*3/uL Normal 0-5 [facility] Comment on above: Performed By: #### L 3200.1100, L509.6000, L500.4050, L3100.3425, L501.9520, L3300.1200, L503.6150, L100.0100, L5500.0550, L503.6550, L502.0500, L501.5200, L3430.0100, L503.0105, L504.2610, L3100.5440, L101.9900, L3300.1800, L501.6710, L501.2300, L2100.0000 #### [facility] [address] [place], [place], [phone] (086) Platelet mean volume (Bld) [Entitic vol] 9.7 fL Normal 6.2-12.0 [facility] Comment on above: Performed By: #### L 3200.1100, L509.6000, L500.4050, L3100.3425, L501.9520, L3300.1200, L503.6150, L100.0100, L5500.0550, L503.6550, L502.0500, L501.5200, L3430.0100, L503.0105, L504.2610, L3100.5440, L101.9900, L3300.1800, L501.6710, L501.2300, L2100.0000 #### [facility] [address] [place], [address] (504) Platelets (Bld) [#/Vol] 303 10*3/uL Normal 150-450 [facility] Comment on above: Performed By: #### L 3200.1100, L509.6000, L500.4050, L3100.3425, L501.9520, L3300.1200, L503.6150, L100.0100, L5500.0550, L503.6550, L502.0500, L501.5200, L3430.0100, L503.0105, L504.2610, L3100.5440, L101.9900, L3300.1800, L501.6710, L501.2300, L2100.0000 #### [facility] [address] [place], [address] RBC (Bld) [#/Vol] 4.70 10*6/uL Normal 4.2-5.4 [facility] Comment on above: Performed By: #### L 3200.1100, L509.6000, L500.4050, L3100.3425, L501.9520, L3300.1200, L503.6150, L100.0100, L5500.0550, L503.6550, L502.0500, L501.5200, L3430.0100, L503.0105, L504.2610, L3100.5440, L101.9900, L3300.1800, L501.6710, L501.2300, L2100.0000 #### [facility] [address] [place], [address] RDW SD 46.0 fl High 35.1-43.9 [facility] Comment on above: Performed By: #### L 3200.1100, L509.6000, L500.4050, L3100.3425, L501.9520, L3300.1200, L503.6150, L100.0100, L5500.0550, L503.6550, L502.0500, L501.5200, L3430.0100, L503.0105, L504.2610, L3100.5440, L101.9900, L3300.1800, L501.6710, L501.2300, L2100.0000 #### [facility] [address] [place], [address] WBC (Bld) [#/Vol] 10.9 10*3/uL Normal 4.4-11.0 [facility] Comment on above: Performed By: #### L 3200.1100, L509.6000, L500.4050, L3100.3425, L501.9520, L3300.1200, L503.6150, L100.0100, L5500.0550, L503.6550, L502.0500, L501.5200, L3430.0100, L503.0105, L504.2610, L3100.5440, L101.9900, L3300.1800, L501.6710, L501.2300, L2100.0000 #### [facility] [address] [place], [address] Absolute Neut Normal 2.0-7.7 [facility] Comment on above: Order Comment: Order Date: 07/30/24 Order Info: 0184-1 - CBCD Result Comment: DUPL ICATE Performed By: #### L 100.0100, L500.4050 #### [facility] [address] [place], [address] HCT Normal 37-47 [facility] Comment on above: Order Comment: Order Date: 07/30/24 Order Info: 0184-1 - CBCD Result Comment: DUPL ICATE Performed By: #### L 100.0100, L500.4050 #### [facility] [address] [place], [address] HGB Normal 12.0-15.0 [facility] Comment on above: Order Comment: Order Date: 07/30/24 Order Info: 0184-1 - CBCD Result Comment: DUPL ICATE Performed By: #### L 100.0100, L500.4050 #### [facility] [address] [place], [address] MCH Normal 27.0-32.0 [facility] Comment on above: Order Comment: Order Date: 07/30/24 Order Info: 0184-1 - CBCD Result Comment: DUPL ICATE Performed By: #### L 100.0100, L500.4050 #### [facility] [address] [place], [address] MCHC Normal 32-36 [facility] Comment on above: Order Comment: Order Date: 07/30/24 Order Info: 0184-1 - CBCD Result Comment: DUPL ICATE Performed By: #### L 100.0100, L500.4050 #### [facility] [address] [place], [address] MCV Normal 81-99 [facility] Comment on above: Order Comment: Order Date: 07/30/24 Order Info: 018-1 - CBCD Result Comment: DUPL ICATE Performed By: #### L 100.0100, L500.4050 #### [facility] [address] [place], [address] NEUT% Normal 47-70 [facility] Comment on above: Order Comment: Order Date: 07/30/24 Order Info: 018- - CBCD Result Comment: DUPL ICATE Performed By: #### L 100.0100, L500.4050 #### [facility] [address] [place], [address] PLT Normal 150-450 [facility] Comment on above: Order Comment: Order Date: 07/30/24 Order Info: 0184-1 - CBCD Result Comment: DUPL ICATE Performed By: #### L 100.0100, L500.4050 #### [facility] [address] [place], [address] RBC Normal 4.2-5.4 [facility] Comment on above: Order Comment: Order Date: 07/30/24 Order Info: 0184-1 - CBCD Result Comment: DUPL ICATE Performed By: #### L 100.0100, L500.4050 #### [facility] [address] [place], [address] RDW CV Normal 11.6-14.6 [facility] Comment on above: Order Comment: Order Date: 07/30/24 Order Info: 0184-1 - CBCD Result Comment: DUPL ICATE Performed By: #### L 100.0100, L500.4050 #### [facility] [address] [place], [address] RDW SD Normal 35.1-43.9 [facility] Comment on above: Order Comment: Order Date: 07/30/24 Order Info: 0184-1 - CBCD Result Comment: DUPL ICATE Performed By: #### L 100.0100, L500.4050 #### [facility] [address] [place], [address] WBC Normal 4.4-11.0 [facility] Comment on above: Order Comment: Order Date: 07/30/24 Order Info: 0184-1 - CBCD Result Comment: DUPL ICATE Performed By: #### L 100.0100, L500.4050 #### [facility] [address] [place], [address] CORTISOL SERUMon 11-27-2024 CORTISOL 8.70 ug/dL Normal 3.44-22.45 [facility] Comment on above: Result Comment: Adul t (AM) 5.27 - 22.45 ug/dL Adult (PM) 3.44 - 16.76 ug/dL Performed By: #### L 3200.1100, L509.6000, L500.4050, L3100.3425, L501.9520, L3300.1200, L503.6150, L100.0100, L5500.0550, L503.6550, L502.0500, L501.5200, L3430.0100, L503.0105, L504.2610, L3100.5440, L101.9900, L3300.1800, L501.6710, L501.2300, L2100.0000 ####[facility] [address] [place], [place], [phone] CRPon 11-27-2024 C-REACTIVE PROT < 2.90 Normal 0.0-3.0 [facility] Comment on above: Result Comment: C-Re active Protein (CRP) provides useful information for the diagnosis, therapy and monitoring of inflammatory processes and associated diseases. For the evaluation of Relative Risk for Cardiovascular Disease, a High Sensitivity CRP (HSCRP) should be ordered. Performed By: #### L 3200.1100, L509.6000, L500.4050, L3100.3425, L501.9520, L3300.1200, L503.6150, L100.0100, L5500.0550, L503.6550, L502.0500, L501.5200, L3430.0100, L503.0105, L504.2610, L3100.5440, L101.9900, L3300.1800, L501.6710, L501.2300, L2100.0000 ####[facility] [address] [place], [place], [phone] Comprehensive Metabolic Prof ilon 11-27-2024 Albumin [Mass/Vol] 3.6 g/dL Normal 3.2-5.0 [facility] Comment on above: Performed By: #### L 3200.1100, L509.6000, L500.4050, L3100.3425, L501.9520, L3300.1200, L503.6150, L100.0100, L5500.0550, L503.6550, L502.0500, L501.5200, L3430.0100, L503.0105, L504.2610, L3100.5440, L101.9900, L3300.1800, L501.6710, L501.2300, L2100.0000 ####[facility] [address] [place], [place], [phone] Albumin/Globulin [Mass ratio] 1.0 {ratio} Normal 0.9-2.4 [facility] Comment on above: Performed By: #### L 3200.1100, L509.6000, L500.4050, L3100.3425, L501.9520, L3300.1200, L503.6150, L100.0100, L5500.0550, L503.6550, L502.0500, L501.5200, L3430.0100, L503.0105, L504.2610, L3100.5440, L101.9900, L3300.1800, L501.6710, L501.2300, L2100.0000 ####[facility] [address] [place], [place], [phone] ALK P 110 U/L Normal 45-117 [facility] Comment on above: Performed By: #### L 3200.1100, L509.6000, L500.4050, L3100.3425, L501.9520, L3300.1200, L503.6150, L100.0100, L5500.0550, L503.6550, L502.0500, L501.5200, L3430.0100, L503.0105, L504.2610, L3100.5440, L101.9900, L3300.1800, L501.6710, L501.2300, L2100.0000 ####[facility] [address] [facility] [place], [place], [phone] ALT [Catalytic activity/Vol] 27 U/L Normal 13-56 [facility] Comment on above: Performed By: #### L 3200.1100, L509.6000, L500.4050, L3100.3425, L501.9520, L3300.1200, L503.6150, L100.0100, L5500.0550, L503.6550, L502.0500, L501.5200, L3430.0100, L503.0105, L504.2610, L3100.5440, L101.9900, L3300.1800, L501.6710, L501.2300, L2100.0000 ####[facility] [address] [place], [place], [phone] AST [Catalytic activity/Vol] 12 U/L Low 15-37 [facility] Comment on above: Performed By: #### L 3200.1100, L509.6000, L500.4050, L3100.3425, L501.9520, L3300.1200, L503.6150, L100.0100, L5500.0550, L503.6550, L502.0500, L501.5200, L3430.0100, L503.0105, L504.2610, L3100.5440, L101.9900, L3300.1800, L501.6710, L501.2300, L2100.0000 ####[facility] [address] [place], [place], [id number] Bilirubin [Mass/Vol] 0.40 mg/dL Normal 0.20-1.00 [facility] Comment on above: Result Comment: For patients on eltrombopag therapy, use of Dimension [place] TBIL is not recommended. Performed By: #### L 3200.1100, L509.6000, L500.4050, L3100.3425, L501.9520, L3300.1200, L503.6150, L100.0100, L5500.0550, L503.6550, L502.0500, L501.5200, L3430.0100, L503.0105, L504.2610, L3100.5440, L101.9900, L3300.1800, L501.6710, L501.2300, L2100.0000 ####[facility] [address] [place], [address] BUN/CRE 14.8 RATIO Normal 10-20 [facility] Comment on above: Performed By: #### L 3200.1100, L509.6000, L500.4050, L3100.3425, L501.9520, L3300.1200, L503.6150, L100.0100, L5500.0550, L503.6550, L502.0500, L501.5200, L3430.0100, L503.0105, L504.2610, L3100.5440, L101.9900, L3300.1800, L501.6710, L501.2300, L2100.0000 ####[facility] [address] [place], [place], [phone] CA,Total 9.0 mg/dL Normal 8.5-10.1 [facility] Comment on above: Performed By: #### L 3200.1100, L509.6000, L500.4050, L3100.3425, L501.9520, L3300.1200, L503.6150, L100.0100, L5500.0550, L503.6550, L502.0500, L501.5200, L3430.0100, L503.0105, L504.2610, L3100.5440, L101.9900, L3300.1800, L501.6710, L501.2300, L2100.0000 ####[facility] [address] [place], [place], [phone] Chloride [Moles/Vol] 109 mmol/L High 98-107 [facility] Comment on above: Performed By: #### L 3200.1100, L509.6000, L500.4050, L3100.3425, L501.9520, L3300.1200, L503.6150, L100.0100, L5500.0550, L503.6550, L502.0500, L501.5200, L3430.0100, L503.0105, L504.2610, L3100.5440, L101.9900, L3300.1800, L501.6710, L501.2300, L2100.0000 ####[facility] [address] [place], [address] CO2 [Moles/Vol] 25.0 mmol/L Normal 21.0-32.0 [facility] Comment on above: Performed By: #### L 3200.1100, L509.6000, L500.4050, L3100.3425, L501.9520, L3300.1200, L503.6150, L100.0100, L5500.0550, L503.6550, L502.0500, L501.5200, L3430.0100, L503.0105, L504.2610, L3100.5440, L101.9900, L3300.1800, L501.6710, L501.2300, L2100.0000 ####[facility] [address] [place], [place], [phone] Creatinine [Mass/Vol] 0.54 mg/dL Low 0.55-1.02 [facility] Comment on above: Result Comment: The validity of the calculated GFR GFRAA in patients over 70 years has not been determined. Clinical correlation is essential. Performed By: #### L 3200.1100, L509.6000, L500.4050, L3100.3425, L501.9520, L3300.1200, L503.6150, L100.0100, L5500.0550, L503.6550, L502.0500, L501.5200, L3430.0100, L503.0105, L504.2610, L3100.5440, L101.9900, L3300.1800, L501.6710, L501.2300, L2100.0000 ####[facility] [address] [place], [place], [phone] EST GFR - AA 143 mL/min Normal >60 [facility] Comment on above: Result Comment: Afri can [place] GFR Calc Performed By: #### L 3200.1100, L509.6000, L500.4050, L3100.3425, L501.9520, L3300.1200, L503.6150, L100.0100, L5500.0550, L503.6550, L502.0500, L501.5200, L3430.0100, L503.0105, L504.2610, L3100.5440, L101.9900, L3300.1800, L501.6710, L501.2300, L2100.0000 ####[facility] [address] [place], [place], [phone] GAP 6 Normal 5-15 [facility] Comment on above: Performed By: #### L 3200.1100, L509.6000, L500.4050, L3100.3425, L501.9520, L3300.1200, L503.6150, L100.0100, L5500.0550, L503.6550, L502.0500, L501.5200, L3430.0100, L503.0105, L504.2610, L3100.5440, L101.9900, L3300.1800, L501.6710, L501.2300, L2100.0000 ####[facility] [address] [place], [address] GFR/1.73 sq M.predicted among non-blacks MDRD (S/P/Bld) [Vol rate/Area] 118 mL/min/{1.73_m2} Normal >60 [facility] Comment on above: Result Comment: Non- GFR Calc Performed By: #### L 3200.1100, L509.6000, L500.4050, L3100.3425, L501.9520, L3300.1200, L503.6150, L100.0100, L5500.0550, L503.6550, L502.0500, L501.5200, L3430.0100, L503.0105, L504.2610, L3100.5440, L101.9900, L3300.1800, L501.6710, L501.2300, L2100.0000 ####[facility] [address] [place], [address] Globulin (S) [Mass/Vol] 3.6 g/dL Normal 2.2-4.2 [facility] Comment on above: Performed By: #### L 3200.1100, L509.6000, L500.4050, L3100.3425, L501.9520, L3300.1200, L503.6150, L100.0100, L5500.0550, L503.6550, L502.0500, L501.5200, L3430.0100, L503.0105, L504.2610, L3100.5440, L101.9900, L3300.1800, L501.6710, L501.2300, L2100.0000 ####[facility] [address] [place], [place], [phone] Glucose [Mass/Vol] 133 mg/dL High 74-106 [facility] Comment on above: Result Comment: Fast ing Glucose result greater than or equal to 126 mg/dL suggests DIABETES MELLITUS per A.D.A. criteria. Performed By: #### L 3200.1100, L509.6000, L500.4050, L3100.3425, L501.9520, L3300.1200, L503.6150, L100.0100, L5500.0550, L503.6550, L502.0500, L501.5200, L3430.0100, L503.0105, L504.2610, L3100.5440, L101.9900, L3300.1800, L501.6710, L501.2300, L2100.0000 ####[facility] [address] [place], [place], [phone] Potassium [Moles/Vol] 3.2 mmol/L Low 3.5-5.1 [facility] Comment on above: Performed By: #### L 3200.1100, L509.6000, L500.4050, L3100.3425, L501.9520, L3300.1200, L503.6150, L100.0100, L5500.0550, L503.6550, L502.0500, L501.5200, L3430.0100, L503.0105, L504.2610, L3100.5440, L101.9900, L3300.1800, L501.6710, L501.2300, L2100.0000 ####[facility] [address] [place], [address] Sodium [Moles/Vol] 140 mmol/L Normal 136-145 [facility] Comment on above: Performed By: #### L 3200.1100, L509.6000, L500.4050, L3100.3425, L501.9520, L3300.1200, L503.6150, L100.0100, L5500.0550, L503.6550, L502.0500, L501.5200, L3430.0100, L503.0105, L504.2610, L3100.5440, L101.9900, L3300.1800, L501.6710, L501.2300, L2100.0000 ####[facility] [address] [place], [address] T PROT 7.2 g/dL Normal 6.4-8.2 [facility] Comment on above: Performed By: #### L 3200.1100, L509.6000, L500.4050, L3100.3425, L501.9520, L3300.1200, L503.6150, L100.0100, L5500.0550, L503.6550, L502.0500, L501.5200, L3430.0100, L503.0105, L504.2610, L3100.5440, L101.9900, L3300.1800, L501.6710, L501.2300, L2100.0000 ####[facility] [address] [place], [place], [phone] Urea nitrogen [Mass/Vol] 8 mg/dL Normal 7-18 [facility] Comment on above: Performed By: #### L 3200.1100, L509.6000, L500.4050, L3100.3425, L501.9520, L3300.1200, L503.6150, L100.0100, L5500.0550, L503.6550, L502.0500, L501.5200, L3430.0100, L503.0105, L504.2610, L3100.5440, L101.9900, L3300.1800, L501.6710, L501.2300, L2100.0000 ####[facility] [address] [place], [address] ALB Normal 3.2-5.0 [facility] Comment on above: Order Comment: Order Date: 07/30/24 Order Info: 0786-1 - CMP Order Info: 3016-3 - TSH Result Comment: DUPL ICATE Performed By: #### L 100.0100, L500.4050 #### [facility] [address] [place], [address] ALK P Normal 45-117 [facility] Comment on above: Order Comment: Order Date: 07/30/24 Order Info: 0786-1 - CMP Order Info: 3016-3 - TSH Result Comment: DUPL ICATE Performed By: #### L 100.0100, L500.4050 #### [facility] [address] [place], [address] ALT Normal 13-56 [facility] Comment on above: Order Comment: Order Date: 07/30/24 Order Info: 0786-1 - CMP Order Info: 3016-3 - TSH Result Comment: DUPL ICATE Performed By: #### L 100.0100, L500.4050 #### [facility] [address] [place], [address] AST Normal 15-37 [facility] Comment on above: Order Comment: Order Date: 07/30/24 Order Info: 0786-1 - CMP Order Info: 3016-3 - TSH Result Comment: DUPL ICATE Performed By: #### L 100.0100, L500.4050 #### [facility] [address] [place], [address] BUN Normal 7-18 [facility] Comment on above: Order Comment: Order Date: 07/30/24 Order Info: 0786-1 - CMP Order Info: 301-3 - TSH Result Comment: DUPL ICATE Performed By: #### L 100.0100, L500.4050 #### [facility] [address] [place], [address] BUN/CRE Normal 10-20 [facility] Comment on above: Order Comment: Order Date: 07/30/24 Order Info: 86-1 - CMP Order Info: 301-3 - TSH Result Comment: DUPL ICATE Performed By: #### L 100.0100, L500.4050 #### [facility] [address] [place], [address] CA,Total Normal 8.5-10.1 [facility] Comment on above: Order Comment: Order Date: 07/30/24 Order Info: 0786-1 - CMP Order Info: 3015-3 - TSH Result Comment: DUPL ICATE Performed By: #### L 100.0100, L500.4050 #### [facility] [address] [place], [address] CL Normal 98-107 [facility] Comment on above: Order Comment: Order Date: 07/30/24 Order Info: 0786-1 - CMP Order Info: 301-3 - TSH Result Comment: DUPL ICATE Performed By: #### L 100.0100, L500.4050 #### [facility] [address] [place], [address] CO2 Normal 21.0-32.0 [facility] Comment on above: Order Comment: Order Date: 07/30/24 Order Info: 0786-1 - CMP Order Info: 3016-3 - TSH Result Comment: DUPL ICATE Performed By: #### L 100.0100, L500.4050 #### [facility] [address] [place], [address] CREAT,SERUM Normal 0.55-1.02 [facility] Comment on above: Order Comment: Order Date: 07/30/24 Order Info: 86-1 - CMP Order Info: 301-3 - TSH Result Comment: DUPL ICATE Performed By: #### L 100.0100, L500.4050 #### [facility] [address] [place], [address] EST GFR Normal >60 [facility] Comment on above: Order Comment: Order Date: 07/30/24 Order Info: 86-1 - CMP Order Info: 3015-3 - TSH Result Comment: DUPL ICATE Performed By: #### L 100.0100, L500.4050 #### [facility] [address] [place], [address] EST GFR - AA Normal >60 [facility] Comment on above: Order Comment: Order Date: 07/30/24 Order Info: 86-1 - CMP Order Info: 3015-3 - TSH Result Comment: DUPL ICATE Performed By: #### L 100.0100, L500.4050 #### [facility] [address] [place], [address] GAP Normal 5-15 [facility] Comment on above: Order Comment: Order Date: 07/30/24 Order Info: 86-1 - CMP Order Info: 301-3 - TSH Result Comment: DUPL ICATE Performed By: #### L 100.0100, L500.4050 #### [facility] [address] [place], [address] GLU Normal 74-106 [facility] Comment on above: Order Comment: Order Date: 07/30/24 Order Info: 785-1 - CMP Order Info: 3015-3 - TSH Result Comment: DUPL ICATE Performed By: #### L 100.0100, L500.4050 #### [facility] [address] [place], [address] Potassium Normal 3.5-5.1 [facility] Comment on above: Order Comment: Order Date: 07/30/24 Order Info: 0786-1 - CMP Order Info: 301-3 - TSH Result Comment: DUPL ICATE Performed By: #### L 100.0100, L500.4050 #### [facility] [address] [place], [address] T BILI Normal 0.20-1.00 [facility] Comment on above: Order Comment: Order Date: 07/30/24 Order Info: 785-1 - CMP Order Info: 3 - TSH Result Comment: DUPL ICATE Performed By: #### L 100.0100, L500.4050 #### [facility] [address] [place], [address] T PROT Normal 6.4-8.2 [facility] Comment on above: Order Comment: Order Date: 07/30/24 Order Info: 785- - CMP Order Info: 3015-12 - TSH Result Comment: DUPL ICATE Performed By: #### L 100.0100, L500.4050 #### [facility] [address] [place], [address] Comprehensive Metabolic Profil Normal 136-145 [facility] Comment on above: Order Comment: Order Date: 07/30/24 Order Info: 0786-1 - CMP Order Info: 3 - TSH Result Comment: DUPL ICATE Performed By: #### L 100.0100, L500.4050 #### [facility] [address] [place], [address] Erythrocyte Sed Rateon 11-27 SED RATE 11 mm/hr Normal 0-30 [facility] Comment on above: Performed By: #### L 3200.1100, L509.6000, L500.4050, L3100.3425, L501.9520, L3300.1200, L503.6150, L100.0100, L5500.0550, L503.6550, L502.0500, L501.5200, L3430.0100, L503.0105, L504.2610, L3100.5440, L101.9900, L3300.1800, L501.6710, L501.2300, L2100.0000 ####[facility] [address] [place], [place], [phone] Ferritinon 11-27-2024 Ferritin [Mass/Vol] 12 ng/mL Normal 8-252 [facility] Comment on above: Performed By: #### L 3200.1100, L509.6000, L500.4050, L3100.3425, L501.9520, L3300.1200, L503.6150, L100.0100, L5500.0550, L503.6550, L502.0500, L501.5200, L3430.0100, L503.0105, L504.2610, L3100.5440, L101.9900, L3300.1800, L501.6710, L501.2300, L2100.0000 ####[facility] [address] [place], [place], [address] Ironon 11-27-2024 Iron [Mass/Vol] 42 ug/dL Low 50-170 [facility] Comment on above: Performed By: #### L 3200.1100, L509.6000, L500.4050, L3100.3425, L501.9520, L3300.1200, L503.6150, L100.0100, L5500.0550, L503.6550, L502.0500, L501.5200, L3430.0100, L503.0105, L504.2610, L3100.5440, L101.9900, L3300.1800, L501.6710, L501.2300, L2100.0000 ####[facility] [address] [place], [place], [phone] LDHon 11-27-2024 LDH 154 U/L Normal 84-246 [facility] Comment on above: Order Comment: 1 Performed By: #### L 3200.1100, L509.6000, L500.4050, L3100.3425, L501.9520, L3300.1200, L503.6150, L100.0100, L5500.0550, L503.6550, L502.0500, L501.5200, L3430.0100, L503.0105, L504.2610, L3100.5440, L101.9900, L3300.1800, L501.6710, L501.2300, L2100.0000 ####[facility] [address] [place], [place], [address] Magnesiumon 11-27-2024 Magnesium [Mass/Vol] 1.7 mg/dL Normal 1.6-2.6 [facility] Comment on above: Performed By: #### L 3200.1100, L509.6000, L500.4050, L3100.3425, L501.9520, L3300.1200, L503.6150, L100.0100, L5500.0550, L503.6550, L502.0500, L501.5200, L3430.0100, L503.0105, L504.2610, L3100.5440, L101.9900, L3300.1800, L501.6710, L501.2300, L2100.0000 ####[facility] [address] [place], [place], [phone] Microalbumin,Random Urineon 11-27-2024 MICROALBUMIN,UR 19.0 mg/L Normal NO RANGE EST. [facility] Comment on above: Performed By: #### L 3200.1100, L509.6000, L500.4050, L3100.3425, L501.9520, L3300.1200, L503.6150, L100.0100, L5500.0550, L503.6550, L502.0500, L501.5200, L3430.0100, L503.0105, L504.2610, L3100.5440, L101.9900, L3300.1800, L501.6710, L501.2300, L2100.0000 ####[facility] [address] [place], [place], [address] Phosphoruson 11-27-2024 Phosphate [Mass/Vol] 3.2 mg/dL Normal 2.5-4.9 [facility] Comment on above: Performed By: #### L 3200.1100, L509.6000, L500.4050, L3100.3425, L501.9520, L3300.1200, L503.6150, L100.0100, L5500.0550, L503.6550, L502.0500, L501.5200, L3430.0100, L503.0105, L504.2610, L3100.5440, L101.9900, L3300.1800, L501.6710, L501.2300, L2100.0000 ####[facility] [address] [facility] [address] [place], [place], [address] Thyroid Stim Hormone (TSH)on 11-27-2024 TSH 2.330 uIU/mL Normal 0.358-3.74 0 [facility] Comment on above: Performed By: #### L 3200.1100, L509.6000, L500.4050, L3100.3425, L501.9520, L3300.1200, L503.6150, L100.0100, L5500.0550, L503.6550, L502.0500, L501.5200, L3430.0100, L503.0105, L504.2610, L3100.5440, L101.9900, L3300.1800, L501.6710, L501.2300, L2100.0000 ####[facility] [address] [facility] [address] [place], [place], [address] Vitamin B12on 11-27-2024 Cobalamin (Vitamin B12) [Mass/Vol] 352 pg/mL Normal 211-911 [facility] Comment on above: Performed By: #### L 3200.1100, L509.6000, L500.4050, L3100.3425, L501.9520, L3300.1200, L503.6150, L100.0100, L5500.0550, L503.6550, L502.0500, L501.5200, L3430.0100, L503.0105, L504.2610, L3100.5440, L101.9900, L3300.1800, L501.6710, L501.2300, L2100.0000 ####[facility] [address] [facility] [place], [address] ABD Limited w/ Elastographyo n 10-25-2024 ABD Limited w/ Elastography [facility] Imaging Services [address] [place] [address] ABD Limited w/ Elastography MR#: [id number] Acct: [id number] Name: JOANA PERRY Rep #: [id number] : 1955 F 69 From: Luke chao MD PCP: Dr. Cristy Carroll MD Status: [facility] Study: ABD Limited w/ Elastography Date of Exam: 12/18 Exam# [id number] Ordering Dr: Doug Alvarez DO [id number] STUDY: ABDOMINAL ULTRASOUND - RIGHT UPPER QUADRANT; ELASTOGRAPHY REASON FOR VISIT: Female, 69 years old. Fatty infiltration of the liver. TECHNIQUE: Ultrasound evaluation of the right upper quadrant was performed with real-time and static merino-scale imaging. Point quantification shear wave elastography was performed (Aula 7). TECHNICAL QUALITY: Adequate. COMPARISON: Comparison is made [...] 9:14 EST Reading Location ID and State: [address] [place] [address] , Service support , CC: Dr. Cristy Carroll MD; Doug Alvarez DO Device Processing Engineer: Signed Normal [facility] Bedside Glucoseon 09-19-2024 FINGERSTICK GLU 166 mg/dL High 74-106 [facility] Comment on above: Result Comment: ERIC GEMENT OF PATIENT CARE PER NURSING PROTOCOL Performed By: #### L 501.080 #### [facility] [address] [facility] [place], [address] EGD Reporton 09-19-2024 EGD Report [facility] Medical Records Department [address] [place] [address] EGD Report MR#: [id number] Acct: [id number] Name: JOANA PERRY Rep #: [id number] : 1955 68 From: Doug Alvarez DO PCP: Dr. Cristy Carroll MD [place] [facility] [place] Name: Joana Perry Procedure Date: 09/19/2024 6:15 AM Date of : 1955 Age: 68 Procedure: Upper GI endoscopy Indications: Dysphagia Providers: DO Gareth Meng MD: To Carroll Medicines: Monitored Anesthesia Care [...] to therapy. Procedure Code(s): --- Professional --- 94241, Esophagogastroduodenoscopy, flexible, transoral; with ablation of tumor(s), polyp(s), or other lesion(s) (includes pre- and post-dilation and guide wire passage, when performed) 97309, 59,51, Esophagogastroduodenoscopy, flexible, transoral; with biopsy, single or multiple CPT copyright 2021 [place] [employer]. All rights reserved. The codes documented in this report are preliminary and upon systems mgr review may be revised to meet current compliance requirements. Doug Alvarez DO 09/19/2024 7:03:40 AM This report has been signed electronically. Number of Addenda: 0 Note Initiated On: 09/19/2024 (more content not included)... Normal [facility] MR/POSTOP.Feliciano 09-19-2024 MR/POSTOP.[facility] Medical Records Department [address] [place] [address] Anesthesia Postop Eval I 09/19/24 0706 MR#: [id number] Acct: [id number] Name: JOANA PERRY Rep #: [id number] : 1955 68 From: Rene Mantilla PCP: Dr. Cristy Carroll MD Status:[facility] Y Race: C Location: [place] [address] Anesthesia: Postop Eval I Current Vital Signs [...] Anesthesia document: Postop Eval 1 completed: Yes 09/19/24 07 Date Rene Moss Signature: Date CC: Signed Normal [facility] MR/BVTYLTVO6ji 09-19-2024 [facility] Medical Records Department [address] [place] [address] Anesthesia Postop Eval II 09/19/24 0954 MR#: [id number] Acct: [id number] Name: JOANA PERRY Rep #: [id number] : 1955 68 From: Yaya Guerin MD PCP: Dr. Cristy Carroll MD Status:[facility] Y Race: C Location: EN Anesthesia Postop [...] volume administered (ml) Total IV fluid infused 09/19/24 07:07 AA.TBEND Anesthesia Postop Eval I: Summary Notes Anesthesia Complication Yes 09/19/24 07:07 AA.TBEND Anesthesia Complication O2 desat d/t 09/19/24 07:07 AA.TBEND Comment: profuse coughing Post-operative progress note Anesthesia: Postop Eval II Evaluation Mental status: Awake Pain Level: 0 nausea: No Vomiting: No 09/19/24 0954 Date Yaya Moss Signature: Date CC: Signed Normal [facility] Special Stain Group Ion 11-2 Special Stain Group I --------- Patient Age/Sex Location Account Attending Physician JOANA PERRY 68/F EN [id number] Doug Alvarez DO Specimen: [id number] Received: 09/19/24 Status: [facility]AN[facility]NA Solitario Num: [id number] Spec Type: LOLA ANDERSEN Harry Dr: Doug Alvarez DO HEADER OPERATION: EGD and biopsy and dilation with [...] submitted in one cassette. AM. 09/19/2024 TC:3 CPT:87587,20794 Patient Age/Sex Location Account Attending Physician ORLANDOJOANA Roman Cheryl 68/F EN [id number] Doug Alvarez DO Signed (signature on file) Dr. Earl Maciel DO 09/21/24 1218 Normal [facility] Comment on above: Performed By: #### L 502.0250 #### [facility] [address] [place], [address] Abdomen/Pelvis WITH Contrast on 09-06-2024 Abdomen/Pelvis WITH Contrast [facility] Imaging Services [address], [place] [address] Abdomen/Pelvis WITH Contrast MR#: [id number] Acct: [id number] Name: JOANA PERRY Rep #: [id number] : 1955 F 68 From: Luke chao MD PCP: Dr. Cristy Carroll MD Status: REG CLI Study: Abdomen/Pelvis WITH Contrast Date of Exam: Exam# [id number] Ordering Dr: Doug Alvarez DO [id number] STUDY: CT ABDOMEN AND PELVIS WITH CONTRAST [...] Signed: Luke Hernandez MD at 11:33 EST Reading Location ID and State: [facility] / [place] , Service support , CC: Dr. Cristy Carroll MD; Doug Alvarez DO Device Processing Engineer: Signed Normal [facility] CREATININE FINGERSTICKon CREATININE WB < 1.0 Normal 0.55-1.02 [facility] Comment on above: Performed By: #### L 9100.0200 #### [facility] [address] [facility] [place], [address] EGFR WB > 60.0000 Normal >60 [facility] Comment on above: Performed By: #### L 9100.0200 #### [facility] [address] [facility]. [place], [place], [id number] Dexa Bone Density Studyon Dexa Bone Density Study [facility] Imaging Services [address] [place] [address] Dexa Bone Density Study MR#: [id number] Acct: [id number] Name: JOANA PERRY Rep #: [id number] : 1955 F 68 From: Luke chao MD PCP: Dr. Cristy Carroll MD Status: [facility] Study: Dexa Bone Density Study Date of Exam: 08/28/24 Exam# [id number] Ordering Dr: Cristy Carroll [id number] STUDY: DUAL ENERGY X-RAY ABSORPTIOMETRY / DXA [...] EST , CC: Dr. Cristy Carroll MD Device Processing Engineer: Signed Normal [facility] SCRN MAMM (CAD)W/KADY BILATo n 08-28-2024 SCRN MAMM (CAD)W/KADY BILAT [facility] Imaging Services [address] [place], [place] [id number] SCRN MAMM (CAD)W/KADY BILAT MR#: [id number] Acct: [id number] Name: JOANA PERRY Rep #: [id number] : 1955 F 68 From: Luke chao MD PCP: Dr. Cristy Carroll MD Status: [facility] Study: SCRN MAMM (CAD)W/KADY BILAT Date of Exam: 03/16 Exam# [id number] Ordering Dr: Cristy Carroll [id number] MAMMOGRAPHY - BILATERAL SCREENING REASON FOR EXAM: [...] delay biopsy of a clinically suspicious abnormality. [id number] Electronically Signed: Luke Hernandez MD at 9:56 EST Reading Location ID and State: [facility] / [place] , Service support , CC: Dr. Cristy Carroll MD Device Processing Engineer: Signed Normal [facility] Basophil percentageOrdered B y: To Carroll on 01-03-2024 Bilirubin [Mass/Vol] 0.40 mg/dL 0.20-1.00 [facility] Comment on above: For patients on eltr ombopag therapy, use of Dimension [place] TBIL is not recommended. Chloride [Moles/Vol] 99 mmol/L 98-107 [facility] Cholesterol [Mass/Vol] 113 mg/dL <200 [facility] Comment on above: <200 mg/dL Desirable 200-240 mg/dL Borderline >240 mg/dL High Risk Glucose [Mass/Vol] 153 mg/dL 74-106 [facility] Comment on above: Fasting Glucose resu lt greater than or equal to 126 mg/dL suggests DIABETES MELLITUS per A.D.A. criteria. Hemoglobin (Bld) [Mass/Vol] 14.6 g/dL 12.0-15.0 [facility] Potassium [Moles/Vol] 3.9 mmol/L 3.5-5.1 [facility] Protein [Mass/Vol] 7.4 g/dL 6.4-8.2 [facility] Sodium [Moles/Vol] 134 mmol/L 136-145 [facility] Triglyceride [Mass/Vol] 78 mg/dL <199 [facility] Comment on above: The drugs N-Acetylcy steine and Metamizole may falsely depress this assay.Serum Triglycerides Reference Interval Normal <150 mg/dL Borderline high 150 - 199 mg/dL High 200 - 499 mg/dL Very High > or = 500 mg/dL WBC (Bld) [#/Vol] 11.9 10*3/uL 4.4-11.0 [facility] Determination of erythrocyte mean corpuscular volume (MCV)Ordered By: To Carroll on 01-03-2024 MCV (RBC) [Entitic vol] 89.5 fL 81-99 [facility] Erythrocyte distribution wid th ratioOrdered By: To Carroll on 01-03-2024 Erythrocyte distribution width (RBC) [Ratio] 15.1 % 11.6-14.6 [facility] Erythrocyte distribution wid th standard deviationOrdered By: To Carroll on 01-03-2024 Erythrocyte distribution width (RBC) [Entitic vol] 49.6 fL 35.1-43.9 [facility] Hematocrit Auto (Bld) [Volum e fraction]Ordered By: To Carroll on 01-03-2024 Hematocrit (Bld) [Volume fraction] 44.4 % 37-47 [facility] Laboratory - Chemistry and C hemistry - challengeOrdered By: To Carroll on 01-03-2024 Albumin/Globulin [Mass ratio] 1.1 {ratio} 0.9-2.4 [facility] ALP [Catalytic activity/Vol] 108 U/L 45-117 [facility] ALT [Catalytic activity/Vol] 27 U/L 13-56 [facility] Cholesterol in HDL [Mass/Vol] 69 mg/dL >40 [facility] Comment on above: The drugs N-Acetylcy steine and Metamizole may falsely depress this assay. Reference Range HDL <40 mg/dL Low HDL Cholesterol HDL >or= 60 mg/dL High HDL Cholesterol Cholesterol in LDL [Mass/Vol] 28 mg/dL 0-130 [facility] CO2 [Moles/Vol] 30.0 mmol/L 21.0-32.0 [facility] Globulin (S) [Mass/Vol] 3.6 g/dL 2.2-4.2 [facility] Magnesium [Mass/Vol] 2.0 mg/dL 1.6-2.6 [facility] Natriuretic peptide B (Bld) [Mass/Vol] 22.1 pg/mL 0-100 [facility] Urea nitrogen/Creatinine [Mass ratio] 18.1 mg/mg 10-20 [facility] Laboratory - Hematology and Cell countsOrdered By: To Carroll on 01-03-2024 MCH (RBC) [Entitic mass] 29.4 pg 27.0-32.0 [facility] MCHC (RBC) [Mass/Vol] 32.9 g/dL 32-36 [facility] Platelet mean volume (Bld) [Entitic vol] 9.7 fL 6.2-12.0 [facility] Platelets (Bld) [#/Vol] 310 10*3/uL 150-450 [facility] No Panel InformationOrdered By: To Carroll on 01-03-2024 Vitamin D 25-Hydroxy 47.1 ng/mL [facility] Comment on above: Vitamin D 25(OH) Sta tus Range Deficiency <20 ng/mL (50nmol/L) Insufficiency 20 - 30 ng/mL (50 - 75 nmol/L) Sufficiency 30 - 100 ng/mL (75 - 250 nmol/L) Toxicity >100 ng/mL (>250 nmol/L) Estimated GFR (MDRD) Amer 103 mL/min >60 [facility] Comment on above: GFR Calc Estimated GFR (MDRD) Non-Af Amer 86 mL/min >60 [facility] Comment on above: Non- GFR Calc Troponin I High Sensitivity 6 pg/mL 3.0-54.0 [facility] Comment on above: Please Note: New Ailyn t Units and Gender Specific Reference Ranges. For more information see Policy Stat Procedure [place] High Sensitivity Troponin (TNIH) and attachments. VLDL Cholesterol 16 mg/dL 5-40 [facility] RBC Auto (Bld) [#/Vol]Ordere d By: To Carroll on 01-03-2024 RBC (Bld) [#/Vol] 4.96 10*6/uL 4.2-5.4 [facility] Serum or plasma calcium maureen urement (mass/volume)Ordered By: To Carroll on 01-03-2024 Calcium [Mass/Vol] 9.4 mg/dL 8.5-10.1 [facility] Serum or plasma creatinine m easurement (mass/volume)Ordered By: To Carroll on 01-03-2024 Creatinine [Mass/Vol] 0.72 mg/dL 0.55-1.02 [facility] Comment on above: The validity of the calculated GFR & GFRAA in patients over 70 years has not been determined. Clinical correlation is essential. Serum or plasma thyroid stim ulating hormone (TSH) measurement (units/volume)Ordered By: To Carroll on 01-03-2024 TSH Qn 2.26 uIU/mL 0.358-3.74 [facility] Serum or plasma urea nitroge n measurement (mass/volume)Ordered By: To Carroll on 01-03-2024 Urea nitrogen [Mass/Vol] 13 mg/dL 7-18 [facility] Thin prep Papanicolaou smear with manual screeningOrdered By: To Carroll on 01-03-2024 Thin prep Papanicolaou smear with manual screening 3.8 g/dL 3.2-5.0 [facility] Thin prep Papanicolaou smear with manual screening 19 U/L 15-37 [facility] Thin prep Papanicolaou smear with manual screening 5 5-15 [facility] Absolute lymphocyte countOrd ered By: Dr. Carroll on 04-06-2023 Lymphocytes Auto (Unsp spec) [#/Vol] 3.43 10*3/uL 0.83-4.51 [facility] Basophil percentageOrdered B y: Dr. Carroll on 04-06-2023 Basophils/100 WBC (Bld) 0.1 % 0-1 [facility] Bilirubin [Mass/Vol] 0.40 mg/dL 0.20-1.00 [facility] Comment on above: For patients on eltr ombopag therapy, use of Dimension [place] TBIL is not recommended. Chloride [Moles/Vol] 106 mmol/L 98-[address] [facility] Eosinophils/100 WBC (Bld) 2.0 % 0-5 [facility] Glucose [Mass/Vol] 108 mg/dL 74-106 [facility] Comment on above: Fasting Glucose resu lt from 100 to 125 mg/dL suggests IMPAIRED HOMEOSTASIS per A.D.A. criteria. Neutrophils (Bld) [#/Vol] 5.6 10*3/uL 2.0-7.7 [facility] Neutrophils/100 WBC (Bld) 56.2 % 47-70 [facility] Potassium [Moles/Vol] 3.8 mmol/L 3.5-5.1 [facility] Protein [Mass/Vol] 7.3 g/dL 6.4-8.2 [facility] Sodium [Moles/Vol] 140 mmol/L 136-145 [facility] WBC (Bld) [#/Vol] 9.9 10*3/uL 4.4-11.0 [facility] Blood erythrocytes count (nu mber/volume)Ordered By: Dr. Carroll on 04-06-2023 RBC (Bld) [#/Vol] 4.83 10*6/uL 4.2-5.4 [facility] Blood hemoglobin measurement (mass/volume)Ordered By: Dr. Carroll on 04-06-2023 Hemoglobin (Bld) [Mass/Vol] 14.3 g/dL 12.0-15.0 [facility] Blood lymphocytes/100 leukoc ytesOrdered By: Dr. Carroll on 04-06-2023 Lymphocytes/100 WBC (Bld) 34.7 % 19-41 [facility] Blood monocytes/100 leukocyt esOrdered By: Dr. Carroll on 04-06-2023 Monocytes/100 WBC (Bld) 6.5 % 0-10 [facility] Blood platelet mean volumeOr dered By: Dr. Carroll on 04-06-2023 Platelet mean volume (Bld) [Entitic vol] 9.6 fL 6.2-12.0 [facility] Determination of erythrocyte mean corpuscular volume (MCV)Ordered By: Dr. Carroll on 04-06-2023 MCV (RBC) [Entitic vol] 92.5 fL 81-99 [facility] Hematocrit Auto (Bld) [Volum e fraction]Ordered By: Dr. Carroll on 04-06-2023 Hematocrit (Bld) [Volume fraction] 44.7 % 37-47 [facility] Laboratory - Chemistry and C hemistry - challengeOrdered By: Dr. Carroll on 04-06-2023 ALP [Catalytic activity/Vol] 106 U/L 45-117 [facility] ALT [Catalytic activity/Vol] 61 U/L 13-56 [facility] CO2 [Moles/Vol] 28.0 mmol/L 21.0-32.0 [facility] Free T4 [Mass/Vol] 1.18 ng/dL 0.76-1.46 [facility] Globulin (S) [Mass/Vol] 3.5 g/dL 2.2-4.2 [facility] Urea nitrogen/Creatinine [Mass ratio] 9.9 mg/mg 10-20 [facility] Laboratory - Hematology and Cell countsOrdered By: Dr. Carroll on 04-06-2023 Erythrocyte distribution width (RBC) [Entitic vol] 46.5 fL 35.1-43.9 [facility] Erythrocyte distribution width (RBC) [Ratio] 13.8 % 11.6-14.6 [facility] Immature granulocytes/100 WBC (Bld) 0.500 % 0.0-0.9 [facility] Comment on above: IG% - Immature Granu locytes (promyelocytes, myelocytes and metamyelocytes) > 1% indicates that a LEFT SHIFT is Present. MCH (RBC) [Entitic mass] 29.6 pg 27.0-32.0 [facility] Nucleated RBC/100 WBC (Bld) [Ratio] 0 % 0-5 [facility] MCHC Auto (RBC) [Mass/Vol]Or dered By: Dr. Carroll on 04-06-2023 MCHC (RBC) [Mass/Vol] 32.0 g/dL 32-36 [facility] No Panel InformationOrdered By: Dr. Carroll on 04-06-2023 Estimated GFR (MDRD) Amer 105 mL/min >60 [facility] Comment on above: GFR Calc Estimated GFR (MDRD) Non-Af Amer 87 mL/min >60 [facility] Comment on above: Non- GFR Calc Free Triiodothyronine (T3) pg/dL 2.9 pg/mL 2.18-3.98 [facility] Thyroid Stimulating Hormone (TSH) 3.69 uIU/mL 0.358-3.74 [facility] Platelets bldOrdered By: Dr. Carroll on 04-06-2023 Platelets (Bld) [#/Vol] 266 10*3/uL 150-450 [facility] Serum or plasma albumin maureen urement (mass/volume)Ordered By: Dr. Carroll on 04-06-2023 Albumin [Mass/Vol] 3.8 g/dL 3.2-5.0 [facility] Serum or plasma albumin/glob ulin mass ratioOrdered By: Dr. Carroll on 04-06-2023 Albumin/Globulin [Mass ratio] 1.1 {ratio} 0.9-2.4 [facility] Serum or plasma calcium maureen urement (mass/volume)Ordered By: Dr. Carroll on 04-06-2023 Calcium [Mass/Vol] 9.0 mg/dL 8.5-10.1 [facility] Serum or plasma creatinine m easurement (mass/volume)Ordered By: Dr. Carroll on 04-06-2023 Creatinine [Mass/Vol] 0.71 mg/dL 0.55-1.02 [facility] Comment on above: The validity of the calculated GFR & GFRAA in patients over 70 years has not been determined. Clinical correlation is essential. Serum or plasma urea nitroge n measurement (mass/volume)Ordered By: Dr. Carroll on 04-06-2023 Urea nitrogen [Mass/Vol] 7 mg/dL 7-18 [facility] Thin prep Papanicolaou smear with manual screeningOrdered By: Dr. Carroll on 04-06-2023 Thin prep Papanicolaou smear with manual screening 25 U/L 15-37 [facility] Thin prep Papanicolaou smear with manual screening 6 5-15 [facility] Basophil percentageOrdered B y: Dr. Carroll on 11-23-2022 Bilirubin [Mass/Vol] 0.40 mg/dL 0.20-1.00 [facility] Comment on above: For patients on eltr ombopag therapy, use of Dimension [place] TBIL is not recommended. Chloride [Moles/Vol] 103 mmol/L 98-107 [facility] Cholesterol [Mass/Vol] 109 mg/dL <200 [facility] Comment on above: <200 mg/dL Desirable 200-240 mg/dL Borderline >240 mg/dL High Risk Glucose [Mass/Vol] 188 mg/dL 74-106 [facility] Comment on above: Fasting Glucose resu lt greater than or equal to 126 mg/dL suggests DIABETES MELLITUS per A.D.A. criteria. Potassium [Moles/Vol] 3.4 mmol/L 3.5-5.1 [facility] Protein [Mass/Vol] 7.1 g/dL 6.4-8.2 [facility] Sodium [Moles/Vol] 138 mmol/L 136-145 [facility] Triglyceride [Mass/Vol] 96 mg/dL <199 [facility] Comment on above: The drugs N-Acetylcy steine and Metamizole may falsely depress this assay.Serum Triglycerides Reference Interval Normal <150 mg/dL Borderline high 150 - 199 mg/dL High 200 - 499 mg/dL Very High > or = 500 mg/dL Laboratory - Chemistry and C hemistry - challengeOrdered By: Dr. Carroll on 11-23-2022 ALP [Catalytic activity/Vol] 104 U/L 45-117 [facility] ALT [Catalytic activity/Vol] 38 U/L 13-56 [facility] CO2 [Moles/Vol] 27.0 mmol/L 21.0-32.0 [facility] Cobalamin (Vitamin B12) [Mass/Vol] 527 pg/mL 211-911 [facility] Free T4 [Mass/Vol] 1.24 ng/dL 0.76-1.46 [facility] Globulin (S) [Mass/Vol] 3.5 g/dL 2.2-4.2 [facility] Urea nitrogen/Creatinine [Mass ratio] 10.7 mg/mg 10-20 [facility] No Panel InformationOrdered By: Dr. Carroll on 11-23-2022 Estimated GFR (MDRD) Amer 99 mL/min >60 [facility] Comment on above: GFR Calc Estimated GFR (MDRD) Non-Af Amer 82 mL/min >60 [facility] Comment on above: Non- GFR Calc Thyroid Stimulating Hormone (TSH) 3.98 uIU/mL 0.358-3.74 [facility] Serum or plasma albumin maureen urement (mass/volume)Ordered By: Dr. Carroll on 11-23-2022 Albumin [Mass/Vol] 3.6 g/dL 3.2-5.0 [facility] Serum or plasma albumin/glob ulin mass ratioOrdered By: Dr. Carroll on 11-23-2022 Albumin/Globulin [Mass ratio] 1.0 {ratio} 0.9-2.4 [facility] Serum or plasma calcium maureen urement (mass/volume)Ordered By: Dr. Carroll on 11-23-2022 Calcium [Mass/Vol] 9.2 mg/dL 8.5-10.1 [facility] Serum or plasma cholesterol in HDL measurement (mass/volume)Ordered By: Dr. Carroll on 11-23-2022 Cholesterol in HDL [Mass/Vol] 69 mg/dL >40 [facility] Comment on above: The drugs N-Acetylcy steine and Metamizole may falsely depress this assay. Reference Range HDL <40 mg/dL Low HDL Cholesterol HDL >or= 60 mg/dL High HDL Cholesterol Serum or plasma cholesterol in VLDL measurement (mass/volume)Ordered By: Dr. Carroll on 11-23-2022 Cholesterol in VLDL [Mass/Vol] 19 mg/dL 5-40 [facility] Serum or plasma creatinine m easurement (mass/volume)Ordered By: Dr. Carroll on 11-23-2022 Creatinine [Mass/Vol] 0.75 mg/dL 0.55-1.02 [facility] Comment on above: The validity of the calculated GFR & GFRAA in patients over 70 years has not been determined. Clinical correlation is essential. Serum or plasma low density lipoprotein (LDL) cholesterol measurement (mass/volume)Ordered By: Dr. Carroll on 11-23-2022 Cholesterol in LDL [Mass/Vol] 21 mg/dL 0-130 [facility] Serum or plasma urea nitroge n measurement (mass/volume)Ordered By: Dr. Carroll on 11-23-2022 Urea nitrogen [Mass/Vol] 8 mg/dL 7-18 [facility] Thin prep Papanicolaou smear with manual screeningOrdered By: Dr. Carroll on 11-23-2022 Thin prep Papanicolaou smear with manual screening 15 U/L 15-37 [facility] Thin prep Papanicolaou smear with manual screening 8 5-15 [facility] Glucose Glucometer (BldC) [M ass/Vol]on 07-29-2022 Glucose [Mass/Vol] 156 mg/dL 74-106 [facility] Work Phone: Comment on above: MANAGEMENT OF PATIEN T CARE PER NURSING PROTOCOL Absolute lymphocyte counton 06-21-2022 Lymphocytes Auto (Unsp spec) [#/Vol] 2.90 10*3/uL 0.83-4.51 [facility] Work Phone: [phone] Basophil percentageon 2021 Basophils/100 WBC (Bld) 0.3 % 0-1 [facility] Work Phone: Bilirubin [Mass/Vol] 0.20 mg/dL 0.20-1.00 [facility] Work Phone: Comment on above: For patients on eltr ombopag therapy, use of Dimension [place] TBIL is not recommended. Chloride [Moles/Vol] 110 mmol/L 98-107 [facility] Work Phone: [phone] Eosinophils/100 WBC (Bld) 1.5 % 0-5 [facility] Work Phone: [phone] Glucose [Mass/Vol] 123 mg/dL 74-106 [facility] Work Phone: Comment on above: Fasting Glucose resu lt from 100 to 125 mg/dL suggests IMPAIRED HOMEOSTASIS per A.D.A. criteria. Neutrophils (Bld) [#/Vol] 6.8 10*3/uL 2.0-7.7 [facility] Work Phone: [phone] Neutrophils/100 WBC (Bld) 64.2 % 47-70 [facility] Work Phone: [phone] Potassium [Moles/Vol] 3.6 mmol/L 3.5-5.1 [facility] Work Phone: [phone] Protein [Mass/Vol] 6.8 g/dL 6.4-8.2 [facility] Work Phone: Sodium [Moles/Vol] 143 mmol/L 136-145 [facility] Work Phone: WBC (Bld) [#/Vol] 10.5 10*3/uL 4.4-11.0 [facility] Work Phone: Blood erythrocytes count (nu mber/volume)on 06-21-2022 RBC (Bld) [#/Vol] 4.42 10*6/uL 4.2-5.4 [facility] Work Phone: Blood hemoglobin measurement (mass/volume)on 06-21-2022 Hemoglobin (Bld) [Mass/Vol] 13.3 g/dL 12.0-15.0 [facility] Work Phone: Blood lymphocytes/100 leukoc yteson 06-21-2022 Lymphocytes/100 WBC (Bld) 27.5 % 19-41 [facility] Work Phone: Blood monocytes/100 leukocyt eson 06-21-2022 Monocytes/100 WBC (Bld) 5.9 % 0-10 [facility] Work Phone: Blood platelet mean volumeon 06-21-2022 Platelet mean volume (Bld) [Entitic vol] 9.5 fL 6.2-12.0 [facility] Work Phone: [phone] Determination of erythrocyte mean corpuscular volume (MCV)on 06-21-2022 MCV (RBC) [Entitic vol] 94.6 fL 81-99 [facility] Work Phone: Hematocrit Auto (Bld) [Volum e fraction]on 06-21-2022 Hematocrit (Bld) [Volume fraction] 41.8 % 37-47 [facility] Work Phone: [phone] Laboratory - Chemistry and C hemistry - challengeon 06-21-2022 ALP [Catalytic activity/Vol] 93 U/L 45-117 [facility] Work Phone: ALT [Catalytic activity/Vol] 31 U/L 13-56 [facility] Work Phone: CO2 [Moles/Vol] 26.0 mmol/L 21.0-32.0 [facility] Work Phone: Globulin (S) [Mass/Vol] 3.5 g/dL 2.2-4.2 [facility] Work Phone: Urea nitrogen/Creatinine [Mass ratio] 10.1 mg/mg 10-20 [facility] Work Phone: Laboratory - Hematology and Cell countson 06-21-2022 Erythrocyte distribution width (RBC) [Entitic vol] 50.1 fL 35.1-43.9 [facility] Work Phone: Erythrocyte distribution width (RBC) [Ratio] 14.4 % 11.6-14.6 [facility] Work Phone: Immature granulocytes/100 WBC (Bld) 0.600 % 0.0-0.9 [facility] Work Phone: Comment on above: IG% - Immature Granu locytes (promyelocytes, myelocytes and metamyelocytes) > 1% indicates that a LEFT SHIFT is Present. MCH (RBC) [Entitic mass] 30.1 pg 27.0-32.0 [facility] Work Phone: Nucleated RBC/100 WBC (Bld) [Ratio] 0 % 0-5 [facility] Work Phone: MCHC Auto (RBC) [Mass/Vol]on 06-21-2022 MCHC (RBC) [Mass/Vol] 31.8 g/dL 32-36 [facility] Work Phone: No Panel Informationon 06-21 Estimated GFR (MDRD) Amer 108 mL/min >60 [facility] Work Phone: Comment on above: GFR Calc Estimated GFR (MDRD) Non-Af Amer 89 mL/min >60 [facility] Work Phone: Comment on above: Non- GFR Calc Platelets bldon 06-21-2022 Platelets (Bld) [#/Vol] 270 10*3/uL 150-450 [facility] Work Phone: Serum or plasma albumin maureen urement (mass/volume)on 06-21-2022 Albumin [Mass/Vol] 3.3 g/dL 3.2-5.0 [facility] Work Phone: Serum or plasma albumin/glob ulin mass ratioon 06-21-2022 Albumin/Globulin [Mass ratio] 0.9 {ratio} 0.9-2.4 [facility] Work Phone: Serum or plasma calcium maureen urement (mass/volume)on 06-21-2022 Calcium [Mass/Vol] 8.6 mg/dL 8.5-10.1 [facility] Work Phone: Serum or plasma creatinine m easurement (mass/volume)on 06-21-2022 Creatinine [Mass/Vol] 0.69 mg/dL 0.55-1.02 [facility] Work Phone: Comment on above: The validity of the calculated GFR & GFRAA in patients over 70 years has not been determined. Clinical correlation is essential. Serum or plasma urea nitroge n measurement (mass/volume)on 06-21-2022 Urea nitrogen [Mass/Vol] 7 mg/dL 7-18 [facility] Work Phone: Thin prep Papanicolaou smear with manual screeningon 06-21-2022 Thin prep Papanicolaou smear with manual screening 13 U/L 15-37 [facility] Work Phone: Thin prep Papanicolaou smear with manual screening 7 5-15 [facility] Work Phone: No Panel Informationon 06-01 Stool Calprotectin <16 ug/g 0-120 [facility] Work Phone: Comment on above: Concentration Interp retation Follow-Up<16 - 50 ug/g Normal None>50 -120 ug/g Borderline Re-evaluate in 4-6 weeks >120 ug/g Abnormal Repeat as clinically indicatedPerformed at: - [facility] [id number] Director: John Snyder MD, Phone: [phone] Absolute lymphocyte counton 05-14-2022 Lymphocytes Auto (Unsp spec) [#/Vol] 2.58 10*3/uL 0.83-4.51 [facility] Work Phone: Albumin Elph [Mass/Vol]on Albumin [Mass/Vol] 3.6 g/dL 2.9-4.4 [facility] Work Phone: Atypical perinuclear antineu trophil cytoplasmic antibodies measurementon 05-14-2022 Neutrophil cytoplasmic Ab.perinuclear.atypical IF (S) [Titer] <1:20 titer Neg:<1:20 [facility] Work Phone: Comment on above: The atypical pANCA p attern has been observed in asignificant percentage of patients with ulcerative colitis,primary sclerosing cholangitis and autoimmune hepatitis.Performed at: - [facility] [address] [id number] Director: Herb Hsu PhD, Phone: [phone] at: - [facility] [address] [id number] Director: John Snyder MD, Phone: [phone] Basophil percentageon 2021 Basophil percentage < 0.2 AI 0.0-0.9 [facility] Work Phone: [phone] Basophils/100 WBC (Bld) 0.4 % 0-1 [facility] Work Phone: [phone] Bilirubin [Mass/Vol] 0.40 mg/dL 0.20-1.00 [facility] Work Phone: Comment on above: For patients on eltr ombopag therapy, use of Dimension [place] TBIL is not recommended. Chloride [Moles/Vol] 106 mmol/L 98-107 [facility] Work Phone: [phone] Eosinophils/100 WBC (Bld) 0.7 % 0-5 [facility] Work Phone: Glucose [Mass/Vol] 153 mg/dL 74-106 [facility] Work Phone: Comment on above: Fasting Glucose resu lt greater than or equal to 126 mg/dL suggests DIABETES MELLITUS per A.D.A. criteria. Neutrophils (Bld) [#/Vol] 9.3 10*3/uL 2.0-7.7 [facility] Work Phone: Neutrophils/100 WBC (Bld) 72.8 % 47-70 [facility] Work Phone: Potassium [Moles/Vol] 3.3 mmol/L 3.5-5.1 [facility] Work Phone: Protein [Mass/Vol] 7.4 g/dL 6.4-8.2 [facility] Work Phone: Sodium [Moles/Vol] 137 mmol/L 136-145 [facility] Work Phone: WBC (Bld) [#/Vol] 12.8 10*3/uL 4.4-11.0 [facility] Work Phone: Blood erythrocytes count (nu mber/volume)on 05-14-2022 RBC (Bld) [#/Vol] 4.91 10*6/uL 4.2-5.4 [facility] Work Phone: Blood hemoglobin measurement (mass/volume)on 05-14-2022 Hemoglobin (Bld) [Mass/Vol] 14.7 g/dL 12.0-15.0 [facility] Work Phone: Blood lymphocytes/100 leukoc yteson 05-14-2022 Lymphocytes/100 WBC (Bld) 20.1 % 19-41 [facility] Work Phone: Blood monocytes/100 leukocyt eson 05-14-2022 Monocytes/100 WBC (Bld) 5.5 % 0-10 [facility] [facility] Work Phone: Blood platelet mean volumeon 05-14-2022 Platelet mean volume (Bld) [Entitic vol] 9.3 fL 6.2-12.0 [facility] Work Phone: Determination of erythrocyte mean corpuscular volume (MCV)on 05-14-2022 MCV (RBC) [Entitic vol] 91.4 fL 81-99 [facility] Work Phone: [phone] Erythrocyte sedimentation ra denise 05-14-2022 ESR (Bld) [Velocity] 12 mm/h 0-30 [facility]: [phone] Hematocrit Auto (Bld) [Volum e fraction]on 05-14-2022 Hematocrit (Bld) [Volume fraction] 44.9 % 37-47 [facility] Work Phone: [phone] Interpretation of serum or p lasma protein pattern by immunofixation (narrative resulton 05-14-2022 Protein Fractions Immunofixation Joey [Interp] See comment [facility] Work Phone: [phone] Comment on above: NOT OBSERVED Laboratory - Chemistry and C hemistry - challengeon 05-14-2022 ALP [Catalytic activity/Vol] 108 U/L 45-117 [facility] Work Phone: ALT [Catalytic activity/Vol] 35 U/L 13-56 [facility] Work Phone: CO2 [Moles/Vol] 25.0 mmol/L 21.0-32.0 [facility] Work Phone: [phone] Urea nitrogen/Creatinine [Mass ratio] 18.4 mg/mg 10-20 [facility] Work Phone: [phone] Laboratory - Hematology and Cell countson 05-14-2022 Erythrocyte distribution width (RBC) [Entitic vol] 46.4 fL 35.1-43.9 [facility] Work Phone: [phone] Erythrocyte distribution width (RBC) [Ratio] 13.8 % 11.6-14.6 [facility] Work Phone: [phone] Immature granulocytes/100 WBC (Bld) 0.500 % 0.0-0.9 [facility] Work Phone: [phone] Comment on above: IG% - Immature Granu locytes (promyelocytes, myelocytes and metamyelocytes) > 1% indicates that a LEFT SHIFT is Present. MCH (RBC) [Entitic mass] 29.9 pg 27.0-32.0 [facility] Work Phone: Nucleated RBC/100 WBC (Bld) [Ratio] 0 % 0-5 [facility] Work Phone: MCHC Auto (RBC) [Mass/Vol]on 05-14-2022 MCHC (RBC) [Mass/Vol] 32.7 g/dL 32-36 [facility] Work Phone: No Panel Informationon 05-14 Addendum Document Comment . [facility] Work Phone: Comment on above: Protein electrophore sis scan will follow via computer,mail, or lamp developer delivery. Centromere B Antibody <0.2 AI 0.0-0.9 [facility] Work Phone: Endomysial IgA Antibody Negative Negative [facility] Work Phone: Estimated GFR (MDRD) Amer 97 mL/min >60 [facility] Work Phone: Comment on above: GFR Calc Estimated GFR (MDRD) Non-Af Amer 80 mL/min >60 [facility] Work Phone: Comment on above: Non- GFR Calc Immunoglobulin E 338 IU/mL 6-495 [facility] Work Phone: MANUFACTURER'S SERVICE REPRESENTATIVE Antibody <0.2 AI 0.0-0.9 [facility] Work Phone: Platelets bldon 05-14-2022 Platelets (Bld) [#/Vol] 310 10*3/uL 150-450 [facility] Work Phone: Serum DNA double strand anti body assay (units/volume)on 05-14-2022 DNA double strand Ab Qn (S) [IU]/mL 0-9 [facility] Work Phone: Comment on above: Negative <5 Equivoca l 5 - 9 Positive >9 Serum Whitney-1 antibody assay (u nits/volume)on 05-14-2022 Whitney-1 extractable nuclear Ab Qn (S) <0.2 AI 0.0-0.9 [facility] Work Phone: Serum Scl-70 extractable nuc lear antibody assay (units/volume)on 05-14-2022 SCL-70 extractable nuclear Ab Qn (S) <0.2 AI 0.0-0.9 [facility] Work Phone: [phone] Serum Campos extractable nucl ear antibody detectionon 05-14-2022 Campos extractable nuclear Ab Ql (S) <0.2 AI 0.0-0.9 [facility] Work Phone: [phone] Serum [id number] measu rement by electrophoresison 05-14-2022 Alpha 1 globulin Elph [Mass/Vol] 0.3 g/dL 0.0-0.4 [facility] Work Phone: [phone] Alpha 1 globulin Elph [Mass/Vol] 0.8 g/dL 0.4-1.0 [facility] Work Phone: [phone] Serum classic neutrophil cyt oplasmic antibody assay (units/volume)on 05-14-2022 Neutrophil cytoplasmic Ab.classic Qn (S) <1:20 titer Neg:<1:20 [facility] Work Phone: Serum globulin measurement ( mass/volume)on 05-14-2022 Globulin (S) [Mass/Vol] 3.3 g/dL 2.2-3.9 [facility] Work Phone: Serum or plasma C reactive p rotein measurement (mass/volume)on 05-14-2022 CRP [Mass/Vol] 5.64 mg/L 0.0-3.0 [facility] Work Phone: Comment on above: C-Reactive Protein ( CRP) provides useful information for thediagnosis, therapy and monitoring of inflammatory processesand associated diseases. For the evaluation of Relative Riskfor Cardiovascular Disease, a High Sensitivity CRP (HSCRP)should be ordered. Serum or plasma IgA measurem ent (mass/volume)on 05-14-2022 IgA [Mass/Vol] 179 mg/dL 87-352 [facility] Work Phone: Serum or plasma IgG measurem ent (mass/volume)on 05-14-2022 IgG [Mass/Vol] 895 mg/dL [phone] [facility] Work Phone: Serum or plasma IgM measurem ent (mass/volume)on 05-14-2022 IgM [Mass/Vol] 50 mg/dL 26-217 [facility] Work Phone: [phone] Serum or plasma albumin maureen urement (mass/volume)on 05-14-2022 Albumin [Mass/Vol] 3.7 g/dL 3.2-5.0 [facility] Work Phone: Serum or plasma albumin/glob ulin mass ratioon 05-14-2022 Albumin/Globulin [Mass ratio] 1.0 {ratio} 0.9-2.4 [facility] Work Phone: Serum or plasma beta globuli n measurement by electrophoresis (mass/volume)on 05-14-2022 Beta globulin Elph [Mass/Vol] 1.2 g/dL 0.7-1.3 [facility] Work Phone: Serum or plasma calcium maureen urement (mass/volume)on 05-14-2022 Calcium [Mass/Vol] 9.5 mg/dL 8.5-10.1 [facility] Work Phone: Serum or plasma creatinine m easurement (mass/volume)on 05-14-2022 Creatinine [Mass/Vol] 0.76 mg/dL 0.55-1.02 [facility] Work Phone: Comment on above: The validity of the calculated GFR & GFRAA in patients over 70 years has not been determined. Clinical correlation is essential. Serum or plasma gamma globul in measurement by electrophoresis (mass/volume)on 05-14-2022 Gamma globulin Elph [Mass/Vol] 1.0 g/dL 0.4-1.8 [facility] Work Phone: Serum or plasma immunoelectr ophoresis interpretation (nominal result)on 05-14-2022 Interpretation IEP [Interp] Comment: . [facility] Work Phone: Comment on above: Presence of monoclon al protein is unclear at this time. Suggestrepeat in 3 to 6 months if clinically indicated. Serum or plasma urea nitroge n measurement (mass/volume)on 05-14-2022 Urea nitrogen [Mass/Vol] 14 mg/dL 7-18 [facility] Work Phone: Serum perinuclear neutrophil cytoplasmic antibody titer by immunofluorescenceon 05-14-2022 Neutrophil cytoplasmic Ab.perinuclear IF (S) [Titer] <1:20 titer Neg:<1:20 [facility] Work Phone: Comment on above: The presence of posi tive fluorescence exhibiting P-ANCA orC-ANCA patterns alone is not specific for the diagnosis ofWegener's Granulomatosis (WG) or microscopic polyangiitis.Decisions about treatment should not be based solely onANCA IFA results. The [employer] ANCA Group Consensusrecommends follow up testing of positive sera with both DC-3 and MPO-ANCA enzyme immunoassays. As many as 5% serumsamples are positive only by EIA. Ref. AM J Clin [id number];111:507-513. Serum tissue transglutaminas e IgA antibody assay (units/volume)on 05-14-2022 tTG IgA Qn (S) <2 U/mL 0-3 [facility] Work Phone: Comment on above: Negative 0 - 3 Weak Positive 4 - 10 Positive >10 Tissue Transglutaminase (tTG) has been identified as the endomysial antigen. Studies have demonstr- ated that endomysial IgA antibodies have over 99% specificity for gluten sensitive enteropathy. Thin prep Papanicolaou smear with manual screeningon 05-14-2022 Thin prep Papanicolaou smear with manual screening 16 U/L 15-37 [facility] Work Phone: Thin prep Papanicolaou smear with manual screening 6 5-15 [facility] Work Phone: Thin prep Papanicolaou smear with manual screening 149 U/L 84-246 [facility] Work Phone: Thin prep Papanicolaou smear with manual screening 1.1 0.7-1.7 [facility] Work Phone: Total protein bloodon 2021 Protein [Mass/Vol] 6.9 g/dL 6.0-8.5 [facility] Work Phone: No Panel Information Enteric Bacteriology [facility] Work Phone: Vital Signs Date Time Vital Sign Value Performing Clinician Facility 06-27-2025 10:56-0400 Body weight 98.97 kg Nora Gardner MD Work Phone: [facility] 06-27-2025 10:56-0400 Diastolic blood pressure 82 mm[Hg] Nora Gardner MD Work Phone: [facility] 06-27-2025 10:56-0400 Heart rate 90 /min Nora Gardner MD Work Phone: [facility] 06-27-2025 10:56-0400 Respiratory rate 14 /min Nora Gardner MD Work Phone: [facility] 06-27-2025 10:56-0400 SaO2% (BldA) [Mass fraction] 95 % Nora Gardner MD Work Phone: [facility] 06-27-2025 10:56-0400 Systolic blood pressure 180 mm[Hg] Nora Gardner MD Work Phone: [facility] 06-03-2025 13:17-0400 Body temperature 97.81 [degF] Giselle Lonny PLASTIC INSTALLER.PAPER FINAL INSPECTOR Work Phone: [facility] 06-03-2025 13:17-0400 Body weight 94.62 kg Giselle Lonny PLASTIC INSTALLER.PAPER FINAL INSPECTOR Work Phone: [facility] 06-03-2025 13:17-0400 Heart rate 111 /min Giselle Lonny PLASTIC INSTALLER.PAPER FINAL INSPECTOR Work Phone: [facility] 06-03-2025 13:17-0400 SaO2% (BldA) [Mass fraction] 92 % Giselle Lonny PLASTIC INSTALLER.PAPER FINAL INSPECTOR Work Phone: [facility] 08-17-2022 08:02-0400 Body height 152.[address] To Carroll Work Phone: [facility] 08-17-2022 08:02-0400 Body mass index (BMI) [Ratio] 43.9 kg/m2 Dr. To Carroll Work Phone: [facility] 08-17-2022 08:02-0400 Body weight 102.[address] To Carroll Work Phone: [facility] 08-17-2022 08:02-0400 Diastolic blood pressure 93 mm[Hg] Dr. To Carroll Work Phone: [facility] 08-17-2022 08:02-0400 Heart rate 100 /min Dr. To Carroll Work Phone: [facility] 08-17-2022 08:02-0400 SaO2% (BldA) [Mass fraction] 96 % Dr. To Carroll Work Phone: [facility] 08-17-2022 08:02-0400 Systolic blood pressure 168 mm[Hg] Dr. To Carroll Work Phone: [facility] 07-29-2022 12:10-0400 Body temperature 98.4 [degF] Dr. To Carroll Work Phone: [facility] Work Phone: 07-29-2022 12:10-0400 Diastolic blood pressure 66 mm[Hg] Dr. To Carroll Work Phone: [facility] Work Phone: 07-29-2022 12:10-0400 Heart rate 76 /min Dr. To Carroll Work Phone: [facility] Work Phone: 07-29-2022 12:10-0400 Respiratory rate 16 /min Dr. To Carroll Work Phone: [facility] Work Phone: 07-29-2022 12:10-0400 SaO2% (BldA) [Mass fraction] 95 % Dr. To Carroll Work Phone: [facility] Work Phone: 07-29-2022 12:10-0400 Systolic blood pressure 114 mm[Hg] Dr. To Carroll Work Phone: [facility] Work Phone: 07-29-2022 10:27-0400 Body height 152.[address] To Carroll Work Phone: [facility] Work Phone: 07-29-2022 10:27-0400 Body mass index (BMI) [Ratio] 43 kg/m2 Dr. To Carroll Work Phone: [facility] Work Phone: 07-29-2022 10:27-0400 Body weight [address] To Carroll Work Phone: [facility] Work Phone: 07-02-2022 14:29-0400 Body height 152.[address] To Carroll Work Phone: [facility] Work Phone: 07-02-2022 14:29-0400 Body mass index (BMI) [Ratio] 43.9 kg/m2 Dr. To Carroll Work Phone: [facility] Work Phone: 07-02-2022 14:29-0400 Body temperature 97.9 [degF] Dr. To Carroll Work Phone: [facility] Work Phone: 07-02-2022 14:29-0400 Body weight 102.[address] To Carroll Work Phone: [facility] Work Phone: 07-02-2022 14:29-0400 Diastolic blood pressure 84 mm[Hg] Dr. To Carroll Work Phone: [facility] Work Phone: 07-02-2022 14:29-0400 Heart rate 56 /min Dr. To Carroll Work Phone: [facility] Work Phone: 07-02-2022 14:29-0400 Respiratory rate 16 /min Dr. To Carroll Work Phone: [facility] Work Phone: 07-02-2022 14:29-0400 SaO2% (BldA) [Mass fraction] 94 % Dr. To Carroll Work Phone: [facility] Work Phone: 07-02-2022 14:29-0400 Systolic blood pressure 137 mm[Hg] Dr. To Carroll Work Phone: [facility] Work Phone: 06-25-2022 08:47-0400 Body mass index (BMI) [Ratio] 44.9 kg/m2 Dr. To Carroll Work Phone: [facility] Work Phone: 06-25-2022 08:47-0400 Body weight 104.[address] To Carroll Work Phone: [facility] Work Phone: 06-25-2022 08:47-0400 Diastolic blood pressure 82 mm[Hg] Dr. To Carroll Work Phone: [facility] Work Phone: 06-25-2022 08:47-0400 Heart rate 88 /min Dr. To Carroll Work Phone: [facility] Work Phone: 06-25-2022 08:47-0400 SaO2% (BldA) [Mass fraction] 94 % Dr. To Carroll Work Phone: [facility] Work Phone: 06-25-2022 08:47-0400 Systolic blood pressure 145 mm[Hg] Dr. To Carroll Work Phone: [facility] Work Phone: 05-14-2022 07:51-0400 Body height 152.[address] To Carroll Work Phone: [facility] Work Phone: 05-14-2022 07:51-0400 Body mass index (BMI) [Ratio] 42.3 kg/m2 Dr. To Carroll Work Phone: [facility] Work Phone: 05-14-2022 07:51-0400 Body weight 98.[address] To Carroll Work Phone: [facility] Work Phone: 05-14-2022 07:51-0400 Diastolic blood pressure 84 mm[Hg] Dr. To Carroll Work Phone: [facility] Work Phone: 05-14-2022 07:51-0400 Heart rate 96 /min Dr. To Carroll Work Phone: [facility] Work Phone: 05-14-2022 07:51-0400 SaO2% (BldA) [Mass fraction] 95 % Dr. To Carroll Work Phone: [facility] Work Phone: 05-14-2022 07:51-0400 Systolic blood pressure 158 mm[Hg] Dr. To Carroll Work Phone: [facility] Work Phone: 04-20-2022 10:28-0400 Body height 152.4 cm [facility] Work Phone: Encounters Encounter Date Encounter Type Care Provider Facility Start: 08-29-2025 ambulatory Cristy Rojasi lity:[facility] Start: 08-20-2025 Encounter for genera l adult medical examination without abnormal findings Jonathankalina Carroll [facility] Start: 08-19-2025 ambulatory Jonathankalina Edwardsmatias Nickerson lity:[facility] Start: 08-16-2025 End: 08-16-2025 ambulatory NORA GARDNER Facility:[facility] Start: 08-05-2025 ambulatory YAYO Deleon cility:[facility] Start: 08-01-2025 End: 08-01-2025 [facility] Start: 06-27-2025 End: 06-27-2025 Patient encounter procedure Nora Gardner MD Work Phone: General Surgery Comment on above: Dysphagia, unspecifi ed type (Primary Dx); Diarrhea, unspecified type Start: 06-27-2025 End: 06-27-2025 ambulatory NORA GARDNER Facility:[facility] Start: 06-03-2025 End: 06-03-2025 Telephone encounter Giselle Fonseca APRN.PAPER FINAL INSPECTOR Work Phone: General Surgery Comment on above: Request Outside [facility] Start: 06-03-2025 End: 06-03-2025 Patient encounter procedure Giselle Fonseca APRN.PAPER FINAL INSPECTOR Work Phone: General Surgery Comment on above: Diarrhea, unspecifie d type (Primary Dx); Gastroesophageal reflux disease, unspecified whether esophagitis present; Dysphagia, unspecified type; Family history of colon cancer Start: 06-03-2025 End: 06-03-2025 ambulatory GISELLE FONSECA Facility:[facility] Start: 11-30-2024 End: 11-30-2024 ambulatory [facility] Facility:[facility] Start: 11-27-2024 End: 11-27-2024 ambulatory [facility] Facility:[facility] Start: 10-25-2024 End: 10-25-2024 ambulatory [facility] Facility:[facility] Start: 09-19-2024 ambulatory Kit Carly Nickerson lity:[facility] Start: 09-19-2024 End: 09-19-2024 ambulatory Cristy Carroll Facility:[facility] Start: 09-06-2024 End: 09-06-2024 [facility]ulatory [facility] Facility:[facility] Start: 08-28-2024 End: 08-28-2024 [facility]ulatory [facility] Facility:[facility] Start: 01-03-2024 End: 01-03-2024 ambulatory [facility] Work Phone: Start: 01-03-2024 End: 01-03-2024 Patient encounter procedure [facility] Work Phone: Start: 04-16-2023 End: 04-16-2023 ambulatory [facility] Work Phone: Start: 04-16-2023 End: 04-16-2023 Patient encounter procedure [facility] Start: 04-06-2023 End: 04-06-2023 ambulatory [facility] Work Phone: Start: 04-06-2023 End: 04-06-2023 Patient encounter procedure [facility] Start: 11-23-2022 End: 11-23-[address] To Carroll Work Phone: [facility] Work Phone: Start: 11-23-2022 End: 11-23-[address] To Carroll Work Phone: [facility] Start: 08-17-2022 End: 08-17-[address] To Carroll Work Phone: [facility] Start: 07-29-2022 Non-patient / Non-visit Dr. To Carroll Work Phone: [facility] Start: 07-29-2022 End: 07-29-2022 Admission to same day surgery center Dr. To Carroll Work Phone: [facility]-Endoscopy Start: 07-29-2022 End: 07-29-[address] To Carroll Work Phone: [facility] Work Phone: Start: 07-08-2022 End: 07-08-[address] To Carroll Work Phone: [facility] Work Phone: Start: 07-08-2022 End: 07-08-[address] To Carroll Work Phone: [facility] Start: 07-02-2022 End: 07-02-[address] To Carroll Work Phone: [facility] Start: 06-25-2022 End: 06-25-[address] To Carroll Work Phone: [facility] Start: 06-21-2022 End: 06-21-[address] To Carroll Work Phone: [facility] Work Phone: Start: 06-21-2022 End: 06-21-[address] To Carroll Work Phone: [facility] Start: 06-11-2022 End: 06-11-[address] To Carroll Work Phone: [facility] Work Phone: Start: 06-11-2022 End: 06-11-[address] To Carroll Work Phone: [facility] Start: 06-02-2022 End: 06-02-[address] To Carroll Work Phone: [facility]-Laboratory, Specimen Start: 05-14-2022 End: 05-14-[address] To Carroll Work Phone: [facility]-Laboratory Start: 05-14-2022 End: 05-14-[address] To Carroll Work Phone: [facility] Start: 04-20-2022 End: 04-20-2022 Patient encounter procedure [facility]-Outpatient Bone Densitometry Start: 03-30-2022 End: 03-30-2022 Patient encounter procedure [facility]-Cat Scan, [facility] Procedures Date Procedure Procedure Detail Performing Clinician [...] DTaP,Tdap,Td Vaccine (2 - Td or Tdap) [facility] Start: 2028 RSV Vaccine (1 - 1-d ose 75+ series) RSV Vaccine (1 - 1-dose 75+ series) [facility] Start: 08-12-2025 End: 08-12-2025 Patient encounter procedure 08/12/2025 9:30 AM EDT Office Visit General Surgery [address] [place] [address] Giselle Fonseca APRN.PAPER FINAL INSPECTOR [address] [place] [address] 1 WK F/U 08/05 COLONOSCOPY / UPPER RESULTS General Surgery Comment on above: 1 WK F/U 08/05 COLON OSCOPY / UPPER RESULTS Start: 08-05-2025 End: 08-05-2025 Patient encounter procedure 08/05/2025 8:15 AM EDT Appointment [facility] Endoscopy [address] [place] [id number] Nora Gardner MD [address] [place], [place] [address] Colon EGD [facility] Comment on above: Colon EGD Start: 06-24-2025 Influenza vaccination Influenza Vacc ine (#1) [facility] Start: 10-24-2024 Advance Directive Discussion Advance Directive Discussion [facility] Start: 10-24-2024 Medicare Advantage Annual Wellness Visit Medicare Advantage Annual Wellness Visit [facility] Start: 07-29-2022 Patient discharge [facility] Work Phone: Start: 06-25-2022 Patient referral [facility] Work Phone: Start: 06-02-2022 Elastase, pancreatic (el-1), fecal; quantitative [facility] Work Phone: Start: 06-02-2022 Ova and parasites identified in Unspecified specimen by Light microscopy [facility] Work Phone: Start: 06-02-2022 Protein measurement [facility] Work Phone: Start: 2018 Screening for osteoporosis Bone Density Screening [facility] Start: 10-18-2014 Shingrix Vaccine (2 of 3) Shingrix Vaccine (2 of 3) [facility] Start: 2003 Screening for malign ant neoplasm of lung Lung Cancer Screening [facility] Start: 1998 Diabetes Screening Diabetes Screenin g [facility] Start: 1998 Lipid panel Lipid Screening [facility] Start: 1998 Screening for malign ant neoplasm of colon [facility] Start: 1993 Screening for malign ant neoplasm of breast Mammogram Screening [facility] Start: 1971 Anxiety Screening Anxiety Screening [facility] Start: 1971 Depression Screening Depression Scre ening [facility] Start: 1971 Hepatitis C screening Hepatitis C Sc reening [facility] CT Abdomen [facility] Work Phone: CT Abdomen and Pelvi s W contrast IV [facility] Work Phone: End: 06-03-2026 EGD DIAGNOSTIC EGD DIAGNOSTIC Endoscopy Routine Diarrhea, unspecified type Gastroesophageal reflux disease, unspecified whether esophagitis present Dysphagia, unspecified type 1 Occurrences starting 06/03/2025 until 06/03/2026 [facility] Work Phone: Comment on above: 1 Occurrences starti ng 06/03/2025 until 06/03/2026 End: 07-03-2026 EGD DIAGNOSTIC EGD DIAGNOSTIC Endoscopy Routine Dysphagia, unspecified type Diarrhea, unspecified type 1 Occurrences starting 07/03/2025 until 07/03/2026 [facility] Work Phone: Comment on above: 1 Occurrences starti ng 07/03/2025 until 07/03/2026 End: 06-03-2026 Flexible sigmoidoscopy study COLONOSCOPY DIAGNOSTIC Endoscopy Routine Diarrhea, unspecified type 1 Occurrences starting 06/03/2025 until 06/03/2026 [facility] Comment on above: 1 Occurrences starti ng 06/03/2025 until 06/03/2026 End: 07-03-2026 Flexible sigmoidoscopy study COLONOSCOPY DIAGNOSTIC Endoscopy Routine Dysphagia, unspecified type Diarrhea, unspecified type 1 Occurrences starting 07/03/2025 until 07/03/2026 [facility] Comment on above: 1 Occurrences starti ng 07/03/2025 until 07/03/2026 Ova and parasites identified in Unspecified specimen by Light microscopy [facility] Work Phone: Patient referral [facility] Work Phone: Protein measurement [facility] Work Phone: Ultrasound elastography [facility] Work Phone: Immunizations Immunization Date Immunization Notes Care Provider Fa gerardo 07-30-2024 influenza virus vacc ine, unspecified formulation Giselle Fonseca PLASTIC INSTALLER.PAPER FINAL INSPECTOR Work Phone: [facility] Payers Date Payer Category Payer Medicare (Managed Care) [facility] OPT CARE HMO [id number] 2024 Self-pay [id number] 2024 Unknown [id number] 2016 Unknown [id number] Medicare [id number] Private Health Insurance [id number] Private Health Insurance [facility] [id number] Private Health Insurance [id number] Unknown [id number] Unknown [id number] .[id number] Unknown [id number] .462 Unknown [id number] .462 Unknown [id number] .462 Unknown [id number] .462 Unknown [id number] 2.16.840.1.119883.3.579.2 .462 Unknown [id number] 2.16.840.1.617940.3.579.2 .462 Unknown [id number] 2.16.840.1.833895.3.579.2 .462 Unknown [id number] 2.16.840.1.548982.3.579.2 .462 Unknown [id number] .462 Social History Date Type Detail Facility Start: 03-29-2022 End: 08-17-2022 Tobacco smoking status IDIS Unknown if ever smoked [facility] Start: 03-20-2021 Homeless [facility] Start: 03-20-2021 Cigarettes [facility] Start: 1955 Sex Assigned At Female W [facility] Start: 06-03-2025 Tobacco smoking stat us IDIS Smokes tobacco daily [facility] History of tobacco use Cigarette Smoker [facility] Start: 06-03-2025 Cigarettes smoked current (pack per day) - Reported 1.5 [facility] Start: 06-03-2025 Tobacco use and exposure Smokeless tobacco non-user [facility] Start: 06-03-2025 End: 06-04-2025 Alcoholic beverage intake Ex-drinker (finding) [facility] Start: 06-03-2025 Tobacco use panel [facility] How often to you hav e a drink containing alcohol? Never [facility] Start: 09-24-2012 How many standard drinks containing alcohol do you have on a typical day? Patient does not drink [facility] Start: 1955 Sex assigned at Not on file C [facility] Goals Date Patient Goal Desired Activity /State Functional Status Date Assessment Result Facility 06-03-2025 Total score [AUDIT-C] 0 06/03/20 25 1:16 PM EDT Rosita Blood RN [facility] c Mental Status Date Assessment Result Facility 07-29-2022 Cognitive function Voice/Name [facility] Work Phone: Clinical Notes 09-19-2024 to 08-16-2025 Nora Gardner MD - 06/27/2025 2:43 PM EDTLawsLing broderick - 06/27/2025 1:39 PM EDTTelephone Encounter - Rosita Blood RN - 06/03/2025 4:39 PM EDT Note Date & Type Note Facility 08-16-2025 Note HNO ID: [id number] Author: NORA GARDNER MD Service: ? Author Type: Physician Type: Progress Notes Filed: 08/16/2025 10:18 Note Text: FOLLOW UP VISIT - ENDOSCOPY NAME: Joana Perry [facility] NO.: [id number] DATE OF SERVICE: 08/14/2025 : 1955 REFERRING [...] underwent a open hernia repair performed at [facility]. This was performed by Dr. Nora Hdz. [...] she was seen by Dr. Alvarez at [facility] and underwent upper and lower endoscopy. I [...] potassium levels and is currently trying an wzqu-cbn-tdipokm liquid potassium supplement to address leg cramps. [...] had right upper (more content not included)... [facility] 06-27-2025 Note HNO ID: [id number] Author: NORA GARDNER MD Service: ? Author [...] underwent a open hernia repair performed at [facility]. She understands she had a small bowel [...] she was seen by Dr. Alvarez at [facility] and underwent upper and lower endoscopy. I [...] COLON SURGERY HX colon resection Dr Hdz [facility] EXC/DSTRJ LINGUAL TONSIL ANY METHOD SPX LIG/TRNSXJ [...] facility-administered medications for this visit. ALLERGIES: Dermagesic [Xipgnwdhjt-Sdclnzwrxe-Xxmd Ox], Levaquin [Levofloxacin], Penicillins, Percocet [Oxycodone-Acetaminophen], and [...] is unremarkable. Respirato (more content not included)... [facility] 06-27-2025 History of Presen t illness Narrative [...] underwent a open hernia repair performed at [facility]. She understands she had a small bowel [...] she was seen by Dr. Alvarez at [facility] and underwent upper and lower endoscopy. I [...] COLON SURGERY HX colon resection Dr Hdz [facility] EXC/DSTRJ LINGUAL TONSIL ANY METHOD SPX LIG/TRNSXJ [...] facility-administered medications for this visit. ALLERGIES: Dermagesic [Xzvksriiqj-Znccquaalr-Dlwc Ox], Levaquin [Levofloxacin], Penicillins, Percocet [Oxycodone-Acetaminophen], and [...] her cholecystectomy she did have these symptoms. Dr.Friend performed a colonoscopy last year to which [...] found to be benign. She reports that DrCecilia has previously talked about a colostomy bag [...] COLON SURGERY HX colon resection Dr Hdz [facility] EXC/DSTRJ LINGUAL TONSIL ANY METHOD SPX LIG/TRNSXJ [...] facility-administered medications for this visit. ALLERGIES: Dermagesic [Plamfpalqv-Snhkcsahao-Nmqc Ox], Levaquin [Levofloxacin], Penicillins, Percocet [Oxycodone-Acetaminophen], and [...] plan moving forward and will report to [place] in July for her scheduled endoscopy. Ling MCCLAIN-S2 [1] Social History Tobacco Use Smoking status: Every Day Current packs/day: 1.50 Average packs/day: 1.5 packs/day for 38.0 years (57.0 ttl pk-yrs) Types: Cigarettes Smokeless tobacco: Never Vaping Use Vaping status: current everyday user Substance Use Topics Alcohol use: Not Currently Comment: social Drug use: No documented in this encounter [facility] 06-27-2025 Note HNO ID: [id number] Author: ?, ?, ? Service: ? Author [...] symptoms and questions. HISTORY AND PHYSICAL Joana Dickersonh 1955 REFERRING PHYSICIAN: Cristy Carroll MD.* CHIEF [...] COLON SURGERY HX colon resection Dr Hdz [facility] EXC/DSTRJ LINGUAL TONSIL ANY METHOD SPX LIG/TRNSXJ [...] facility-administered medications for this visit. ALLERGIES: Dermagesic [Aombfooqvw-Rlrsccsdge-Lvur Ox], Levaquin [Levofloxacin], Penicillins, Percocet [Oxycodone-Acetaminophen], and Zithromax [Azithromycin] PERSONAL HISTORY: SOCIAL HISTORY[1] FAMILY HISTORY: FAMILY HISTORY Problem Relation Age of Onset Allergies Mother Cancer Mother uterine Alcohol/Drug Father Allergies Father Cancer Father lung Diabetes Father Heart Father Hypertension Father (more content not included)... [facility] 06-03-2025 Telephone encounter Note [facility] 06-03-2025 Miscellaneous Notes Medical [facility] documented in this encounter [facility] 06-03-2025 History of Presen t illness [...] EGD was [id number] with Dr. Alvarez at [facility]. Sedation: MAC Impression: - Moderate Schatzki ring. Dilated. Treated with argon plasma coagulation (APC). - Mildly severe erosive esophagitis with no bleeding. Biopsied. - Medium-sized hiatal hernia. - No gross lesions in the entire stomach. - No gross lesions in the first portion of the duodenum. Last colonoscopy was 07/[address] Alvarez at [facility]. Sedation :MAC Impression: - Diverticulosis in the [...] facility-administered medications for this visit. ALLERGIES: Dermagesic [Mmfwqmczzr-Uygorxnhgq-Bdpr Ox], Levaquin [Levofloxacin], Penicillins, Percocet [Oxycodone-Acetaminophen], and [...] COLON SURGERY HX colon resection Dr Hdz [facility] EXC/DSTRJ LINGUAL TONSIL ANY METHOD SPX LIG/TRNSXJ [...] and edited and updated as necessary. Giselle Fonesca APRN.PAPER FINAL INSPECTOR documented in this encounter [facility] 06-03-2025 Note HNO ID: [id number] Author: GISELLE FONSECA APRN.MAHSA Service: ? Author [...] EGD was [id number] with Dr. Alvarez at [facility]. Sedation: MAC Impression: - Moderate Schatzki ring. Dilated. Treated with argon plasma coagulation (APC). - Mildly severe erosive esophagitis with no bleeding. Biopsied. - Medium-sized hiatal hernia. - No gross lesions in the entire stomach. - No gross lesions in the first portion of the duodenum. Last colonoscopy was 07/[address] Alvarez at [facility]. Sedation :MAC Impression: - Diverticulosis in the [...] facility-administered medications for this visit. ALLERGIES: Dermagesic [Mpwxlbvcet-Tyybxclchm-Rcil Ox], Levaquin [Levofloxacin], Penicillins, Percocet [Oxycodone-Acetaminophen], and [...] COLON SURGERY HX colon resection Dr Hdz [facility] EXC/DSTRJ LINGUAL TONSIL ANY METHOD SPX LIG/TRNSXJ [...] ttl pk-yrs) Ty (more content not included)... [facility] 09-19-2024 Note [facility] Medical Records Department [address] [place] [address] History Physical Exam 09/19/24 0637 MR#: [id number] Acct: [id number] Name: ORLANDOJOANA Roman Rep #: [id number] : 1955 68 From: Doug Friend DO PCP: Dr. Cristy Carroll MD [place] [facility] [place] [address] History and Physical Date of Admission: 09/19/24 [...] gastroenteritis and colitis, unspecified OVA+PARA w/Giardia EIA 180049 Today K52.9 - Noninfective gastroe (more content not included)... [facility] Evaluation note No assessment inform ation available [facility] Work Phone: Evaluation note Diagnosis Onset Date GERD (gastroesophageal reflux disease) acute Lower abdominal pain acute Chronic diarrhea chronic Diarrhea noneactive [facility] Work Phone: Evaluation note* Diagnosis Onset Date Resolution Status GERD (gastroesophageal reflux disease) acute Lower abdominal pain acute Chronic diarrhea chronic Diarrhea noneactive Epigastric pain acute Fatty liver acute Chronic diarrhea chronic Epigastric pain acute H/O hernia repair acute [facility] Work Phone: Evaluation note* Diagnosis Onset Date Resolution Status Chronic diarrhea chronic [facility] Work Phone: Evaluation note* Diagnosis Diarrhea, unspecified type- Primary Gastroesophageal reflux disease, unspecified whether esophagitis present Dysphagia, unspecified type Family history of colon cancer Family history of malignant neoplasm of gastrointestinal tract [facility] Diagnosis Dysphagia, unspecified type- Primary Diarrhea, unspecified type documented in this encounter [facility] Chief Complaint and Reason for Visit [...] Will No October 28 4:58pm Power of Sprinkler Worker No October 28 4:58pm Advance Directive Response Recorded Date/ Time Name of Medical Power of Sprinkler Worker DAUGHTER July 28, 2022 8:30am Living Will Yes July 28 8:30am Power of Sprinkler Worker Yes July 28 8:30am Advance Directive Response Recorded Date/ Time Living Will Yes July 28 7:30am Power of Sprinkler Worker Yes July 28 7:30am Advance Directive Response Recorded Date/ Time Living Will Yes July 28 8:30am Power of Sprinkler Worker Yes July 28 8:30am Family History No [...] Primary Care Provider, Refe rring Provider Active Alesha Celis ONLINE MERCHANT, ONLINE MERCHANT-C Attending Provider Active Team Status: Inactive Member Role Status Dates Dr. To Carroll MD Primary Care Provider, Attending Provider, Referring Provider Active Team Status: Inactive Member Role Status Dates Dr. To Carroll MD Primary Care Provider, Atte nding Provider Active Soaking Pit Operator Relationship Specialty Start Date End Date Cristy Carroll MD [facility] [address] [place], [place] [address] PCP - General Family Medicine 06/03/25 Doug Alvarez DO [facility] [address] [address] Gastroenterology 06/03/25 Soaking Pit Operator Relationship Specialty Start Date End Date Cristy Carroll MD [address] [place], [place] [address] PCP - General Family Medicine 06/03/25 Doug Alvarez DO [address] [address] Gastroenterology 06/03/25 Soaking Pit Operator Relationship Specialty Start Date End Date Cristy Carroll MD [address] [facility] [place], [place] [address] PCP - General Family Medicine 06/03/25 Doug Alvarez DO [address] [id number] Gastroenterology 06/03/25 Source Comments (unrecognize d section and content) In the event this informatio n is protected by the Federal Confidentiality of Alcohol and Drug Abuse Patient Records regulations: The Federal rules restrict any use of the information to criminally investigate or prosecute any alcohol or drug abuse patient.[facility] the event this information is protected by the Federal Confidentiality of Alcohol and Drug Abuse Patient Records regulations: The Federal rules restrict any use of the information to criminally investigate or prosecute any alcohol or drug abuse patient.[facility] the event this information is protected by the Federal Confidentiality of Alcohol and Drug Abuse Patient Records regulations: The Federal rules restrict any use of the information to criminally investigate or prosecute any alcohol or drug abuse patient.[facility] Reason for Visit (unrecogniz ed section and content) Reason Comments Consult colonoscopy Reason Comments Request Outside Medical Records Reason Comments Consult Has had diarrhea for past 26 years INFORMATION SOURCE (unrecogn ized section and content) DATE CREATED AUTHOR 08/21/2025 [facility] DATE CREATED AUTHOR AUTHOR'S ORGANIZ ATION 08/25/2025 [facility] DATE CREATED AUTHOR AUTHOR'S ORGANIZ ATION 08/25/2025 [facility] FOR RECORDS PERTAINING TO PATIENTS WHO ARE [...] BE BASED ON THE PRIMARY CLINICAL RECORDS. [employer] [facility]. provides no warranty or guarantee of the accuracy or completeness of information in this document.
== END | disposition home or self-care (01) ==
LOC: OPBI 06:59
PROVIDERS: PCP Family Medicine; Referring Provider Family Medicine; Visit Provider Family Medicine
DX: Z12.31 Encounter for screening mammogram for malignant neoplasm of breast (principal)
CPT/HCPCS: 77063; 77067